=== PATIENT | female | born 1995 | race Caucasian/White ===

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

== ENCOUNTER 2017-01-13 04:04 | Emergency (ER) | payer OTHER ==
[2017-01-13 04:21] VITALS: TEMP 98.2
--- NOTE | 2017-01-13 04:39 | ED ---
General Adult HPI - General Chief complaint: Abdominal Pain Stated complaint: Abdominal Pain 14wks Preg Time Seen by Provider: 01/13/17 04:20 Source: patient, RN notes reviewed Mode of arrival: ambulatory Limitations: no limitations - History of Present Illness Initial comments: This is a 22-year-old female who presents emergency Department 14 weeks . She comes in because she's having mid abdominal pain. Patient states it started half an hour prior to arrival. Patient denies any vomiting but she states she is mildly nauseated. Patient denies any diarrhea. Patient denies any fever or chills. Patient states the pain Comes and goes in waves. Patient denies any chest pain difficulty breathing or shortness of breath. - Related Data Home Medications Medication Instructions Recorded Confirmed No Known Home Medications [No 11/21/16 01/13/17 Known Home Medications] Allergies Allergy/AdvReac Type Severity Reaction Status Date / Time nicotine [From Habitrol] Allergy Intermediate Rash/Hives Verified 01/13/17 04:20 adhesive tape Allergy Rash/Hives Verified 01/13/17 04:20 shrimp Allergy Severe Swelling Uncoded 01/13/17 04:20 plastic tape Allergy Intermediate Rash/Hives Uncoded 01/13/17 04:20 Review of Systems ROS Statement: Those systems with pertinent positive or pertinent negative responses have been documented in the HPI. ROS Other: All systems not noted in ROS Statement are negative. Past Medical History Past Medical History: No Reported History Additional Past Medical History / Comment(s): Son born 05/24/2015 Obstetric history: This is her first and she has had care with Dr. Sage since 10 weeks. A+, abs neg, Rub Imm, RPR Nr, Hep B neg, normal 1hr GTT. GBS neg. She did have some contractions at 31 weeks with +FFN so received 2 doses of celestone. History of Any Multi-Drug Resistant Organisms: None Reported Past Surgical History: Adenoidectomy, Tonsillectomy Past Anesthesia/Blood Transfusion Reactions: No Reported Reaction Past Psychological History: Anxiety, Bipolar, Depression, PTSD Smoking Status: Current every day smoker Past Alcohol Use History: None Reported Additional Past Alcohol Use History / Comment(s): Patient is a smoker one pack per day for 4 years. She states she does smoke marijuana on a regular basis. She denies any other street drug use. She denies any alcohol abuse. She is single and lives at home with her parents. She has a 5-month-old son. Past Drug Use History: None Reported - Past Family History Father Additional Family Medical History / Comment(s): Father is alive at age 40 with no major medical problems. Brother(s) Additional Family Medical History / Comment(s): Patient has 1 brother and 2 sisters with no major medical problems. Mother Family Medical History: No Reported History Additional Family Medical History / Comment(s): Mother is alive at age 40 with no major medical problems. General Exam - General Exam Comments Initial Comments: GENERAL: Patient is well-developed and well-nourished. Patient is nontoxic and well- hydrated and is in no acute distress. ENT: Neck is soft and supple. No significant lymphadenopathy is noted. Oropharynx is clear. Moist mucous membranes. Neck has full range of motion without eliciting any pain. EYES: The sclera were anicteric and conjunctiva were pink and moist. Extraocular movements were intact and pupils were equal round and reactive to light. Eyelids were unremarkable. PULMONARY: Unlabored respirations. Good breath sounds bilaterally. No audible rales rhonchi or wheezing was noted. CARDIOVASCULAR: There is a regular rate and rhythm without any murmurs gallops or rubs. ABDOMEN: Soft and nontender with normal bowel sounds. No palpable organomegaly was noted. There is no palpable pulsatile mass. SKIN: Skin is clear with no lesions or rashes and otherwise unremarkable. NEUROLOGIC: Patient is alert and oriented x3. Cranial nerves II through XII are grossly intact. Motor and sensory are also intact. Normal speech, volume and content. Symmetrical smile. MUSCULOSKELETAL: Normal extremities with adequate strength and full range of motion. No lower extremity swelling or edema. No calf tenderness. LYMPHATICS: No significant lymphadenopathy is noted PSYCHIATRIC: Normal psychiatric evaluation. Limitations: no limitations Course Vital Signs 01/13/17 04:16 Temperature 98.2 F Pulse Rate 82 Respiratory 18 Rate Blood Pressure 111/68 O2 Sat by Pulse 96 Oximetry Medical Decision Making - Medical Decision Making Patient is having no pain at this time. - Lab Data Result diagrams: 01/13/17 04:44 01/13/17 04:44 Lab Results 01/13/17 01/13/17 01/13/17 Range/Units 04:25 04:44 04:44 WBC 11.4 H (4.0-11.0) k/uL RBC 4.13 (3.80-5.40) m/uL Hgb 12.8 (11.4-16.0) gm/dL Hct 36.7 (34.0-46.0) % MCV 88.9 (80.0-100.0) fL MCH 30.9 (25.0-35.0) pg MCHC 34.8 (31.0-37.0) g/dL RDW 13.5 (11.5-15.5) % Plt Count 232 (150-450) k/uL Neutrophils % 80 % Lymphocytes % 16 % Monocytes % 3 % Eosinophils % 1 % Basophils % 0 % Neutrophils # 9.1 H (1.3-7.7) k/uL Lymphocytes # 1.8 (1.0-4.8) k/uL Monocytes # 0.3 (0-1.0) k/uL Eosinophils # 0.1 (0-0.7) k/uL Basophils # 0.0 (0-0.2) k/uL Sodium 138 (137-145) mmol/L Potassium 3.7 (3.5-5.1) mmol/L Chloride 109 H (98-107) mmol/L Carbon Dioxide 20 L (22-30) mmol/L Anion Gap 9 mmol/L BUN 5 L (7-17) mg/dL Creatinine 0.50 L (0.52-1.04) mg/dL Est GFR (MDRD) Af Amer >60 (>60 ml/min/1.73 sqM) Est GFR (MDRD) Non-Af >60 (>60 ml/min/1.73 sqM) Glucose 91 (74-99) mg/dL Calcium 9.3 (8.4-10.2) mg/dL Total Bilirubin 0.5 (0.2-1.3) mg/dL AST 15 (14-36) U/L ALT 21 (9-52) U/L Alkaline Phosphatase 54 (38-126) U/L Total Protein 6.8 (6.3-8.2) g/dL Albumin 3.9 (3.5-5.0) g/dL Urine Color Yellow Urine Appearance Clear (Clear) Urine pH 6.5 (5.0-8.0) Ur Specific [place] 1.006 (1.001-1.035) Urine Protein Trace H (Negative) Urine Glucose (UA) Negative (Negative) Urine Ketones 2+ H (Negative) Urine Blood Negative (Negative) Urine Nitrite Negative (Negative) Urine Bilirubin Negative (Negative) Urine Urobilinogen <2.0 (<2.0) mg/dL Ur Leukocyte Esterase Moderate H (Negative) Urine RBC 1 (0-5) /hpf Urine WBC 1 (0-5) /hpf Ur Squamous Epith Cells 2 (0-4) /hpf Urine Mucus Rare H (None) /hpf Disposition Clinical Impression: Abdominal pain Disposition: HOME SELF-CARE Condition: Good Instructions: Abdominal Pain (ED) Time of Disposition: 06:03
[2017-01-13 04:47] LABS: Appearance,Urine Clear (Clear); Bilirubin,Urine Negative (Negative); Glucose,Urine (UA) Negative (Negative); Ketones,Urine 2+ (Negative); Leukocyte Esterase,Urine Moderate (Negative); Mucus,Urine Rare /hpf; Nitrite,Urine Negative (Negative); PH, Urine 6.5 (5.0-8.0); Particle Count 6614; Protein,Urine Trace (Negative); RBC,Urine 1 /hpf (0-5); Specific Gravity,Urine 1.006 (1.001-1.035); Squamous Epithelial Cell,Urine 2 /hpf (0-4); UA Billing (MACRO vs. MICRO) MICRO; Urobilinogen,Urine <2.0 mg/dL (<2.0); WBC,Urine 1 /hpf (0-5)
[2017-01-13 04:49] LABS: Basophils % (A) 0 %; CH 31.7; CHCM 35.8; Eosinophils # (A) 0.1 k/uL (0-0.7); Eosinophils % (A) 1 %; HCT 36.7 % (34.0-46.0); HDW 2.55; HGB 12.8 gm/dL (11.4-16.0); Luc # (Auto) 0.12; Luc % (Auto) 1; Lymphocytes # (A) 1.8 k/uL (1.0-4.8); Lymphocytes % (A) 16 %; MCH 30.9 pg (25.0-35.0); MCHC 34.8 g/dL (31.0-37.0); MCV 88.9 fL (80.0-100.0); Mean Platelet Volume 7.2; Monocytes # (A) 0.3 k/uL (0-1.0); Monocytes % (A) 3 %; Neutrophils # (A) 9.1 k/uL (1.3-7.7); Neutrophils % (A) 80 %; RBC 4.13 m/uL (3.80-5.40); RDW 13.5 % (11.5-15.5); WBC 11.4 k/uL (4.0-11.0); WBC (Perox) 11.52
[2017-01-13 05:00] LABS: ALT 21 U/L (9-52); AST 15 U/L (14-36); Alkaline Phosphatase 54 U/L (38-126); Anion Gap 9 mmol/L; Blood Urea Nitrogen 5 mg/dL (7-17); Calcium 9.3 mg/dL (8.4-10.2); Carbon Dioxide 20 mmol/L (22-30); Chloride 109 mmol/L (98-107); Glucose 91 mg/dL (74-99); Non-African American GFR(MDRD) >60 (>60 ml/min/1.73 sqM); Potassium 3.7 mmol/L (3.5-5.1); Sodium 138 mmol/L (137-145); Total Bilirubin 0.5 mg/dL (0.2-1.3); Total Protein 6.8 g/dL (6.3-8.2)
[2017-01-13 06:15] VITALS: BP 110/57; PULSE 75; RESP 16
== END 2017-01-13 06:15 | disposition home or self-care (01) ==
LOC: EC 04:04
DX: O99.89 Other specified diseases and conditions complicating pregnancy, childbirth and the puerperium (principal); R10.9 Unspecified abdominal pain; R11.0 Nausea; O99.332 Smoking (tobacco) complicating pregnancy, second trimester; F17.200 Nicotine dependence, unspecified, uncomplicated; Z91.013 Allergy to seafood; Z91.048 Other nonmedicinal substance allergy status; Z91.09 Other allergy status, other than to drugs and biological substances; Z3A.14 14 weeks gestation of pregnancy
CPT/HCPCS: 36415; 80053; 81001; 85025; 99283

== ENCOUNTER 2017-02-11 22:32 | Emergency (ER) | payer OTHER ==
[2017-02-11 22:37] VITALS: BP 108/65; PULSE 87; RESP 18; TEMP 97
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
== END 2017-02-11 23:06 | disposition home or self-care (01) ==
LOC: EC 22:32
DX: O99.89 Other specified diseases and conditions complicating pregnancy, childbirth and the puerperium (principal); R10.9 Unspecified abdominal pain; O99.332 Smoking (tobacco) complicating pregnancy, second trimester; F17.200 Nicotine dependence, unspecified, uncomplicated; Z91.013 Allergy to seafood; Z91.09 Other allergy status, other than to drugs and biological substances; Z3A.18 18 weeks gestation of pregnancy; W50.1XXA Accidental kick by another person, initial encounter
CPT/HCPCS: 99283

== ENCOUNTER 2017-03-22 13:42 | Emergency (ER) | payer OTHER ==
[2017-03-22 13:50] VITALS: BP 116/67; PULSE 88; RESP 16; TEMP 97
--- NOTE | 2017-03-22 14:13 | ED ---
General Adult HPI - General Chief complaint: Extremity Injury, Upper Stated complaint: R arm injury Time Seen by Provider: 03/22/17 13:56 Source: patient, RN notes reviewed Mode of arrival: ambulatory Limitations: no limitations - History of Present Illness Initial comments: Patient 22-year-old female who presents emergency room today with chief complaint of injury to the right wrist that occurred proximal to half hour ago. She does admit that she accidentally closed the car door on her right wrist. Patient does admit to pain locally as worse with certain movements flexion and extension at the right wrist. He denies any other complaints or associated symptoms. Does admit that she is approximately 23 weeks . Patient denies any recent fever, chills, shortness of breath, chest pain, back pain, abdominal pain, nausea or vomiting, numbness or tingling, dysuria or hematuria, constipation or diarrhea, headaches or visual changes, or any other complaints. - Related Data Home Medications Medication Instructions Recorded Confirmed Cog-Qvge-Vnmms Acid 1 cap PO DAILY 02/11/17 02/11/17 [-U Capsule (formulary)] Allergies Allergy/AdvReac Type Severity Reaction Status Date / Time adhesive tape Allergy Rash/Hives Verified 03/22/17 13:49 shellfish derived [Shrimp] Allergy Anaphylaxis Verified 03/22/17 13:49 soap Allergy Rash/Hives Verified 03/22/17 13:49 Review of Systems ROS Statement: Those systems with pertinent positive or pertinent negative responses have been documented in the HPI. ROS Other: All systems not noted in ROS Statement are negative. Past Medical History Past Medical History: No Reported History Additional Past Medical History / Comment(s): Son born 05/24/2015 Obstetric history: This is her first and she has had care with Dr. Sage since 10 weeks. A+, abs neg, Rub Imm, RPR Nr, Hep B neg, normal 1hr GTT. GBS neg. She did have some contractions at 31 weeks with +FFN so received 2 doses of celestone. History of Any Multi-Drug Resistant Organisms: None Reported Past Surgical History: Adenoidectomy, Tonsillectomy Past Anesthesia/Blood Transfusion Reactions: No Reported Reaction Past Psychological History: Anxiety, Bipolar, Depression, PTSD Smoking Status: Current every day smoker Past Alcohol Use History: None Reported Past Drug Use History: None Reported - Past Family History Father Additional Family Medical History / Comment(s): Father is alive at age 40 with no major medical problems. Brother(s) Additional Family Medical History / Comment(s): Patient has 1 brother and 2 sisters with no major medical problems. Mother Family Medical History: No Reported History Additional Family Medical History / Comment(s): Mother is alive at age 40 with no major medical problems. General Exam - General Exam Comments Initial Comments: General: The patient is awake and alert, in no distress, and does not appear acutely ill. Neck: The neck is supple, there is no tenderness or JVD. Cardiovascular: There is a regular rate and rhythm. No murmur, rub or gallop is appreciated. Respiratory: Lungs are clear to auscultation, respirations are non-labored, breath sounds are equal. No wheezes, stridor, rales, or rhonchi. Musculoskeletal: Patient has normal appearance the right wrist no obvious deformity. No swelling or bruising. Shows good range of motion. Sensations intact Refill less than 2 seconds. Pulses equal bilaterally 2+. Mild tenderness over the distal ulna and radius. Neurological: A&O x 3. CN II-XII intact, There are no obvious motor or sensory deficits. Coordination appears grossly intact. Speech is normal. Skin: Skin is warm and dry and no rashes or lesions are noted. Psychiatric: Normal mood and affect. Limitations: no limitations Course Vital Signs 03/22/17 13:47 Temperature 97.0 F L Pulse Rate 88 Respiratory 16 Rate Blood Pressure 116/67 O2 Sat by Pulse 97 Oximetry Medical Decision Making - Medical Decision Making Patient currently 23 weeks . Options of a x-ray were discussed. This time shows good range of motion with minimal tenderness. She has declined x- ray. Patient has been splinted in a short arm thumb spica. Advised to follow- up family doctor have spoken removed in 2 days. Advised to return if any symptoms increase or worsen. Advised continued ice elevate the affected area. Disposition Clinical Impression: Wrist injury Disposition: HOME SELF-CARE Condition: Good Instructions: Wrist Injury (ED) Additional Instructions: Please continue to ice elevate the affected area at least splint on over the next 2 days. Please follow-up with family doctor in the next 2 days of symptoms have not improved. Please return to emergency room if the symptoms increase or worsen or for any other concerns. Referrals: None,Stated [Primary Care Provider] - 1-2 days Bill Matthews MD [STAFF PHYSICIAN] - 1-2 days Time of Disposition: 14:11
== END 2017-03-22 14:16 | disposition home or self-care (01) ==
LOC: EC 13:42
DX: O9A.212 Injury, poisoning and certain other consequences of external causes complicating pregnancy, second trimester (principal); S69.91XA Unspecified injury of right wrist, hand and finger(s), initial encounter; O99.332 Smoking (tobacco) complicating pregnancy, second trimester; F17.200 Nicotine dependence, unspecified, uncomplicated; Z91.048 Other nonmedicinal substance allergy status; Z91.013 Allergy to seafood; Z91.09 Other allergy status, other than to drugs and biological substances; Z79.899 Other long term (current) drug therapy; Z3A.23 23 weeks gestation of pregnancy; W22.8XXA Striking against or struck by other objects, initial encounter
CPT/HCPCS: 29125; 99283

== ENCOUNTER 2017-03-22 19:41 | Emergency (ER) | payer OTHER ==
[2017-03-22 19:57] VITALS: BP 109/61; PULSE 80; RESP 16; TEMP 97.7
--- NOTE | 2017-03-22 20:13 | ED ---
General Adult HPI - General Chief complaint: Extremity Injury, Upper Stated complaint: arm injury-return visit Time Seen by Provider: 03/22/17 20:03 Source: patient, RN notes reviewed, old records reviewed Mode of arrival: ambulatory Limitations: no limitations - History of Present Illness Initial comments: Patient 22-year-old female who presents emergency room today with chief complaint of injury to the right wrist that occurred earlier today. When she accidentally closed in a car door. Patient was seen here in the emergency room by myself earlier for the same complaint. At that time it was discussed about an x-ray. She had declined at that time due to she currently 23 weeks . This time she states that the pain has been increasing throughout the day. She states she is more concerned like to have an x-ray at this time. She does admit that she did go home to ice the area has been continue to wear the splint. Denies any new injury or trauma. Patient denies any recent fever, chills, shortness of breath, chest pain, back pain, abdominal pain, nausea or vomiting, numbness or tingling, dysuria or hematuria, constipation or diarrhea, headaches or visual changes, or any other complaints. - Related Data Home Medications Medication Instructions Recorded Confirmed Qxp-Ukts-Epmzl Acid 1 cap PO DAILY 02/11/17 02/11/17 [-U Capsule (formulary)] Allergies Allergy/AdvReac Type Severity Reaction Status Date / Time adhesive tape Allergy Rash/Hives Verified 03/22/17 19:58 shellfish derived [Shrimp] Allergy Anaphylaxis Verified 03/22/17 19:58 soap Allergy Rash/Hives Verified 03/22/17 19:58 Review of Systems ROS Statement: Those systems with pertinent positive or pertinent negative responses have been documented in the HPI. ROS Other: All systems not noted in ROS Statement are negative. Past Medical History Past Medical History: No Reported History Additional Past Medical History / Comment(s): A+, abs neg History of Any Multi-Drug Resistant Organisms: None Reported Past Surgical History: Adenoidectomy, Tonsillectomy Past Anesthesia/Blood Transfusion Reactions: No Reported Reaction Past Psychological History: Anxiety, Bipolar, Depression, PTSD Smoking Status: Current every day smoker Past Alcohol Use History: None Reported Past Drug Use History: None Reported - Past Family History Father Additional Family Medical History / Comment(s): Father is alive at age 40 with no major medical problems. Brother(s) Additional Family Medical History / Comment(s): Patient has 1 brother and 2 sisters with no major medical problems. Mother Family Medical History: No Reported History Additional Family Medical History / Comment(s): Mother is alive at age 40 with no major medical problems. General Exam - General Exam Comments Initial Comments: General: The patient is awake and alert, in no distress, and does not appear acutely ill. Neck: The neck is supple, there is no tenderness or JVD. Cardiovascular: There is a regular rate and rhythm. No murmur, rub or gallop is appreciated. Respiratory: Lungs are clear to auscultation, respirations are non-labored, breath sounds are equal. No wheezes, stridor, rales, or rhonchi. Musculoskeletal: Patient has normal appearance of her right wrist no deformity. Shows limited range of motion both flexion and extension at the right wrist due to pain. Locally tender over the distal ulna and radius. No tenderness on the digits. Cap refill less than 2 seconds. Sensations are intact with pulses equal bilaterally 2+. Strength is 5/5 down to the hand and of the right elbow. Wrist 4/5 due to pain with both flexion and extension. Neurological: A&O x 3. CN II-XII intact, There are no obvious motor or sensory deficits. Coordination appears grossly intact. Speech is normal. Skin: Skin is warm and dry and no rashes or lesions are noted. Psychiatric: Normal mood and affect. Limitations: no limitations Course Vital Signs 03/22/17 19:53 Temperature 97.7 F Pulse Rate 80 Respiratory 16 Rate Blood Pressure 109/61 O2 Sat by Pulse 97 Oximetry Medical Decision Making - Medical Decision Making X-ray reviewed and read by radiology negative for any acute fracture dislocation. Results were discussed with the patient. Patient be discharged home and advised to follow-up with orthopedics if symptoms persist. Patient has been resplinted in a thumb spica short arm splint on the right. Neurovascular rechecked and intact. Patient advised continued ice elevate and use Tylenol for pain. Disposition Clinical Impression: Wrist injury Disposition: HOME SELF-CARE Condition: Good Instructions: Wrist Injury (ED) Additional Instructions: Please continue to ice elevate the affected area at least 4 times daily. Please use Tylenol for pain. Please follow-up with orthopedics if symptoms persist over the next 7-10 days for repeat x-rays as discussed. Please return to emergency room if any symptoms worsen or for any other concerns. Referrals: None,Stated [Primary Care Provider] - 1-2 days Time of Disposition: 20:39
--- NOTE | 2017-03-22 20:27 | XR ---
EXAMINATION TYPE: XR wrist complete RT DATE OF EXAM: 03/22/2017 COMPARISON: NONE HISTORY: Pain TECHNIQUE: 4 views FINDINGS: I see no fracture nor dislocation. Joint spaces are normal. There are no pathologic calcifi cations. IMPRESSION: Normal right wrist
== END 2017-03-22 20:48 | disposition home or self-care (01) ==
LOC: EC 19:41
DX: O9A.212 Injury, poisoning and certain other consequences of external causes complicating pregnancy, second trimester (principal); S69.91XA Unspecified injury of right wrist, hand and finger(s), initial encounter; F17.200 Nicotine dependence, unspecified, uncomplicated; Z79.899 Other long term (current) drug therapy; Z91.013 Allergy to seafood; Z91.048 Other nonmedicinal substance allergy status; Z3A.23 23 weeks gestation of pregnancy; X58.XXXA Exposure to other specified factors, initial encounter; Y93.89 Activity, other specified
CPT/HCPCS: 29125; 99283

== ENCOUNTER 2017-04-19 11:55 | Outpatient (CLI) | payer OTHER ==
[2017-04-19 12:24] VITALS: BP 103/50; PULSE 64; RESP 16; TEMP 97.8
--- NOTE | 2017-04-20 07:31 | P.MSEPDOC ---
Presenting Problems - Arrival Data Date of Arrival on Unit: 04/19/17 Time of Arrival on Unit: 12:12 Mode of Transport: Ambulatory - Complaint OB-Reason for Admission/Chief Complaint: Other Comment: pt arrived c/o abd discomfort Medical History - Information : 2 Para: 1 Term: 1 : 0 Abortions: Spontaneous or Elective: 0 Number of Living Children: 1 - Gestational Age Expected Date of Delivery: 07/14/17 Gestational Age by ALEJANDRO (wks/days): 27 Weeks and 6 Days - History Complications: Smoker Review of Systems - Review of Systems Constitutional: No problems Breast: No problems ENT: No problems Cardiovascular: No problems Respiratory: No problems Gastrointestinal: No problems Genitourinary: No problems Musculoskeletal: No problems Neurological: No problems Skin: No problems Vital Signs - Temperature Temperature: 97.8 F Temperature Source: Oral - Pulse Right Brachial Pulse Rate: 64 Pulse Assessment Method: Automatic Cuff - Respirations Respiratory Rate: 16 Oxygen Delivery Method: Room Air - Blood Pressure Right Arm Blood Pressure: 103/50 Blood Pressure Mean: 67 Blood Pressure Source: Automatic Cuff Medical Screen Scoring (Post) - Cervical Exam Dilation: Exam Deferred Effacement: Exam Deferred - Uterine Contractions Frequency: N/A Duration: N/A Intensity: N/A - Maternal Vital Signs Maternal Respirations: N/A - Maternal Trauma Maternal Trauma: N/A - Assessment Heart Rate: 140 Heart Rate - NICHD Category: Category I (Normal) = 0 Position: N/A Station: N/A - Total Score Total Score (Post): 0 - Post Treatment Level of Risk Post Treatment Level of Risk: Low (0-5) Physician Notification (Post) - Physician Notified Physician Notified Date: 04/19/17 Physician Notified Time: 14:00 Physician/Practitioner Notified:: dr davila Spoke With: dr davila New Order Received: Yes - Notification Comment Comment: discharge to home Disposition - Disposition OB Disposition: Discharge to home Discharge Date: 04/19/17 Discharge Time: 14:10 I agree with the RN Medical Screening Exam: Yes Risk & Benefit of care provided described in d/c instruction: Yes Diagnosis: PELVIC AND PERINEAL PAIN
== END 2017-04-19 14:10 | disposition home or self-care (01) ==
LOC: FBPOP 11:55
PROVIDERS: ATTEND Obstetrics & Gynecology
DX: O99.89 Other specified diseases and conditions complicating pregnancy, childbirth and the puerperium (principal); R10.2 Pelvic and perineal pain; Z3A.27 27 weeks gestation of pregnancy
CPT/HCPCS: 99213

== ENCOUNTER 2017-04-27 11:39 | Outpatient (CLI) | payer OTHER ==
[2017-04-27 12:30] VITALS: BP 119/73; PULSE 74; RESP 17; TEMP 96.5
--- NOTE | 2017-04-27 23:35 | P.MSEPDOC ---
Presenting Problems - Arrival Data Date of Arrival on Unit: 04/27/17 Time of Arrival on Unit: 11:32 Mode of Transport: Wheelchair - Complaint OB-Reason for Admission/Chief Complaint: Rule Out PROM Comment: Possible rupture of membranes about 1030 this AM Medical History - Information : 2 Para: 1 Term: 1 : 0 Abortions: Spontaneous or Elective: 0 Number of Living Children: 1 - Gestational Age Expected Date of Delivery: 07/14/17 Gestational Age by ALEJANDRO (wks/days): 28 Weeks and 6 Days - History Complications: Smoker Comment: Positive FFN in first -delivered full term, however Review of Systems - Review of Systems Constitutional: No problems Breast: No problems ENT: No problems Cardiovascular: No problems Respiratory: No problems Gastrointestinal: No problems Genitourinary: No problems Musculoskeletal: No problems Neurological: No problems Skin: No problems Vital Signs - Temperature Temperature: 96.5 F Temperature Source: Temporal Artery Scan - Pulse Pulse Oximetery Pulse Rate: 74 Pulse Assessment Method: Pulse Oximetry - Respirations Respiratory Rate: 17 Oxygen Delivery Method: Room Air O2 Sat by Pulse Oximetry: 100 - Blood Pressure Right Arm Blood Pressure: 119/73 Blood Pressure Mean: 88 Blood Pressure Source: Automatic Cuff Medical Screen Scoring (Pre) - Cervical Exam Dilation: 0 cm = 0 Membranes: Intact - Uterine Contractions Frequency: N/A Duration: N/A Intensity: N/A - Maternal Vital Signs Maternal Temperature: N/A Maternal Blood Pressure: N/A Signs of Preeclampsia: N/A Maternal Respirations: N/A - Maternal Trauma Maternal Trauma: N/A - Assessment Baseline FHR: 135 Heart Rate - NICHD Category: Category I (Normal) = 0 NST: Reactive Position: N/A Station: N/A - Total Score Total Score (Pre): 0 - Level of Risk Level of Risk: Low (0-5) Physician Notification (Pre) - Physician Notified Physician Notified Date: 04/27/17 Physician Notified Time: 11:47 Physician/Practitioner Notifed:: Chu Spoke With: Chu New Order Received: Yes - Notification Comment Comment: ORder to collect FFN, and perform amni-sure. If negative amni-sure, check cervix and report back to Dr. Sage. Will send FFN if patient is dilated. If closed, do not need to send FFN and patient may be discharged home. Disposition - Disposition OB Disposition: Discharge to home Discharge Date: 04/27/17 Discharge Time: 12:20 I agree with the RN Medical Screening Exam: Yes Risk & Benefit of care provided described in d/c instruction: Yes Diagnosis: VAGINITIS, VULVITIS AND VULVOVAGINITIS IN DIS CLASSD [id number]
== END 2017-04-27 12:20 | disposition home or self-care (01) ==
LOC: FBPOP 11:39
PROVIDERS: ATTEND Obstetrics & Gynecology
DX: O23.593 Infection of other part of genital tract in pregnancy, third trimester (principal); Z3A.28 28 weeks gestation of pregnancy
CPT/HCPCS: 84112; G0463; 99213

== ENCOUNTER → 2017-05-12 | Outpatient (CLI) | payer OTHER ==
[2017-05-12 13:43] LABS: CH 31.8; CHCM 34.6; HCT 34.8 % (34.0-46.0); HDW 3.09; HGB 11.8 gm/dL (11.4-16.0); MCH 31.3 pg (25.0-35.0); MCHC 33.9 g/dL (31.0-37.0); MCV 92.4 fL (80.0-100.0); Mean Platelet Volume 7.9; RBC 3.77 m/uL (3.80-5.40); RDW 13.1 % (11.5-15.5); WBC 8.6 k/uL (4.0-11.0)
== END | disposition home or self-care (01) ==
LOC: LABWHC1 12:12
PROVIDERS: ATTEND Obstetrics & Gynecology
DX: Z34.83 Encounter for supervision of other normal pregnancy, third trimester (principal); Z3A.00 Weeks of gestation of pregnancy not specified
CPT/HCPCS: 36415; 82950; 85027

== ENCOUNTER 2017-05-23 21:39 | Observation (INO) | payer OTHER ==
[2017-05-23 22:19] LABS: Appearance,Urine Clear (Clear); Bilirubin,Urine Negative (Negative); Glucose,Urine (UA) Negative (Negative); Ketones,Urine Negative (Negative); Leukocyte Esterase,Urine Large (Negative); Mucus,Urine Rare /hpf; Nitrite,Urine Negative (Negative); Particle Count 7088; Protein,Urine Negative (Negative); RBC,Urine 1 /hpf (0-5); Specific Gravity,Urine 1.017 (1.001-1.035); Squamous Epithelial Cell,Urine 3 /hpf (0-4); UA Billing (MACRO vs. MICRO) MICRO; Urobilinogen,Urine <2.0 mg/dL (<2.0); WBC,Urine 8 /hpf (0-5)
[2017-05-23 22:45] VITALS: BP 117/66; PULSE 62; RESP 16; TEMP 97.1
[2017-05-24] MEDS: BETAMET ACET-BETAMETH SOD PHOS 6 MG/ML VIAL IM SCH ×2 (00:18→23:48)
[2017-05-24] MEDS: LACTATED RINGERS 1,000 ML IV SCH ×3 (00:38→17:02)
[2017-05-24 00:43] VITALS: BMI 22.4
[2017-05-24] MEDS: ACETAMINOPHEN TAB 325 MG TAB PO PRN ×4 (02:05→18:56)
--- NOTE | 2017-05-24 08:13 | US ---
EXAMINATION TYPE: US OB limited DATE OF EXAM: 05/24/2017 COMPARISON: US 12/17/2016 CLINICAL HISTORY: NELI. Contractions x 2 days EXAM PERFORMED: Transabdominal (TA) GESTATIONAL AGE / DATING Physician Established: (32 weeks/5 days) EDC: 07/14/2017 No growth performed on today?s study per ordering physician SURVEY PLACENTA: posterior PREVIA: no NELI: 11.1 cm Normal Ultrasound evidence of premature rupture of membranes? no CERVICAL LENGTH (transabdominal: norm > 3.0cm): 3.8 cm Ultrasound evidence of cervical incompetence? no (Tech?if abnormal transabdominally?image transvaginally to substantiate abnormality.) PRESENTATION: Vertex HEART RATE: 158 bpm RHYTHM: Normal IMPRESSION: 1. Single intrauterine gestation in the cephalic presentation. Cardiac activity measures 158 bpm. 2. NELI measures 11.08 cm.
--- NOTE | 2017-05-24 08:46 | P.HPOB ---
History of Present Illness H&P Date: 05/24/17 Chief Complaint: Intrauterine at 32 weeks: labor Patient is a 22-year-old at 32 weeks gestation. She arrived yesterday for contractions and she was javy irregularly every 3-5 minutes. They were rated at 6-7 out of 10 for pain and she described a slight increase in pressure sensation. While she was here just during observation the contractions started to dissipate on their own but a fibronectin returned positive. She was noted to be fingertip dilated. Due to the positive fibronectin we are admitting her for 24-hour observation and steroids. A urinalysis shows slight increase in white blood cells and leukocyte esterase. She will early UTI as well. We'll initiate Keflex for this. She is otherwise stable. heart tones are in the 120s and are reactive. On physical exam vital signs are stable and she is afebrile. Heart regular, lungs clear, extremities without pain. Abdomen soft and contractions are their palpate as light. An ultrasound was done this morning with an NELI of 11. We' ll continue observational care for now. Past medical history none. Past surgical history tonsils and adenoids. Family history diabetes. Social history positive for tobacco abuse proxy for serous per day. She is advised to quit smoking. ALLERGIES none. Past Medical History Past Medical History: No Reported History Additional Past Medical History / Comment(s): A+, abs neg History of Any Multi-Drug Resistant Organisms: None Reported Past Surgical History: Adenoidectomy, Tonsillectomy Past Anesthesia/Blood Transfusion Reactions: No Reported Reaction Past Psychological History: Anxiety, Bipolar, Depression, PTSD Smoking Status: Current every day smoker Past Alcohol Use History: None Reported Additional Past Alcohol Use History / Comment(s): Patient is a smoker one pack per day for 4 years. She states she does smoke marijuana on a regular basis. She denies any other street drug use. She denies any alcohol abuse. She is single and lives at home with her parents. She has a 5-month-old son. Past Drug Use History: None Reported - Past Family History Father Additional Family Medical History / Comment(s): Father is alive at age 40 with no major medical problems. Brother(s) Additional Family Medical History / Comment(s): Patient has 1 brother and 2 sisters with no major medical problems. Mother Family Medical History: No Reported History Additional Family Medical History / Comment(s): Mother is alive at age 40 with no major medical problems. Medications and Allergies Home Medications Medication Instructions Recorded Confirmed Type No Known Home Medications [No 04/18/17 05/23/17 History Known Home Medications] Allergies Allergy/AdvReac Type Severity Reaction Status Date / Time adhesive tape Allergy Rash/Hives Verified 05/23/17 21:54 shellfish derived [Shrimp] Allergy Anaphylaxis Verified 05/23/17 21:54 soap Allergy Rash/Hives Verified 05/23/17 21:54 Exam Osteopathic Statement: *. No significant issues noted on an osteopathic structural exam other than those noted in the History and Physical/Consult. - Vital Signs Vital signs: Vital Signs Temp Pulse Resp BP Pulse Ox 05/23/17 22:07 97.1 F L 62 16 117/66 97 Intake and Output 05/23/17 05/24/17 05/24/17 22:59 06:59 14:59 Other: # Voids 1 Weight 52.163 kg 52.163 kg Results Abnormal Lab Results - Last 24 Hours (Table) 05/23/17 Range/Units 22:08 Ur Leukocyte Esterase Large H (Negative) Urine WBC 8 H (0-5) /hpf Urine Mucus Rare H (None) /hpf
[2017-05-24] MEDS: CEPHALEXIN 500 MG CAP PO SCH ×4 (10:27→21:36)
[2017-05-25] MEDS: LACTATED RINGERS 1,000 ML IV SCH (00:50)
[2017-05-25] MEDS: ACETAMINOPHEN TAB 325 MG TAB PO PRN (07:34)
[2017-05-25] MEDS: CEPHALEXIN 500 MG CAP PO SCH (07:35)
--- NOTE | 2017-05-25 12:21 | P.DS ---
Providers Date of admission: 05/23/17 23:18 Expected date of discharge: 05/25/17 Attending physician: Ayan Kaur Primary care physician: Stated None - Discharge Diagnosis(es) (1) contractions positive FFN Current Visit: Yes Status: Acute Hospital Course: Pt was admitted with contractions and a +FFN. The contractions stopped without meds. She did receive 2 doses of celestone. She is doing very well now. cervix is fingertip and thick. She will be discharged home on pelvic rest to follow up with me next week. Plan - Discharge Summary New Discharge Prescriptions: No Action No Known Home Medications [No Known Home Medications] Discharge Medication List No Known Home Medications [No Known Home Medications] 04/18/17 [History] Follow up Appointment(s)/Referral(s): Elin Sage DO [Doctor of Osteopathic Medicine] - 1 Week Discharge Disposition: HOME SELF-CARE
--- NOTE | 2017-05-26 17:42 | P.MSEPDOC ---
Presenting Problems - Arrival Data Date of Arrival on Unit: 05/23/17 Time of Arrival on Unit: 21:41 Mode of Transport: Portable - Complaint OB-Reason for Admission/Chief Complaint: Possible Onset of Labor Comment: Contractions beginning about 1999 Medical History - Information : 2 Para: 1 Term: 1 : 0 Abortions: Spontaneous or Elective: 0 Number of Living Children: 1 - Gestational Age Expected Date of Delivery: 07/14/17 Gestational Age by ALEJANDRO (wks/days): 33 Weeks and 0 Days - History Complications: Smoker Review of Systems - Review of Systems Constitutional: No problems Breast: No problems ENT: No problems Cardiovascular: No problems Respiratory: No problems Gastrointestinal: No problems Genitourinary: No problems Musculoskeletal: No problems Neurological: No problems Skin: No problems Vital Signs - Temperature Temperature: 97.1 F Temperature Source: Temporal Artery Scan - Pulse Pulse Oximetery Pulse Rate: 62 Pulse Assessment Method: Pulse Oximetry - Respirations Respiratory Rate: 16 Oxygen Delivery Method: Room Air O2 Sat by Pulse Oximetry: 97 - Blood Pressure Right Arm Blood Pressure: 117/66 Blood Pressure Mean: 83 Blood Pressure Source: Automatic Cuff Medical Screen Scoring (Pre) - Cervical Exam Dilation: 0 cm = 0 Effacement: Exam Deferred Membranes: Intact - Uterine Contractions Frequency: < 36 weeks = 6 Duration: N/A Intensity: N/A - Maternal Vital Signs Maternal Temperature: N/A Maternal Blood Pressure: N/A Signs of Preeclampsia: N/A Maternal Respirations: N/A - Maternal Trauma Maternal Trauma: N/A - Assessment Baseline FHR: 135 Heart Rate - NICHD Category: Category I (Normal) = 0 NST: Reactive Position: N/A Station: N/A - Total Score Total Score (Pre): 6 - Level of Risk Level of Risk: Low (0-5) Physician Notification (Pre) - Physician Notified Physician Notified Date: 05/23/17 Physician Notified Time: 22:07 Physician/Practitioner Notifed:: Natasha Spoke With: Natasha New Order Received: Yes (see below) - Notification Comment Comment: Send FFN and U/A, call with results. Medical Screen Scoring (Post) - Cervical Exam Dilation: Exam Deferred Effacement: Exam Deferred Membranes: Intact - Uterine Contractions Frequency: < 36 weeks = 6 Duration: N/A Intensity: N/A - Maternal Vital Signs Maternal Temperature: N/A Maternal Blood Pressure: N/A Signs of Preeclampsia: N/A Maternal Respirations: N/A - Maternal Trauma Maternal Trauma: N/A - Assessment Heart Rate: 135 Heart Rate - NICHD Category: Category I (Normal) = 0 NST: Reactive Position: N/A Station: N/A - Total Score Total Score (Post): 6 - Post Treatment Level of Risk Post Treatment Level of Risk: Low (0-5) Physician Notification (Post) - Physician Notified Physician Notified Date: 05/23/17 Physician Notified Time: 23:05 Physician/Practitioner Notified:: Natasha Spoke With: Natasha New Order Received: Yes - Notification Comment Comment: Admit to L&D for OBV. Order for initial dose of celestone 12mg, and IV with LR for hydration. Regular diet. Disposition - Disposition OB Disposition: Observe Discharge Date: 05/25/17 Discharge Time: 12:29 I agree with the RN Medical Screening Exam: Yes Risk & Benefit of care provided described in d/c instruction: Yes Diagnosis: FALSE LABOR BEFORE 37 COMPLETED WEEKS OF GEST, THIRD TRI
== END 2017-05-25 12:45 | disposition home or self-care (01) ==
LOC: FBPOP 21:39 → 4FBP 23:18
PROVIDERS: ADMIT Obstetrics & Gynecology; ATTEND Obstetrics & Gynecology
DX: O60.03 Preterm labor without delivery, third trimester (principal); Z3A.32 32 weeks gestation of pregnancy; O23.43 Unspecified infection of urinary tract in pregnancy, third trimester; Z83.3 Family history of diabetes mellitus; F17.200 Nicotine dependence, unspecified, uncomplicated; O99.333 Smoking (tobacco) complicating pregnancy, third trimester; F12.90 Cannabis use, unspecified, uncomplicated; O99.323 Drug use complicating pregnancy, third trimester; Z91.013 Allergy to seafood; Z91.048 Other nonmedicinal substance allergy status
CPT/HCPCS: 59025; 96360; 96361 ×2; 96372; 82731; 81001; 76815; G0463; G0378 ×3; J0702; 99214

== ENCOUNTER 2017-05-26 12:55 | Outpatient (CLI) | payer OTHER ==
[2017-05-26 13:19] VITALS: BP 108/56; PULSE 71; RESP 18; TEMP 97.7
[2017-05-26 13:55] LABS: Amorphous Sediment,Urine Rare /hpf; Appearance,Urine Clear (Clear); Bacteria,Urine Rare /hpf; Bilirubin,Urine Negative (Negative); Glucose,Urine (UA) Negative (Negative); Ketones,Urine Negative (Negative); Leukocyte Esterase,Urine Small (Negative); Mucus,Urine Rare /hpf; Nitrite,Urine Negative (Negative); PH, Urine 7.5 (5.0-8.0); Particle Count 3436; Protein,Urine Negative (Negative); Specific Gravity,Urine 1.007 (1.001-1.035); Squamous Epithelial Cell,Urine 1 /hpf (0-4); UA Billing (MACRO vs. MICRO) MICRO; Urobilinogen,Urine <2.0 mg/dL (<2.0); WBC,Urine 1 /hpf (0-5)
--- NOTE | 2017-07-19 08:50 | P.MSEPDOC ---
Presenting Problems - Arrival Data Date of Arrival on Unit: 05/26/17 Time of Arrival on Unit: 13:00 Mode of Transport: Wheelchair - Complaint OB-Reason for Admission/Chief Complaint: Pain Comment: back pain 05/29 Medical History - Information : 2 Para: 1 Term: 1 : 0 Abortions: Spontaneous or Elective: 0 Number of Living Children: 1 - Gestational Age Gestational Age by ALEJANDRO (wks/days): 33 Weeks and 0 Days - History Complications: Smoker Review of Systems - Review of Systems Constitutional: No problems Breast: No problems ENT: No problems Cardiovascular: No problems Respiratory: No problems Gastrointestinal: No problems Genitourinary: No problems Musculoskeletal: No problems Neurological: No problems Skin: No problems Vital Signs - Temperature Temperature: 97.7 F Temperature Source: Oral - Pulse Right Sitting Brachial Pulse Rate: 71 Pulse Assessment Method: Automatic Cuff - Respirations Respiratory Rate: 18 Oxygen Delivery Method: Room Air O2 Sat by Pulse Oximetry: 98 - Blood Pressure Right Arm Sitting Blood Pressure: 108/56 Blood Pressure Mean: 73 Blood Pressure Source: Automatic Cuff Medical Screen Scoring (Pre) - Cervical Exam Dilation: Exam Deferred Effacement: Exam Deferred - Uterine Contractions Frequency: N/A - Maternal Vital Signs Maternal Temperature: N/A Maternal Blood Pressure: N/A Signs of Preeclampsia: N/A Maternal Respirations: N/A - Maternal Trauma Maternal Trauma: N/A - Assessment Baseline FHR: 135 Heart Rate - NICHD Category: Category I (Normal) = 0 Position: N/A Station: N/A - Total Score Total Score (Pre): 0 - Level of Risk Level of Risk: Low (0-5) Medical Screen Scoring (Post) - Cervical Exam Dilation: 0 cm = 0 Membranes: Intact - Uterine Contractions Frequency: N/A - Maternal Vital Signs Maternal Temperature: N/A Maternal Blood Pressure: N/A Signs of Preeclampsia: N/A Maternal Respirations: N/A - Maternal Trauma Maternal Trauma: N/A - Assessment Heart Rate: 140 Heart Rate - NICHD Category: Category I (Normal) = 0 NST: Reactive Position: N/A Station: N/A - Total Score Total Score (Post): 0 - Post Treatment Level of Risk Post Treatment Level of Risk: Low (0-5) Disposition - Disposition OB Disposition: Physician follow up in office, Discharge to home, Written follow up instructions reviewed Discharge Date: 05/26/17 Discharge Time: 14:40 I agree with the RN Medical Screening Exam: Yes Risk & Benefit of care provided described in d/c instruction: Yes Diagnosis: FALSE LABOR BEFORE 37 COMPLETED WEEKS OF GEST, THIRD TRI
== END 2017-05-26 14:45 | disposition home or self-care (01) ==
LOC: FBPOP 12:55
PROVIDERS: ATTEND Obstetrics & Gynecology
DX: O47.03 False labor before 37 completed weeks of gestation, third trimester (principal); Z3A.33 33 weeks gestation of pregnancy
CPT/HCPCS: 59025; 81001; G0463; 99213

== ENCOUNTER 2017-05-27 23:33 | Outpatient (CLI) | payer OTHER ==
[2017-05-28 00:38] VITALS: BP 123/61; PULSE 74; RESP 15; TEMP 98
--- NOTE | 2017-05-28 10:17 | P.MSEPDOC ---
Presenting Problems - Arrival Data Date of Arrival on Unit: 05/27/17 Time of Arrival on Unit: 23:33 Mode of Transport: Wheelchair - Complaint OB-Reason for Admission/Chief Complaint: Possible Onset of Labor Medical History - Information : 2 Para: 1 Term: 1 : 0 Abortions: Spontaneous or Elective: 0 Number of Living Children: 1 - Gestational Age Expected Date of Delivery: 07/14/17 Gestational Age by ALEJANDRO (wks/days): 33 Weeks and 2 Days Review of Systems - Review of Systems Constitutional: No problems Breast: No problems ENT: No problems Cardiovascular: No problems Respiratory: No problems Gastrointestinal: No problems Genitourinary: No problems Musculoskeletal: No problems Neurological: No problems Skin: No problems Vital Signs - Temperature Temperature: 98 F Temperature Source: Oral - Pulse Pulse Oximetery Pulse Rate: 74 Pulse Assessment Method: Pulse Oximetry - Respirations Respiratory Rate: 15 Oxygen Delivery Method: Room Air O2 Sat by Pulse Oximetry: 100 - Blood Pressure Right Arm Blood Pressure: 123/61 Blood Pressure Mean: 81 Blood Pressure Source: Automatic Cuff Medical Screen Scoring (Pre) - Cervical Exam Dilation: 0 cm = 0 Membranes: Intact - Uterine Contractions Frequency: > 5 minutes apart = 1 Duration: N/A Intensity: N/A - Maternal Vital Signs Maternal Temperature: N/A Maternal Blood Pressure: N/A Signs of Preeclampsia: N/A Maternal Respirations: N/A - Maternal Trauma Maternal Trauma: N/A - Assessment Baseline FHR: 140 Heart Rate - NICHD Category: Category I (Normal) = 0 NST: Reactive Position: N/A Station: N/A - Total Score Total Score (Pre): 1 - Level of Risk Level of Risk: Low (0-5) Physician Notification (Pre) - Physician Notified Physician Notified Date: 05/28/17 Physician Notified Time: 00:19 Physician/Practitioner Notifed:: Dr Pritchett New Order Received: Yes Disposition - Disposition OB Disposition: Discharge to home, Written follow up instructions reviewed Discharge Date: 05/28/17 Discharge Time: 00:30 I agree with the RN Medical Screening Exam: Yes Risk & Benefit of care provided described in d/c instruction: Yes Diagnosis: FALSE LABOR BEFORE 37 COMPLETED WEEKS OF GEST, THIRD TRI
== END 2017-05-28 00:30 | disposition home or self-care (01) ==
LOC: FBPOP 23:33
PROVIDERS: ATTEND Obstetrics & Gynecology
DX: O47.03 False labor before 37 completed weeks of gestation, third trimester (principal); Z3A.33 33 weeks gestation of pregnancy
CPT/HCPCS: 59025; G0463; 99213

== ENCOUNTER 2017-06-25 18:50 | Inpatient (IN) | payer OTHER ==
[2017-06-25] MEDS ORDERED: CITRIC ACID-SODIUM CITRATE 15 ML CUP PO ONE (20:02)
[2017-06-25] MEDS ORDERED: LACTATED RINGERS 1,000 ML IV ONE (20:02)
[2017-06-25] MEDS ORDERED: ceFAZolin 2 GM in SODIUM CHLORIDE 0.9% 100 ML IVPB ONE (20:02)
[2017-06-25] MEDS ORDERED: SUCCINYLCHOLINE CHLORIDE 100 MG/5 ML SYR IV ONE (20:16)
[2017-06-25] MEDS ORDERED: ONDANSETRON 4 MG/2 ML VIAL ONE (20:16)
[2017-06-25] MEDS ORDERED: OXYTOCIN 10 UNIT/ML 1 ML VIAL ONE (20:16)
[2017-06-25] MEDS ORDERED: KETOROLAC 30 MG/ML 1 ML VIAL ONE (20:16)
[2017-06-25] MEDS ORDERED: fentaNYL (PF) 50 MCG/ML 2 ML AMP ONE (20:16)
[2017-06-25] MEDS ORDERED: LIDOCAINE 1% INJ 10MG/ML (20 ML MDV) ONE (20:16)
[2017-06-25] MEDS ORDERED: HYDROmorphone (PF) 1 MG/ML ONE (20:16)
[2017-06-25] MEDS ORDERED: PROPOFOL 10 MG/ML 20 ML VIAL IV ONE (20:16)
[2017-06-25 20:21] LABS: Basophils % (A) 0 %; CH 29.3; CHCM 33.1; Eosinophils # (A) 0.1 k/uL (0-0.7); Eosinophils % (A) 1 %; HCT 35.3 % (34.0-46.0); HDW 2.92; HGB 11.9 gm/dL (11.4-16.0); Luc # (Auto) 0.21; Luc % (Auto) 2; Lymphocytes # (A) 2.1 k/uL (1.0-4.8); Lymphocytes % (A) 19 %; MCH 29.9 pg (25.0-35.0); MCHC 33.7 g/dL (31.0-37.0); MCV 88.8 fL (80.0-100.0); Mean Platelet Volume 9.6; Monocytes # (A) 0.5 k/uL (0-1.0); Monocytes % (A) 5 %; Neutrophils # (A) 8.1 k/uL (1.3-7.7); Neutrophils % (A) 73 %; RBC 3.98 m/uL (3.80-5.40); RDW 13.3 % (11.5-15.5); WBC 11.1 k/uL (4.0-11.0); WBC (Perox) 11.82
--- NOTE | 2017-06-25 21:04 | P.HPOB ---
History of Present Illness H&P Date: 06/25/17 Chief Complaint: Contractions, possible rupture of membranes This is a 22-year-old female 2 para 1 with an estimated date of confinement of 07/14/2017, estimated gestational age of 37 and one sevenths weeks, who presented to labor and delivery triage complaining of question with spontaneous rupture membranes with irregular contractions. care has been with Dr. Sage and has been uncomplicated per patient other than she did have a positive fibronectin and was given steroids at approximately 32 weeks. She denied feeling any regular contractions however upon arrival to triage she was noted to be javy every 1-2 minutes. Amnisure was negative. Her cervix was noted to be 1 thick and high and she was being observed for an hour to recheck her cervix. She was given oral hydration at that time. All of the sudden her heart tones dropped down into the 90s to 100s for almost 10 minutes with slow return to baseline and then dropping again. Based on these heart tones, the decision was made to proceed with emergency section. labs: Random glucose-82 Hepatitis B surface antigen-negative Hemoglobin-13.2 Syphilis antibody-negative nonreactive Rubella-low positive Blood type-A+ Antibody screen-negative Obstetrical ultrasound-normal anatomy One hour Glucola-99 Obstetrical history: . History of 1 vaginal delivery at 39 weeks with an infant weight of 5 lbs. 4 oz. Review of Systems Constitutional: Denies chills, Denies fever Eyes: denies blurred vision, denies pain Cardiovascular: Denies chest pain, Denies shortness of breath Respiratory: Denies cough Gastrointestinal: Reports abdominal pain (Irregular contractions) Genitourinary: Reports pelvic pain, Reports , Reports vaginal discharge , Denies abnormal vaginal bleeding Musculoskeletal: Reports low back pain Neurological: Denies numbness, Denies weakness Psychiatric: Reports anxiety, Reports depression, Reports difficulty concentrating Past Medical History Past Medical History: No Reported History History of Any Multi-Drug Resistant Organisms: None Reported Past Surgical History: Adenoidectomy, Tonsillectomy Past Anesthesia/Blood Transfusion Reactions: No Reported Reaction Past Psychological History: ADD/ADHD, Anxiety, Bipolar, Depression Smoking Status: Current every day smoker Past Alcohol Use History: None Reported Past Drug Use History: None Reported - Past Family History Father Additional Family Medical History / Comment(s): Father is alive at age 40 with no major medical problems. Brother(s) Additional Family Medical History / Comment(s): Patient has 1 brother and 2 sisters with no major medical problems. Mother Family Medical History: No Reported History Additional Family Medical History / Comment(s): Mother is alive at age 40 with no major medical problems. Medications and Allergies Home Medications Medication Instructions Recorded Confirmed Type No Known Home Medications [No 04/18/17 06/25/17 History Known Home Medications] Allergies Allergy/AdvReac Type Severity Reaction Status Date / Time adhesive tape Allergy Rash/Hives Verified 06/25/17 19:01 shellfish derived [Shrimp] Allergy Anaphylaxis Verified 06/25/17 19:01 soap Allergy Rash/Hives Verified 06/25/17 19:01 Exam Osteopathic Statement: *. No significant issues noted on an osteopathic structural exam other than those noted in the History and Physical/Consult. - Vital Signs Vital signs: Intake and Output 06/25/17 06/25/17 06/25/17 06:59 14:59 22:59 Other: Weight 55.338 kg Patient Weight 06/26/17 06:59 Weight 55.338 kg HEENT: Within normal limits Heart: Regular rate and rhythm Lungs: Clear to auscultation bilaterally Abdomen: , nontender heart tones: Initially were 140s with good variability and positive accelerations, then she had at least a 10 minute deceleration down to the 100s with slow return to baseline. Contractions: Every 1-2 minutes Extremities: Gait of Homans Cervix: Per nursing was 1 cm thick and high Results Result Diagrams: 06/25/17 20:12 Abnormal Lab Results - Last 24 Hours (Table) 06/25/17 Range/Units 20:12 WBC 11.1 H (4.0-11.0) k/uL Neutrophils # 8.1 H (1.3-7.7) k/uL Assessment and Plan (1) 37 weeks gestation of Status: Acute (2) Non-reassuring heart rate with late deceleration Status: Acute Plan: Plan is admission for stat section. I have discussed the risks, benefits, and alternative therapies for the above- mentioned procedure and for both sedation/anesthesia as well as necessary blood products administration, if indicated, as they pertain to this patient. The patient has indicated her understanding and acceptance of the risks and procedures discussed.
--- NOTE | 2017-06-25 21:08 | P.OP ---
Date of Procedure: 06/25/17 Preoperative Diagnosis: 1. Intrauterine at 37 and one sevenths weeks. 2. Prolonged deceleration. 3. Remote from delivery. Postoperative Diagnosis: Same Procedure(s) Performed: Stat Primary low transverse section Anesthesia: KARINA Surgeon: Eve Pritchett Urban Sociologist #1: Wen Davis Estimated Blood Loss (ml): 600 Pathology: other (Placenta) Condition: stable Disposition: floor Indications for Procedure: This is a 22-year-old female 2 para 1 at 37 and one sevenths weeks who presented to triage complaining of question most spontaneous rupture membranes. Amnisure was negative. She was found to be 1 cm thick and high. heart tones were initially reactive in the 140s. She had a prolonged deceleration down to the 90s to 100s with dips further into the 50s and 60s and slow return to 120s. She was immediately set up for an emergency section and did sign consents. I have discussed the risks, benefits, and alternative therapies for the above- mentioned procedure and for both sedation/anesthesia as well as necessary blood products administration, if indicated, as they pertain to this patient. The patient has indicated her understanding and acceptance of the risks and procedures discussed. Operative Findings: A viable female is noted in the vertex presentation with scores of 8 at 1 minute and 9 at 5 minutes and infant weight of 4 lbs. 12 oz. No nuchal cord was noted. Normal-appearing placenta was noted. Clear fluid was noted. Normal uterus tubes and ovaries are noted. Description of Procedure: The patient is taken to the operating room where she is placed in the dorsal supine position with leftward tilt. She is prepped and draped in the normal sterile fashion. Gen. anesthesia is given. A Pfannenstiel skin incision was made with a scalpel. A second knife was used to carry the incision down to the underlying layer of fascia. The fascia was nicked in the midline with a scalpel and then extended laterally bilaterally with Dominguez scissors. The anterior lip of the fascia was grasped with 2 Camila clamps and then dissected off the underlying rectus muscle in the midline with Dominguez scissors. The inferior aspect of the fascial incision was grasped with 2 Camila clamps and dissected off the underlying rectus muscle and the midline with Dominguez scissors. Next the peritoneum layer was tented up with 2 hemostats and then entered sharply with the scalpel. The incision is extended superiorly and inferiorly with Metzenbaum scissors. Next a DeLee retractor is placed. The vesicouterine peritoneum is entered sharply with Metzenbaum scissors and extended laterally bilaterally with Metzenbaum scissors and then the bladder flap is pushed inferiorly. The lower uterine segment is incised in transverse fashion with the scalpel and then bluntly entered with a hemostat. Clear fluid is noted. The incision was then extended laterally bilaterally with 2 fingers. Next the 's head is delivered through the incision. Nose and mouth are bulb suctioned. The remainder of the is easily delivered and placed on mother 's abdomen. Cord is clamped and cut. Infant is taken to warmer by nursing staff. Uterine fundus is gently massaged and placenta is delivered manually. Uterus is exteriorized and cleared of all clots and debris. Uterine incision is closed with 0 Vicryl suture in a running locked fashion. A second layer of 0 Vicryl suture is used in a running fashion for hemostasis. Several interrupted stitches are placed. Once adequate hemostasis as assured, the vesicouterine peritoneum is reapproximated with 2-0 Vicryl suture in a running fashion. Posterior cul-de-sac is suctioned of all clots and debris. Uterus is returned to the abdomen. Incision is noted to be hemostatic. Peritoneal layer is closed with 0 Vicryl suture in a running fashion. Muscle layer is reapproximated with 0 Vicryl suture in interrupted fashion. Fascia layer is then closed with 0 PDS suture with 2 sutures meeting in the midline and the knots buried in either side and in the midline. The subcutaneous tissue was then closed with 2-0 Vicryl suture. Skin layer was then closed with jaret. All sponge and needle counts are correct. The patient is taken to recovery room in stable condition.
[2017-06-25] MEDS ORDERED: ZOLPIDEM 5 MG TAB PO PRN (21:19)
[2017-06-25] MEDS ORDERED: MEASLES-MUMPS-RUBELLA VACC/PF 12,500 UNIT/0.5 ML VIAL SQ ONE (21:19)
[2017-06-25] MEDS ORDERED: LANOLIN CREAM 5 GM TUBE TOPICAL PRN (21:19)
[2017-06-25] MEDS ORDERED: METOCLOPRAMIDE 5 MG/ML 2 ML VIAL IVP PRN (21:19)
[2017-06-25] MEDS ORDERED: ONDANSETRON 4 MG/2 ML VIAL IVP PRN (21:19)
[2017-06-25] MEDS ORDERED: SIMETHICONE 80 MG CHEWABLE PO PRN (21:19)
[2017-06-25] MEDS ORDERED: Acetaminophen-Codeine 300-30mg TAB PO PRN (21:19)
[2017-06-25] MEDS ORDERED: diphenhydrAMINE 50 MG/ML 1 ML VIAL IVP PRN ×2 (21:19)
[2017-06-25] MEDS ORDERED: diphenhydrAMINE 50 MG CAP PO PRN (21:19)
[2017-06-25] MEDS ORDERED: diphenhydrAMINE 25 MG CAP PO PRN (21:19)
[2017-06-25] MEDS ORDERED: OXYTOCIN 20 UNITS/1000 ML NS 1,000 ML IV SCH (21:19)
[2017-06-25] MEDS ORDERED: NALOXONE 0.4 MG/ML 1 ML VIAL IV PRN (21:19)
[2017-06-25] MEDS ORDERED: ACETAMINOPHEN TAB 325 MG TAB PO PRN (21:19)
[2017-06-25] MEDS: HYDROmorphone PCA 5 MG/25 ML SYRINGE IV PRN (21:43)
[2017-06-25 22:01] VITALS: BMI 23.8
[2017-06-25] MEDS: LACTATED RINGERS 1,000 ML IV SCH ×2 (22:31)
[2017-06-26] MEDS: LACTATED RINGERS 1,000 ML IV SCH ×4 (00:23→21:30)
[2017-06-26] MEDS: HYDROmorphone PCA 5 MG/25 ML SYRINGE IV PRN (03:14)
[2017-06-26] MEDS: KETOROLAC 30 MG/ML 1 ML VIAL IVP PRN ×3 (03:20→15:32)
[2017-06-26 07:46] LABS: Basophils % (A) 0 %; CH 30.6; CHCM 34.2; Eosinophils # (A) 0.1 k/uL (0-0.7); Eosinophils % (A) 1 %; HCT 28.8 % (34.0-46.0); HDW 2.84; Luc # (Auto) 0.12; Luc % (Auto) 1; Lymphocytes % (A) 15 %; MCH 29.6 pg (25.0-35.0); MCV 89.7 fL (80.0-100.0); Mean Platelet Volume 10.7; Monocytes # (A) 0.5 k/uL (0-1.0); Monocytes % (A) 4 %; Neutrophils # (A) 10.6 k/uL (1.3-7.7); Neutrophils % (A) 80 %; RBC 3.21 m/uL (3.80-5.40); WBC 13.3 k/uL (4.0-11.0); WBC (Perox) 14.04
[2017-06-26 07:48] LABS: HGB 9.5 gm/dL (11.4-16.0)
[2017-06-26] MEDS: SENNOSIDES-DOCUSATE SODIUM 1 EACH TAB PO SCH ×2 (08:13→19:31)
--- NOTE | 2017-06-26 11:03 | P.PNOBGPC ---
Subjective - Subjective Principal diagnosis: Status post primary section postoperative day #1 Interval history: Patient is doing okay. She is breast-feeding. Lochia is moderate. She has ambulated 1 time. She is not passing flatus or bowel movement yet. Her pain is fairly well controlled with REFRIGERATION INSULATOR pump. Patient reports: Reports pain well controlled, Reports ambulating normally [place]: nursing well Objective - Vital Signs Latest vital signs: Vital Signs Temp Pulse Resp BP Pulse Ox 06/26/17 08:00 97.7 F 87 16 87/44 97 06/26/17 03:31 99.0 F 80 16 97/62 06/25/17 23:00 96.8 F L 98 16 131/56 06/25/17 22:30 71 16 118/79 06/25/17 22:00 69 16 118/71 06/25/17 21:45 60 16 124/79 06/25/17 21:30 76 16 117/82 06/25/17 21:15 81 16 112/76 06/25/17 21:00 96.4 F L 88 16 122/76 06/25/17 20:00 97.2 F L 83 16 129/61 Intake and Output 06/25/17 06/26/17 06/26/17 22:59 06:59 14:59 Intake Total 60 1000 Output Total 625 25 Balance -565 975 Intake: Intake, IV Titration 1000 Amount Lactated Ringers 1,000 ml 1000 @ 125 mls/hr IV .Q8H [facility] Rx#:[id number] Other 60 Output: Urine 625 25 Uretheral (Peterson) 225 Other: Weight 55.338 kg - Exam Extremities: Present: normal. Absent: tenderness, edema Abdomen: Present: normal appearance, soft (Positive bowel sounds 4). Absent: distention, tenderness Incision: Present: normal, intact, other (Dressing does show dried serosanguineous discharge covering most of the dressing. When dressing is removed, no active bleeding is noted.). Absent: erythematous Uterus: Present: normal, firm. Absent: tenderness - Labs Labs: Abnormal Lab Results - Last 24 Hours (Table) 06/25/17 06/26/17 Range/Units 20:12 07:21 WBC 11.1 H 13.3 H (4.0-11.0) k/uL RBC 3.21 L (3.80-5.40) m/uL Hgb 9.5 L D (11.4-16.0) gm/dL Hct 28.8 L (34.0-46.0) % Neutrophils # 8.1 H 10.6 H (1.3-7.7) k/uL Assessment and Plan (1) 37 weeks gestation of Current Visit: Yes Status: Acute Code(s): Z3A.37 - 37 WEEKS GESTATION OF SNOMED Code(s): 49169761 (2) Non-reassuring heart rate with late deceleration Current Visit: Yes Status: Acute Code(s): O76 - ABNLT IN HEART RATE AND RHYTHM COMP LABOR AND DELIVERY SNOMED Code(s): 948334191 (3) delivery delivered Narrative/Plan: Impression is status post primary section postoperative day #1. Plan is to continue ambulating and switch to oral pain medications today. Will advance diet as tolerated after flatus. Continued care. Current Visit: Yes Status: Acute Code(s): O82 - ENCOUNTER FOR DELIVERY WITHOUT INDICATION SNOMED Code(s): 353568454
[2017-06-26] MEDS: Acetaminophen-Codeine 300-30mg TAB PO PRN ×2 (15:33→19:31)
[2017-06-26] MEDS: IBUPROFEN 600 MG TAB PO PRN (22:32)
[2017-06-27] MEDS: Acetaminophen-Codeine 300-30mg TAB PO PRN ×3 (01:29→13:36)
[2017-06-27] MEDS: IBUPROFEN 600 MG TAB PO PRN ×2 (04:30→10:27)
[2017-06-27] MEDS: SENNOSIDES-DOCUSATE SODIUM 1 EACH TAB PO SCH (07:53)
--- NOTE | 2017-06-27 08:03 | P.PNOBGPC ---
Subjective - Subjective Principal diagnosis: S/P 1*LTCS POD #2 Interval history: Patient seen and examined. Denies nausea, vomiting, chest pain, shortness of breath or calf pain. Seen ambulating around the room. Patient reports: Reports appetite normal, Reports voiding normally, Reports pain well controlled, Reports ambulating normally [place]: doing well Objective - Vital Signs Latest vital signs: Vital Signs Temp Pulse Resp BP Pulse Ox 06/27/17 07:48 97.8 F 65 16 87/42 06/26/17 23:33 97.9 F 60 16 100/49 06/26/17 20:00 97.6 F 64 16 97/50 06/26/17 15:34 97.4 F L 63 16 92/52 98 06/26/17 12:00 97.5 F L 55 L 16 92/56 95 Intake and Output 06/26/17 06/27/17 06/27/17 22:59 06:59 14:59 Intake Total 600 Output Total 425 Balance 175 Intake: Oral 600 Output: Urine 425 Other: # Voids 1 1 1 # Bowel Movements 1 - Exam Lungs: bilateral: normal Chest: Normal S1, Normal S2 Extremities: Present: normal Abdomen: Present: normal appearance, soft. Absent: distention, tenderness Incision: Present: normal, dry, intact Uterus: Present: normal, firm Assessment and Plan (1) Status post primary low transverse section Narrative/Plan: 1. Increase ambulation 2. By mouth pain meds Current Visit: Yes Status: Acute Code(s): Z98.891 - HISTORY OF UTERINE SCAR FROM PREVIOUS SURGERY SNOMED Code(s): 707828967
[2017-06-27 20:48] VITALS: BP 110/56; PULSE 67; RESP 18; TEMP 98.7
--- NOTE | 2017-07-20 08:00 | P.DS ---
Providers Date of admission: 06/25/17 19:50 Expected date of discharge: 06/27/17 Attending physician: Eve Pritchett Primary care physician: Stated None - Discharge Diagnosis(es) (1) Status post primary low transverse section Status: Acute Hospital Course: Patient presented in active labor. She underwent a primary low transverse C- section. Please see dictated operative note for details on this. Her postoperative course was uncomplicated. She denies nausea, vomiting, chest pain , shortness of breath or calf pain. Also denies fever, chills, headache. She is ambulating and voiding without difficulty. Tolerating regular diet. She'll be discharged home day #2 in stable condition to follow-up with me in one week. Patient Condition at Discharge: Stable Plan - Discharge Summary New Discharge Prescriptions: New Acetaminophen-Codeine 300-30mg [Tylenol w/codeine #3] 2 each PO Q4HR PRN #30 tab PRN Reason: Moderate To Severe Pain Ibuprofen [Motrin] 600 mg PO Q6HR PRN #30 tab PRN Reason: Mild Pain Or Fever >= 100.5 Discharge Medication List Acetaminophen-Codeine 300-30mg [Tylenol w/codeine #3] 2 each PO Q4HR PRN #30 tab 06/27/17 [Rx] Ibuprofen [Motrin] 600 mg PO Q6HR PRN #30 tab 06/27/17 [Rx] Follow up Appointment(s)/Referral(s): Elin Sage DO [Doctor of Osteopathic Medicine] - 1 Week Discharge Disposition: HOME SELF-CARE
== END 2017-06-27 20:30 | disposition home or self-care (01) | DRG 540 ==
LOC: FBPOP 18:50 → 4FBP 19:50
PROVIDERS: ADMIT Obstetrics & Gynecology; ATTEND Obstetrics & Gynecology
PROC: 10D00Z1 Extraction of Products of Conception, Low, Open Approach (ICD-10-PCS; principal; 2017-06-25 20:15)
DX: O76 Abnormality in fetal heart rate and rhythm complicating labor and delivery (principal); F32.9 Major depressive disorder, single episode, unspecified; O99.344 Other mental disorders complicating childbirth; O99.334 Smoking (tobacco) complicating childbirth; F41.9 Anxiety disorder, unspecified; F90.9 Attention-deficit hyperactivity disorder, unspecified type; Z37.0 Single live birth; Z3A.37 37 weeks gestation of pregnancy
CPT/HCPCS: 59025; 84112; 85025; 86850; 86900; 86901; 88307; 90707; 99213

== ENCOUNTER 2017-08-13 22:44 | Emergency (ER) | payer OTHER ==
[2017-08-13 22:50] VITALS: BP 136/82; PULSE 106; RESP 18; TEMP 97
--- NOTE | 2017-08-13 23:43 | XR ---
EXAMINATION TYPE: XR elbow complete LT DATE OF EXAM: 08/13/2017 COMPARISON: 04/05/2012 HISTORY: Pain TECHNIQUE: 3 views FINDINGS: I see no fracture nor dislocation. Joint spaces are normal. There is no sign of elbow joint effusion. IMPRESSION: Negative left elbow exam.
--- NOTE | 2017-08-13 23:44 | XR ---
EXAMINATION TYPE: XR forearm LT DATE OF EXAM: 08/13/2017 COMPARISON: NONE HISTORY: Fall. Pain. TECHNIQUE: 2 views FINDINGS: Radius and ulna appear intact. I see no fracture nor dislocation. Joint spaces appear mark l. IMPRESSION: Negative left forearm exam
--- NOTE | 2017-08-13 23:48 | ED ---
Upper Extremity HPI - General Chief Complaint: Extremity Injury, Upper Stated Complaint: Fall/Arm Pain Time Seen by Provider: 08/13/17 22:59 Source: patient, family, RN notes reviewed, old records reviewed Mode of arrival: ambulatory Limitations: no limitations - History of Present Illness Initial Comments: 22-year-old female presents emergency Department chief complaint of left elbow and forearm pain after she fell off of her skateboard. She reports that her entire weight landed on her elbow. She reports that there is some swelling and pain with flexion and extension of her arm. Patient states that she is right- handed. Patient states she's has no shoulder pain, or any other injuries associated with the fall. Denies any hand or wrist pain. Patient states that she is in no previous injuries to this arm. Denies any peripheral paresthesias.Patient denies any recent fever, chills, shortness of breath, chest pain, back pain, abdominal pain, nausea vomiting, numbness or tingling, dysuria or hematuria, constipation or diarrhea, headaches or visual changes, or any other current symptoms - Related Data Home Medications Medication Instructions Recorded Confirmed Levonorgestrel-Ethin Estradiol 1 tab PO DAILY 08/11/17 08/13/17 [Lutera-28 Tablet] Previous Rx's Medication Instructions Recorded Escitalopram [Lexapro] 5 mg PO DAILY #14 tablet 08/13/17 Ibuprofen [Motrin] 600 mg PO Q6HR PRN #20 tab 08/13/17 Levonorgenstrel-Ethin Estradio 1 tab PO 1900 08/13/17 traZODone HCL [Desyrel] 50 mg PO HS #14 tab 08/13/17 Allergies Allergy/AdvReac Type Severity Reaction Status Date / Time adhesive tape Allergy Rash/Hives Verified 08/13/17 22:50 shellfish derived [Shrimp] Allergy Anaphylaxis Verified 08/13/17 22:50 soap Allergy Rash/Hives Verified 08/13/17 22:50 Review of Systems ROS Statement: Those systems with pertinent positive or pertinent negative responses have been documented in the HPI. ROS Other: All systems not noted in ROS Statement are negative. Past Medical History Past Medical History: No Reported History History of Any Multi-Drug Resistant Organisms: None Reported Past Surgical History: Adenoidectomy, Tonsillectomy Past Anesthesia/Blood Transfusion Reactions: No Reported Reaction Past Psychological History: ADD/ADHD, Anxiety, Bipolar, Depression Smoking Status: Former smoker - Past Family History Father Family Medical History: No Reported History Additional Family Medical History / Comment(s): Father is alive at age 40 with no major medical problems. Brother(s) Family Medical History: No Reported History Additional Family Medical History / Comment(s): Patient has 1 brother and 2 sisters with no major medical problems. Mother Family Medical History: No Reported History Additional Family Medical History / Comment(s): Mother is alive at age 40 with no major medical problems. General Exam - General Exam Comments Initial Comments: 22-year-old female. No acute distress. Limitations: no limitations General appearance: alert, in no apparent distress Head exam: Present: atraumatic, normocephalic, normal inspection Eye exam: Present: normal appearance, PERRL, EOMI. Absent: scleral icterus, conjunctival injection, periorbital swelling ENT exam: Present: normal exam, mucous membranes moist Neck exam: Present: normal inspection. Absent: tenderness, meningismus, lymphadenopathy Respiratory exam: Present: normal lung sounds bilaterally. Absent: respiratory distress, wheezes, rales, rhonchi, stridor Cardiovascular Exam: Present: regular rate, normal rhythm, normal heart sounds. Absent: systolic murmur, diastolic murmur, rubs, gallop, clicks GI/Abdominal exam: Present: soft, normal bowel sounds. Absent: distended, tenderness, guarding, rebound, rigid Extremities exam: Present: normal inspection, full ROM, normal capillary refill. Absent: tenderness, pedal edema, joint swelling, calf tenderness Left Shoulder Exam: Present: normal inspection, full ROM Upper Arm exam: Present: normal inspection, full ROM Elbow exam: Present: normal inspection, tenderness (Patient has some tenderness to palpation over the olecranon process.) Forearm Wrist exam: Present: normal inspection, full ROM Hand Wrist exam: Present: normal inspection, full ROM Neuro motor exam: Present: wrist extension intact, thumb opposition intact, thumb IP flexion intact, thumb adduction intact, fingers 2-5 abduction intact Vascular: Present: normal capillary refill Back exam: Present: normal inspection Neurological exam: Present: alert, oriented X3, CN II-XII intact Psychiatric exam: Present: normal affect, normal mood Skin exam: Present: warm, dry, intact, normal color. Absent: rash Course Vital Signs 08/13/17 22:47 Temperature 97 F L Pulse Rate 106 H Respiratory 18 Rate Blood Pressure 136/82 O2 Sat by Pulse 97 Oximetry Medical Decision Making - Medical Decision Making Patient is a 22-year-old feel a chief complaint of left elbow pain. She reports she fell off of her skateboard and landed on her elbow. Patient's x- rays reviewed and negative for any acute process. She is somewhat tender over the olecranon process. No fat pad sign noted on the x-ray. Patient was placed in an Shantanu wrap, given ice. Discussed anti-inflammatory medicine. Patient agrees to treatment plan will comply. Given orthopedic follow-up. Patient is history plan will comply. - Radiology Data Radiology results: report reviewed Negative left elbow exam. Negative left forearm exam as well. Disposition Clinical Impression: Left elbow contusion Disposition: HOME SELF-CARE Condition: Good Instructions: Elbow Sprain (ED) Additional Instructions: Patient advised to apply ice over the elbow, take anti-inflammatory medicine as prescribed. Wear the Shantanu wrap. Follow-up with orthopedic if symptoms continue to persist after one week. Return to the emergency department if any alarming signs or symptoms occur. Prescriptions: Ibuprofen [Motrin] 600 mg PO Q6HR PRN #20 tab PRN Reason: Pain Referrals: None,Stated [Primary Care Provider] - 1-2 days Pradip Weiss MD [STAFF PHYSICIAN] - 1-2 days Time of Disposition: 23:50
[2017-08-13] MEDS ORDERED: IBUPROFEN 600 MG STARTER PACK 4 TAB BTL PO STA (23:52)
== END 2017-08-14 00:02 | disposition home or self-care (01) ==
LOC: EC 22:44
DX: S50.02XA Contusion of left elbow, initial encounter (principal); Z87.891 Personal history of nicotine dependence; Z79.3 Long term (current) use of hormonal contraceptives; Z91.048 Other nonmedicinal substance allergy status; Z91.013 Allergy to seafood; V00.131A Fall from skateboard, initial encounter; Y93.51 Activity, roller skating (inline) and skateboarding
CPT/HCPCS: 99283

== ENCOUNTER 2017-09-30 15:09 | Emergency (ER) | payer OTHER ==
[2017-09-30 15:25] VITALS: BP 125/90; PULSE 76; RESP 18; TEMP 97.5
--- NOTE | 2017-09-30 15:26 | ED ---
URI HPI - General Chief Complaint: Upper Respiratory Infection Stated Complaint: Cough Time Seen by Provider: 09/30/17 15:13 Source: patient, RN notes reviewed, old records reviewed Mode of arrival: ambulatory Limitations: no limitations - History of Present Illness Initial Comments: this patient is a 22-year-old female presents emergency Department chief complaint of a cough and upper respiratory congestion for 2 weeks. Patient reports that she's had these symptoms more severe over the past few days. Patient states that she has a sore throat due to her coughing. She reports that a productive spot cough. She denies any nausea or vomiting. She reports that she questions if she could possibly be . Patient denies any fever or chills. Denies any abdominal pain.patient reports that she smokes approximately a half a pack to a pack a day.Patient has medical history of psychiatric illness, depression. - Related Data Home Medications Medication Instructions Recorded Confirmed Levonorgestrel-Ethin Estradiol 1 tab PO DAILY 08/11/17 09/30/17 [Lutera-28 Tablet] Previous Rx's Medication Instructions Recorded Escitalopram [Lexapro] 5 mg PO DAILY #14 tablet 08/13/17 Ibuprofen [Motrin] 600 mg PO Q6HR PRN #20 tab 08/13/17 traZODone HCL [Desyrel] 50 mg PO HS #14 tab 08/13/17 Promethazine/Dextromethorphan 5 ml PO QID #120 ml 09/30/17 [Phenergan DM Syrup] methylPREDNISolone Dose Pack 4 mg PO DIRECTED #21 package 09/30/17 [Medrol Dose Pack] Allergies Allergy/AdvReac Type Severity Reaction Status Date / Time adhesive tape Allergy Rash/Hives Verified 09/30/17 15:21 shellfish derived [Shrimp] Allergy Anaphylaxis Verified 09/30/17 15:21 soap Allergy Rash/Hives Verified 09/30/17 15:21 Review of Systems ROS Statement: Those systems with pertinent positive or pertinent negative responses have been documented in the HPI. ROS Other: All systems not noted in ROS Statement are negative. Past Medical History Past Medical History: No Reported History History of Any Multi-Drug Resistant Organisms: None Reported Past Surgical History: Adenoidectomy, Tonsillectomy Past Anesthesia/Blood Transfusion Reactions: No Reported Reaction Past Psychological History: ADD/ADHD, Anxiety, Bipolar, Depression Smoking Status: Former smoker Past Alcohol Use History: None Reported Past Drug Use History: Marijuana - Past Family History Father Family Medical History: No Reported History Additional Family Medical History / Comment(s): Father is alive at age 40 with no major medical problems. Brother(s) Family Medical History: No Reported History Additional Family Medical History / Comment(s): Patient has 1 brother and 2 sisters with no major medical problems. Mother Family Medical History: No Reported History Additional Family Medical History / Comment(s): Mother is alive at age 40 with no major medical problems. General Exam - General Exam Comments Initial Comments: 22-year-old female. No distress. Limitations: no limitations General appearance: alert, in no apparent distress Head exam: Present: atraumatic, normocephalic, normal inspection Eye exam: Present: normal appearance, PERRL, EOMI. Absent: scleral icterus, conjunctival injection, periorbital swelling ENT exam: Present: normal exam, mucous membranes moist Neck exam: Present: normal inspection. Absent: tenderness, meningismus, lymphadenopathy Respiratory exam: Present: normal lung sounds bilaterally. Absent: respiratory distress, wheezes, rales, rhonchi, stridor Cardiovascular Exam: Present: regular rate, normal rhythm, normal heart sounds. Absent: systolic murmur, diastolic murmur, rubs, gallop, clicks Extremities exam: Present: normal inspection, full ROM, normal capillary refill. Absent: tenderness, pedal edema, joint swelling, calf tenderness Back exam: Present: normal inspection Neurological exam: Present: alert, oriented X3, CN II-XII intact Psychiatric exam: Present: normal affect, normal mood Course Vital Signs 09/30/17 15:19 Temperature 97.5 F L Pulse Rate 76 Respiratory 18 Rate Blood Pressure 125/90 O2 Sat by Pulse 100 Oximetry Medical Decision Making - Medical Decision Making his is a 22-year-old female presents with 2 weeks of upper respiratory congestion and cough. Perez. No specific fevers at this time. She also questions if she is . Patient's urine hCG is negative. Lungs are clear to auscultation, no adventitious sounds. Oropharynx appears normal. The same thing patient has bronchitis. Will be treated with Medrol Dosepak, cough syrup. Discussed following up with primary care physician as well. Patient agrees to treatment plan will comply. Return parameters were discussed. Discussed reports of smoking sensation for over 5 minutes. - Lab Data Lab Results 09/30/17 Range/Units 15:15 Urine HCG, Qual Not Detected (Not Detectd) - Radiology Data Radiology results: report reviewed chest x-ray was reviewed and negative for any acute process. Disposition Clinical Impression: Bronchitis Disposition: HOME SELF-CARE Condition: Good Instructions: Upper Respiratory Infection (ED) Additional Instructions: Patient advised to follow-up with primary care physician. Use the medication as prescribed. Return to emergency department if any alarming signs or symptoms occur. Prescriptions: methylPREDNISolone Dose Pack [Medrol Dose Pack] 4 mg PO DIRECTED #21 package Promethazine/Dextromethorphan [Phenergan DM Syrup] 5 ml PO QID #120 ml Referrals: None,Stated [Primary Care Provider] - 1-2 days Danuta Ryan MD [STAFF PHYSICIAN] - 1-2 days Time of Disposition: 15:57
--- NOTE | 2017-09-30 15:45 | XR ---
EXAMINATION TYPE: XR chest 2V DATE OF EXAM: 09/30/2017 COMPARISON: 10/22/2015 HISTORY: Body aches, cough, and fever. TECHNIQUE: Frontal and lateral views of the chest are obtained. FINDINGS: There is no focal air space opacity, pleural effusion, or pneumothorax seen. The cardiac silhouette size is within normal limits. The osseous structures are intact. Bilateral metallic nipp le rings are noted. IMPRESSION: No acute cardiopulmonary process.
== END 2017-09-30 16:08 | disposition home or self-care (01) ==
LOC: EC 15:09
DX: J40 Bronchitis, not specified as acute or chronic (principal); Z87.891 Personal history of nicotine dependence; Z79.3 Long term (current) use of hormonal contraceptives; Z91.048 Other nonmedicinal substance allergy status; Z91.013 Allergy to seafood
CPT/HCPCS: 71046; 81025; 99284

== ENCOUNTER 2017-11-15 22:40 | Emergency (ER) | payer OTHER ==
[2017-11-15 23:02] VITALS: BP 107/58; PULSE 88; RESP 18; TEMP 97.8
--- NOTE | 2017-11-15 23:04 | ED ---
Skin/Abscess/FB HPI - General Chief complaint: Skin/Abscess/Foreign Body Stated complaint: Tattoo infection Time Seen by Provider: 11/15/17 22:55 Source: patient, RN notes reviewed, old records reviewed Mode of arrival: ambulatory Limitations: no limitations - History of Present Illness Initial comments: 3-year-old male presents emergency Department chief complaint of an infection around her newest tattoo on her left shoulder. Patient reports that she had tattoo approximately 2 weeks ago. She states she's been using the hand the ointment as they've discussed. Patient states that over the past few days she noticed some erythema surrounding the edges of the tattoo. She reports she has no history of MRSA. She denies any other symptoms including fever or chills. - Related Data Home Medications Medication Instructions Recorded Confirmed Bismuth Subsalicylate 262 mg PO Q6H PRN 11/15/17 11/15/17 [Pepto-Bismol] Previous Rx's Medication Instructions Recorded Cephalexin [Keflex] 500 mg PO Q8HR #21 cap 11/15/17 Mupirocin [Mupirocin 2%] 1 applic TOPICAL TID #1 tube 11/15/17 Allergies Allergy/AdvReac Type Severity Reaction Status Date / Time adhesive tape Allergy Rash/Hives Verified 11/15/17 23:06 shellfish derived [Shrimp] Allergy Anaphylaxis Verified 11/15/17 23:06 soap Allergy Rash/Hives Verified 11/15/17 23:06 Review of Systems ROS Statement: Those systems with pertinent positive or pertinent negative responses have been documented in the HPI. ROS Other: All systems not noted in ROS Statement are negative. Past Medical History Past Medical History: No Reported History History of Any Multi-Drug Resistant Organisms: None Reported Past Surgical History: Adenoidectomy, Tonsillectomy Past Anesthesia/Blood Transfusion Reactions: No Reported Reaction Past Psychological History: ADD/ADHD, Anxiety, Bipolar, Depression Smoking Status: Current every day smoker Past Alcohol Use History: Occasional Past Drug Use History: Marijuana - Past Family History Father Family Medical History: No Reported History Additional Family Medical History / Comment(s): Father is alive at age 40 with no major medical problems. Brother(s) Family Medical History: No Reported History Additional Family Medical History / Comment(s): Patient has 1 brother and 2 sisters with no major medical problems. Mother Family Medical History: No Reported History Additional Family Medical History / Comment(s): Mother is alive at age 40 with no major medical problems. General Exam Limitations: no limitations General appearance: alert, in no apparent distress Head exam: Present: atraumatic, normocephalic, normal inspection Eye exam: Present: normal appearance, PERRL, EOMI. Absent: scleral icterus, conjunctival injection, periorbital swelling ENT exam: Present: normal exam, mucous membranes moist Neck exam: Present: normal inspection. Absent: tenderness, meningismus, lymphadenopathy Respiratory exam: Present: normal lung sounds bilaterally. Absent: respiratory distress, wheezes, rales, rhonchi, stridor Cardiovascular Exam: Present: regular rate, normal rhythm, normal heart sounds. Absent: systolic murmur, diastolic murmur, rubs, gallop, clicks GI/Abdominal exam: Present: soft, normal bowel sounds. Absent: distended, tenderness, guarding, rebound, rigid Extremities exam: Present: normal inspection, full ROM, normal capillary refill. Absent: tenderness, pedal edema, joint swelling, calf tenderness Back exam: Present: normal inspection, other (butterfly tattoo over left shoulder, evidence of eryhthema surrounding tattoo. ) Neurological exam: Present: alert, oriented X3, CN II-XII intact Psychiatric exam: Present: normal affect, normal mood Skin exam: Present: warm, dry, intact, normal color. Absent: rash Course Vital Signs 11/15/17 22:58 Temperature 97.8 F Pulse Rate 88 Respiratory 18 Rate Blood Pressure 107/58 O2 Sat by Pulse 99 Oximetry Medical Decision Making - Medical Decision Making This patient is a 22-year-old female chief complaint of the tattoo infection. She had a tattoo on her left shoulder blade placed personally 2 weeks ago. Patient states over the past 2 days there is some erythema and pain associated around the tattoo. Patient denies any history of MRSA. This time she does have some surrounding cellulitis-appearing areas around the tattoo. Patient will be discharged at this time with a prescription for mupirocin and Keflex. Discussed she should follow-up with primary care provider. Discussed monitoring the area and if it worsens despite taking antibiotics for her to return. Patient understands treatment plan will comply. Return parameters were discussed. Disposition Clinical Impression: Tattoo reaction, Cellulitis Disposition: HOME SELF-CARE Condition: Good Instructions: Cellulitis (ED) Additional Instructions: and advised to take the antibiotics and use the cream as directed. Follow -up with primary care physician. Monitor the area is getting worse return. Prescriptions: Cephalexin [Keflex] 500 mg PO Q8HR #21 cap Mupirocin [Mupirocin 2%] 1 applic TOPICAL TID #1 tube Referrals: None,Stated [Primary Care Provider] - 1-2 days Danuta Ryan MD [STAFF PHYSICIAN] - 1-2 days Time of Disposition: 23:02
== END 2017-11-15 23:08 | disposition home or self-care (01) ==
LOC: EC 22:40
DX: L03.114 Cellulitis of left upper limb (principal); L81.8 Other specified disorders of pigmentation; F17.200 Nicotine dependence, unspecified, uncomplicated; Z91.048 Other nonmedicinal substance allergy status; Z91.013 Allergy to seafood
CPT/HCPCS: 99283

== ENCOUNTER 2017-12-18 15:06 | Emergency (ER) | payer OTHER ==
--- NOTE | 2017-12-18 15:23 | ED ---
Fall HPI - General Chief Complaint: Fall Stated Complaint: Head,Knee,Shoulder Injury Time Seen by Provider: 12/18/17 15:15 Source: patient, RN notes reviewed Mode of arrival: ambulatory Limitations: no limitations - History of Present Illness Initial Comments: 22 year old female presents to the emergency Department chief complaint of fall. She states she is on a long board with her dog on a leash and states that her dog one after another dog. She states she is pulled the ground. She states that she had left-sided her head. She didn't lose consciousness but she feels lightheaded and dizzy. She does complain of a headache. Patient went of left shoulder pain were dog pulled her. Patient also abrasion and right knee pain. Patient denies any neck pain, back pain. Patient states it is slightly painful to ambulate on her right knee. Patient states she is up-to-date on her tetanus. Patient's had injury to her left shoulder or right knee. Patient has discomfort with range of motion left shoulder denies any paresthesias denies chest pain, shortness breath, nausea, vomiting. - Related Data Home Medications Medication Instructions Recorded Confirmed Ibuprofen [Motrin Ib] 400 mg PO Q6H PRN 12/18/17 12/18/17 Previous Rx's Medication Instructions Recorded Ibuprofen [Motrin] 600 mg PO Q8HR PRN #30 tab 12/18/17 Allergies Allergy/AdvReac Type Severity Reaction Status Date / Time adhesive tape Allergy Rash/Hives Verified 12/18/17 15:22 shellfish derived [Shrimp] Allergy Anaphylaxis Verified 12/18/17 15:22 soap Allergy Rash/Hives Verified 12/18/17 15:22 Review of Systems ROS Statement: Those systems with pertinent positive or pertinent negative responses have been documented in the HPI. ROS Other: All systems not noted in ROS Statement are negative. Past Medical History Past Medical History: No Reported History History of Any Multi-Drug Resistant Organisms: None Reported Past Surgical History: Adenoidectomy, Tonsillectomy Past Anesthesia/Blood Transfusion Reactions: No Reported Reaction Past Psychological History: ADD/ADHD, Anxiety, Bipolar, Depression Smoking Status: Current every day smoker Past Alcohol Use History: None Reported Past Drug Use History: Marijuana - Past Family History Father Family Medical History: No Reported History Additional Family Medical History / Comment(s): Father is alive at age 40 with no major medical problems. Brother(s) Family Medical History: No Reported History Additional Family Medical History / Comment(s): Patient has 1 brother and 2 sisters with no major medical problems. Mother Family Medical History: No Reported History Additional Family Medical History / Comment(s): Mother is alive at age 40 with no major medical problems. General Exam Limitations: no limitations General appearance: alert, in no apparent distress Head exam: Present: atraumatic, normocephalic, normal inspection Eye exam: Present: normal appearance, PERRL, EOMI. Absent: scleral icterus, conjunctival injection, periorbital swelling ENT exam: Present: normal exam, mucous membranes moist Neck exam: Present: normal inspection, full ROM. Absent: tenderness, meningismus, lymphadenopathy Respiratory exam: Present: normal lung sounds bilaterally. Absent: respiratory distress, wheezes, rales, rhonchi, stridor, chest wall tenderness Cardiovascular Exam: Present: regular rate, normal rhythm, normal heart sounds. Absent: systolic murmur, diastolic murmur, rubs, gallop, clicks GI/Abdominal exam: Present: soft, normal bowel sounds. Absent: distended, tenderness, guarding, rebound, rigid Extremities exam: Present: other (Left shoulder is mild diffuse tenderness with palpation no iris deformity no abrasions no ecchymosis patient has no tenderness over the AC joint or over the clavicle. Patient reports discomfort with range of motion. Remaining upper extremity within normal limits, right knee there is mild swelling, abrasion noted patient has full range of motion no laxity joint above and below within normal limits.) Neurological exam: Present: alert, oriented X3, CN II-XII intact, reflexes normal. Absent: motor sensory deficit Skin exam: Present: warm, dry, intact, normal color. Absent: rash Course Vital Signs 12/18/17 15:11 Temperature 98.0 F Pulse Rate 81 Respiratory 18 Rate Blood Pressure 112/72 O2 Sat by Pulse 100 Oximetry Medical Decision Making - Medical Decision Making Patient presented for fall, CT and xray reviewed no fratures or intracranial bleed. Patient will be discharged with knee contusion and head injury Disposition Clinical Impression: Fall, Head injury, Left shoulder strain, Contusion of knee, right Disposition: HOME SELF-CARE Condition: Stable Instructions: Head Injury (ED) Additional Instructions: Please return to the Emergency Department if symptoms worsen or any other concerns. Prescriptions: Ibuprofen [Motrin] 600 mg PO Q8HR PRN #30 tab PRN Reason: Pain Referrals: None,Stated [Primary Care Provider] - 1-2 days Time of Disposition: 16:21
--- NOTE | 2017-12-18 15:48 | CT ---
EXAMINATION TYPE: CT brain wo con DATE OF EXAM: 12/18/2017 COMPARISON: NONE HISTORY: 22-year-old female with pain after Fall. TECHNIQUE: Examination was done in axial plane without intravenous contrast. Coronal and sagittal r econstructions performed. CT DLP: 718.4 mGycm Automated exposure control for dose reduction was used. FINDINGS: There is no evidence of acute intracranial hemorrhage, acute ischemic changes, mass, mass-effect, or extra-axial fluid collection. There is no effacement of cerebral sulci or basal subarachnoid cister ns. There is no hydrocephalus. There is no midline shift. Morin-white matter distinction is preserv ed. There is a right-sided eyebrow ring. Orbits and globes appear intact. Paranasal sinuses and mastoid a ir cells are well pneumatized. No calvarial fracture. IMPRESSION: No acute intracranial abnormality seen.
--- NOTE | 2017-12-18 16:13 | XR ---
EXAMINATION TYPE: XR shoulder 3 views LT, XR knee 3 views RT DATE OF EXAM: 12/18/2017 COMPARISON: NONE HISTORY: 22-year-old female fall from skateboard today with pain FINDINGS: Left shoulder: AC joint appears congruent and intact. Subacromial space is preserved. No acute fracture, subluxation , or dislocation seen. Mammary ornamentation. Right knee: Extensor mechanism is intact. No significant joint effusion. No acute fracture, subluxation, or dislo cation. IMPRESSION: Left shoulder and right knee without acute osseous abnormality seen.
[2017-12-18 16:27] VITALS: BP 129/78; PULSE 78; RESP 16; TEMP 98
== END 2017-12-18 16:26 | disposition home or self-care (01) ==
LOC: EC 15:06
DX: S46.912A Strain of unspecified muscle, fascia and tendon at shoulder and upper arm level, left arm, initial encounter (principal); S80.01XA Contusion of right knee, initial encounter; S09.90XA Unspecified injury of head, initial encounter; F17.200 Nicotine dependence, unspecified, uncomplicated; Z91.013 Allergy to seafood; Z91.048 Other nonmedicinal substance allergy status; W01.10XA Fall on same level from slipping, tripping and stumbling with subsequent striking against unspecified object, initial encounter; Y93.89 Activity, other specified; Y92.89 Other specified places as the place of occurrence of the external cause
CPT/HCPCS: 70450; 99284

== ENCOUNTER 2018-01-28 22:43 | Emergency (ER) | payer OTHER ==
--- NOTE | 2018-01-28 23:38 | ED ---
Female Urogenital HPI - General Chief complaint: Urogenital Stated complaint: Female Time Seen by Provider: 01/28/18 23:13 Source: patient, RN notes reviewed Mode of arrival: ambulatory Limitations: no limitations - History of Present Illness Initial comments: This is a 23-year-old female who presents to the emergency department with chief complaint of genital lumps. Patient states that she developed two painful "lumps" 4-5 days ago in her groin area. She states that she has noticed some purulent drainage from the "lump" on her right labia majora. Patient denies fevers or chills, chest pain or shortness of breath, abdominal pain, nausea or vomiting. Denies vaginal discharge or abnormal bleeding. - Related Data Home Medications Medication Instructions Recorded Confirmed Ibuprofen [Motrin Ib] 400 mg PO Q6H PRN 12/18/17 12/18/17 Previous Rx's Medication Instructions Recorded Ibuprofen [Motrin] 600 mg PO Q8HR PRN #30 tab 12/18/17 Cefixime [Suprax] 400 mg PO DAILY #7 cap 01/29/18 Clindamycin [Cleocin] 300 mg PO QID #56 cap 01/29/18 Allergies Allergy/AdvReac Type Severity Reaction Status Date / Time adhesive tape Allergy Rash/Hives Verified 01/28/18 22:46 shellfish derived [Shrimp] Allergy Anaphylaxis Verified 01/28/18 22:46 soap Allergy Rash/Hives Verified 01/28/18 22:46 Review of Systems ROS Statement: Those systems with pertinent positive or pertinent negative responses have been documented in the HPI. ROS Other: All systems not noted in ROS Statement are negative. Past Medical History Past Medical History: No Reported History History of Any Multi-Drug Resistant Organisms: None Reported Past Surgical History: Adenoidectomy, Tonsillectomy Past Anesthesia/Blood Transfusion Reactions: No Reported Reaction Past Psychological History: ADD/ADHD, Anxiety, Bipolar, Depression Smoking Status: Current every day smoker Past Alcohol Use History: None Reported Past Drug Use History: Marijuana - Past Family History Father Family Medical History: No Reported History Additional Family Medical History / Comment(s): Father is alive at age 40 with no major medical problems. Brother(s) Family Medical History: No Reported History Additional Family Medical History / Comment(s): Patient has 1 brother and 2 sisters with no major medical problems. Mother Family Medical History: No Reported History Additional Family Medical History / Comment(s): Mother is alive at age 40 with no major medical problems. General Exam - General Exam Comments Initial Comments: General: Awake and alert, well-developed; in no apparent distress. HEENT: Head atraumatic, normocephalic. Pupils are equal, round and reactive to light. Extraocular movements intact. Oropharynx moist without erythema or exudate. Neck: Supple. Normal ROM. Cardiovascular: Regular rate and rhythm. No murmurs, rubs or gallops. Chest symmetrical. Respiratory: Lungs clear to auscultation bilaterally. No wheezes, rales or rhonchi. Normal respiratory effort with no use of accessory muscles. Musculoskeletal: Normal ROM, no tenderness bilateral upper and lower extremities. Ambulating normally. Skin: [place], warm and dry. Neurological: Alert and oriented x3. CN II-XII grossly intact. Speech is fluent and answers are appropriate. No focal neuro deficits. Psychiatric: Normal mood and affect. No overt signs of depression or anxiety noted. Limitations: no limitations External exam: Present: erythema, swelling, other (bartholin abscess, actively draining. Right inguinal lymphadenopathy.) Course Vital Signs 01/28/18 22:43 Temperature 97.8 F Pulse Rate 90 Respiratory 16 Rate Blood Pressure 137/83 O2 Sat by Pulse 99 Oximetry Procedures - Incision & Drainage Consent Obtained: verbal consent Indication: bartholin abscess Site: vulva/vagina Size (cm): 3 Anesthetic Used: lidocaine 1% I&D Cleaning Method: Alcohol Wipe Scalpel Used: #11 I&D Drainage Obtained: Pus, Blood Packing: Other (word bartholin gland catheter) Culture Obtained?: No Patient Tolerated Procedure: well, no complications Medical Decision Making - Medical Decision Making This is a 23-year-old female who presents to the emergency department with chief complaint of "genital lump." On physical examination, patient has a Bartholin abscess of the right labia. I&D was performed and a Bartholin's gland catheter was inserted. Procedure went well without complication. Patient will be started on antibiotics and recommended following up with her OB/ [employer] within 1-2 days. Recommended warm compresses and sitz baths. Patient's vital signs are stable and she is in no acute distress. She will be discharged home at this time. All questions answered. Disposition Clinical Impression: Bartholin's gland abscess Disposition: HOME SELF-CARE Condition: Good Instructions: Abscess Incision and Drainage (ED), Bartholin Cyst (ED) Additional Instructions: Please follow-up with your MDM SR within 1-2 days. Please apply warm compresses and take warm sitz baths. Please take medications as prescribed. Please follow up with primary care provider within 1-2 days. Return to emergency department if symptoms should worsen or any concerns arise. Prescriptions: Cefixime [Suprax] 400 mg PO DAILY #7 cap Clindamycin [Cleocin] 300 mg PO QID #56 cap Is patient prescribed a controlled substance at d/c from ED?: No Referrals: None,Stated [Primary Care Provider] - 1-2 days Time of Disposition: 00:19
[2018-01-29] MEDS ORDERED: Acetaminophen-Codeine 300-30mg TAB PO STA (00:16)
[2018-01-29 00:27] VITALS: BP 118/71; PULSE 68; RESP 18; TEMP 98.5
== END 2018-01-29 00:34 | disposition home or self-care (01) ==
LOC: EC 22:43
DX: N75.1 Abscess of Bartholin's gland (principal); F17.200 Nicotine dependence, unspecified, uncomplicated; Z91.013 Allergy to seafood; Z91.018 Allergy to other foods; Z91.048 Other nonmedicinal substance allergy status
CPT/HCPCS: 56420; 99283

== ENCOUNTER 2018-02-16 20:09 | Emergency (ER) | payer OTHER ==
[2018-02-16 20:26] VITALS: RESP 18
--- NOTE | 2018-02-16 21:49 | ED ---
General Adult HPI - General Chief complaint: Extremity Problem,Nontraumatic Stated complaint: left leg swelling Time Seen by Provider: 02/16/18 20:27 Source: patient, RN notes reviewed Mode of arrival: wheelchair Limitations: no limitations, language barrier - History of Present Illness Initial comments: 23-year-old female presents to the emergency room for a chief complaint of left lower extremity swelling 30 minutes. Patient states that she got in her car when she noticed her left knee looked swollen. Patient states it looks better now but she still has pain in her ankle and knee. Patient denies any injuries. Patient denies any chronic medical problems. Patient states she would just like to know why her knee looked swollen. Patient has no other complaints at this time including shortness of breath, chest pain, abdominal pain, nausea or vomiting, headache, or visual changes. - Related Data Home Medications Medication Instructions Recorded Confirmed Ibuprofen [Motrin Ib] 400 mg PO Q6H PRN 12/18/17 12/18/17 Previous Rx's Medication Instructions Recorded Ibuprofen [Motrin] 600 mg PO Q8HR PRN #30 tab 12/18/17 Cefixime [Suprax] 400 mg PO DAILY #7 cap 01/29/18 Clindamycin [Cleocin] 300 mg PO QID #56 cap 01/29/18 Allergies Allergy/AdvReac Type Severity Reaction Status Date / Time adhesive tape Allergy Rash/Hives Verified 02/16/18 20:26 shellfish derived [Shrimp] Allergy Anaphylaxis Verified 02/16/18 20:26 soap Allergy Rash/Hives Verified 02/16/18 20:26 Review of Systems ROS Statement: Those systems with pertinent positive or pertinent negative responses have been documented in the HPI. ROS Other: All systems not noted in ROS Statement are negative. Past Medical History Past Medical History: No Reported History History of Any Multi-Drug Resistant Organisms: None Reported Past Surgical History: Adenoidectomy, Tonsillectomy Past Anesthesia/Blood Transfusion Reactions: No Reported Reaction Past Psychological History: ADD/ADHD, Anxiety, Bipolar, Depression Smoking Status: Current every day smoker Past Alcohol Use History: None Reported Past Drug Use History: Marijuana - Past Family History Father Family Medical History: No Reported History Additional Family Medical History / Comment(s): Father is alive at age 40 with no major medical problems. Brother(s) Family Medical History: No Reported History Additional Family Medical History / Comment(s): Patient has 1 brother and 2 sisters with no major medical problems. Mother Family Medical History: No Reported History Additional Family Medical History / Comment(s): Mother is alive at age 40 with no major medical problems. General Exam Limitations: no limitations, language barrier General appearance: alert, in no apparent distress Head exam: Present: atraumatic, normocephalic, normal inspection Eye exam: Present: normal appearance ENT exam: Present: normal exam, normal oropharynx Respiratory exam: Present: normal lung sounds bilaterally. Absent: respiratory distress, wheezes, rales, rhonchi, stridor Cardiovascular Exam: Present: regular rate, normal rhythm, normal heart sounds. Absent: systolic murmur, diastolic murmur, rubs, gallop, clicks Extremities exam: Present: full ROM (Full range of motion of the left knee and ankle.), tenderness (Tenderness to the anterior left knee and left ankle. No tenderness to the left calf or behind the left knee. No tenderness of the left foot.), normal capillary refill (Refill less than 2 seconds and pedal pulse 2+ in the left lower extremity.), other (Sensation intact in the left lower extremity.). Absent: pedal edema (No swelling in the left lower leg.), joint swelling (No swelling left lower foot ankle or leg.), calf tenderness (No tenderness in the calf. Negative Homans sign. No redness swelling or increased warmth in the left calf.) Course Vital Signs 02/16/18 20:25 Temperature 98.0 F Pulse Rate 65 Respiratory 18 Rate Blood Pressure 125/77 O2 Sat by Pulse 98 Oximetry Medical Decision Making - Medical Decision Making 23-year-old female since to the emergency department for a chief complaint of left lower extremity swelling 30 minutes which has since resolved. Patient states she was getting in her car about an hour ago noticed swelling in her left leg. Patient would like to note the swelling is from. Patient denies any injuries. Patient denies any history of blood clots. Patient states the swelling was mostly around her left knee. On exam I see no swelling in the left lower extremity. Patient admits that he does not seem swollen at this time. Patient states it is tender in the anterior knee and anterior ankle. Patient denies pain in the left calf. Negative Homans sign. No swelling redness or warmth in the left calf. Patient states she would like imaging done. X-ray shows bones and joints and soft tissues are unremarkable in the left tib-fib. Patient can take Motrin or Tylenol for pain. She is to elevate the leg to decrease the swelling if she notices any. She is to follow-up with primary care. She was given a referral for this. She is to return to the emergency Department if she has any other worsening symptoms. Disposition Clinical Impression: Leg pain, left Disposition: HOME SELF-CARE Condition: Good Instructions: Leg Pain (ED) Additional Instructions: Please take Motrin and Tylenol for pain. Please follow-up with primary care provider in one to 2 days. Keep leg elevated if you feel like it is swelling. Return to the emergency department if you have any worsening symptoms. Is patient prescribed a controlled substance at d/c from ED?: No Referrals: Gunnar George MD [STAFF PHYSICIAN] - 1-2 days Time of Disposition: 22:10
--- NOTE | 2018-02-16 22:08 | XR ---
PROCEDURE: XR tibia fibula LT , 2V DATE AND TIME: 02/16/2018 8:54 PM REFERRING PHYSICIAN: Abhi Dexter CLINICAL INDICATION: PHH, Pain without injury TECHNIQUE: Department protocol. COMPARISON: None FINDINGS: Bones and joints and soft tissues are unremarkable. IMPRESSION: Negative examination.
[2018-02-16 22:18] VITALS: BP 117/64; PULSE 99; TEMP 97.4
== END 2018-02-16 22:05 | disposition home or self-care (01) ==
LOC: EC 20:09
DX: M79.605 Pain in left leg (principal); M25.572 Pain in left ankle and joints of left foot; M25.562 Pain in left knee; F17.200 Nicotine dependence, unspecified, uncomplicated; Z91.013 Allergy to seafood; Z91.09 Other allergy status, other than to drugs and biological substances
CPT/HCPCS: 99283

== ENCOUNTER 2018-03-26 16:18 | Emergency (ER) | payer OTHER ==
[2018-03-26 16:44] VITALS: TEMP 98.3
--- NOTE | 2018-03-26 17:35 | CT ---
EXAMINATION TYPE: CT brain patienceine wo con DATE OF EXAM: 03/26/2018 COMPARISON: Brain 12/18/2017 HISTORY: 23-year-old female Fall down stairs. No LOC. Blurred vision and nausea. CT DLP: 1225.4 mGycm Automated exposure control for dose reduction was used. Technique: Examination of the head was done in axial plane without intravenous contrast. Coronal and sagittal reconstructions performed. CT of the cervical spine was obtained in axial plane without intravenous injection of contrast mater ial. Coronal and sagittal reformatted images were obtained from the axial views for evaluation of f ractures, spinal alignment and canal. FINDINGS: Head: There is no evidence of acute intracranial hemorrhage, acute ischemic changes, mass, mass-effect, or extra-axial fluid collection. There is no effacement of cerebral sulci or basal subarachnoid cister ns. There is no hydrocephalus. There is no midline shift. Morin-white matter distinction is preserv ed. Paranasal sinuses and mastoid air cells well pneumatized. Orbits and globes are intact. A piercing is present along the right lateral supraorbital region. No calvarial fracture. Cervical spine: The alignment of the cervical spine is normal on coronal and reformatted images. There is no cranial vertebral abnormality. Fracture of the cervical spine is not seen. Assessment of the spinal canal fro m C6-C7 and below is limited due to artifact from the patient's shoulders. There is no evidence of fo rhys disk herniation within the visualized levels. There is no significant neuroforaminal stenosis. Sagittal and coronal reformatted images confirm above findings. COMBINED IMPRESSION: 1. No acute intracranial abnormality seen. 2. No acute fracture or malalignment of the cervical spine.
[2018-03-26] MEDS ORDERED: ONDANSETRON 4 MG ODT STARTER PACK 2 TAB BTL PO STA (18:02)
--- NOTE | 2018-03-26 18:04 | ED ---
General Adult HPI - General Chief complaint: Fall Stated complaint: FALL - LEFT KNEE, HEAD INJURY, VISUAL DISTURBANCE Time Seen by Provider: 03/26/18 17:02 Source: patient, RN notes reviewed Mode of arrival: wheelchair Limitations: no limitations - History of Present Illness Initial comments: 23-year-old female presents to the emergency room today with a chief complaint of a fall that occurred approximately 2 hours ago. Patient states that she slipped going down some stairs. States fell down approximately 12 steps. Patient does admit she hit her head. She admits to headache. States he was no loss conscious. Admits to blurry vision. He was feeling nauseated. Admits to some knee pain and arm pain as well but states that this feeling much better she has full range of motion. She does not believe anything is broken. States her main complaint is her head. She does admit some neck pain as well. Denies any other complaints or symptoms at this time. Patient denies any recent fever, chills, shortness of breath, chest pain, back pain, abdominal pain, nausea or vomiting, numbness or tingling, visual changes, or any other complaints. - Related Data Home Medications Medication Instructions Recorded Confirmed Ibuprofen [Motrin Ib] 400 mg PO Q6H PRN 12/18/17 12/18/17 Previous Rx's Medication Instructions Recorded Ibuprofen [Motrin] 600 mg PO Q8HR PRN #30 tab 12/18/17 Cefixime [Suprax] 400 mg PO DAILY #7 cap 01/29/18 Clindamycin [Cleocin] 300 mg PO QID #56 cap 01/29/18 Ondansetron Odt [Zofran ODT] 4 mg PO Q8HR PRN #10 tab 03/26/18 Allergies Allergy/AdvReac Type Severity Reaction Status Date / Time adhesive tape Allergy Rash/Hives Verified 03/26/18 16:43 shellfish derived [Shrimp] Allergy Anaphylaxis Verified 03/26/18 16:43 soap Allergy Rash/Hives Verified 03/26/18 16:43 Review of Systems ROS Statement: Those systems with pertinent positive or pertinent negative responses have been documented in the HPI. ROS Other: All systems not noted in ROS Statement are negative. Past Medical History Past Medical History: No Reported History History of Any Multi-Drug Resistant Organisms: None Reported Past Surgical History: Adenoidectomy, Tonsillectomy Past Anesthesia/Blood Transfusion Reactions: No Reported Reaction Past Psychological History: ADD/ADHD, Anxiety, Bipolar, Depression Smoking Status: Current every day smoker Past Alcohol Use History: Occasional Past Drug Use History: Marijuana - Past Family History Father Family Medical History: No Reported History Additional Family Medical History / Comment(s): Father is alive at age 40 with no major medical problems. Brother(s) Family Medical History: No Reported History Additional Family Medical History / Comment(s): Patient has 1 brother and 2 sisters with no major medical problems. Mother Family Medical History: No Reported History Additional Family Medical History / Comment(s): Mother is alive at age 40 with no major medical problems. General Exam - General Exam Comments Initial Comments: General: The patient is awake and alert, in no distress, and does not appear acutely ill. Eye: Pupils are equal, round and reactive to light, extra-ocular movements are intact. No nystagmus. There is normal conjunctiva bilaterally. No signs of icterus. Ears, nose, mouth and throat: There are moist mucous membranes and no oral lesions. Neck: The neck is supple, there is no tenderness or JVD. Cardiovascular: There is a regular rate and rhythm. No murmur, rub or gallop is appreciated. Respiratory: Lungs are clear to auscultation, respirations are non-labored, breath sounds are equal. No wheezes, stridor, rales, or rhonchi. Musculoskeletal: Normal ROM, no tenderness. Strength 5/5. Sensation intact. Pulses equal bilaterally 2+. Neurological: A&O x 3. CN II-XII intact, There are no obvious motor or sensory deficits. Coordination appears grossly intact. Speech is normal. Skin: Skin is warm and dry and no rashes or lesions are noted. Psychiatric: Cooperative, appropriate mood & affect, normal judgment. Limitations: no limitations Course Vital Signs 03/26/18 16:40 Temperature 98.3 F Pulse Rate 80 Respiratory 18 Rate Blood Pressure 109/75 O2 Sat by Pulse 99 Oximetry Medical Decision Making - Medical Decision Making Patient states has full range motion of the extremities. She states she is not worried about any broken bones. She had no tenderness midline of the cervical spine. She admits to a headache and hitting her head with this fall. CT of the head and neck was performed showing no acute abnormality. Results were discussed with patient. She has mid to headache feeling nauseated here in emergency room. Signs and symptoms of concussion were discussed with the patient. Patient is advised to limit physical activity following up with the family doctor over the next 2 days. Will be given nausea medication to go home with. Advised to return if any symptoms increase or worsen. Disposition Clinical Impression: Concussion, Fall Disposition: HOME SELF-CARE Condition: Good Instructions: Concussion (ED) Additional Instructions: Please use medication as discussed. Please follow-up with family doctor in the next 2 days of symptoms have not improved. Please return to emergency room if the symptoms increase or worsen or for any other concerns. Prescriptions: Ondansetron Odt [Zofran ODT] 4 mg PO Q8HR PRN #10 tab PRN Reason: Nausea Is patient prescribed a controlled substance at d/c from ED?: No Referrals: None,Stated [Primary Care Provider] - 1-2 days Time of Disposition: 18:03
[2018-03-26 18:16] VITALS: BP 135/56; PULSE 78; RESP 20
== END 2018-03-26 18:10 | disposition home or self-care (01) ==
LOC: EC 16:18
DX: S06.0X0A Concussion without loss of consciousness, initial encounter (principal); F17.200 Nicotine dependence, unspecified, uncomplicated; Z91.013 Allergy to seafood; Z91.018 Allergy to other foods; Z91.048 Other nonmedicinal substance allergy status; W10.9XXA Fall (on) (from) unspecified stairs and steps, initial encounter; Y92.009 Unspecified place in unspecified non-institutional (private) residence as the place of occurrence of the external cause
CPT/HCPCS: 99283; 72125; 70450; S0119

== ENCOUNTER 2018-05-06 11:29 | Emergency (ER) | payer OTHER ==
[2018-05-06 11:37] VITALS: RESP 18
--- NOTE | 2018-05-06 12:03 | ED ---
General Adult HPI - General Chief complaint: Skin/Abscess/Foreign Body Stated complaint: Breast Pain Time Seen by Provider: 05/06/18 11:53 Source: patient Mode of arrival: ambulatory Limitations: no limitations - History of Present Illness Initial comments: 23-year-old female patient presents to the emergency department today for evaluation of multiple complaints. Patient states that she has noticed lumps in her right breast and has been having right breast pain. Patient denies any redness or swelling of the breast. Denies any nipple discharge. Patient states that the lumps are increasing in number and are becoming more painful. States she has been chilled. She is also concerned she may have an STD and would like to have testing performed. Patient states she is having some white vaginal discharge. Denies any hematuria, dysuria, urinary frequency, urinary urgency. Patient is unsure if she is . States she missed her last period. She denies any fevers. Patient denies any recent rash, shortness breath , chest pain, abdominal pain, nausea, vomiting, diarrhea, constipation, back pain, numbness, tingling, dizziness, weakness, headache, visual changes, or any other complaints. - Related Data Home Medications Medication Instructions Recorded Confirmed Ibuprofen [Motrin Ib] 400 mg PO Q6H PRN 12/18/17 12/18/17 Previous Rx's Medication Instructions Recorded Ibuprofen [Motrin] 600 mg PO Q8HR PRN #30 tab 12/18/17 Cefixime [Suprax] 400 mg PO DAILY #7 cap 01/29/18 Clindamycin [Cleocin] 300 mg PO QID #56 cap 01/29/18 Ondansetron Odt [Zofran ODT] 4 mg PO Q8HR PRN #10 tab 03/26/18 Allergies Allergy/AdvReac Type Severity Reaction Status Date / Time adhesive tape Allergy Rash/Hives Verified 05/06/18 11:34 shellfish derived [Shrimp] Allergy Anaphylaxis Verified 05/06/18 11:34 soap Allergy Rash/Hives Verified 05/06/18 11:34 Review of Systems ROS Statement: Those systems with pertinent positive or pertinent negative responses have been documented in the HPI. ROS Other: All systems not noted in ROS Statement are negative. Past Medical History Past Medical History: No Reported History History of Any Multi-Drug Resistant Organisms: None Reported Past Surgical History: Adenoidectomy, Tonsillectomy Past Anesthesia/Blood Transfusion Reactions: No Reported Reaction Past Psychological History: ADD/ADHD, Anxiety, Bipolar, Depression Smoking Status: Current every day smoker Past Alcohol Use History: Occasional Past Drug Use History: Marijuana - Past Family History Father Family Medical History: No Reported History Additional Family Medical History / Comment(s): Father is alive at age 40 with no major medical problems. Brother(s) Family Medical History: No Reported History Additional Family Medical History / Comment(s): Patient has 1 brother and 2 sisters with no major medical problems. Mother Family Medical History: No Reported History Additional Family Medical History / Comment(s): Mother is alive at age 40 with no major medical problems. General Exam Limitations: no limitations General appearance: alert, in no apparent distress, other (This is a well- developed, well-nourished adult female patient in no acute distress. Vital signs upon presentation are temperature 98.3F, pulse 108, respirations 18, blood pressure 104/67, pulse ox 97% on room air.) Eye exam: Present: normal appearance, PERRL, EOMI. Absent: scleral icterus, conjunctival injection, periorbital swelling ENT exam: Present: normal exam, normal oropharynx, mucous membranes moist Respiratory exam: Present: normal lung sounds bilaterally. Absent: respiratory distress, wheezes, rales, rhonchi, stridor Cardiovascular Exam: Present: regular rate, normal rhythm, normal heart sounds. Absent: systolic murmur, diastolic murmur, rubs, gallop, clicks GI/Abdominal exam: Present: soft, normal bowel sounds. Absent: distended, tenderness, guarding, rebound, rigid Neurological exam: Present: alert, oriented X3, CN II-XII intact Psychiatric exam: Present: normal affect, normal mood Skin exam: Present: warm, dry, intact, normal color, other (Breast exam performed. There is a small rounded mobile lump to the right breast at 11:00 and similar at 6:00. Generalized right breast tenderness. Left breast is normal.). Absent: rash Course Vital Signs 05/06/18 11:34 Temperature 98.3 F Pulse Rate 108 H Respiratory 18 Rate Blood Pressure 104/67 O2 Sat by Pulse 97 Oximetry Medical Decision Making - Medical Decision Making 23-year-old female patient presents emergency Department with complaints of right breast pain and "lumps". Patient is also having yellow vaginal discharge with a slight odor and is concerned for STDs. Physical examination did reveal breast tenderness and small mobile lumps noted around 11:00 and 6:00. Abdomen is soft and nontender. Patient is afebrile, vital signs stable. I did offer pelvic exam to the patient, she preferred self swapping for STDs. Given her symptoms she will be treated for STDs doses of antibiotics here in the emergency department. She is instructed to follow-up with her technology risk intern for recheck as soon as possible. Return parameters discussed in detail. She verbalizes understanding and agrees with this plan. - Lab Data Lab Results 05/06/18 05/06/18 Range/Units 12:07 12:07 Urine Color Yellow Urine Appearance Clear (Clear) Urine pH 8.0 (5.0-8.0) Ur Specific [place] 1.005 (1.001-1.035) Urine Protein Trace H (Negative) Urine Glucose (UA) Negative (Negative) Urine Ketones Negative (Negative) Urine Blood Negative (Negative) Urine Nitrite Negative (Negative) Urine Bilirubin Negative (Negative) Urine Urobilinogen <2.0 (<2.0) mg/dL Ur Leukocyte Esterase Negative (Negative) Urine HCG, Qual Not Detected (Not Detectd) - Radiology Data Radiology results: report reviewed Ultrasound of the right breast was obtained. There are multiple tubular structures which may represent dilated ducts or veins. No solid mass lesion is seen. Impression by Dr. Mary shows dilated ducts were superficial veins from 7:00 to 11:00, right breast. Disposition Clinical Impression: Breast pain, STI (sexually transmitted infection) Disposition: HOME SELF-CARE Condition: Good Instructions: Sexually Transmitted Diseases (ED), Safe Sex (ED) Additional Instructions: Follow-up with the gynecology for further evaluation. Take ibuprofen for pain control. Return here immediately for any new, worsening, or concerning symptoms. Is patient prescribed a controlled substance at d/c from ED?: No Referrals: None,Stated [Primary Care Provider] - 1-2 days Time of Disposition: 13:36
[2018-05-06 12:18] LABS: Appearance,Urine Clear (Clear); Bilirubin,Urine Negative (Negative); Blood,Urine Negative (Negative); Color,Urine Yellow; Glucose,Urine (UA) Negative (Negative); Ketones,Urine Negative (Negative); Leukocyte Esterase,Urine Negative (Negative); Nitrite,Urine Negative (Negative); Protein,Urine Trace (Negative); Specific Gravity,Urine 1.005 (1.001-1.035); Urobilinogen,Urine <2.0 mg/dL (<2.0)
--- NOTE | 2018-05-06 13:02 | USB ---
EXAMINATION TYPE: US breast complete RT DATE OF EXAM: 05/06/2018 COMPARISON: NONE CLINICAL HISTORY: Pain. There are multiple tubular structures which may represent dilated ducts or veins. No solid mass lesio n is seen. IMPRESSION: DILATED DUCTS VERSUS SUPERFICIAL VEINS FROM 7:00 TO 11:00, RIGHT BREAST
[2018-05-06] MEDS ORDERED: AZITHROMYCIN 500 MG TAB PO STA (13:34)
[2018-05-06] MEDS ORDERED: cefTRIAXone 250 MG VIAL IM STA (13:34)
[2018-05-06] MEDS ORDERED: metroNIDAZOLE 500 MG TAB PO STA (13:34)
[2018-05-06 14:06] VITALS: BP 150/83; PULSE 83; TEMP 97.6
[2018-05-07 16:02] LABS: N. gonorrhoeae,PCR Negative (Neg,Equiv); Neisseria Source Cervix
[2018-05-07 16:04] LABS: C. trachomatis,PCR Negative (Neg,Equiv); Chlamydia trachomatis Source Cervix
== END 2018-05-06 14:06 | disposition home or self-care (01) ==
LOC: EC 11:29
DX: A64 Unspecified sexually transmitted disease (principal); N64.4 Mastodynia; F17.200 Nicotine dependence, unspecified, uncomplicated; Z91.013 Allergy to seafood; Z91.048 Other nonmedicinal substance allergy status; Z91.09 Other allergy status, other than to drugs and biological substances
CPT/HCPCS: 81003; 81025; 87808; 87491; 87591; 76641; 99284; 96372; J0696

== ENCOUNTER 2018-05-16 16:15 | Emergency (ER) | payer OTHER ==
[2018-05-16 16:21] VITALS: TEMP 97.9
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
[2018-05-16] MEDS ORDERED: LORazepam 1 MG TAB PO STA (16:46)
[2018-05-16 17:28] VITALS: BP 109/61; PULSE 52; RESP 18
== END 2018-05-16 17:28 | disposition home or self-care (01) ==
LOC: EC 16:15
DX: F41.0 Panic disorder [episodic paroxysmal anxiety] (principal); F17.200 Nicotine dependence, unspecified, uncomplicated; Z91.013 Allergy to seafood; Z91.048 Other nonmedicinal substance allergy status
CPT/HCPCS: 81025; 99283

== ENCOUNTER 2018-06-03 06:50 | Emergency (ER) | payer OTHER ==
[2018-06-03 07:02] VITALS: RESP 18
--- NOTE | 2018-06-03 07:27 | ED ---
General Adult HPI - General Chief complaint: Recheck/Abnormal Lab/Rx Stated complaint: Preg test Time Seen by Provider: 06/03/18 07:10 Source: patient, RN notes reviewed Mode of arrival: ambulatory Limitations: no limitations - History of Present Illness Initial comments: Patient is a pleasant 23-year-old female presenting to the emergency department with concerns for possible . Patient states her last period was 2 months ago. Patient states last month showing had some mild spotting. Patient states she does have some minimal cramping. Patient states her breast also feels larger. Patient has taken 2 tests at home that have come back negative. - Related Data Home Medications Medication Instructions Recorded Confirmed Ibuprofen [Motrin Ib] 400 mg PO Q6H PRN 12/18/17 05/16/18 Albuterol Inhaler [Ventolin Hfa 1 - 2 puff INHALATION RT-Q6H PRN 05/16/18 Inhaler] Allergies Allergy/AdvReac Type Severity Reaction Status Date / Time adhesive tape Allergy Rash/Hives Verified 06/03/18 07:02 shellfish derived [Shrimp] Allergy Anaphylaxis Verified 06/03/18 07:02 soap Allergy Rash/Hives Verified 06/03/18 07:02 Review of Systems ROS Statement: Those systems with pertinent positive or pertinent negative responses have been documented in the HPI. ROS Other: All systems not noted in ROS Statement are negative. Constitutional: Denies: fever Eyes: Denies: eye pain ENT: Denies: ear pain Respiratory: Denies: cough Cardiovascular: Denies: chest pain Endocrine: Denies: fatigue Gastrointestinal: Denies: vomiting Genitourinary: Denies: dysuria Musculoskeletal: Denies: back pain Skin: Denies: lesions Past Medical History Past Medical History: No Reported History History of Any Multi-Drug Resistant Organisms: None Reported Past Surgical History: Adenoidectomy, Tonsillectomy Past Anesthesia/Blood Transfusion Reactions: No Reported Reaction Past Psychological History: ADD/ADHD, Anxiety, Bipolar, Depression Smoking Status: Current every day smoker Past Alcohol Use History: Occasional Past Drug Use History: Marijuana - Past Family History Father Family Medical History: No Reported History Additional Family Medical History / Comment(s): Father is alive at age 40 with no major medical problems. Brother(s) Family Medical History: No Reported History Additional Family Medical History / Comment(s): Patient has 1 brother and 2 sisters with no major medical problems. Mother Family Medical History: No Reported History Additional Family Medical History / Comment(s): Mother is alive at age 40 with no major medical problems. General Exam Limitations: no limitations General appearance: alert, in no apparent distress Head exam: Present: atraumatic Eye exam: Present: normal appearance ENT exam: Present: normal oropharynx Neck exam: Present: normal inspection Respiratory exam: Present: normal lung sounds bilaterally Cardiovascular Exam: Present: regular rate, normal rhythm Expanded Peripheral pulses: 2+: Posterior Tibialis (R), Posterior Tibialis (L) GI/Abdominal exam: Present: soft. Absent: tenderness, guarding Extremities exam: Present: normal inspection Back exam: Present: normal inspection Neurological exam: Present: alert Psychiatric exam: Present: normal affect, normal mood Skin exam: Present: normal color Course Vital Signs 06/03/18 06:59 Temperature 98.4 F Pulse Rate 72 Respiratory 18 Rate Blood Pressure 128/79 O2 Sat by Pulse 98 Oximetry Medical Decision Making - Medical Decision Making Patient reevaluated and resting comfortably in bed. Patient updated. - Lab Data Lab Results 06/03/18 06/03/18 Range/Units 07:23 07:23 Urine Color Light Yellow Urine Appearance Cloudy H (Clear) Urine pH 5.5 (5.0-8.0) Ur Specific [place] 1.012 (1.001-1.035) Urine Protein Negative (Negative) Urine Glucose (UA) Negative (Negative) Urine Ketones Negative (Negative) Urine Blood Negative (Negative) Urine Nitrite Negative (Negative) Urine Bilirubin Negative (Negative) Urine Urobilinogen <2.0 (<2.0) mg/dL Ur Leukocyte Esterase Trace H (Negative) Urine RBC <1 (0-5) /hpf Urine WBC 5 (0-5) /hpf Ur Squamous Epith Cells 21 H (0-4) /hpf Urine Bacteria Few H (None) /hpf Urine Mucus Rare H (None) /hpf Urine HCG, Qual Not Detected (Not Detectd) Disposition Clinical Impression: Negative test, Amenorrhea Disposition: HOME SELF-CARE Condition: Stable Additional Instructions: Please follow-up with primary care physician in the next day or 2 for recheck. Also consider follow-up with ADULT PSYCHIATRIST. Return for pelvic pain, abdominal pain, fevers, rash, worsening or changing symptoms or other concerns. Is patient prescribed a controlled substance at d/c from ED?: No Referrals: Dipti Leon MD [STAFF PHYSICIAN] - 1-2 days Wen Davis MD [STAFF PHYSICIAN] - 1-2 days Time of Disposition: 08:09
[2018-06-03 07:59] LABS: Appearance,Urine Cloudy (Clear); Bacteria,Urine Few /hpf; Bilirubin,Urine Negative (Negative); Blood,Urine Negative (Negative); Color,Urine Light Yellow; Glucose,Urine (UA) Negative (Negative); Ketones,Urine Negative (Negative); Leukocyte Esterase,Urine Trace (Negative); Mucus,Urine Rare /hpf; Nitrite,Urine Negative (Negative); PH, Urine 5.5 (5.0-8.0); Protein,Urine Negative (Negative); RBC,Urine <1 /hpf (0-5); Specific Gravity,Urine 1.012 (1.001-1.035); Squamous Epithelial Cell,Urine 21 /hpf (0-4); Urobilinogen,Urine <2.0 mg/dL (<2.0); WBC,Urine 5 /hpf (0-5)
[2018-06-03 08:21] VITALS: BP 122/69; PULSE 68; TEMP 98
== END 2018-06-03 08:15 | disposition home or self-care (01) ==
LOC: EC 06:50
DX: Z32.02 Encounter for pregnancy test, result negative (principal); N91.2 Amenorrhea, unspecified; F17.200 Nicotine dependence, unspecified, uncomplicated; Z91.048 Other nonmedicinal substance allergy status; Z91.013 Allergy to seafood
CPT/HCPCS: 81001; 81025; 99282

== ENCOUNTER → 2018-06-05 | Outpatient (CLI) | payer SELFPAY | END | disposition home or self-care (01) | LOC: LABWHC1 14:39 | PROVIDERS: ATTEND Obstetrics & Gynecology | DX: N92.6 Irregular menstruation, unspecified (principal) | CPT/HCPCS: 36415; 84702 ==

== ENCOUNTER 2018-07-04 17:33 | Inpatient (IN) | payer OTHER ==
--- NOTE | 2018-07-04 17:59 | ED ---
General Adult HPI - General Chief complaint: Psychiatric Symptoms Stated complaint: suicidal Time Seen by Provider: 07/04/18 17:44 Source: patient, RN notes reviewed Mode of arrival: ambulatory Limitations: no limitations - History of Present Illness Initial comments: Patient's a 23-year-old male presented to the emergency room today with chief complaint of suicidal ideation. 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 She states she has had thoughts of hurting herself. No thoughts of hurting others. Does admit that she's had some visual hallucinations. She describes them as shadows. Patient states that she has seen counselors in the past but is not seeing anyone currently is not on any medications. She denies any other complaints or symptoms. - Related Data Home Medications Medication Instructions Recorded Confirmed No Known Home Medications 07/04/18 07/04/18 Allergies Allergy/AdvReac Type Severity Reaction Status Date / Time adhesive tape Allergy Rash/Hives Verified 07/04/18 17:57 shellfish derived [Shrimp] Allergy Anaphylaxis Verified 07/04/18 17:57 soap Allergy Rash/Hives Verified 07/04/18 17:57 Review of Systems ROS Statement: Those systems with pertinent positive or pertinent negative responses have been documented in the HPI. ROS Other: All systems not noted in ROS Statement are negative. Past Medical History Past Medical History: No Reported History History of Any Multi-Drug Resistant Organisms: None Reported Past Surgical History: Adenoidectomy, Tonsillectomy Past Anesthesia/Blood Transfusion Reactions: No Reported Reaction Past Psychological History: ADD/ADHD, Anxiety, Bipolar, Depression Smoking Status: Current every day smoker Past Alcohol Use History: Occasional Past Drug Use History: Marijuana - Past Family History Father Family Medical History: No Reported History Additional Family Medical History / Comment(s): Father is alive at age 40 with no major medical problems. Brother(s) Family Medical History: No Reported History Additional Family Medical History / Comment(s): Patient has 1 brother and 2 sisters with no major medical problems. Mother Family Medical History: No Reported History Additional Family Medical History / Comment(s): Mother is alive at age 40 with no major medical problems. General Exam - General Exam Comments Initial Comments: General: The patient is awake and alert, in no distress, and does not appear acutely ill. Eye: Pupils are equal, round and reactive to light. Extra-ocular movements are intact. No nystagmus. There is normal conjunctiva bilaterally. No signs of icterus. Ears, nose, mouth and throat: There are moist mucous membranes and no oral lesions. Neck: The neck is supple, there is no tenderness or JVD. Cardiovascular: There is a regular rate and rhythm. No murmur, rub or gallop is appreciated. Respiratory: Lungs are clear to auscultation, respirations are non-labored, breath sounds are equal. No wheezes, stridor, rales, or rhonchi. Musculoskeletal: Normal ROM, no tenderness. Sensation intact. Neurological: A&O x 3. CN II-XII intact, There are no obvious motor or sensory deficits. Coordination appears grossly intact. Speech is normal. Skin: Skin is warm and dry and no rashes or lesions are noted. Psychiatric: Cooperative Limitations: no limitations Course Vital Signs 07/04/18 07/04/18 17:40 19:19 Temperature 98.2 F Pulse Rate 84 52 L Respiratory 18 17 Rate Blood Pressure 120/78 101/59 O2 Sat by Pulse 97 99 Oximetry Medical Decision Making - Medical Decision Making Patient seen here in the emergency room by [facility]. The recommendation at patient be admitted to the hospital. She is willing to sign herself in. Disposition Clinical Impression: Suicidal ideation Disposition: TRANSFER TO PSYCH HOSP/UNIT Condition: Stable Is patient prescribed a controlled substance at d/c from ED?: No Referrals: None,Stated [Primary Care Provider] - 1-2 days Time of Disposition: 19:49
[2018-07-04 20:15] LABS: Amphetamine Screen,Urine Not Detected (NotDetected); Barbiturate Screen,Urine Not Detected (NotDetected); Benzodiazepines Screen,Urine Not Detected (NotDetected); Cocaine Screen,Urine Not Detected (NotDetected); Methadone Screen, Urine Not Detected (NotDetected); Opiate Screen,Urine Not Detected (NotDetected); Oxycodone Screen, Urine Not Detected (NotDetected); Phencyclidine Screen,Urine Not Detected (NotDetected); Tricyclic Antidepressant,Urine Not Detected (NotDetected); Urn Cannabinoid Scrn Detected (NotDetected)
[2018-07-04] MEDS ORDERED: MAGNESIUM HYDROXIDE 2,400 MG/10 ML CUP PO PRN (20:56)
[2018-07-04] MEDS ORDERED: ACETAMINOPHEN TAB 325 MG TAB PO PRN (20:56)
[2018-07-04] MEDS ORDERED: MAG HYDROX/AL HYDROX/SIMETH 30 ML CUP PO PRN (20:56)
--- NOTE | 2018-07-04 22:26 | P.CONS ---
History of Present Illness - Reason for Consult Consult date: 07/04/18 - Chief Complaint Suicidal ideation - History of Present Illness The patient is a 23 yo F with the H of panic disorder and active tobacco use presented to the ED due to suicidal ideation. She notes that for the past few weeks, she has been having difficulty coping with the relationship with her now ex- and her new partner. 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 She otherwise denied headache, weakness, numbness, visual disturbances, nausea, vomiting, fever, chills, dysuria, recent travel, or sick contacts. She notes that she had recurrent thoughts of hurting herself due to her relationship difficulties and decided to come to the ED. She endorsed regular marijuana use but denied any other substance use. Review of Systems Pertinent positives and negatives as discussed in HPI, a complete review of systems was performed and all other systems are negative. Past Medical History Past Medical History: No Reported History History of Any Multi-Drug Resistant Organisms: None Reported Past Surgical History: Adenoidectomy, Tonsillectomy Past Anesthesia/Blood Transfusion Reactions: No Reported Reaction Past Psychological History: ADD/ADHD, Anxiety, Bipolar, Depression Smoking Status: Current every day smoker Past Alcohol Use History: Occasional Past Drug Use History: Marijuana - Past Family History Father Family Medical History: No Reported History Additional Family Medical History / Comment(s): Father is alive at age 40 with no major medical problems. Brother(s) Family Medical History: No Reported History Additional Family Medical History / Comment(s): Patient has 1 brother and 2 sisters with no major medical problems. Mother Family Medical History: No Reported History Additional Family Medical History / Comment(s): Mother is alive at age 40 with no major medical problems. Medications and Allergies Home Medications Medication Instructions Recorded Confirmed Type No Known Home Medications 07/04/18 07/04/18 History Allergies Allergy/AdvReac Type Severity Reaction Status Date / Time adhesive tape Allergy Rash/Hives Verified 07/04/18 17:57 shellfish derived [Shrimp] Allergy Anaphylaxis Verified 07/04/18 17:57 soap Allergy Rash/Hives Verified 07/04/18 17:57 Physical Exam Vitals: Vital Signs Temp Pulse Resp BP Pulse Ox 07/04/18 20:27 97.7 F 62 18 113/91 97 07/04/18 19:19 52 L 17 101/59 99 07/04/18 17:40 98.2 F 84 18 120/78 97 Intake and Output 07/04/18 07/04/18 07/04/18 06:59 14:59 22:59 Other: Weight 45.359 kg General: [non toxic], [no distress], [appears at stated age], [normal weight] Derm: [no unusual rashes/lesions] [no unusual ecchymoses], [warm], [dry] Head: [atraumatic], [normocephalic], [symmetric] Eyes: [EOMI], [no lid lag], [anicteric sclera], [pupils equal round reactive to light] ENT: [Nose and ears atraumatic], [no thrush], [no pharyngeal erythema] Neck: [No thyromegaly], [no cervical lymphadenopathy], [trachea midline], [ supple] Mouth: [no lip lesion], [mucus membranes moist], poor dentition Cardiovascular: [S1S2 reg], [no murmur], [positive posterior tibial pulse bilateral], [no edema], [capillary refill less than 2 seconds] Lungs: [CTA bilateral], [no rhonchi, no rales] , [no accessory muscle use] Abdominal: [soft], [ nontender to palpation], [no guarding], [no appreciable organomegaly], [normal bowel sounds] Ext: [no gross muscle atrophy], [muscle strength 5 out of 5 in all 4 extremities grossly], [no contractures], Neuro: [ CN II-XI grossly intact], [light touch intact all 4 extremities], [ finger to nose within normal limits], Psych: [Alert], [oriented], [appropriate affect] Results Labs: Abnormal Lab Results - Last 24 Hours (Table) 07/04/18 Range/Units 19:38 U Marijuana (THC) Screen Detected H (NotDetected) Assessment and Plan Plan: Panic disorder w/ amnesia - Patient notes she occassionaly uses an albuterol inhaler during her episodes which has helped in the past. Denied respiratory symptoms without the associated psych symptoms. - No wheezing at this time, patient may need bronchoprovocation testing in the future w/ outpt f/u for possibly asthma - As per psychiatry for panic disorder and suicidal ideation - Denying suicidal or homicidal ideation at this time Tobacco abuse - Nicotine patch DVT//GI proph - Low risk for DVT, ambulate at will Thank you for allowing us to participate in the care of this patient. We will follow peripherally. Do not hesitate to contact us with questions. Someone can be reached from the [facility] hospitalist group at all hours of the day at [phone].
[2018-07-05] MEDS ORDERED: NICOTINE 14MG/24HR PATCH TRANSDERM SCH (09:00)
--- NOTE | 2018-07-05 10:35 | P.HP ---
Psychiatric H&P - . H&P Date: 07/05/18 History & Physical: Allergies Allergy/AdvReac Type Severity Reaction Status Date / Time adhesive tape Allergy Rash/Hives Verified 07/04/18 17:57 shellfish derived [Shrimp] Allergy Anaphylaxis Verified 07/04/18 17:57 soap Allergy Rash/Hives Verified 07/04/18 17:57 Vital Signs Temp 98.0 F 07/05/18 06:39 Pulse 49 L 07/05/18 06:39 Resp 16 07/05/18 06:39 BP 102/55 07/05/18 06:39 Pulse Ox 99 07/04/18 21:15 Intake & Output 07/04/18 07/05/18 07/05/18 18:59 06:59 18:59 Weight 45.359 kg 45.955 kg Laboratory Last Values Urine HCG, Qual Not Detected (Not Detectd) 07/04/18 19:38 Urine Opiates Screen Not Detected (NotDetected) 07/04/18 19:38 Ur Oxycodone Screen Not Detected (NotDetected) 07/04/18 19:38 Urine Methadone Screen Not Detected (NotDetected) 07/04/18 19:38 Ur Propoxyphene Screen Not Detected (NotDetected) 07/04/18 19:38 Ur Barbiturates Screen Not Detected (NotDetected) 07/04/18 19:38 U Tricyclic Antidepress Not Detected (NotDetected) 07/04/18 19:38 Ur Phencyclidine Scrn Not Detected (NotDetected) 07/04/18 19:38 Ur Amphetamines Screen Not Detected (NotDetected) 07/04/18 19:38 U Methamphetamines Scrn Not Detected (NotDetected) 07/04/18 19:38 U Benzodiazepines Scrn Not Detected (NotDetected) 07/04/18 19:38 Urine Cocaine Screen Not Detected (NotDetected) 07/04/18 19:38 U Marijuana (THC) Screen Detected (NotDetected) H 07/04/18 19:38 Assessment and Plan Assessment: / Muscle Tone: [no impairment Gait: [grossly normal]General Chief complaint: Psychiatric Symptoms Stated complaint: suicidal Time Seen by Provider: Source: patient, RN notes reviewed Mode of arrival: ambulatory Limitations: no limitations - History of Present Illness Initial comments: Patient's a 23-year-old male presented to the emergency room today with chief complaint of suicidal ideation. 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 She states she has had thoughts of hurting herself. No thoughts of hurting others. Does admit that she's had some visual hallucinations. She describes them as shadows. Patient states that she has seen counselors in the past but is not seeing anyone currently is not on any medications. She denies any other complaints or symptoms Past Medical History Past Medical History: No Reported History History of Any Multi-Drug Resistant Organisms: None Reported Past Surgical History: Adenoidectomy, Tonsillectomy Past Anesthesia/Blood Transfusion Reactions: No Reported Reaction Past Psychological History: ADD/ADHD, Anxiety, Bipolar, Depression Smoking Status: Current every day smoker Past Alcohol Use History: Occasional Past Drug Use History: Marijuana - Past Family History Father Family Medical History: No Reported History Additional Family Medical History / Comment(s): Father is alive at age 40 with no major medical problems. Brother(s) Family Medical History: No Reported History Additional Family Medical History / Comment(s): Patient has 1 brother and 2 sisters with no major medical problems. Mother Family Medical History: No Reported History Additional Family Medical History / Comment(s): Mother is alive at age 40 with no major medical problems. Musculoskeletal Examination - Abnormal/Involuntary Movements: [none] Strength: [greater than antigravity (greater than Station: [grossly normal Mental Status Examination - General Appearance: [well groomed, appears younger than stated age Speech/Language: [spontaneous Attitude/Behavior: [cooperative Mood: [ depressed, anxious, irritable, angry, fearful, hopelessness Affect: [ lively, flat, incongruent, labile Orientation: [time, person, place situation] Thought Content: [wnl Risk Factors: [She has suicidal (ideations, plan), and/or Homicidal (ideations, plan) Perception: [hallucinations ( visual, tactile Thought Processes: [goal-oriented, circumstantial, tangential Concentration/Attention Span: [wnl] [Per observation and interview with the patient] Recent Memory: [wnl] [ 3 out of 3 in 3 minutes] Remote Memory: [wnl [past events, as related history] Intelligence: [below average] [based on history, based on vocabulary, syntax, grammar, and content] Judgement: [good] [per patient's behavior/history of present illness] Insight: [good] [understanding severity of illness/history of present illness] Admitting Diagnosis: [bipolar] Patient Strengths - Personal Skills: [x] Housing stability: [x] Able to vocalize needs: [x] Values and traditions: [x] Motivation, determination, readiness for change: [x] Setting and pursuing goals, hopes, dreams, aspirations: [x] Resources - social, interpersonal, monetary: [x] Patient Limitations: [medication, intellectual impairment, complicated medical illness, legal issues, lack of social supports Mom and Initial Plan of Care: [Aggie will be admitted to the hospital on the psychiatric unit and encouraged in the [facility] therapeutic environment or by she'll be evaluated by medicine psychiatry social work recreational therapy and nursing staff and a multi multiple treatment team and will be started on medication stabilizer depression. Add Invega 3 mg po qhs; chantix 0.5 mg po qhs; lamictal 25 mg po qhs] Estimated Length of Stay: [3-5 days] Initial Discharge Plan: [home, [facility], referred to therapist, Prognosis: [good] Justification for Inpatient Hospitalization - [agitation, anxiety, depression resulting in significant loss of functioning.] [Dangerous to self, others.] [Emotional or behavioral conditions and complications requiring 24 hour medical and nursing care.] [Need for special drug therapy, or other therapeutic program requiring continuous hospitalization.] [Failure of social or occupational functioning.] (1) Suicidal ideation Current Visit: Yes Status: Acute Code(s): R45.851 - SUICIDAL IDEATIONS SNOMED Code(s): 1731675 (2) Borderline personality disorder Current Visit: No Status: Acute Code(s): F60.3 - BORDERLINE PERSONALITY DISORDER SNOMED Code(s): 48502635
[2018-07-05 12:19] LABS: Basophils % (A) 1 %; Eosinophils # (A) 0.2 k/uL (0-0.7); Eosinophils % (A) 4 %; HCT 41.7 % (34.0-46.0); HGB 13.7 gm/dL (11.4-16.0); Lymphocytes # (A) 1.9 k/uL (1.0-4.8); Lymphocytes % (A) 30 %; MCH 30.2 pg (25.0-35.0); MCV 91.5 fL (80.0-100.0); Mean Platelet Volume 6.9; Monocytes # (A) 0.3 k/uL (0-1.0); Monocytes % (A) 4 %; Neutrophils # (A) 3.8 k/uL (1.3-7.7); Neutrophils % (A) 60 %; Platelet Count 231 k/uL (150-450); RBC 4.55 m/uL (3.80-5.40); RDW 14.5 % (11.5-15.5); WBC 6.4 k/uL (3.8-10.6)
[2018-07-05 12:35] LABS: ALT 25 U/L (9-52); AST 21 U/L (14-36); Albumin 4.4 g/dL (3.5-5.0); Alkaline Phosphatase 43 U/L (38-126); Anion Gap 6 mmol/L; Blood Urea Nitrogen 10 mg/dL (7-17); Carbon Dioxide 29 mmol/L (22-30); Chloride 105 mmol/L (98-107); Cholesterol 176 mg/dL (<200); Glucose 88 mg/dL (74-99); HDL Cholesterol 48 mg/dL (40-60); LDL Cholesterol,Calculated 111 mg/dL (0-99); Potassium 4.7 mmol/L (3.5-5.1); Sodium 140 mmol/L (137-145); Total Bilirubin 1.3 mg/dL (0.2-1.3); Total Protein 7.4 g/dL (6.3-8.2); Triglycerides 84 mg/dL (<150)
[2018-07-05 19:36] LABS: Hemoglobin A1C 5.1 % (4.0-6.0)
[2018-07-05] MEDS ORDERED: LORazepam 2 MG/ML INJ IM STA (19:57)
[2018-07-05] MEDS ORDERED: diphenhydrAMINE 50 MG CAP PO STA (19:58)
[2018-07-05] MEDS ORDERED: LORazepam 2 MG/ML INJ ONE (19:59)
[2018-07-05] MEDS: VARENICLINE 0.5 MG TAB PO SCH (20:47)
[2018-07-05] MEDS ORDERED: PALIPERIDONE 3 MG TAB.ER.24 PO SCH (21:00)
[2018-07-05] MEDS ORDERED: lamoTRIgine 25 MG TAB PO SCH (21:00)
[2018-07-06] MEDS: NICOTINE POLACRILEX 2 MG GUM BUCCAL PRN (09:37)
--- NOTE | 2018-07-06 09:53 | P.PN ---
Subjective Progress Note Date: 07/06/18 Principal diagnosis: biipolar affective disorder, acute psychosis Last night had an argument with spouse about he is talking to someone else. She then became more agitated and out of control. Objective - Vital Signs Vital signs: Vital Signs Temp 98.4 F 07/06/18 06:31 Pulse 54 L 07/06/18 06:31 Resp 16 07/06/18 06:31 BP 97/53 07/06/18 06:31 Pulse Ox 100 07/06/18 06:31 - Labs CBC & Chem 7: 07/05/18 11:49 07/05/18 11:49 Labs: Abnormal Lab Results - Last 24 Hours (Table) 07/05/18 Range/Units 11:49 LDL Cholesterol, Calc 111 H (0-99) mg/dL Assessment and Plan Assessment: / Mental Status Examination - General Appearance: [well groomed, appears younger than stated age Speech/Language: [spontaneous Attitude/Behavior: [cooperative Mood: [ depressed, anxious, irritable, angry, fearful, hopelessness Affect: [ lively, flat, incongruent, labile Orientation: [time, person, place situation] Thought Content: [wnl Risk Factors: [She has suicidal (ideations, plan), and/or Homicidal (ideations, plan) Perception: [hallucinations ( visual, tactile Thought Processes: [goal-oriented, circumstantial, tangential Concentration/Attention Span: [wnl] [Per observation and interview with the patient] Recent Memory: [wnl] [ 3 out of 3 in 3 minutes] Remote Memory: [wnl [past events, as related history] Intelligence: [below average] [based on history, based on vocabulary, syntax, grammar, and content] Judgement: [good] [per patient's behavior/history of present illness] Insight: [good] [understanding severity of illness/history of present illness] Admitting Diagnosis: [bipolar] Patient Strengths - Personal Skills: [x] Housing stability: [x] Able to vocalize needs: [x] Values and traditions: [x] Motivation, determination, readiness for change: [x] Setting and pursuing goals, hopes, dreams, aspirations: [x] Resources - social, interpersonal, monetary: [x] Patient Limitations: [medication, intellectual impairment, complicated medical illness, legal issues, lack of social supports Mom and Initial Plan of Care: [Aggie will be admitted to the hospital on the psychiatric unit and encouraged in the [facility] therapeutic environment or by she'll be evaluated by medicine psychiatry social work recreational therapy and nursing staff and a multi multiple treatment team and will be started on medication stabilizer depression. Add Invega 3 mg po qhs; chantix 0.5 mg po qhs; lamictal 25 mg po qhs] Estimated Length of Stay: [3 days] Initial Discharge Plan: [[place], [facility], referred to therapist, Prognosis: [good] Justification for Inpatient Hospitalization - [agitation, anxiety, depression resulting in significant loss of functioning.] [Dangerous to self, others.] [Emotional or behavioral conditions and complications requiring 24 hour medical and nursing care.] [Need for special drug therapy, or other therapeutic program requiring continuous hospitalization.] [Failure of social or occupational functioning.] (1) Suicidal ideation Current Visit: Yes Status: Acute Priority: Low Code(s): R45.851 - SUICIDAL IDEATIONS SNOMED Code(s): 1762369 (2) Borderline personality disorder Current Visit: No Status: Acute Code(s): F60.3 - BORDERLINE PERSONALITY DISORDER SNOMED Code(s): 97047303 Plan: Lamictal 25 mg to 50 mg and increase invega 6 mg po qhs
[2018-07-06] MEDS: LORazepam 1 MG TAB PO PRN (10:48)
[2018-07-06] MEDS: VARENICLINE 0.5 MG TAB PO SCH (20:14)
[2018-07-06] MEDS: IBUPROFEN 400 MG TAB PO PRN (20:28)
[2018-07-06] MEDS ORDERED: PALIPERIDONE 6 MG TAB.ER.24 PO SCH (21:00)
[2018-07-06] MEDS ORDERED: lamoTRIgine 25 MG TAB PO SCH (21:00)
[2018-07-07] MEDS: NICOTINE POLACRILEX 2 MG GUM BUCCAL PRN (10:24)
[2018-07-07] MEDS: IBUPROFEN 400 MG TAB PO PRN ×2 (10:24→20:15)
--- NOTE | 2018-07-07 10:30 | P.PN ---
Subjective Progress Note Date: 07/07/18 Principal diagnosis: biipolar affective disorder, acute psychosis Last night had an argument with spouse about he is talking to someone else. She then became more agitated and out of control. Objective - Vital Signs Vital signs: Vital Signs Temp 98.5 F 07/07/18 06:59 Pulse 46 L 07/07/18 06:59 Resp 16 07/07/18 06:59 BP 119/55 07/07/18 06:59 Pulse Ox 100 07/06/18 06:31 - Labs CBC & Chem 7: 07/05/18 11:49 07/05/18 11:49 Assessment and Plan Assessment: / Mental Status Examination - General Appearance: [well groomed, appears younger than stated age Speech/Language: [spontaneous Attitude/Behavior: [cooperative Mood: [ depressed, anxious, irritable, angry, fearful, hopelessness Affect: [ lively, flat, incongruent, labile Orientation: [time, person, place situation] Thought Content: [wnl Risk Factors: [She has suicidal (ideations, plan), and/or Homicidal (ideations, plan) Perception: [hallucinations ( visual, tactile Thought Processes: [goal-oriented, circumstantial, tangential Concentration/Attention Span: [wnl] [Per observation and interview with the patient] Recent Memory: [wnl] [ 3 out of 3 in 3 minutes] Remote Memory: [wnl [past events, as related history] Intelligence: [below average] [based on history, based on vocabulary, syntax, grammar, and content] Judgement: [good] [per patient's behavior/history of present illness] Insight: [good] [understanding severity of illness/history of present illness] Admitting Diagnosis: [bipolar] Patient Strengths - Personal Skills: [x] Housing stability: [x] Able to vocalize needs: [x] Values and traditions: [x] Motivation, determination, readiness for change: [x] Setting and pursuing goals, hopes, dreams, aspirations: [x] Resources - social, interpersonal, monetary: [x] Patient Limitations: [medication, intellectual impairment, complicated medical illness, legal issues, lack of social supports Mom and Plan of Care: [Aggie will be admitted to the hospital on the psychiatric unit and encouraged in the [facility] therapeutic environment or by she'll be evaluated by medicine psychiatry social work recreational therapy and nursing staff and a multi multiple treatment team and will be started on medication stabilizer depression. Invega 9 mg po qhs; chantix 0.5 mg po qhs; lamictal 100 mg po qhs] Estimated Length of Stay: [2 days] Initial Discharge Plan: [home, [facility], referred to therapist, Prognosis: [good] Justification for Inpatient Hospitalization - [agitation, anxiety, depression resulting in significant loss of functioning.] [Dangerous to self, others.] [Emotional or behavioral conditions and complications requiring 24 hour medical and nursing care.] [Need for special drug therapy, or other therapeutic program requiring continuous hospitalization.] [Failure of social or occupational functioning.] (1) Suicidal ideation Current Visit: Yes Status: Acute Priority: Low Code(s): R45.851 - SUICIDAL IDEATIONS SNOMED Code(s): 3861612 (2) Borderline personality disorder Current Visit: No Status: Acute Code(s): F60.3 - BORDERLINE PERSONALITY DISORDER SNOMED Code(s): 10129486 Plan: Lamictal 100 mg and increase invega 9 mg po qhs Time with Patient: Less than 30
[2018-07-07] MEDS ORDERED: chlorproMAZINE 25 MG TAB PO PRN (13:03)
[2018-07-07] MEDS ORDERED: diphenhydrAMINE 50 MG/ML 1 ML VIAL IM PRN (13:07)
[2018-07-07] MEDS ORDERED: chlorproMAZINE 25 MG/ML 2 ML AMP IM PRN (13:10)
[2018-07-07] MEDS: lamoTRIgine 100 MG TAB PO SCH (20:11)
[2018-07-07] MEDS: VARENICLINE 0.5 MG TAB PO SCH (20:11)
[2018-07-07] MEDS ORDERED: PALIPERIDONE 3 MG TAB.ER.24 PO SCH (21:00)
[2018-07-08] MEDS: NICOTINE POLACRILEX 2 MG GUM BUCCAL PRN (09:42)
[2018-07-08] MEDS: LORazepam 1 MG TAB PO PRN ×2 (09:42→21:58)
--- NOTE | 2018-07-08 09:43 | P.PN ---
Progress Note - Text Interval history: The patient is found at the desk she follows me to an interview room. She was admitted for having suicidal ideation in the context of having a bipolar disorder. She has been started on an invega which is been titrated the 9 mg at bedtime she is on Lamictal 100 mg daily. She states that her heart rate is elevated today and had been low during the course of the admission prior to this. She feels very anxious and restless. We discussed that she is undergoing medication changes and may need time to acclimate. She has been not using the Ativan frequently and is encouraged to use a dose this morning. She has been attending groups. She states that her suicidal thoughts are resolving. She is feeling more hopeful. Mental status exam: The patient is a short statured thin female appearing her stated age. She is dressed in her own clothing hygiene grooming adequate. Speech is fluent spontaneous nonpressured. She is seated in the chair she shakes her legs throughout the session. She has upright expansive affect. Not aggressively she uses profanity during the session. She demonstrates no physical aggressiveness. Insight and judgment limited. She is reporting no current acute suicidal or homicidal ideation intent or plan. She is reporting no auditory or visual hallucinations. She states that she's had shadows that she has seen in the past but they have not occurred for the past 2 days. She feels safe and endorses no paranoid persecutory toward a or other delusions. Plan: The patient will continue on her current psychotropic medication. She is encouraged to utilize a Ativan to address her anxiety. We will monitor her for safety and encourage her participation in the milieu. Vital signs reviewed. We will follow those closely.
--- NOTE | 2018-07-08 12:33 | P.PN ---
Subjective Progress Note Date: 07/08/18 Nursing reports patient complaining of palpitations and lightheadedness, reports of tachycardia and bradycardia, concerns that it might be medication induced due to InVega ... on examination patient hemodynamically stable normotensive, Objective - Vital Signs Vital signs: Vital Signs Temp 98.6 F 07/08/18 07:04 Pulse 123 H 07/08/18 09:00 Resp 16 07/08/18 09:00 BP 111/63 07/08/18 09:00 Pulse Ox 98 07/08/18 09:00 - Exam Constitutional: No acute distress, conversant, pleasant Eyes: Anicteric sclerae, moist conjunctiva, no lid-lag, PERRLA ENMT: NC/AT,Oropharynx clear, no erythema, exudates Neck:Supple, FROM, no masses, or JVD, No carotid bruits; No thyromegaly Lungs: Clear to auscultation, Clear to percussion, Normal respiratory effort, no accessory muscle use Cardiovascular: Heart regular in rate and rhythm, No murmurs, gallops, or rubs no peripheral edema Abdominal: Soft Nontender, nom distended, no guarding, no rebound or rigidity, Normoactive bowel sounds No hepatomegaly, No splenomegaly, No palpable mass No abdominal wall hernia noted Skin: Normal temperature, tone, texture, turgor, No induration No subcutaneous nodules, No rash, lesions, No ulcers Extremities:No digital cyanosis No clubbing, Pedal pulses intact and symmetrical Radial pulses intact and symmetrical Normal gait and station, No calf tenderness Psychiatric: Alert and oriented to person, place and time, Appropriate affect Intact judgement Neuro: Muscles Strength 5/5 in all 4 extremities, Sensation to light touch grossly present throughout, Cranial nerves II-XII grossly intact. No focal sensory deficits - Labs CBC & Chem 7: 07/05/18 11:49 07/05/18 11:49 Assessment and Plan (1) Palpitations Narrative/Plan: * EKG ordered, BMP and mag also checked * Benign physical exam normal heart rate regular in rhythm no murmurs or gallops Current Visit: Yes Status: Acute Code(s): R00.2 - PALPITATIONS SNOMED Code (s): 40980197
[2018-07-08 13:22] LABS: Anion Gap 7 mmol/L; Blood Urea Nitrogen 10 mg/dL (7-17); Calcium 9.5 mg/dL (8.4-10.2); Carbon Dioxide 26 mmol/L (22-30); Chloride 106 mmol/L (98-107); Glucose 96 mg/dL (74-99); Magnesium 1.7 mg/dL (1.6-2.3); Potassium 4.3 mmol/L (3.5-5.1); Sodium 139 mmol/L (137-145)
[2018-07-08] MEDS: VARENICLINE 0.5 MG TAB PO SCH (20:12)
[2018-07-08] MEDS: lamoTRIgine 100 MG TAB PO SCH (20:12)
[2018-07-08] MEDS: PALIPERIDONE 6 MG TAB.ER.24 PO SCH (20:12)
--- NOTE | 2018-07-09 11:32 | P.PN ---
Progress Note - Text interval history: The patient is found in her room she follows me to an interview room. She states that her mood is good today. She did have a visit with her and states they were able to communicate without any aggressiveness. she does not know the fate of their relationship. They both live with her mother so she does have a place to stay. She states her grandmother is caring for HER-2 children right now. The patient is hoping to be discharged tomorrow. She did experience some significant tachycardia yesterday she was seen by internal medicine. There was some concern that possibly the invega was inciting that. we reduced the Invega dose to 6 mg at bedtime. the tachycardia did not respond to a dose of Ativan yesterday per nursing. her vital signs have normalized today she has no physical complaints. Mental status exam: the patient is a thin female appearing her stated age she is dressed in her own clothing. Eye contact is appropriate speech is fluent spontaneous nonpressured. she is calm during the interaction and easily directed. She reports her mood is improving. she does have concern for her marriage still. she is reporting no acute suicidal or homicidal ideation intent or plan. she is endorsing no auditory or visual hallucinations or any specific delusions. there is no tangential thinking loose associations or flight of ideas. she demonstrates no irritability and uses no profanity during our conversation. she demonstrates no abnormal repetitive movements. Plan: the patient will continue on her current psychotropic medication we will monitor her for safety. is expected she will be discharged tomorrow. Vital signs reviewed we will continue to monitor.
[2018-07-09] MEDS: VARENICLINE 0.5 MG TAB PO SCH (20:08)
[2018-07-09] MEDS: lamoTRIgine 100 MG TAB PO SCH (20:08)
[2018-07-09] MEDS: PALIPERIDONE 6 MG TAB.ER.24 PO SCH (20:08)
[2018-07-10 00:57] VITALS: BP 100/57; PULSE 46; RESP 12; TEMP 97.5
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
== END 2018-07-10 12:51 | disposition home or self-care (01) | DRG 885 ==
LOC: EC 17:33 → 3MHU 20:40
PROVIDERS: ADMIT Psychiatry & Neurology Psychiatry; ATTEND Psychiatry & Neurology Psychiatry
DX: F31.9 Bipolar disorder, unspecified (principal); R45.851 Suicidal ideations; F23 Brief psychotic disorder; F41.0 Panic disorder [episodic paroxysmal anxiety]; F60.3 Borderline personality disorder; F90.9 Attention-deficit hyperactivity disorder, unspecified type; F17.200 Nicotine dependence, unspecified, uncomplicated; R41.3 Other amnesia; Z91.013 Allergy to seafood
CPT/HCPCS: 80048; 80053; 80061; 80306; 81025; 82075; 83036; 83735; 84443; 85025; 99285

== ENCOUNTER 2018-08-09 22:37 | Emergency (ER) | payer OTHER ==
[2018-08-09 22:47] VITALS: RESP 18
--- NOTE | 2018-08-09 23:20 | ED ---
URI HPI - General Chief Complaint: Upper Respiratory Infection Stated Complaint: chest congestion,cough Time Seen by Provider: 08/09/18 22:49 Source: patient Mode of arrival: ambulatory Limitations: no limitations - History of Present Illness Initial Comments: This patient is a 23-year-old woman who presents to be evaluated for cough and congestion as well as chest pain. The patient states she has had a couple of days of upper respiratory symptoms, including nasal drainage, cough, and some mild congestion. For the past couple of days she has noted that she has some anterior chest pain when she coughs. She states the pain is also present when she presses on her chest. She denies any injury. Patient denies fever or chills. No dyspnea. MD Complaint: cough, rhinorrhea Onset/Timin -: days(s) Severity: moderate Quality: aching Consistency: constant Improves With: nothing Worsens With: other (Palpation) Associated Symptoms: rhinorrhea Treatments Prior to Arrival: none - Related Data Home Medications Medication Instructions Recorded Confirmed lamoTRIgine [LaMICtal] 100 mg PO HS 08/09/18 08/09/18 Previous Rx's Medication Instructions Recorded Paliperidone [Invega] 6 mg PO HS 30 Days #30 tab.er.24 07/10/18 Albuterol Inhaler [Ventolin Hfa 1 - 2 puff INHALATION Q6HR PRN #1 08/10/18 Inhaler] inhaler predniSONE 20 mg PO BID #8 tab 08/10/18 Allergies Allergy/AdvReac Type Severity Reaction Status Date / Time adhesive tape Allergy Rash/Hives Verified 08/09/18 22:55 shellfish derived [Shrimp] Allergy Anaphylaxis Verified 08/09/18 22:55 soap Allergy Rash/Hives Verified 08/09/18 22:55 nicotine patch Allergy Rash/Hives Uncoded 08/09/18 22:47 Review of Systems ROS Statement: Those systems with pertinent positive or pertinent negative responses have been documented in the HPI. ROS Other: All systems not noted in ROS Statement are negative. Constitutional: Denies: fever, chills ENT: Reports: congestion Respiratory: Reports: cough, wheezes. Denies: dyspnea Cardiovascular: Reports: chest pain. Denies: palpitations, orthopnea, edema Gastrointestinal: Denies: abdominal pain, vomiting, diarrhea Neurological: Denies: headache, weakness, numbness Past Medical History Past Medical History: No Reported History History of Any Multi-Drug Resistant Organisms: None Reported Past Surgical History: Adenoidectomy, Tonsillectomy Past Anesthesia/Blood Transfusion Reactions: No Reported Reaction Past Psychological History: ADD/ADHD, Anxiety, Bipolar, Depression Smoking Status: Current every day smoker Past Alcohol Use History: Occasional Past Drug Use History: Marijuana - Past Family History Father Family Medical History: No Reported History Additional Family Medical History / Comment(s): Father is alive at age 40 with no major medical problems. Brother(s) Family Medical History: No Reported History Additional Family Medical History / Comment(s): Patient has 1 brother and 2 sisters with no major medical problems. Mother Family Medical History: No Reported History Additional Family Medical History / Comment(s): Mother is alive at age 40 with no major medical problems. General Exam Limitations: no limitations General appearance: alert, in no apparent distress Head exam: Present: atraumatic, normocephalic Eye exam: Present: normal appearance. Absent: scleral icterus, conjunctival injection ENT exam: Present: normal oropharynx Neck exam: Present: normal inspection, full ROM, lymphadenopathy. Absent: tenderness, meningismus Respiratory exam: Present: wheezes (There is a trace of an and expiratory wheeze.), chest wall tenderness, other (Occasional cough during exam). Absent: respiratory distress, rales, rhonchi, stridor, accessory muscle use, decreased breath sounds, prolonged expiratory Cardiovascular Exam: Present: regular rate, normal rhythm, normal heart sounds. Absent: systolic murmur, diastolic murmur, rubs, gallop GI/Abdominal exam: Present: soft. Absent: distended, tenderness, guarding, rebound Skin exam: Present: warm, dry, intact, normal color. Absent: rash Course Vital Signs 08/09/18 08/09/18 22:44 22:53 Temperature 98.1 F Pulse Rate 98 Respiratory 18 18 Rate Blood Pressure 122/80 O2 Sat by Pulse 98 Oximetry Disposition Clinical Impression: Bronchitis Disposition: HOME SELF-CARE Condition: Good Instructions: Acute Bronchitis (ED) Prescriptions: Albuterol Inhaler [Ventolin Hfa Inhaler] 1 - 2 puff INHALATION Q6HR PRN #1 inhaler PRN Reason: Wheezing predniSONE 20 mg PO BID #8 tab Is patient prescribed a controlled substance at d/c from ED?: No Referrals: None,Stated [Primary Care Provider] - 1-2 days
--- NOTE | 2018-08-09 23:49 | XR ---
EXAMINATION TYPE: XR chest 2V DATE OF EXAM: 08/09/2018 COMPARISON: 09/30/2017 HISTORY: Chest pain TECHNIQUE: Frontal and lateral views of the chest are obtained. FINDINGS: Heart and mediastinum are normal. Lungs are clear. Diaphragm is normal. Bony thorax appear s normal. IMPRESSION: Normal chest. No change.
[2018-08-10] MEDS ORDERED: predniSONE 20 MG TAB PO STA (00:13)
[2018-08-10 01:00] VITALS: BP 123/65; PULSE 72; TEMP 98.6
== END 2018-08-10 00:53 | disposition home or self-care (01) ==
LOC: EC 22:37
DX: J40 Bronchitis, not specified as acute or chronic (principal); R59.0 Localized enlarged lymph nodes; F31.9 Bipolar disorder, unspecified; F41.9 Anxiety disorder, unspecified; F17.200 Nicotine dependence, unspecified, uncomplicated; Z91.013 Allergy to seafood; Z91.048 Other nonmedicinal substance allergy status; Z79.899 Other long term (current) drug therapy; Z90.89 Acquired absence of other organs
CPT/HCPCS: 71046; 99283

== ENCOUNTER 2018-10-27 11:30 | Emergency (ER) | payer OTHER ==
[2018-10-27 11:53] VITALS: TEMP 98
--- NOTE | 2018-10-27 12:47 | XR ---
EXAMINATION TYPE: XR shoulder complete LT DATE OF EXAM: 10/27/2018 CLINICAL HISTORY: Left shoulder pain TECHNIQUE: Three views of the left shoulder are obtained. COMPARISON: None. FINDINGS: There is no acute fracture/dislocation evident in the left shoulder. The acromioclavicula r and glenohumeral joint spaces appear within normal limits. The visualized ribs are intact and unre markable. IMPRESSION: There is no acute fracture or dislocation in the left shoulder.
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
[2018-10-27 14:51] VITALS: BP 135/92; PULSE 60; RESP 15
== END 2018-10-27 14:49 | disposition home or self-care (01) ==
LOC: EC 11:30
DX: M25.512 Pain in left shoulder (principal); M54.2 Cervicalgia; F41.9 Anxiety disorder, unspecified; F32.9 Major depressive disorder, single episode, unspecified; F17.200 Nicotine dependence, unspecified, uncomplicated; Z79.899 Other long term (current) drug therapy; Z91.048 Other nonmedicinal substance allergy status; Z91.013 Allergy to seafood; Z91.09 Other allergy status, other than to drugs and biological substances; Y04.0XXA Assault by unarmed brawl or fight, initial encounter; Y92.009 Unspecified place in unspecified non-institutional (private) residence as the place of occurrence of the external cause
CPT/HCPCS: 99284

== ENCOUNTER 2018-11-06 13:16 | Emergency (ER) | payer OTHER ==
--- NOTE | 2018-11-06 13:31 | ED ---
Back Pain HPI - General Chief Complaint: Back Pain/Injury Stated Complaint: back pain Time Seen by Provider: 11/06/18 13:30 Source: patient, RN notes reviewed, old records reviewed Limitations: no limitations - History of Present Illness Initial Comments: This is a 23-year-old female the ER for evaluation. Patient resents today for evaluation regards to back pain. Patient is no injury or trauma. Admits to pain in her lower back. She has had similar pain before with the pain is worse this time. No began no trauma. Denies drug or alcohol abuse. No fevers. Patient denies using heroin, denies IV drugs, denies recent tattoos or injury. No loss of bowel or bladder. No modifying factors for pain. MD Complaint: back pain -: hour(s) Similar Symptoms Previously: Yes Place: home Radiation: none Severity: mild Quality: dull, aching Consistency: constant Improves With: immobilization Worsens With: movement Context: other (With) Associated Symptoms: denies other symptoms - Related Data Home Medications Medication Instructions Recorded Confirmed Escitalopram [Lexapro] 5 mg PO DAILY 10/27/18 11/06/18 traZODone HCL 50 mg PO HS PRN 10/27/18 11/06/18 Albuterol Inhaler [Ventolin Hfa 2 puff INHALATION RT-QID 11/06/18 11/06/18 Inhaler] Allergies Allergy/AdvReac Type Severity Reaction Status Date / Time adhesive tape Allergy Rash/Hives Verified 11/06/18 14:04 shellfish derived [Shrimp] Allergy Anaphylaxis Verified 11/06/18 14:04 soap Allergy Rash/Hives Verified 11/06/18 14:04 nicotine patch Allergy Rash/Hives Uncoded 11/06/18 13:20 Review of Systems ROS Statement: Those systems with pertinent positive or pertinent negative responses have been documented in the HPI. ROS Other: All systems not noted in ROS Statement are negative. Past Medical History Past Medical History: No Reported History History of Any Multi-Drug Resistant Organisms: None Reported Past Surgical History: Adenoidectomy, Tonsillectomy Past Anesthesia/Blood Transfusion Reactions: No Reported Reaction Past Psychological History: ADD/ADHD, Anxiety, Bipolar, Depression Smoking Status: Current every day smoker Past Alcohol Use History: Occasional Past Drug Use History: Marijuana - Past Family History Father Family Medical History: No Reported History Additional Family Medical History / Comment(s): Father is alive at age 40 with no major medical problems. Brother(s) Family Medical History: No Reported History Additional Family Medical History / Comment(s): Patient has 1 brother and 2 sisters with no major medical problems. Mother Family Medical History: No Reported History Additional Family Medical History / Comment(s): Mother is alive at age 40 with no major medical problems. General Exam - General Exam Comments Initial Comments: Patient does have paraspinal tenderness lumbar spine Limitations: no limitations General appearance: alert, in no apparent distress Head exam: Present: atraumatic, normocephalic, normal inspection Eye exam: Present: normal appearance, PERRL, EOMI. Absent: scleral icterus, conjunctival injection, periorbital swelling ENT exam: Present: normal exam, mucous membranes moist Neck exam: Present: normal inspection. Absent: tenderness, meningismus, lymphadenopathy Respiratory exam: Present: normal lung sounds bilaterally. Absent: respiratory distress, wheezes, rales, rhonchi, stridor Cardiovascular Exam: Present: regular rate, normal rhythm, normal heart sounds. Absent: systolic murmur, diastolic murmur, rubs, gallop, clicks GI/Abdominal exam: Present: soft, normal bowel sounds. Absent: distended, tenderness, guarding, rebound, rigid Extremities exam: Present: normal inspection, full ROM, normal capillary refill. Absent: tenderness, pedal edema, joint swelling, calf tenderness Back exam: Present: normal inspection Neurological exam: Present: alert, oriented X3, CN II-XII intact Psychiatric exam: Present: normal affect, normal mood Skin exam: Present: warm, dry, intact, normal color. Absent: rash Course Vital Signs 11/06/18 13:17 Temperature 98.1 F Pulse Rate 88 Respiratory 18 Rate Blood Pressure 131/89 O2 Sat by Pulse 99 Oximetry - Reevaluation(s) Reevaluation #1: 11/06/18 15:16 Medical record is reviewed with multiple ER visits for different sorts of pain Reevaluation #2: 11/06/18 15:16 Patient is able to able to bathroom, but is walking to bathroom without significant difficulty Medical Decision Making - Medical Decision Making 23 female the ER for evaluation of back pain. Patient has normal x-rays and can be discharged home - Lab Data Lab Results 11/06/18 11/06/18 Range/Units 13:47 13:47 Urine Color Yellow Urine Appearance Clear (Clear) Urine pH 7.0 (5.0-8.0) Ur Specific [place] 1.011 (1.001-1.035) Urine Protein Trace H (Negative) Urine Glucose (UA) Negative (Negative) Urine Ketones Negative (Negative) Urine Blood Negative (Negative) Urine Nitrite Negative (Negative) Urine Bilirubin Negative (Negative) Urine Urobilinogen <2.0 (<2.0) mg/dL Ur Leukocyte Esterase Negative (Negative) Urine HCG, Qual Not Detected (Not Detectd) Disposition Clinical Impression: Mid back pain, Mechanical back pain Disposition: HOME SELF-CARE Condition: Good Instructions (If sedation given, give patient instructions): Acute Low Back Pain (ED) Is patient prescribed a controlled substance at d/c from ED?: No Referrals: None,Stated [Primary Care Provider] - 1-2 days
[2018-11-06 14:00] LABS: Appearance,Urine Clear (Clear); Bilirubin,Urine Negative (Negative); Blood,Urine Negative (Negative); Color,Urine Yellow; Glucose,Urine (UA) Negative (Negative); Ketones,Urine Negative (Negative); Leukocyte Esterase,Urine Negative (Negative); Nitrite,Urine Negative (Negative); Protein,Urine Trace (Negative); Specific Gravity,Urine 1.011 (1.001-1.035); Urobilinogen,Urine <2.0 mg/dL (<2.0)
[2018-11-06] MEDS ORDERED: IBUPROFEN 800 MG TAB PO STA (14:36)
[2018-11-06] MEDS ORDERED: ACETAMINOPHEN TAB 500 MG TAB PO STA (14:36)
--- NOTE | 2018-11-06 15:04 | XR ---
EXAMINATION TYPE: XR lumbosacral spine min 4V DATE OF EXAM: 11/06/2018 COMPARISON: NONE HISTORY: 23-year-old female with pain TECHNIQUE: 5 views FINDINGS: Vertebral body heights are preserved and alignment is maintained. No pars interarticularis defect. 5 lumbar type vertebral bodies. IMPRESSION: No vertebral compression collapse or malalignment.
[2018-11-06 15:29] VITALS: BP 124/84; PULSE 72; RESP 16; TEMP 97.9
== END 2018-11-06 15:35 | disposition home or self-care (01) ==
LOC: EC 13:16
DX: M54.5 Low back pain (principal); F41.9 Anxiety disorder, unspecified; F32.9 Major depressive disorder, single episode, unspecified; F17.200 Nicotine dependence, unspecified, uncomplicated; Z79.899 Other long term (current) drug therapy; Z91.048 Other nonmedicinal substance allergy status; Z91.013 Allergy to seafood
CPT/HCPCS: 72110; 81003; 81025; 87077; 87086; 87186; 99284

== ENCOUNTER 2018-11-13 10:49 | Inpatient (IN) | payer MEDICAID, OTHER ==
[2018-11-13] MEDS ORDERED: SODIUM CHLORIDE 0.9% 1,000 ML IV STA (11:01)
--- NOTE | 2018-11-13 11:11 | ED ---
Overdose HPI - General Chief Complaint: Overdose Stated Complaint: Overdose Time Seen by Provider: 11/13/18 11:00 Source: patient, EMS, RN notes reviewed Mode of arrival: EMS Limitations: no limitations - History of Present Illness Initial Comments: 23-year-old female presents emergency department via EMS with police for overdose. Patient did admit that she took 10 and invenga tablets of 10 Flexeril tablets. Patient states that her intention was to harm herself. Patient states that she is very depressed and suicidal. Patient has a history of depression and bipolar disorder. Patient states that she had an argument with her significant other and also states that her grandmother is going to detention which has bothered her. Patient denies any alcohol use does admit to marijuana use no other illicit drug use. Patient states she feels tired at this time but denies any chest pain, shortness breath, palpitations, vomiting. She's had slight nausea. - Related Data Home Medications Medication Instructions Recorded Confirmed traZODone HCL 50 mg PO HS PRN 10/27/18 11/13/18 Cyclobenzaprine [Flexeril] 10 mg PO DIRECTED 11/13/18 11/13/18 Escitalopram [Lexapro] 10 mg PO DAILY 11/13/18 11/13/18 Paliperidone [Invega] 6 mg PO HS 11/13/18 11/13/18 Prazosin [Minipress] 1 mg PO HS 11/13/18 11/13/18 lamoTRIgine [LaMICtal] See Taper PO HS 11/13/18 11/13/18 Allergies Allergy/AdvReac Type Severity Reaction Status Date / Time adhesive tape Allergy Rash/Hives Verified 11/13/18 11:36 shellfish derived [Shrimp] Allergy Anaphylaxis Verified 11/13/18 11:36 soap Allergy Rash/Hives Verified 11/13/18 11:36 nicotine patch Allergy Rash/Hives Uncoded 11/06/18 13:20 Review of Systems ROS Statement: Those systems with pertinent positive or pertinent negative responses have been documented in the HPI. ROS Other: All systems not noted in ROS Statement are negative. Past Medical History Past Medical History: No Reported History History of Any Multi-Drug Resistant Organisms: None Reported Past Surgical History: Adenoidectomy, Tonsillectomy Past Anesthesia/Blood Transfusion Reactions: No Reported Reaction Past Psychological History: ADD/ADHD, Anxiety, Bipolar, Depression Smoking Status: Current every day smoker Past Alcohol Use History: Occasional Past Drug Use History: Marijuana - Past Family History Father Family Medical History: No Reported History Additional Family Medical History / Comment(s): Father is alive at age 40 with no major medical problems. Brother(s) Family Medical History: No Reported History Additional Family Medical History / Comment(s): Patient has 1 brother and 2 sisters with no major medical problems. Mother Family Medical History: No Reported History Additional Family Medical History / Comment(s): Mother is alive at age 40 with no major medical problems. General Exam Limitations: no limitations General appearance: alert, in no apparent distress Head exam: Present: atraumatic, normocephalic, normal inspection Eye exam: Present: normal appearance, PERRL, EOMI. Absent: scleral icterus, conjunctival injection, periorbital swelling ENT exam: Present: normal exam, normal oropharynx, mucous membranes moist, TM's normal bilaterally Neck exam: Present: normal inspection, full ROM. Absent: tenderness, meningismus, lymphadenopathy Respiratory exam: Present: normal lung sounds bilaterally. Absent: respiratory distress, wheezes, rales, rhonchi, stridor Cardiovascular Exam: Present: regular rate, normal rhythm, normal heart sounds. Absent: systolic murmur, diastolic murmur, rubs, gallop, clicks GI/Abdominal exam: Present: soft, normal bowel sounds. Absent: distended, tenderness, guarding, rebound, rigid Neurological exam: Present: alert, oriented X3, CN II-XII intact, reflexes normal. Absent: motor sensory deficit Psychiatric exam: Present: depressed, flat affect Skin exam: Present: warm, dry, intact, normal color. Absent: rash Course Vital Signs 11/13/18 11/13/18 11/13/18 10:51 11:00 11:15 Temperature 97.6 F Pulse Rate 71 Respiratory 18 Rate Blood Pressure 119/90 119/90 117/85 O2 Sat by Pulse 94 L 96 95 Oximetry 11/13/18 11/13/18 11/13/18 11:30 11:45 12:00 Temperature Pulse Rate 61 61 52 L Respiratory 19 18 18 Rate Blood Pressure 112/77 110/79 114/83 O2 Sat by Pulse 97 96 Oximetry 11/13/18 11/13/18 11/13/18 12:15 13:15 14:10 Temperature Pulse Rate 50 L 50 L 53 L Respiratory 18 16 20 Rate Blood Pressure 96/54 96/42 106/51 O2 Sat by Pulse 97 99 99 Oximetry - Reevaluation(s) Reevaluation #1: 11/13/18 15:04 Poison control was contacted by nurse after initial evaluation. Recommend supportive treatment Medical Decision Making - Lab Data Result diagrams: 11/13/18 11:45 11/13/18 11:45 Lab Results 11/13/18 11/13/18 11/13/18 Range/Units 11:45 11:45 14:05 WBC 7.8 (3.8-10.6) k/uL RBC 4.81 (3.80-5.40) m/uL Hgb 14.3 (11.4-16.0) gm/dL Hct 43.1 (34.0-46.0) % MCV 89.5 (80.0-100.0) fL MCH 29.6 (25.0-35.0) pg MCHC 33.1 (31.0-37.0) g/dL RDW 13.7 (11.5-15.5) % Plt Count 258 (150-450) k/uL Neutrophils % 74 % Lymphocytes % 18 % Monocytes % 3 % Eosinophils % 3 % Basophils % 0 % Neutrophils # 5.8 (1.3-7.7) k/uL Lymphocytes # 1.4 (1.0-4.8) k/uL Monocytes # 0.3 (0-1.0) k/uL Eosinophils # 0.2 (0-0.7) k/uL Basophils # 0.0 (0-0.2) k/uL Sodium 141 (137-145) mmol/L Potassium 4.0 (3.5-5.1) mmol/L Chloride 108 H (98-107) mmol/L Carbon Dioxide 27 (22-30) mmol/L Anion Gap 6 mmol/L BUN 11 (7-17) mg/dL Creatinine 0.70 (0.52-1.04) mg/dL Est GFR (CKD-EPI)AfAm >90 (>60 ml/min/1.73 sqM) Est GFR (CKD-EPI)NonAf >90 (>60 ml/min/1.73 sqM) Glucose 107 H (74-99) mg/dL Calcium 9.8 (8.4-10.2) mg/dL Total Bilirubin 0.7 (0.2-1.3) mg/dL AST 18 (14-36) U/L ALT 27 (9-52) U/L Alkaline Phosphatase 68 (38-126) U/L Total Protein 7.1 (6.3-8.2) g/dL Albumin 4.2 (3.5-5.0) g/dL Lipase 27 (23-300) U/L Urine Color Urine Appearance (Clear) Urine pH (5.0-8.0) Ur Specific [place] (1.001-1.035) Urine Protein (Negative) Urine Glucose (UA) (Negative) Urine Ketones (Negative) Urine Blood (Negative) Urine Nitrite (Negative) Urine Bilirubin (Negative) Urine Urobilinogen (<2.0) mg/dL Ur Leukocyte Esterase (Negative) Urine RBC (0-5) /hpf Urine WBC (0-5) /hpf Ur Squamous Epith Cells (0-4) /hpf Urine Bacteria (None) /hpf Urine Mucus (None) /hpf Urine HCG, Qual (Not Detectd) Salicylates <1.0 mg/dL Urine Opiates Screen Not Detected (NotDetected) Ur Oxycodone Screen Not Detected (NotDetected) Urine Methadone Screen Not Detected (NotDetected) Ur Propoxyphene Screen Not Detected (NotDetected) Acetaminophen <10.0 ug/mL Ur Barbiturates Screen Not Detected (NotDetected) U Tricyclic Antidepress Not Detected (NotDetected) Ur Phencyclidine Scrn Not Detected (NotDetected) Ur Amphetamines Screen Detected H (NotDetected) U Methamphetamines Scrn Not Detected (NotDetected) U Benzodiazepines Scrn Not Detected (NotDetected) Urine Cocaine Screen Not Detected (NotDetected) U Marijuana (THC) Screen Detected H (NotDetected) Serum Alcohol <10 mg/dL 11/13/18 11/13/18 Range/Units 14:05 14:05 WBC (3.8-10.6) k/uL RBC (3.80-5.40) m/uL Hgb (11.4-16.0) gm/dL Hct (34.0-46.0) % MCV (80.0-100.0) fL MCH (25.0-35.0) pg MCHC (31.0-37.0) g/dL RDW (11.5-15.5) % Plt Count (150-450) k/uL Neutrophils % % Lymphocytes % % Monocytes % % Eosinophils % % Basophils % % Neutrophils # (1.3-7.7) k/uL Lymphocytes # (1.0-4.8) k/uL Monocytes # (0-1.0) k/uL Eosinophils # (0-0.7) k/uL Basophils # (0-0.2) k/uL Sodium (137-145) mmol/L Potassium (3.5-5.1) mmol/L Chloride (98-107) mmol/L Carbon Dioxide (22-30) mmol/L Anion Gap mmol/L BUN (7-17) mg/dL Creatinine (0.52-1.04) mg/dL Est GFR (CKD-EPI)AfAm (>60 ml/min/1.73 sqM) Est GFR (CKD-EPI)NonAf (>60 ml/min/1.73 sqM) Glucose (74-99) mg/dL Calcium (8.4-10.2) mg/dL Total Bilirubin (0.2-1.3) mg/dL AST (14-36) U/L ALT (9-52) U/L Alkaline Phosphatase (38-126) U/L Total Protein (6.3-8.2) g/dL Albumin (3.5-5.0) g/dL Lipase (23-300) U/L Urine Color Light Yellow Urine Appearance Cloudy H (Clear) Urine pH 6.5 (5.0-8.0) Ur Specific [place] 1.005 (1.001-1.035) Urine Protein Negative (Negative) Urine Glucose (UA) Negative (Negative) Urine Ketones Negative (Negative) Urine Blood Negative (Negative) Urine Nitrite Positive H (Negative) Urine Bilirubin Negative (Negative) Urine Urobilinogen <2.0 (<2.0) mg/dL Ur Leukocyte Esterase Large H (Negative) Urine RBC 5 (0-5) /hpf Urine WBC 34 H (0-5) /hpf Ur Squamous Epith Cells 12 H (0-4) /hpf Urine Bacteria Occasional H (None) /hpf Urine Mucus Rare H (None) /hpf Urine HCG, Qual Detected (Not Detectd) Salicylates mg/dL Urine Opiates Screen (NotDetected) Ur Oxycodone Screen (NotDetected) Urine Methadone Screen (NotDetected) Ur Propoxyphene Screen (NotDetected) Acetaminophen ug/mL Ur Barbiturates Screen (NotDetected) U Tricyclic Antidepress (NotDetected) Ur Phencyclidine Scrn (NotDetected) Ur Amphetamines Screen (NotDetected) U Methamphetamines Scrn (NotDetected) U Benzodiazepines Scrn (NotDetected) Urine Cocaine Screen (NotDetected) U Marijuana (THC) Screen (NotDetected) Serum Alcohol mg/dL - EKG Data EKG Comments: EKG performed at 11:22 normal sinus rhythm with a rate of 68 NV 172 QRS 98 QT/ QTC 404/429 Disposition Clinical Impression: Suicidal ideation, Drug overdose Disposition: ADMITTED IP TO THIS [facility] Condition: Fair Referrals: None,Stated [Primary Care Provider] - 1-2 days
[2018-11-13 11:59] LABS: Basophils % (A) 0 %; Eosinophils # (A) 0.2 k/uL (0-0.7); Eosinophils % (A) 3 %; HCT 43.1 % (34.0-46.0); HGB 14.3 gm/dL (11.4-16.0); Lymphocytes # (A) 1.4 k/uL (1.0-4.8); Lymphocytes % (A) 18 %; MCH 29.6 pg (25.0-35.0); MCHC 33.1 g/dL (31.0-37.0); MCV 89.5 fL (80.0-100.0); Mean Platelet Volume 6.3; Monocytes # (A) 0.3 k/uL (0-1.0); Monocytes % (A) 3 %; Neutrophils # (A) 5.8 k/uL (1.3-7.7); Neutrophils % (A) 74 %; Platelet Count 258 k/uL (150-450); RBC 4.81 m/uL (3.80-5.40); RDW 13.7 % (11.5-15.5); WBC 7.8 k/uL (3.8-10.6)
[2018-11-13 12:09] LABS: ALT 27 U/L (9-52); AST 18 U/L (14-36); Acetaminophen <10.0 ug/mL; Albumin 4.2 g/dL (3.5-5.0); Alcohol <10 mg/dL; Alkaline Phosphatase 68 U/L (38-126); Anion Gap 6 mmol/L; Blood Urea Nitrogen 11 mg/dL (7-17); Calcium 9.8 mg/dL (8.4-10.2); Carbon Dioxide 27 mmol/L (22-30); Chloride 108 mmol/L (98-107); Glucose 107 mg/dL (74-99); Lipase 27 U/L (23-300); Salicylate <1.0 mg/dL; Sodium 141 mmol/L (137-145); Total Bilirubin 0.7 mg/dL (0.2-1.3); Total Protein 7.1 g/dL (6.3-8.2)
[2018-11-13 14:27] LABS: Appearance,Urine Cloudy (Clear); Bacteria,Urine Occasional /hpf; Bilirubin,Urine Negative (Negative); Blood,Urine Negative (Negative); Color,Urine Light Yellow; Glucose,Urine (UA) Negative (Negative); Ketones,Urine Negative (Negative); Leukocyte Esterase,Urine Large (Negative); Mucus,Urine Rare /hpf; Nitrite,Urine Positive (Negative); PH, Urine 6.5 (5.0-8.0); Protein,Urine Negative (Negative); RBC,Urine 5 /hpf (0-5); Specific Gravity,Urine 1.005 (1.001-1.035); Squamous Epithelial Cell,Urine 12 /hpf (0-4); Urobilinogen,Urine <2.0 mg/dL (<2.0); WBC,Urine 34 /hpf (0-5)
[2018-11-13 14:42] LABS: Cocaine Screen,Urine Not Detected (NotDetected); Phencyclidine Screen,Urine Not Detected (NotDetected); Urn Cannabinoid Scrn Detected (NotDetected)
[2018-11-13 14:43] LABS: Amphetamine Screen,Urine Detected (NotDetected); Barbiturate Screen,Urine Not Detected (NotDetected); Benzodiazepines Screen,Urine Not Detected (NotDetected); Methadone Screen, Urine Not Detected (NotDetected); Opiate Screen,Urine Not Detected (NotDetected); Oxycodone Screen, Urine Not Detected (NotDetected); Tricyclic Antidepressant,Urine Not Detected (NotDetected)
[2018-11-13] MEDS ORDERED: CEPHALEXIN 500 MG CAP PO STA (16:09)
--- NOTE | 2018-11-13 16:12 | ED ---
Medical Decision Making - Medical Decision Making 23-year-old female was be admitted for psychiatric issues including depression suicidal ideation drug overdose. Patient also found to be with a urinary tract infection rate patient was given Keflex. - Lab Data Result diagrams: 11/13/18 11:45 11/13/18 11:45 Lab Results 11/13/18 11/13/18 11/13/18 Range/Units 11:45 11:45 14:05 WBC 7.8 (3.8-10.6) k/uL RBC 4.81 (3.80-5.40) m/uL Hgb 14.3 (11.4-16.0) gm/dL Hct 43.1 (34.0-46.0) % MCV 89.5 (80.0-100.0) fL MCH 29.6 (25.0-35.0) pg MCHC 33.1 (31.0-37.0) g/dL RDW 13.7 (11.5-15.5) % Plt Count 258 (150-450) k/uL Neutrophils % 74 % Lymphocytes % 18 % Monocytes % 3 % Eosinophils % 3 % Basophils % 0 % Neutrophils # 5.8 (1.3-7.7) k/uL Lymphocytes # 1.4 (1.0-4.8) k/uL Monocytes # 0.3 (0-1.0) k/uL Eosinophils # 0.2 (0-0.7) k/uL Basophils # 0.0 (0-0.2) k/uL Sodium 141 (137-145) mmol/L Potassium 4.0 (3.5-5.1) mmol/L Chloride 108 H (98-107) mmol/L Carbon Dioxide 27 (22-30) mmol/L Anion Gap 6 mmol/L BUN 11 (7-17) mg/dL Creatinine 0.70 (0.52-1.04) mg/dL Est GFR (CKD-EPI)AfAm >90 (>60 ml/min/1.73 sqM) Est GFR (CKD-EPI)NonAf >90 (>60 ml/min/1.73 sqM) Glucose 107 H (74-99) mg/dL Calcium 9.8 (8.4-10.2) mg/dL Total Bilirubin 0.7 (0.2-1.3) mg/dL AST 18 (14-36) U/L ALT 27 (9-52) U/L Alkaline Phosphatase 68 (38-126) U/L Total Protein 7.1 (6.3-8.2) g/dL Albumin 4.2 (3.5-5.0) g/dL Lipase 27 (23-300) U/L Urine Color Urine Appearance (Clear) Urine pH (5.0-8.0) Ur Specific [place] (1.001-1.035) Urine Protein (Negative) Urine Glucose (UA) (Negative) Urine Ketones (Negative) Urine Blood (Negative) Urine Nitrite (Negative) Urine Bilirubin (Negative) Urine Urobilinogen (<2.0) mg/dL Ur Leukocyte Esterase (Negative) Urine RBC (0-5) /hpf Urine WBC (0-5) /hpf Ur Squamous Epith Cells (0-4) /hpf Urine Bacteria (None) /hpf Urine Mucus (None) /hpf Urine HCG, Qual (Not Detectd) Salicylates <1.0 mg/dL Urine Opiates Screen Not Detected (NotDetected) Ur Oxycodone Screen Not Detected (NotDetected) Urine Methadone Screen Not Detected (NotDetected) Ur Propoxyphene Screen Not Detected (NotDetected) Acetaminophen <10.0 ug/mL Ur Barbiturates Screen Not Detected (NotDetected) U Tricyclic Antidepress Not Detected (NotDetected) Ur Phencyclidine Scrn Not Detected (NotDetected) Ur Amphetamines Screen Detected H (NotDetected) U Methamphetamines Scrn Not Detected (NotDetected) U Benzodiazepines Scrn Not Detected (NotDetected) Urine Cocaine Screen Not Detected (NotDetected) U Marijuana (THC) Screen Detected H (NotDetected) Serum Alcohol <10 mg/dL 11/13/18 11/13/18 Range/Units 14:05 14:05 WBC (3.8-10.6) k/uL RBC (3.80-5.40) m/uL Hgb (11.4-16.0) gm/dL Hct (34.0-46.0) % MCV (80.0-100.0) fL MCH (25.0-35.0) pg MCHC (31.0-37.0) g/dL RDW (11.5-15.5) % Plt Count (150-450) k/uL Neutrophils % % Lymphocytes % % Monocytes % % Eosinophils % % Basophils % % Neutrophils # (1.3-7.7) k/uL Lymphocytes # (1.0-4.8) k/uL Monocytes # (0-1.0) k/uL Eosinophils # (0-0.7) k/uL Basophils # (0-0.2) k/uL Sodium (137-145) mmol/L Potassium (3.5-5.1) mmol/L Chloride (98-107) mmol/L Carbon Dioxide (22-30) mmol/L Anion Gap mmol/L BUN (7-17) mg/dL Creatinine (0.52-1.04) mg/dL Est GFR (CKD-EPI)AfAm (>60 ml/min/1.73 sqM) Est GFR (CKD-EPI)NonAf (>60 ml/min/1.73 sqM) Glucose (74-99) mg/dL Calcium (8.4-10.2) mg/dL Total Bilirubin (0.2-1.3) mg/dL AST (14-36) U/L ALT (9-52) U/L Alkaline Phosphatase (38-126) U/L Total Protein (6.3-8.2) g/dL Albumin (3.5-5.0) g/dL Lipase (23-300) U/L Urine Color Light Yellow Urine Appearance Cloudy H (Clear) Urine pH 6.5 (5.0-8.0) Ur Specific [place] 1.005 (1.001-1.035) Urine Protein Negative (Negative) Urine Glucose (UA) Negative (Negative) Urine Ketones Negative (Negative) Urine Blood Negative (Negative) Urine Nitrite Positive H (Negative) Urine Bilirubin Negative (Negative) Urine Urobilinogen <2.0 (<2.0) mg/dL Ur Leukocyte Esterase Large H (Negative) Urine RBC 5 (0-5) /hpf Urine WBC 34 H (0-5) /hpf Ur Squamous Epith Cells 12 H (0-4) /hpf Urine Bacteria Occasional H (None) /hpf Urine Mucus Rare H (None) /hpf Urine HCG, Qual Detected (Not Detectd) Salicylates mg/dL Urine Opiates Screen (NotDetected) Ur Oxycodone Screen (NotDetected) Urine Methadone Screen (NotDetected) Ur Propoxyphene Screen (NotDetected) Acetaminophen ug/mL Ur Barbiturates Screen (NotDetected) U Tricyclic Antidepress (NotDetected) Ur Phencyclidine Scrn (NotDetected) Ur Amphetamines Screen (NotDetected) U Methamphetamines Scrn (NotDetected) U Benzodiazepines Scrn (NotDetected) Urine Cocaine Screen (NotDetected) U Marijuana (THC) Screen (NotDetected) Serum Alcohol mg/dL Disposition Clinical Impression: Suicidal ideation, Drug overdose, , UTI (urinary tract infection) Disposition: ADMITTED IP TO THIS HOSP Condition: Fair Referrals: None,Stated [Primary Care Provider] - 1-2 days
[2018-11-13] MEDS ORDERED: CEPHALEXIN 500 MG CAP PO SCH ×2 (22:00)
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
[2018-11-14] MEDS: CEPHALEXIN 500 MG CAP PO SCH ×2 (09:03→21:26)
--- NOTE | 2018-11-14 10:12 | US ---
EXAMINATION TYPE: Transabdominal DATE OF EXAM: 11/14/2018 8:43 AM COMPARISON: NONE CLINICAL HISTORY: Positive B-hcg. Pt had positive urine test in ER, pt unsure of LMP, has n o complaints at this time, Beta not available at time of exam EXAM PERFORMED: Transabdominal (TA), pt did not want TV at this time EXAM MEASUREMENTS: GESTATIONAL AGE / DATING Physician Established: Not yet established Dates by LMP: (4 weeks/1 days) EDC: 07/23/2019 Dates by First Scan: No prior Dates by Current Scan for: No IUP seen at this time MATERNAL ANATOMY Uterus: 7.2 x 3.4 x 4.7 cm Right Ovary: 3.4 x 2.2 x 3.3 cm Left Ovary: 3.4 x 2.1 x 3.9 cm Post CDS / Adnexa: Appeared wnl Presence of free fluid: No Presence of corpus luteal cyst: No GESTATION / SURVEY IUP: No IUP seen at this time, endo thickness= 0.5 cm Date of LMP: Pt unsure, thinks around 10/16/2018 Beta HcG (if available): Not available at this time No evident adnexal mass. IMPRESSION: Patient refused endovaginal exam. No intrauterine is evident. Correlate clinically.
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
[2018-11-15] MEDS: CEPHALEXIN 500 MG CAP PO SCH ×2 (08:17→20:10)
[2018-11-15 08:29] LABS: HCT 43.2 % (34.0-46.0); HGB 14.4 gm/dL (11.4-16.0); MCH 29.8 pg (25.0-35.0); MCHC 33.2 g/dL (31.0-37.0); MCV 89.6 fL (80.0-100.0); Mean Platelet Volume 6.6; Platelet Count 234 k/uL (150-450); RBC 4.82 m/uL (3.80-5.40); RDW 13.7 % (11.5-15.5); WBC 7.6 k/uL (3.8-10.6)
[2018-11-15 08:46] LABS: Anion Gap 8 mmol/L; Blood Urea Nitrogen 16 mg/dL (7-17); Calcium 9.8 mg/dL (8.4-10.2); Carbon Dioxide 24 mmol/L (22-30); Chloride 108 mmol/L (98-107); Glucose 76 mg/dL (74-99); Potassium 4.5 mmol/L (3.5-5.1); Sodium 140 mmol/L (137-145)
[2018-11-15 09:01] LABS: HCG,Quantitative Serum 576.4 mIU/mL
--- NOTE | 2018-11-15 11:11 | P.PN ---
Progress Note - Text Interval history: The patient is found in the hallway she follows me to an interview room she indicates her mood is okay. She is nervous about how her is going to react to the news that she is . She has not decided if she is going to tell him when she is appear overweight until she gets home. We discussed the advantages and disadvantages of sharing that news with him while here. She did speak with her mother via phone the patient indicates her mother is quite disappointed she is again. She feels that her mother will continue to support her however. The patient states that she did eat lunch and dinner yesterday she typically does not eat breakfast. Staff reported she slept 7 hours last night. Mental status exam: The patient is a thin female appearing her stated age. She is dressed in her own clothing again her hair is dyed purple. Eye contact is appropriate speech is fluent spontaneous nonpressured. She is cooperative and directable throughout the session. She indicates her mood is okay still down but feels safe here. She reports no thoughts of harming others. She is reporting no auditory or visual hallucinations or any specific delusions. She does demonstrate some increased psychomotor activity while seated in the chair. Insight and judgment limited. She does still endorse some hopelessness thinking. Plan: The patient will be started on the Lexapro 10 mg daily. We will monitor her for safety she is encouraged to fully participate in the milieu. We will need to assess her support upon discharge. It's possible she may share the news of her with her this evening during visiting. Vital signs reviewed. Lab results reviewed. She requires continued hospitalization for further evaluation.
[2018-11-15] MEDS: ESCITALOPRAM 10 MG TAB PO SCH (11:25)
[2018-11-15] MEDS: PRENATAL VIT-IRON-FOLIC ACID 1 EACH CAP PO SCH (13:45)
[2018-11-16] MEDS: ESCITALOPRAM 10 MG TAB PO SCH (08:53)
[2018-11-16] MEDS: CEPHALEXIN 500 MG CAP PO SCH ×2 (08:53→21:12)
--- NOTE | 2018-11-16 10:53 | P.PN ---
Progress Note - Text Interval history: The patient is found in the hallway she follows me to an interview room. She indicates her mood is "fantastic". She states that she expects to participate in a family meeting involving her mother today. She expects her mother will be supportive. She did have a visit from her and that did not go well last evening. Apparently they argued over her current . She states that her has moved out of her mother's home. Staff report that the patient has been mildly labile at times but has been redirectable. There was no report of the patient demonstrating any aggressive behavior. Nursing staff reports the patient described having some spotting and obstetrics was called and they plan to see the patient. Mental status exam: The patient is alert she seated calmly in the chair she is pleasant and cooperative for the duration of our interaction. She states her mood is "fantastic". Affect is constricted. She reports no suicidal or homicidal ideation. She has never expressed any thoughts of harming her children. She reports no auditory or visual hallucinations or specific delusions. She chronically does struggle with some impulsivity. She did tolerate a lengthy discussion about her relationship with her mother and children. She spontaneously describes future oriented thinking. She is oriented to person place and date. She demonstrates no verbal or physical aggressiveness during our interaction. Plan: The patient will continue on the Lexapro. We will await input from obstetrics. We will await the results of the family meeting involving her mother. We will consider discharging her the next 1-2 days if she is clinically appropriate. She is encouraged to continue participating in groups. Vital signs reviewed.
[2018-11-16] MEDS: PRENATAL VIT-IRON-FOLIC ACID 1 EACH CAP PO SCH (12:25)
--- NOTE | 2018-11-16 12:27 | P.HPOB ---
History of Present Illness H&P Date: 11/16/18 Chief Complaint: Vaginal bleeding This is a 23-year-old 3 para 2002 woman who was admitted to the mental health unit for severe depression. She notes of vaginal bright red spotting starting 24-48 hours ago. Her LMP she believes was 10/20/2018 and was light. She is having some on the mild menstrual type cramping. Beta hCG on 11/15/2018 was 576. Transabdominal ultrasound dated 11/14/2018 shows no evidence of intrauterine , no adnexal abnormality is, no free fluid in the pelvis. Endometrial thickness was 0.5 cm. Obstetric history is significant for normal spontaneous vaginal delivery in 2015 an emergency primary section in 2017. She was not using any type of contraception and was not planning . She is on multiple medications for her mood issues including Lamictal, trazodone and Lexapro at home. She uses marijuana but denies any other illicit drug use. Review of Systems Constitutional: Reports chills, Reports fever Breasts: absent: nipple discharge Cardiovascular: Denies chest pain, Denies shortness of breath Respiratory: Denies cough Gastrointestinal: Reports abdominal pain (Mild cramping), Denies BRBPR, Denies nausea, Denies vomiting Genitourinary: Reports abnormal vaginal bleeding, Reports , Denies genital sores Menstruation: Reports as per HPI Integumentary: Denies rash Neurological: Denies headaches Psychiatric: Reports anxiety, Reports depression, Reports suicidal ideation Past Medical History Past Medical History: No Reported History History of Any Multi-Drug Resistant Organisms: None Reported Past Surgical History: Adenoidectomy, Section, Tonsillectomy Past Anesthesia/Blood Transfusion Reactions: No Reported Reaction Past Psychological History: ADD/ADHD, Anxiety, Bipolar, Depression Smoking Status: Current every day smoker Past Alcohol Use History: Occasional Past Drug Use History: Marijuana - Past Family History Father Family Medical History: No Reported History Additional Family Medical History / Comment(s): Father is alive at age 40 with no major medical problems. Brother(s) Family Medical History: No Reported History Additional Family Medical History / Comment(s): Patient has 1 brother and 2 sisters with no major medical problems. Mother Family Medical History: No Reported History Additional Family Medical History / Comment(s): Mother is alive at age 40 with no major medical problems. Medications and Allergies Home Medications Medication Instructions Recorded Confirmed Type traZODone HCL 50 mg PO HS PRN 10/27/18 11/13/18 History Cyclobenzaprine [Flexeril] 10 mg PO DIRECTED 11/13/18 11/13/18 History Escitalopram [Lexapro] 10 mg PO DAILY 11/13/18 11/13/18 History Paliperidone [Invega] 6 mg PO HS 11/13/18 11/13/18 History Prazosin [Minipress] 1 mg PO HS 11/13/18 11/13/18 History lamoTRIgine [LaMICtal] See Taper PO HS 11/13/18 11/13/18 History Allergies Allergy/AdvReac Type Severity Reaction Status Date / Time adhesive tape Allergy Rash/Hives Verified 11/13/18 11:36 shellfish derived [Shrimp] Allergy Anaphylaxis Verified 11/13/18 11:36 soap Allergy Rash/Hives Verified 11/13/18 11:36 nicotine patch Allergy Rash/Hives Uncoded 11/06/18 13:20 Exam This is a pleasant slim female in no obvious distress. Targeted physical exam is performed with a dimensional integration engineer. The abdomen is slim, soft, nontender with no rebound no guarding or flank pain. On pelvic examination she has normal female external genitalia without lesions or irritation. There is no active bleeding. On sterile speculum examination the cervix was visualized and there is some bright red bloody discharge noted from the cervical os. No tissue noted. On bimanual examination the uterus is small, less than 4 weeks' size, mobile and nontender. There are no adnexal abnormalities or tenderness appreciated. Patient tolerated the exam well. Results Result Diagrams: 11/15/18 07:48 11/15/18 07:48 US - abdomen: report reviewed Assessment and Plan (1) Threatened miscarriage Narrative/Plan: Exam, bleeding and history are consistent with a very early miscarriage and/or blighted ovum. Ultrasound shows no evidence of an intrauterine process or ectopic . I recommend repeat serum beta hCG tomorrow which will give us more information. I did review all of this in detail with the patient and her questions are answered. If her hCG increases I would recommend a repeat ultrasound on transvaginally in 1 week's time to assess progression of . Current Visit: Yes Status: Acute Code(s): O20.0 - THREATENED SNOMED Code(s): 54478126 (2) Suicidal ideation Current Visit: Yes Status: Acute Priority: Low Code(s): R45.851 - SUICIDAL IDEATIONS SNOMED Code(s): 7068975 Time with Patient: Greater than 30
[2018-11-16] MEDS: ACETAMINOPHEN TAB 325 MG TAB PO PRN ×2 (14:50→22:08)
[2018-11-16 17:59] VITALS: BMI 21.4
[2018-11-17 03:08] VITALS: BP 110/82; PULSE 119; RESP 18; TEMP 97.2
[2018-11-17] MEDS: ESCITALOPRAM 10 MG TAB PO SCH (07:50)
[2018-11-17] MEDS: CEPHALEXIN 500 MG CAP PO SCH (07:50)
[2018-11-17] MEDS: ACETAMINOPHEN TAB 325 MG TAB PO PRN (08:17)
--- NOTE | 2018-11-17 08:52 | P.DS ---
Providers Date of admission: 11/13/18 16:48 Expected date of discharge: 11/17/18 Attending physician: Enoc Navarrete Consults: 11/13/18 17:03 Consult Physician Routine Consulting Provider: Dorothy Rodriguez Consult Reason/Comments: H&P for mental health admission Do you want consulting provider notified?: Yes 11/16/18 09:03 Consult Physician Urgent Consulting Provider: Wen Davis Reason/Comments: possible miscarriage at approx 4 weeks of Do you want consulting provider notified?: Yes Primary care physician: Stated None - Discharge Diagnosis(es) (1) Major depressive disorder, recurrent severe without psychotic features Current Visit: Yes Status: Acute Priority: High (2) Post traumatic stress disorder Current Visit: Yes Status: Acute Priority: Medium (3) Cannabis use disorder, moderate, dependence Current Visit: Yes Status: Acute Priority: Medium Hospital Course: Brief summary of admission note: This patient is a 23-year-old female who was admitted to the mental health unit through the emergency room due to recent suicide attempt via medication overdose. The patient states that she overdosed with 10 Flexeril and 10 invega tablets prior to admission. She stated she was involved in a verbal altercation with her and felt overwhelmed. She describes struggling with depressive symptoms. She reported feeling sad and anxious having low energy decreased appetite. She was describing fluctuations in her mood as well as irritability and anger. She has a history of PTSD. Of note in the emergency room she was informed that her test was positive. Summary of hospital course: The patient was admitted to the mental health unit voluntarily. We reviewed her presenting symptoms and treatment options. Because of the we decided to try to minimize the number of psychotropic medications. She was just recently seen by Dr. Phan her outpatient psychiatrist. The patient was continued on Lexapro which is a newer medicine for her and she was going to be started on Lamictal. We continued the Lexapro. The patient attended group she demonstrated no agitated behavior. He reported a progressive improvement of symptoms while here. She did have a visit from her during the course of the stay and that did not go well. They have decided to separate and he has moved out of the patient's home. The patient participated in a support meeting involving her mother and that seemed to go well. The patient was seen by internal medicine and obstetrics while here. She began describing vaginal bleeding. Her branch controller suspects that there may be a threatened miscarriage. Lab work will be drawn today. We discussed use of substances she does not wish to participate in inpatient chemical dependency treatment. Mental status exam: The patient is an alert female appearing her stated age. She is dressed in her own clothing. Eye contact is appropriate speech is fluent spontaneous nonpressured. She describes her mood is good affect is euthymic. She demonstrates no tangential thinking loose associations or flight of ideas. She is reporting no suicidal or homicidal ideation intent or plan. She is reporting no auditory or visual hallucinations or any specific delusions. There is no observed evidence of psychosis. She demonstrates no verbal or physical aggressiveness. Insight and judgment have improved. She is oriented to person place and date. She spontaneously describes future oriented thinking. Impressions 1. Major depressive disorder recurrent severe without psychosis, history of PTSD, cannabis use disorder, rule out stimulus use disorder 2. Cluster B personality disorder traits 3. Asthma recent Plan: The patient will be discharged mental health unit today to return residing with her mother. The patient will continue on Lexapro 10 mg daily. She will have follow-up lab work drawn this morning. If she is in fact having a miscarriage and her hCG is decreasing it is suggested that she goes on the Lamictal as suggested by Dr. Phan. She was to take 25 mg daily for one week then increase to 50 mg daily. I agree that the patient would benefit from this medication as a mood stabilizer. The patient's instructed to abstain from any use of alcohol marijuana or other substances including stimulants. We discussed that these substances can provoke mood symptoms and elevate her safety risk. She does not wish to participate in inpatient chemical dependency treatment but will address this further on an outpatient basis. There is no imminent safety risk she is appropriate for transition back to outpatient care. She is instructed to return to the hospital with any acute safety concerns. Patient Condition at Discharge: Stable Plan - Discharge Summary New Discharge Prescriptions: New Cephalexin [Keflex] 500 mg PO BID #4 cap Iyb-Qumz-Itgue Acid [-U Capsule (formulary)] 1 each PO DAILY @1200 #30 cap Continue Escitalopram [Lexapro] 10 mg PO DAILY #30 tab Discontinued traZODone HCL 50 mg PO HS PRN PRN Reason: Pain lamoTRIgine [LaMICtal] See Taper PO HS Prazosin [Minipress] 1 mg PO HS Paliperidone [Invega] 6 mg PO HS Cyclobenzaprine [Flexeril] 10 mg PO DIRECTED Discharge Medication List Cephalexin [Keflex] 500 mg PO BID #4 cap 11/17/18 [Rx] Escitalopram [Lexapro] 10 mg PO DAILY #30 tab 11/17/18 [Rx] Clc-Ttpt-Wbqoq Acid [-U Capsule (formulary)] 1 each PO DAILY@ 1200 #30 cap 11/17/18 [Rx] Follow up Appointment(s)/Referral(s): [facility] [Outside] - 1 Week (11/22/18 @ 11:30am w/ KODAK Kat 11/27/18 @ 3pm w/ Hu Powell) None,Stated [Primary Care Provider] - 1-2 days
== END 2018-11-17 11:42 | disposition home or self-care (01) | DRG 885 ==
LOC: EC 10:49 → 3MHU 16:48
PROVIDERS: ADMIT Psychiatry & Neurology Psychiatry; ATTEND Psychiatry & Neurology Psychiatry
DX: F33.2 Major depressive disorder, recurrent severe without psychotic features (principal); N39.0 Urinary tract infection, site not specified; O20.0 Threatened abortion; F12.99 Cannabis use, unspecified with unspecified cannabis-induced disorder; F17.200 Nicotine dependence, unspecified, uncomplicated; F43.10 Post-traumatic stress disorder, unspecified; F90.9 Attention-deficit hyperactivity disorder, unspecified type; J45.909 Unspecified asthma, uncomplicated; Z81.8 Family history of other mental and behavioral disorders; Z91.013 Allergy to seafood; Z88.8 Allergy status to other drugs, medicaments and biological substances; Z91.048 Other nonmedicinal substance allergy status; Z91.5 Personal history of self-harm
CPT/HCPCS: 36415; 76801; 80048; 80053; 80061; 80306; 80320; 81001; 81025; 83036; 83520; 83690; 84443; 84702; 85025; 85027; 93005; 96360; 99285

== ENCOUNTER 2018-11-23 18:36 | Inpatient (IN) | payer OTHER ==
[2018-11-23] MEDS ORDERED: ACTIVATED CHARCOAL 50 GM/240 ML BOTTLE NG-TUBE STA (19:01)
--- NOTE | 2018-11-23 19:06 | ED ---
General Adult HPI - General Chief complaint: Overdose Stated complaint: OVERDOSE Time Seen by Provider: 11/23/18 18:40 Source: patient, RN notes reviewed Mode of arrival: ambulatory Limitations: no limitations - History of Present Illness Initial comments: This is a 23-year-old female presents to the emergency department after having taking a bunch of trazodone and Minipress. Patient does not know how much she took but she states there was a lot of trazodone and not too many Minipress. Patient states she did occur she wanted to feel normal. Patient denies any other drug use. Patient denies alcohol. Patient denies any chest pain difficulty breathing shortest breath. Patient denies headache patient denies numbness weakness. Patient denies abdominal pain patient was nauseated earlier and did vomit once with quite a few pills coming up in the vomitus. Patient denied suicidal. - Related Data Home Medications Medication Instructions Recorded Confirmed Paliperidone [Invega] 6 mg PO HS 11/23/18 11/23/18 Prazosin [Minipress] 1 mg PO HS 11/23/18 11/23/18 lamoTRIgine [LaMICtal] 50 mg PO HS 11/23/18 11/23/18 traZODone HCL 50 mg PO HS 11/23/18 11/23/18 Previous Rx's Medication Instructions Recorded Escitalopram [Lexapro] 10 mg PO DAILY #30 tab 11/17/18 Allergies Allergy/AdvReac Type Severity Reaction Status Date / Time adhesive tape Allergy Rash/Hives Verified 11/23/18 19:15 shellfish derived [Shrimp] Allergy Anaphylaxis Verified 11/23/18 19:15 soap Allergy Rash/Hives Verified 11/23/18 19:15 nicotine patch Allergy Rash/Hives Uncoded 11/06/18 13:20 Review of Systems ROS Statement: Those systems with pertinent positive or pertinent negative responses have been documented in the HPI. ROS Other: All systems not noted in ROS Statement are negative. Past Medical History Past Medical History: Asthma History of Any Multi-Drug Resistant Organisms: None Reported Past Surgical History: Adenoidectomy, Section, Tonsillectomy Past Anesthesia/Blood Transfusion Reactions: No Reported Reaction Past Psychological History: ADD/ADHD, Anxiety, Bipolar, Depression Smoking Status: Current every day smoker Past Alcohol Use History: Occasional Past Drug Use History: Marijuana - Past Family History Father Family Medical History: No Reported History Additional Family Medical History / Comment(s): Father is alive at age 40 with no major medical problems. Brother(s) Family Medical History: No Reported History Additional Family Medical History / Comment(s): Patient has 1 brother and 2 sisters with no major medical problems. Mother Family Medical History: No Reported History Additional Family Medical History / Comment(s): Mother is alive at age 40 with no major medical problems. General Exam - General Exam Comments Initial Comments: GENERAL: Patient is well-developed and well-nourished. Patient is nontoxic and well- hydrated and is in no acute distress. Patient is very tired but is able to answer all questions accurately ENT: Neck is soft and supple. No significant lymphadenopathy is noted. Oropharynx is clear. Moist mucous membranes. Neck has full range of motion without eliciting any pain. EYES: The sclera were anicteric and conjunctiva were pink and moist. Extraocular movements were intact and pupils were equal round and reactive to light. Eyelids were unremarkable. PULMONARY: Unlabored respirations. Good breath sounds bilaterally. No audible rales rhonchi or wheezing was noted. CARDIOVASCULAR: There is a regular rate and rhythm without any murmurs gallops or rubs. ABDOMEN: Soft and nontender with normal bowel sounds. No palpable organomegaly was noted. There is no palpable pulsatile mass. SKIN: Skin is clear with no lesions or rashes and otherwise unremarkable. NEUROLOGIC: Patient is alert and oriented x3. Cranial nerves II through XII are grossly intact. Motor and sensory are also intact. Normal speech, volume and content. Symmetrical smile. MUSCULOSKELETAL: Normal extremities with adequate strength and full range of motion. No lower extremity swelling or edema. No calf tenderness. LYMPHATICS: No significant lymphadenopathy is noted PSYCHIATRIC: Normal psychiatric evaluation. Normal interpersonal interactions appears functionally intact in deals appropriately with others. No signs of depression. No signs of anxiety. Limitations: no limitations Course Vital Signs 11/23/18 18:37 Temperature 98.2 F Pulse Rate 68 Respiratory 18 Rate Blood Pressure 107/62 O2 Sat by Pulse 97 Oximetry Medical Decision Making - Medical Decision Making EKG shows normal sinus rhythm at 81 bpm NH interval is 180 QRS is 96 QT interval 414 QTC is 480. Patient does have some prolonged QT interval. Patient also appears to have a possible U wave Patient stated she took the pills less than an hour prior to arrival so I did a gastric lavage. Quite a few pill fragments came out in the lavage as well as from her vomiting. Patient was given charcoal. Patient was sleeping comfortably but easily arousable. I spoke with some physicians agreed to admit the patient admitted the patient and wrote admitting orders. - Lab Data Result diagrams: 11/23/18 18:50 11/23/18 18:50 Lab Results 11/23/18 11/23/18 11/23/18 Range/Units 18:50 18:50 18:50 WBC 9.9 (3.8-10.6) k/uL RBC 4.38 (3.80-5.40) m/uL Hgb 13.1 (11.4-16.0) gm/dL Hct 39.6 (34.0-46.0) % MCV 90.5 (80.0-100.0) fL MCH 30.0 (25.0-35.0) pg MCHC 33.1 (31.0-37.0) g/dL RDW 14.1 (11.5-15.5) % Plt Count 251 (150-450) k/uL Neutrophils % 71 % Lymphocytes % 22 % Monocytes % 4 % Eosinophils % 2 % Basophils % 0 % Neutrophils # 7.0 (1.3-7.7) k/uL Lymphocytes # 2.1 (1.0-4.8) k/uL Monocytes # 0.4 (0-1.0) k/uL Eosinophils # 0.2 (0-0.7) k/uL Basophils # 0.0 (0-0.2) k/uL Sodium 137 (137-145) mmol/L Potassium 3.3 L (3.5-5.1) mmol/L Chloride 104 (98-107) mmol/L Carbon Dioxide 25 (22-30) mmol/L Anion Gap 8 mmol/L BUN 9 (7-17) mg/dL Creatinine 0.64 (0.52-1.04) mg/dL Est GFR (CKD-EPI)AfAm >90 (>60 ml/min/1.73 sqM) Est GFR (CKD-EPI)NonAf >90 (>60 ml/min/1.73 sqM) Glucose 152 H (74-99) mg/dL Calcium 9.4 9.4 (8.4-10.2) mg/dL Magnesium 1.8 (1.6-2.3) mg/dL Total Bilirubin 1.0 (0.2-1.3) mg/dL AST 25 (14-36) U/L ALT 23 (9-52) U/L Alkaline Phosphatase 67 (38-126) U/L Total Protein 7.0 (6.3-8.2) g/dL Albumin 4.1 (3.5-5.0) g/dL Salicylates <1.0 mg/dL Acetaminophen <10.0 ug/mL Serum Alcohol <10 mg/dL Critical Care Time Critical Care Time: Yes Total Critical Care Time: 35 Disposition Clinical Impression: Overdose Disposition: ADMITTED IP TO THIS HOSP Referrals: None,Stated [Primary Care Provider] - 1-2 days Time of Disposition: 20:49
[2018-11-23 19:24] LABS: Basophils % (A) 0 %; Eosinophils # (A) 0.2 k/uL (0-0.7); Eosinophils % (A) 2 %; HCT 39.6 % (34.0-46.0); HGB 13.1 gm/dL (11.4-16.0); Lymphocytes # (A) 2.1 k/uL (1.0-4.8); Lymphocytes % (A) 22 %; MCHC 33.1 g/dL (31.0-37.0); MCV 90.5 fL (80.0-100.0); Mean Platelet Volume 7.2; Monocytes # (A) 0.4 k/uL (0-1.0); Monocytes % (A) 4 %; Neutrophils % (A) 71 %; Platelet Count 251 k/uL (150-450); RBC 4.38 m/uL (3.80-5.40); RDW 14.1 % (11.5-15.5); WBC 9.9 k/uL (3.8-10.6)
[2018-11-23 19:31] LABS: Calcium 9.4 mg/dL (8.4-10.2); Magnesium 1.8 mg/dL (1.6-2.3)
[2018-11-23 19:32] LABS: ALT 23 U/L (9-52); AST 25 U/L (14-36); Acetaminophen <10.0 ug/mL; Albumin 4.1 g/dL (3.5-5.0); Alcohol <10 mg/dL; Alkaline Phosphatase 67 U/L (38-126); Anion Gap 8 mmol/L; Blood Urea Nitrogen 9 mg/dL (7-17); Calcium 9.4 mg/dL (8.4-10.2); Carbon Dioxide 25 mmol/L (22-30); Chloride 104 mmol/L (98-107); Glucose 152 mg/dL (74-99); Potassium 3.3 mmol/L (3.5-5.1); Salicylate <1.0 mg/dL; Sodium 137 mmol/L (137-145)
[2018-11-23] MEDS: SODIUM CHLORIDE 0.9% 1,000 ML IV ONE ×2 (19:56→21:21)
[2018-11-23 20:49] LABS: Appearance,Urine Cloudy (Clear); Bacteria,Urine Rare /hpf; Bilirubin,Urine Negative (Negative); Blood,Urine Large (Negative); Color,Urine Yellow; Glucose,Urine (UA) Negative (Negative); Ketones,Urine Negative (Negative); Leukocyte Esterase,Urine Moderate (Negative); Mucus,Urine Rare /hpf; Nitrite,Urine Positive (Negative); PH, Urine 6.5 (5.0-8.0); Protein,Urine Trace (Negative); RBC,Urine 2 /hpf (0-5); Specific Gravity,Urine 1.014 (1.001-1.035); Squamous Epithelial Cell,Urine 5 /hpf (0-4); Urobilinogen,Urine <2.0 mg/dL (<2.0); WBC,Urine 18 /hpf (0-5)
[2018-11-23] MEDS ORDERED: SODIUM CHLORIDE 0.9% 1,000 ML IV ONE (20:50)
[2018-11-23 20:57] LABS: Amphetamine Screen,Urine Not Detected (NotDetected); Barbiturate Screen,Urine Not Detected (NotDetected); Benzodiazepines Screen,Urine Not Detected (NotDetected); Cocaine Screen,Urine Not Detected (NotDetected); Methadone Screen, Urine Not Detected (NotDetected); Opiate Screen,Urine Not Detected (NotDetected); Oxycodone Screen, Urine Not Detected (NotDetected); Phencyclidine Screen,Urine Not Detected (NotDetected); Tricyclic Antidepressant,Urine Not Detected (NotDetected); Urn Cannabinoid Scrn Detected (NotDetected)
[2018-11-23 22:14] VITALS: BMI 21.1
[2018-11-23] MEDS ORDERED: POTASSIUM CHLORIDE 2 MEQ/ML 20 ML VIAL IV SCH (23:00)
[2018-11-23] MEDS ORDERED: MAGNESIUM SULFATE-D5W PMX 1 GM in DEXTROSE/WATER 1 100ML.BAG IVPB ONE (23:00)
[2018-11-23] MEDS ORDERED: POTASSIUM CHLORIDE 10 MEQ in WATER FOR INJECTION 1 100ML.BAG IVPB ONE (23:00)
--- NOTE | 2018-11-23 23:33 | P.HPIM ---
History of Present Illness H&P Date: 11/23/18 Chief Complaint: drug overdose 23-year-old female with history of bipolar, depression, anxiety Patient presented to the hospital after overdosing on trazodone she claims that she attempted to take extra medications Pike normal she takes trazodone normally to help her sleep. She was feeling anxious. Patient is avoiding eye contact and not openly discussing and answering questions in details. She denies overdosing on any other medications. She denies any suicidal or homicidal ideation. Otherwise she denies any fevers or chills denies any chest pain or trouble breathing denies any abdominal pain Patient arrived to the ED within 1 hour of ingestion she was feeling nauseous and throw up in the ED had a little rash done and activated charcoal was given poison control was notified recommended optimization of potassium, magnesium, and calcium levels. EKG showed prolongation of QTc interval Review of Systems Pertinent positives as noted in HPI. All other systems were reviewed and are negative Past Medical History Past Medical History: Asthma History of Any Multi-Drug Resistant Organisms: None Reported Past Surgical History: Adenoidectomy, Section, Tonsillectomy Past Anesthesia/Blood Transfusion Reactions: No Reported Reaction Past Psychological History: ADD/ADHD, Anxiety, Bipolar, Depression Additional Psychological History / Comment(s): Treated prior to with Medication Smoking Status: Current every day smoker Past Alcohol Use History: Occasional Additional Past Alcohol Use History / Comment(s): Patient is a smoker one pack per day for 4 years. S She denies any alcohol abuse. She is single and lives at home with her parents. She has a 5-month-old son. Patient states she did smoke Marijauna regularly prior to finding out she was , states once she found out she was she stopped smoking. Past Drug Use History: Marijuana Additional Drug Use History / Comment(s): Patient stated that she quit smoking about 10 days ago. - Past Family History Father Family Medical History: No Reported History Additional Family Medical History / Comment(s): Father is alive at age 40 with no major medical problems. Brother(s) Family Medical History: No Reported History Additional Family Medical History / Comment(s): Patient has 1 brother and 2 sisters with no major medical problems. Mother Family Medical History: No Reported History Additional Family Medical History / Comment(s): Mother is alive at age 40 with no major medical problems. Medications and Allergies Home Medications Medication Instructions Recorded Confirmed Type Escitalopram [Lexapro] 10 mg PO DAILY #30 tab 11/17/18 11/23/18 Rx Prazosin [Minipress] 1 mg PO HS 11/23/18 11/23/18 History lamoTRIgine [LaMICtal] 50 mg PO HS 11/23/18 11/23/18 History traZODone HCL 50 mg PO HS 11/23/18 11/23/18 History Allergies Allergy/AdvReac Type Severity Reaction Status Date / Time adhesive tape Allergy Rash/Hives Verified 11/23/18 19:15 shellfish derived [Shrimp] Allergy Anaphylaxis Verified 11/23/18 19:15 soap Allergy Rash/Hives Verified 11/23/18 19:15 nicotine patch Allergy Rash/Hives Uncoded 11/06/18 13:20 Physical Exam Vitals: Vital Signs Temp Pulse Pulse Resp BP BP Pulse Ox 11/23/18 21:50 17 11/23/18 21:10 98 F 78 18 97/68 96 11/23/18 21:06 97.8 F 64 18 104/59 97 11/23/18 20:00 82 18 107/63 98 11/23/18 19:10 112 H 21 116/62 98 11/23/18 18:37 98.2 F 68 18 107/62 97 Intake and Output 11/23/18 11/23/18 11/23/18 06:59 14:59 22:59 Other: Weight 49.442 kg Constitutional: No acute distress, conversant, pleasant Eyes: Anicteric sclerae, moist conjunctiva, no lid-lag Pupils equal round reactive to light ENMT: NC/AT Oropharynx clear, no erythema, exudates Neck: Supple, FROM, no masses, or JVD No carotid bruits No thyromegaly Lungs: Clear to auscultation Clear to percussion Normal respiratory effort, no accessory muscle use Cardiovascular: Heart regular in rate and rhythm, No murmurs, gallops, or rubs No peripheral edema Abdominal: Soft Nontender, no guarding, rebound or rigidity Abdomen moving with respiration Normoactive bowel sounds No hepatomegaly, No splenomegaly No palpable mass No abdominal wall hernia noted Skin: Normal temperature, tone, texture, turgor No induration No subcutaneous nodules No rash, lesions No ulcers Extremities: No digital cyanosis No clubbing Pedal pulses intact and symmetrical Radial pulses intact and symmetrical No calf tenderness Psychiatric: Alert and oriented to person, place and time Appropriate affect poor judgment Neuro Muscles Strength 5/5 in all 4 extremities Sensation to light touch grossly present throughout Cranial nerves II-XII grossly intact No focal sensory deficits Lymphatics: no palpable cervical or supraclavicular , or inguinal lymph nodes Results CBC & Chem 7: 11/23/18 18:50 11/23/18 18:50 Labs: Abnormal Lab Results - Last 24 Hours (Table) 11/23/18 11/23/18 Range/Units 18:50 20:30 Potassium 3.3 L (3.5-5.1) mmol/L Glucose 152 H (74-99) mg/dL Urine Appearance Cloudy H (Clear) Urine Protein Trace H (Negative) Urine Blood Large H (Negative) Urine Nitrite Positive H (Negative) Ur Leukocyte Esterase Moderate H (Negative) Urine WBC 18 H (0-5) /hpf Ur Squamous Epith Cells 5 H (0-4) /hpf Urine Bacteria Rare H (None) /hpf Urine Mucus Rare H (None) /hpf U Marijuana (THC) Screen Detected H (NotDetected) Thrombosis Risk Factor Assmnt - Choose All That Apply Any of the Below Risk Factors Present?: No Other Risk Factors: No Other congenital or acquired thrombophilia - If yes, enter type in comment: No Thrombosis Risk Factor Assessment Level: Very Low Risk Assessment and Plan Assessment: 23-year-old female with history of bipolar, depression, anxiety admitted as an inpatient with anticipated length of stay more than 48 hours due to trazodone overdose, she claims that she did not attempt to feel normal she denies any suicidal or homicidal ideation. She takes chest on to help her sleep. She was feeling very anxious and tired decided to overdose on the medications in order to fix her problems. She came to the hospital voluntarily as she was feeling nauseated seeking help. patient vomited in the ED< had lavage done and given charcoal, poison control contacted , recommended optimization of K, Mg, and Ca levels, slight prolongation of QTc on EKG Plan: Trazodone overdose Prolonged QTc interval hypokalemia history of depression , bipolar and anxiety patient vomited in the ED s/p lavage and activated charcoal (presented within one hour of ingestion ) poison control contacted, recommended optimization of levels of K, Mg, Ca IVF hydration patient denies suicidal or homicidal ideation psych consult [facility] psych medications for now DVT PPx heparin sc tid Surrogate decision-maker: Patient mother CODE STATUS full code Discussed with: Patient, ER, RN Anticipated discharge: 48-[address]: Pending clinical course and psych eval A total of 60 minutes was spent on the care of this complex patient more than 50% of the time was spent in counseling and care coordination.
[2018-11-23] MEDS: POTASSIUM CHLORIDE 10 MEQ in WATER FOR INJECTION 1 100ML.BAG IVPB SCH (23:35)
[2018-11-23] MEDS: HEPARIN SODIUM,PORCINE 5,000 UNIT/ML 1 ML VIAL SQ SCH (23:35)
[2018-11-24] MEDS: POTASSIUM CHLORIDE 10 MEQ in WATER FOR INJECTION 1 100ML.BAG IVPB SCH ×2 (00:38→02:06)
[2018-11-24 06:37] LABS: Basophils % (A) 1 %; Eosinophils # (A) 0.2 k/uL (0-0.7); Eosinophils % (A) 3 %; HCT 35.2 % (34.0-46.0); HGB 11.4 gm/dL (11.4-16.0); Lymphocytes # (A) 1.8 k/uL (1.0-4.8); Lymphocytes % (A) 24 %; MCH 29.6 pg (25.0-35.0); MCHC 32.3 g/dL (31.0-37.0); MCV 91.6 fL (80.0-100.0); Mean Platelet Volume 6.5; Monocytes # (A) 0.4 k/uL (0-1.0); Monocytes % (A) 5 %; Neutrophils % (A) 66 %; Platelet Count 249 k/uL (150-450); RBC 3.84 m/uL (3.80-5.40); RDW 14.3 % (11.5-15.5); WBC 7.4 k/uL (3.8-10.6)
[2018-11-24 07:01] LABS: ALT 30 U/L (9-52); AST 20 U/L (14-36); Alkaline Phosphatase 53 U/L (38-126); Anion Gap 2 mmol/L; Blood Urea Nitrogen 4 mg/dL (7-17); Calcium 8.6 mg/dL (8.4-10.2); Carbon Dioxide 26 mmol/L (22-30); Chloride 111 mmol/L (98-107); Glucose 84 mg/dL (74-99); Potassium 4.1 mmol/L (3.5-5.1); Sodium 139 mmol/L (137-145); Total Bilirubin 0.9 mg/dL (0.2-1.3); Total Protein 5.4 g/dL (6.3-8.2)
[2018-11-24] MEDS ORDERED: SODIUM CHLORIDE 0.9% 1,000 ML IV ONE (08:25)
[2018-11-24] MEDS: SODIUM CHLORIDE 0.9% 1,000 ML IV SCH ×2 (08:56→18:12)
[2018-11-24] MEDS: HEPARIN SODIUM,PORCINE 5,000 UNIT/ML 1 ML VIAL SQ SCH ×3 (08:59→23:45)
--- NOTE | 2018-11-24 11:25 | P.PN ---
Subjective Progress Note Date: 11/24/18 Patient 23-year-old here for attempted trazodone and Minipress overdose, patient denying trying to harm herself. However upon further questioning of the patient It appears that she was willing to take the chance knowing that there is a possibility that she could've not woken up or . On further review of the records it appears that the patient was recently here on 3 W. 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 Objective - Vital Signs Vital signs: Vital Signs Temp 98.0 F 11/24/18 11:14 Pulse 72 11/24/18 11:14 Resp 16 11/24/18 11:14 BP 114/80 11/24/18 11:14 Pulse Ox 95 11/24/18 11:14 Intake & Output 11/23/18 11/24/18 11/24/18 18:59 06:59 18:59 Intake Total 480 Output Total 300 Balance 480 -300 Weight 49.442 kg 49.8 kg Intake: Oral 480 Output: Urine 300 Other: # Voids 2 - Exam Constitutional: No acute distress, conversant, pleasant Eyes: Anicteric sclerae, moist conjunctiva, no lid-lag, PERRLA ENMT: NC/AT,Oropharynx clear, no erythema, exudates Neck:Supple, FROM, no masses, or JVD, No carotid bruits; No thyromegaly Lungs: Clear to auscultation, Clear to percussion, Normal respiratory effort, no accessory muscle use Cardiovascular: Heart regular in rate and rhythm, No murmurs, gallops, or rubs no peripheral edema Abdominal: Soft Nontender, nom distended, no guarding, no rebound or rigidity, Normoactive bowel sounds No hepatomegaly, No splenomegaly, No palpable mass No abdominal wall hernia noted Skin: Normal temperature, tone, texture, turgor, No induration No subcutaneous nodules, No rash, lesions, No ulcers Extremities:No digital cyanosis No clubbing, Pedal pulses intact and symmetrical Radial pulses intact and symmetrical Normal gait and station, No calf tenderness Psychiatric: Alert and oriented to person, place and time, poor insight, flat affect, denies suicidal ideation Neuro: Muscles Strength 5/5 in all 4 extremities, Sensation to light touch grossly present throughout, Cranial nerves II-XII grossly intact. No focal sensory deficits - Labs CBC & Chem 7: 11/24/18 05:57 11/24/18 05:57 Labs: Abnormal Lab Results - Last 24 Hours (Table) 11/23/18 11/23/18 11/24/18 Range/Units 18:50 20:30 05:57 Potassium 3.3 L (3.5-5.1) mmol/L Chloride 111 H (98-107) mmol/L BUN 4 L (7-17) mg/dL Glucose 152 H (74-99) mg/dL Total Protein 5.4 L (6.3-8.2) g/dL Albumin 3.0 L (3.5-5.0) g/dL Urine Appearance Cloudy H (Clear) Urine Protein Trace H (Negative) Urine Blood Large H (Negative) Urine Nitrite Positive H (Negative) Ur Leukocyte Esterase Moderate H (Negative) Urine WBC 18 H (0-5) /hpf Ur Squamous Epith Cells 5 H (0-4) /hpf Urine Bacteria Rare H (None) /hpf Urine Mucus Rare H (None) /hpf U Marijuana (THC) Screen Detected H (NotDetected) Assessment and Plan (1) Suicidal ideation Narrative/Plan: * History of major depressive disorder * Consult psychiatry for further recommendations and evaluation, believe patient would benefit from another acute psychiatric inpatient stay she was most recently discharged 11/17/18 and is now back with another repeated overdose attempt * Place on one-to-one sitter Current Visit: No Status: Acute Priority: Low Code(s): R45.851 - SUICIDAL IDEATIONS SNOMED Code(s): 7611244 (2) Prolonged QT interval Narrative/Plan: * Secondary to trazodone overdose * We'll continue fluids and repeat a EKG later today Current Visit: Yes Status: Acute Code(s): R94.31 - ABNORMAL ELECTROCARDIOGRAM [ECG] [EKG] SNOMED Code(s): 150453150 (3) Drug overdose Narrative/Plan: * The patient was given activated charcoal, place and control contacted recommends optimization of electrolytes K, Mg and Ca * Continue IV fluids * Current Visit: Yes Status: Acute Code(s): T50.901A - POISONING BY UNSP DRUG/MEDS/BIOL SUBST, ACCIDENTAL, INIT SNOMED Code(s): 12838823 (4) Hypokalemia Narrative/Plan: * Now resolved Current Visit: Yes Status: Acute Code(s): E87.6 - HYPOKALEMIA SNOMED Code(s): 25050222 Plan: Disposition * Await psychiatry recommendations, follow-up EKG * Continuous one-to-one sitter and continue suicide precautions
[2018-11-24] MEDS ORDERED: FAMOTIDINE 20 MG TAB PO STA (18:23)
[2018-11-24] MEDS ORDERED: ACETAMINOPHEN TAB 500 MG TAB PO STA (18:23)
--- NOTE | 2018-11-24 18:48 | P.PN ---
Progress Note - Text Progress Note Date: 11/24/18 Nurse called that patient is complaining of chest pain although she is texturing on a phone and laying down comfortably but reports her chest pain is 8/10 in intensity. Immediately went to the unit to see the patient and noted the same that she was laying down comfortably in her bed and texturing, no facial expressions of pain noted. Patient reported that her chest pain started about 50 minutes prior to this interview and was still going on. It is reported to be burning pressure-like over the center of the chest and upper abdomen area. It was reported to be constant, nonradiating, not associated with shortness of breath/nausea vomiting/diaphoresis/dizziness/palpitation. Patient reported that it is still 8/10 in intensity. On physical examination it was noted patient vital signs are stable, lying comfortably in bed and communicating well without any facial gestures of pain. Lung examination was clear to auscultation without wheezes or rhonchi, heart rate regular, S1-S2 positive, on palpation there is tenderness over the bilateral costochondral junction/joints over the anterior chest. Abdomen was soft also positive 4 and there is mild epigastric tenderness present without guarding, rigidity or rebound. Patient's previous EKG and blood report were reviewed and noted that prolonged QT interval noted yesterday has been resolved in today's EKG. Atypical chest pain - patient chest pain is non-cardiac and I will give a trial off Tylenol 1 g 1 and Pepcid 20 mg 1 patient will be reassessed again if her pain continues otherwise patient will be seen in the morning.
[2018-11-24] MEDS ORDERED: NICOTINE POLACRILEX 2 MG GUM BUCCAL PRN (23:00)
[2018-11-25] MEDS ORDERED: ONDANSETRON 4 MG/2 ML VIAL IVP STA (05:18)
[2018-11-25] MEDS: SODIUM CHLORIDE 0.9% 1,000 ML IV SCH ×2 (05:31→16:23)
[2018-11-25 08:14] LABS: HCT 37.5 % (34.0-46.0); HGB 12.4 gm/dL (11.4-16.0); MCH 30.2 pg (25.0-35.0); MCV 91.6 fL (80.0-100.0); Mean Platelet Volume 7.3; Platelet Count 199 k/uL (150-450); RBC 4.09 m/uL (3.80-5.40); RDW 14.3 % (11.5-15.5); WBC 6.7 k/uL (3.8-10.6)
[2018-11-25 08:31] LABS: ALT 36 U/L (9-52); AST 24 U/L (14-36); Albumin 3.2 g/dL (3.5-5.0); Alkaline Phosphatase 53 U/L (38-126); Anion Gap 2 mmol/L; Blood Urea Nitrogen 3 mg/dL (7-17); Calcium 8.8 mg/dL (8.4-10.2); Carbon Dioxide 27 mmol/L (22-30); Chloride 110 mmol/L (98-107); Glucose 90 mg/dL (74-99); Magnesium 1.6 mg/dL (1.6-2.3); Potassium 4.2 mmol/L (3.5-5.1); Sodium 139 mmol/L (137-145); Total Bilirubin 0.5 mg/dL (0.2-1.3); Total Protein 5.6 g/dL (6.3-8.2)
[2018-11-25] MEDS: HEPARIN SODIUM,PORCINE 5,000 UNIT/ML 1 ML VIAL SQ SCH ×2 (08:32→16:24)
[2018-11-25 08:42] VITALS: RESP 16
[2018-11-25 11:51] VITALS: TEMP 98.1
[2018-11-25] MEDS ORDERED: diphenhydrAMINE ELIXIR 25 MG/10 ML CUP PO PRN (12:06)
[2018-11-25] MEDS ORDERED: ACETAMINOPHEN TAB 325 MG TAB PO PRN (12:07)
--- NOTE | 2018-11-25 12:35 | P.PN ---
Subjective Progress Note Date: 11/25/18 Principal diagnosis: Abdominal pain Patient was seen and examined. No acute events overnight. Patient reports left lower quadrant abdominal pain, cramping in nature. She is currently on her menses. She denies any bowel or urinary complaints. No nausea or vomiting. No fever or chills. No chest pain, shortness of breath or palpitations. Looking for to going home. Pending evaluation by psychiatry. Objective - Vital Signs Vital signs: Vital Signs Temp 98.1 F 11/25/18 11:45 Pulse 57 L 11/25/18 11:45 Resp 16 11/25/18 11:45 BP 127/90 11/25/18 11:45 Pulse Ox 97 11/25/18 11:45 Intake & Output 11/24/18 11/25/18 11/25/18 18:59 06:59 18:59 Intake Total 1840 1900 200 Output Total 300 Balance 1540 1900 200 Weight 51 kg Intake: Intake, IV Titration 1600 1100 Amount Sodium Chloride 0.9% 1, 600 1100 000 ml @ 100 mls/hr IV . Q10H GRETCHEN Rx#:[id number] Sodium Chloride 0.9% 1, 1000 000 ml @ 999 mls/hr IV . Q1H1M ONE Rx#:[id number] Oral 240 800 200 Output: Urine 300 Other: Voiding Method Toilet Toilet # Voids 1 2 - Exam General: [non toxic], [no distress], [appears at stated age] Derm: [warm], [dry] Head: [atraumatic], [normocephalic], [symmetric] Eyes: [EOMI], [no lid lag], [anicteric sclera] Mouth: [no lip lesion], [mucus membranes moist] Cardiovascular: [S1S2 reg], [no murmur], [positive posterior tibial pulse bila teral], Lungs: [CTA bilateral], [no rhonchi, no rales] , [no accessory muscle use] Abdominal: [soft], [tenderness left lower quadrant without rebound], [no guarding], [no appreciable organomegaly] Ext: [no gross muscle atrophy], [no edema], [no contractures] Neuro: [no focal neuro deficits] Psych: [Alert], [oriented], [appropriate affect] - Labs CBC & Chem 7: 11/25/18 08:02 11/25/18 08:02 Labs: Abnormal Lab Results - Last 24 Hours (Table) 11/25/18 Range/Units 08:02 Chloride 110 H (98-107) mmol/L BUN 3 L (7-17) mg/dL Total Protein 5.6 L (6.3-8.2) g/dL Albumin 3.2 L (3.5-5.0) g/dL Assessment and Plan Assessment: Assessment and Plan 1. Trazodone overdose with possible suicidal attempt 2. Bipolar, depression and anxiety 1. Status post gastric lavage and charcoal given in the ED. Seen by EPS nurse yesterday, recommendations for psychiatric evaluation physician certification. One-to-one sitter. Suicidal precautions. Telemetry monitoring. Monitor and replace electrolytes (K, Mg and Ca). Will follow psychiatry recommendations. 2. Hold all medications pending psychiatry evaluation. Continue one-to-one sitter was suicidal precautions. Patient admitted for trazodone overdose with possible suicide attempt. Physician certification complete. We are waiting for psychiatry to evaluate the patient.
[2018-11-25 16:35] VITALS: BP 118/73; PULSE 53
--- NOTE | 2018-11-25 18:26 | P.CN ---
Psychiatric Consult - . Consult date: 11/25/18 Consult:: 11/25/18 18:16 IDENTIFYING DATA: A 23-year-old female patient HPI: Patient admitted to the medical floor and [facility] status post overdose of trazodone and per ER report some Minipress. Patient reports that she tried to overdose 2 days ago. She states that she came into the hospital 2 days ago after taking an overdose of trazodone. She says she took a bottle which was about 25 pills. Patient states she proceeded to call her sister. She says she was kind of having thoughts of suicide but trying to rid herself of the emotional pain. She does admit to being depressed lately. During the session her mother, grandmother and friend were present. The patient was preparing to leave the hospital it appeared when I arrived to do the evaluation. Per nursing staff she had signed an AMA form. EPS had done an assessment last night and I had recommended inpatient admission. Per history at this time no petition has been done. There is a progress note on the chart for November 25 that she is denying thoughts of suicide. PAST PSYCHIATRIC HISTORY: Patient states that she's had 20 inpatient psychiatric hospitalizations. She said 15 suicide attempts, overdoses and tried to hang herself. Most recently she's been on Lamictal, Lexapro, trazodone and prazosin. She currently sees a counselor Hu through [facility] and also sees someone to prescribe her medication. She gives a history of bipolar disorder, anxiety, PTSD and borderline personality disorder. PMH: Asthma ALLERGIES: And adhesive tape, shellfish, soap, nicotine patch MEDICATIONS: Tylenol when necessary, Benadryl when necessary, heparin, Nicorette gum CHEMICAL DEPENDENCY HISTORY: Marijuana, 2 joints per day FAMILY PSYCHIATRIC HISTORY: Half of her family with depression/bipolar disorder FAMILY CHEMICAL DEPENDENCY HISTORY: None known at this time. SOCIAL HISTORY: Lives with her mom. She is . She has 2 children who are 3 and 1. She is on SSI. MENTAL STATUS EXAM: She is alert and cooperative with the interview. Her speech is fluent, not rapid or pressured. Thought processes organized. She describes her mood as "pretty good." She denies any current thoughts of suicide and denies any thoughts of harm to others. There is no evidence of any active psychosis cognitively she appears to be grossly intact. IMPRESSIONS: Bipolar disorder, depressed; PTSD by history; borderline personality disorder by history; rule out cannabis use disorder PLAN: Recommend inpatient psychiatric hospitalization for monitoring regarding suicidal ideations status post overdose of trazodone 2 days ago. Patient during the assessment was refusing inpatient psychiatric hospitalization and she verbalizes wanting to follow-up with her [facility] treatment. Discussed at length regarding the reasoning for inpatient psychiatric hospitalization to monitor her status with her family present, the patient proceeded to leave the room with her family following her. Discussed with nursing staff. Patient has already signed an AMA form. We will have the police contacted regarding doing a wellness check on her. She denied any current thoughts of harm to self.
== END 2018-11-25 18:23 | disposition left against medical advice (07) | DRG 918 ==
LOC: EC 18:36 → 3SCARD 20:51
PROVIDERS: ADMIT Internal Medicine; ATTEND Internal Medicine
DX: T43.212A Poisoning by selective serotonin and norepinephrine reuptake inhibitors, intentional self-harm, initial encounter (principal); R45.851 Suicidal ideations; T44.6X2A Poisoning by alpha-adrenoreceptor antagonists, intentional self-harm, initial encounter; R11.2 Nausea with vomiting, unspecified; F31.9 Bipolar disorder, unspecified; F41.9 Anxiety disorder, unspecified; J45.909 Unspecified asthma, uncomplicated; E87.6 Hypokalemia; I45.81 Long QT syndrome; F90.9 Attention-deficit hyperactivity disorder, unspecified type; F17.210 Nicotine dependence, cigarettes, uncomplicated; Z79.899 Other long term (current) drug therapy; Z91.013 Allergy to seafood; Z91.048 Other nonmedicinal substance allergy status; Z81.8 Family history of other mental and behavioral disorders
CPT/HCPCS: 36415; 80053; 80306; 80320; 81001; 81025; 82310; 83520; 83735; 85025; 85027; 93005; 99285

== ENCOUNTER → 2018-11-29 | Outpatient (CLI) | payer OTHER | END | disposition home or self-care (01) | LOC: LABWHC1 14:15 | PROVIDERS: ATTEND Obstetrics & Gynecology | DX: O03.9 Complete or unspecified spontaneous abortion without complication (principal) | CPT/HCPCS: 36415; 84702 ==

== ENCOUNTER → 2018-11-30 | Outpatient (CLI) | payer OTHER ==
--- NOTE | 2018-11-30 13:45 | US ---
EXAMINATION TYPE: Transabdominal DATE OF EXAM: 11/30/2018 1:29 PM COMPARISON: Prior ultrasound November 14, 2018 CLINICAL HISTORY: R68.89 Abnormal rise in the beta HCG. patient has cramping and mild bleeding, patie nt thought she miscarried 2 weeks ago, EXAM PERFORMED: OBTA/OBTV EXAM MEASUREMENTS: GESTATIONAL AGE / DATING Physician Established: Not yet established Dates by LMP: (5 weeks/3 days) EDC: 07/30/2019 Dates by First Scan: No IUP seen at last scan Dates by Current Scan for: No IUP seen at this time MATERNAL ANATOMY Uterus: 7.1 x 4.2 x 3.3 Right Ovary: 3.0 x 2.6 x 2.2 Left Ovary: 2.0 x 1.3 x 1.3 Post CDS / Adnexa: wnl Presence of free fluid: mild in CDS Presence of corpus luteal cyst: not seen Presence of subchorionic bleed: no GESTATION / SURVEY No IUP seen today Endometrium = 0.4cm left adnexa lesion seen measuring 2.0cm did not peristalse and sits at level of fallopian tube, unk nown etiology Date of LMP: 10/23/2018 Beta HcG (if available): 645, patient states it was in the 400's 2 weeks ago Anteverted uterus is redemonstrated. Endometrium redemonstrates arcuate type morphology on transverse imaging. Endometrium only measures up to 4 mm in thickness on transvaginal investigation. No gestati onal sac, yolk sac, or pole is clearly identified. There is new trace free fluid in pelvic cul- de-sac. Both ovaries are redemonstrated in the adnexa with scattered peripheral follicles in the right ovary redemonstrated. On current study adjacent to left ovary there is 2.0 cm oval hypoechoic area of uncer tain etiology. No fetus is identified. IMPRESSION: As above, findings are slightly more suspicious given history of rising beta-hCG, presence of extraov barney left adnexal mass, and new tiny amount of free fluid in pelvic cul-de-sac. Ectopic ca nnot be excluded. At minimum short-term serial beta hCG and ultrasound follow-up is advised.
== END | disposition home or self-care (01) ==
LOC: RADUSWWP 12:55
PROVIDERS: ATTEND Obstetrics & Gynecology
DX: R68.89 Other general symptoms and signs (principal); Z91.040 Latex allergy status; Z91.013 Allergy to seafood
CPT/HCPCS: 76801; 76817

== ENCOUNTER → 2018-12-01 | Outpatient (CLI) | payer OTHER | END | disposition home or self-care (01) | LOC: LABWHC1 11:58 | PROVIDERS: ATTEND Obstetrics & Gynecology | DX: Z34.80 Encounter for supervision of other normal pregnancy, unspecified trimester (principal) | CPT/HCPCS: 36415; 84702 ==

== ENCOUNTER 2018-12-03 15:57 | Emergency (ER) | payer OTHER ==
[2018-12-03 16:21] VITALS: TEMP 98.1
[2018-12-03] MEDS ORDERED: SODIUM CHLORIDE 0.9% 1,000 ML IV ONE (17:29)
[2018-12-03] MEDS ORDERED: KETOROLAC 30 MG/ML 1 ML VIAL IVP STA (17:29)
--- NOTE | 2018-12-03 17:38 | ED ---
General Adult HPI - General Chief complaint: Vaginal Bleeding Stated complaint: Vaginal Bleeding Time Seen by Provider: 12/03/18 17:10 Source: patient Mode of arrival: ambulatory Limitations: no limitations - History of Present Illness Initial comments: 23-year-old female patient presents to the emergency department today for evaluation of vaginal bleeding and lower abdominal cramping. Patient states that she has been having vaginal bleeding for the last month. States when bleeding started one month ago it was her usual. Time however the bleeding persisted. States that she did see Dr. Sage had a hCG level which was elevated to 645 and then subsequently 460. She had ultrasound that did show a mass in the left adnexa however she was left untreated due to the decreasing hCG level. Patient states her bleeding did improve for a few days however worsened again today. States that she is passing small clots. She states that she is having to change her pad every 20 minutes. She denies any dizziness or weakness. Denies any radiation of the pain to her low back. Denies fever or chills with this. She is . Patient denies any recent rash, shortness breath, chest pain, nausea, vomiting, diarrhea, constipation, numbness, tingling, hematuria, dysuria, urinary urgency, urinary frequency, headache, visual changes, or any other complaints. - Related Data Home Medications Medication Instructions Recorded Confirmed Prazosin [Minipress] 1 mg PO HS 11/23/18 11/23/18 lamoTRIgine [LaMICtal] 50 mg PO HS 11/23/18 11/23/18 traZODone HCL 50 mg PO HS 11/23/18 11/23/18 Previous Rx's Medication Instructions Recorded Escitalopram [Lexapro] 10 mg PO DAILY #30 tab 11/17/18 Allergies Allergy/AdvReac Type Severity Reaction Status Date / Time adhesive tape Allergy Rash/Hives Verified 12/03/18 16:21 shellfish derived [Shrimp] Allergy Anaphylaxis Verified 12/03/18 16:21 soap Allergy Rash/Hives Verified 12/03/18 16:21 nicotine patch Allergy Rash/Hives Uncoded 12/03/18 16:21 Review of Systems ROS Statement: Those systems with pertinent positive or pertinent negative responses have been documented in the HPI. ROS Other: All systems not noted in ROS Statement are negative. Past Medical History Past Medical History: Asthma History of Any Multi-Drug Resistant Organisms: None Reported Past Surgical History: Adenoidectomy, Section, Tonsillectomy Past Anesthesia/Blood Transfusion Reactions: No Reported Reaction Past Psychological History: ADD/ADHD, Anxiety, Bipolar, Depression Smoking Status: Current every day smoker Past Alcohol Use History: Occasional Past Drug Use History: Marijuana - Past Family History Father Family Medical History: No Reported History Additional Family Medical History / Comment(s): Father is alive at age 40 with no major medical problems. Brother(s) Family Medical History: No Reported History Additional Family Medical History / Comment(s): Patient has 1 brother and 2 sisters with no major medical problems. Mother Family Medical History: No Reported History Additional Family Medical History / Comment(s): Mother is alive at age 40 with no major medical problems. General Exam Limitations: no limitations General appearance: alert, in no apparent distress, other (Physical well- developed, well-nourished adult female patient in no acute distress. Vital signs upon presentation are temperature 98.1F, pulse 75, respirations 16, blood pressure 113/71, pulse ox 98% on room air.) Eye exam: Present: normal appearance, PERRL, EOMI. Absent: scleral icterus, conjunctival injection, periorbital swelling ENT exam: Present: normal exam, normal oropharynx, mucous membranes moist Respiratory exam: Present: normal lung sounds bilaterally. Absent: respiratory distress, wheezes, rales, rhonchi, stridor Cardiovascular Exam: Present: regular rate, normal rhythm, normal heart sounds. Absent: systolic murmur, diastolic murmur, rubs, gallop, clicks GI/Abdominal exam: Present: soft, tenderness (Suprapubic tenderness), normal bowel sounds. Absent: distended, guarding, rebound, rigid External exam: Present: normal external exam Speculum exam: Present: vaginal bleeding (Mild dark red vaginal bleeding, no clots noted.), other (Cervical os is closed.) Neurological exam: Present: alert, oriented X3, CN II-XII intact Psychiatric exam: Present: normal affect, normal mood Skin exam: Present: warm, dry, intact, normal color. Absent: rash Course Vital Signs 12/03/18 12/03/18 16:19 19:23 Temperature 98.1 F Pulse Rate 75 68 Respiratory 16 18 Rate Blood Pressure 113/71 99/57 O2 Sat by Pulse 98 99 Oximetry Medical Decision Making - Medical Decision Making 23-year-old female patient presents to the emergency department today for evaluation of increased vaginal bleeding and left lower abdominal pain. Physical examination did reveal tenderness over the suprapubic region. Pelvic examination was performed and did show mild dark red vaginal bleeding at this time. There is some left adnexal tenderness. Labs reviewed and did reveal hCG level of around 200. We did repeat ultrasound and it showed increased size of mass to the left adnexa and increased fluid in the cul-de-sac. This is consistent with ectopic . I did discuss the case with on-call STAFF CONSULTANT Dr. Trinh who recommends administering methotrexate 50mg/m2. We will provide pain management. She does have an appointment with Dr. Sage tomorrow at 11:15am. She is instructed to keep this appointment. Return parameters were discussed in detail. She verbalizes understanding and agrees with this plan. - Lab Data Result diagrams: 12/03/18 17:50 12/03/18 18:57 Lab Results 12/03/18 12/03/18 12/03/18 Range/Units 17:50 17:50 17:50 WBC 9.9 (3.8-10.6) k/uL RBC 4.76 (3.80-5.40) m/uL Hgb 13.9 (11.4-16.0) gm/dL Hct 43.7 (34.0-46.0) % MCV 91.7 (80.0-100.0) fL MCH 29.1 (25.0-35.0) pg MCHC 31.7 (31.0-37.0) g/dL RDW 14.4 (11.5-15.5) % Plt Count 329 (150-450) k/uL Neutrophils % 62 % Lymphocytes % 28 % Monocytes % 4 % Eosinophils % 4 % Basophils % 1 % Neutrophils # 6.1 (1.3-7.7) k/uL Lymphocytes # 2.8 (1.0-4.8) k/uL Monocytes # 0.4 (0-1.0) k/uL Eosinophils # 0.4 (0-0.7) k/uL Basophils # 0.1 (0-0.2) k/uL PT 10.0 (9.0-12.0) sec INR 0.9 (<1.2) APTT 25.7 (22.0-30.0) sec Sodium (137-145) mmol/L Potassium (3.5-5.1) mmol/L Chloride (98-107) mmol/L Carbon Dioxide (22-30) mmol/L Anion Gap mmol/L BUN (7-17) mg/dL Creatinine (0.52-1.04) mg/dL Est GFR (CKD-EPI)AfAm (>60 ml/min/1.73 sqM) Est GFR (CKD-EPI)NonAf (>60 ml/min/1.73 sqM) Glucose (74-99) mg/dL Calcium (8.4-10.2) mg/dL Total Bilirubin (0.2-1.3) mg/dL AST (14-36) U/L ALT (9-52) U/L Alkaline Phosphatase (38-126) U/L Total Protein (6.3-8.2) g/dL Albumin (3.5-5.0) g/dL HCG, Quant 244.8 mIU/mL 12/03/18 Range/Units 18:57 WBC (3.8-10.6) k/uL RBC (3.80-5.40) m/uL Hgb (11.4-16.0) gm/dL Hct (34.0-46.0) % MCV (80.0-100.0) fL MCH (25.0-35.0) pg MCHC (31.0-37.0) g/dL RDW (11.5-15.5) % Plt Count (150-450) k/uL Neutrophils % % Lymphocytes % % Monocytes % % Eosinophils % % Basophils % % Neutrophils # (1.3-7.7) k/uL Lymphocytes # (1.0-4.8) k/uL Monocytes # (0-1.0) k/uL Eosinophils # (0-0.7) k/uL Basophils # (0-0.2) k/uL PT (9.0-12.0) sec INR (<1.2) APTT (22.0-30.0) sec Sodium 140 (137-145) mmol/L Potassium 4.2 (3.5-5.1) mmol/L Chloride 106 (98-107) mmol/L Carbon Dioxide 26 (22-30) mmol/L Anion Gap 8 mmol/L BUN 12 (7-17) mg/dL Creatinine 0.61 (0.52-1.04) mg/dL Est GFR (CKD-EPI)AfAm >90 (>60 ml/min/1.73 sqM) Est GFR (CKD-EPI)NonAf >90 (>60 ml/min/1.73 sqM) Glucose 104 H (74-99) mg/dL Calcium 10.2 (8.4-10.2) mg/dL Total Bilirubin 0.6 (0.2-1.3) mg/dL AST 24 (14-36) U/L ALT 26 (9-52) U/L Alkaline Phosphatase 62 (38-126) U/L Total Protein 7.6 (6.3-8.2) g/dL Albumin 4.4 (3.5-5.0) g/dL HCG, Quant mIU/mL - Radiology Data Radiology results: report reviewed Ultrasound of the pelvis was obtained today. Report was reviewed in its entirety. Impression by Dr. Bonilla shows empty uterus. Increase free fluid in the cul-de-sac compared with exam. His left adnexal mass which is solid an increase in size compared to recent exam. This is suggestive of an ectopic . Follow-up is recommended. Disposition Clinical Impression: Ectopic Disposition: HOME SELF-CARE Condition: Good Instructions (If sedation given, give patient instructions): Methotrexate (By injection), Ectopic (DC) Additional Instructions: Increase fluids. Take pain medication as directed. Follow-up with your STAFF CONSULTANT tomorrow as you have planned. Return to the emergency department immediately for any new, worsening, or concerning symptoms. Is patient prescribed a controlled substance at d/c from ED?: No Referrals: None,Stated [Primary Care Provider] - 1-2 days Time of Disposition: 19:38
[2018-12-03 18:07] LABS: Basophils # (A) 0.1 k/uL (0-0.2); Basophils % (A) 1 %; Eosinophils # (A) 0.4 k/uL (0-0.7); Eosinophils % (A) 4 %; HCT 43.7 % (34.0-46.0); HGB 13.9 gm/dL (11.4-16.0); Lymphocytes # (A) 2.8 k/uL (1.0-4.8); Lymphocytes % (A) 28 %; MCH 29.1 pg (25.0-35.0); MCHC 31.7 g/dL (31.0-37.0); MCV 91.7 fL (80.0-100.0); Mean Platelet Volume 6.5; Monocytes # (A) 0.4 k/uL (0-1.0); Monocytes % (A) 4 %; Neutrophils # (A) 6.1 k/uL (1.3-7.7); Neutrophils % (A) 62 %; Platelet Count 329 k/uL (150-450); RBC 4.76 m/uL (3.80-5.40); RDW 14.4 % (11.5-15.5); WBC 9.9 k/uL (3.8-10.6)
[2018-12-03 18:15] LABS: INR 0.9 (<1.2); Partial Thromboplastin Time 25.7 sec (22.0-30.0)
--- NOTE | 2018-12-03 18:35 | US ---
EXAMINATION TYPE: Transabdominal DATE OF EXAM: 12/03/2018 6:15 PM COMPARISON: NONE CLINICAL HISTORY: Pain. increased bleeding, patient has positive beta HCG with inconsistent levels th at bounce from 400's to 600's and back to 400's. EXAM PERFORMED: OBTA/OBTV EXAM MEASUREMENTS: GESTATIONAL AGE / DATING Physician Established: Not yet established Dates by LMP: (5 weeks/6 days) EDC: 07/30/2019 Dates by First Scan: No IUP seen then Dates by Current Scan for: No IUP seen at this time MATERNAL ANATOMY Uterus: 6.9 x 4.2 x 3.7cm Right Ovary: 3.3 x 2.7 x 2.1cm Left Ovary: 2.6 x 2.7 x 2.4cm Post CDS / Adnexa: left adnexal mass in area of fallopian tube has increased in size from 2.0cm to 3. 3cm in 3 days time Presence of free fluid: increasing free fluid with internal echoes seen Presence of corpus luteal cyst: no Presence of subchorionic bleed: no GESTATION / SURVEY IUP: No IUP seen at this time Endometrium = 0.4cm Date of LMP: 10/23/2018 Beta HcG (if available): today's is pending, 12/01 = 461, 11/29 = 645, patient states prior to 11/29 it was in the 400's IMPRESSION: Empty uterus. There is increased free fluid in the cul-de-sac compared to recent exam. There is left adnexal mass w hich is solid and increased in size compared to recent exam. This is suggestive of ectopic . Follow-up is recommended.
[2018-12-03 19:11] LABS: ALT 26 U/L (9-52); AST 24 U/L (14-36); Albumin 4.4 g/dL (3.5-5.0); Alkaline Phosphatase 62 U/L (38-126); Anion Gap 8 mmol/L; Blood Urea Nitrogen 12 mg/dL (7-17); Calcium 10.2 mg/dL (8.4-10.2); Carbon Dioxide 26 mmol/L (22-30); Chloride 106 mmol/L (98-107); Glucose 104 mg/dL (74-99); Potassium 4.2 mmol/L (3.5-5.1); Sodium 140 mmol/L (137-145); Total Bilirubin 0.6 mg/dL (0.2-1.3); Total Protein 7.6 g/dL (6.3-8.2)
[2018-12-03] MEDS ORDERED: HYDROmorphone 1 MG/ML 1 ML SYRINGE IVP STA (19:16)
[2018-12-03] MEDS ORDERED: ACET/COD 300 MG/30 MG STARTER PACK 6 TAB BTL PO STA (19:19)
[2018-12-03 19:24] VITALS: BP 99/57; PULSE 68; RESP 18
[2018-12-03] MEDS ORDERED: METHOTREXATE SODIUM (PF) 25 MG/ML 2 ML VIAL IM ONE (19:30)
[2018-12-03] MEDS ORDERED: ONDANSETRON 4 MG ODT STARTER PACK 2 TAB BTL PO STA (19:38)
== END 2018-12-03 20:45 | disposition home or self-care (01) ==
LOC: EC 15:57
DX: O00.90 Unspecified ectopic pregnancy without intrauterine pregnancy (principal); O99.341 Other mental disorders complicating pregnancy, first trimester; F41.9 Anxiety disorder, unspecified; F32.9 Major depressive disorder, single episode, unspecified; O99.331 Smoking (tobacco) complicating pregnancy, first trimester; F17.200 Nicotine dependence, unspecified, uncomplicated; Z79.899 Other long term (current) drug therapy; Z91.048 Other nonmedicinal substance allergy status; Z91.013 Allergy to seafood; Z3A.01 Less than 8 weeks gestation of pregnancy
CPT/HCPCS: 36415; 80053; 85025; 85610; 85730; 84702; 76801; 76817; 99284; 96374; 96375; 96361; 96372; J9260; J1885; J1170; S0119

== ENCOUNTER → 2018-12-04 | Outpatient (CLI) | payer OTHER | END | disposition home or self-care (01) | LOC: LABWHC1 10:56 | PROVIDERS: ATTEND Obstetrics & Gynecology | DX: Z34.80 Encounter for supervision of other normal pregnancy, unspecified trimester (principal) | CPT/HCPCS: 36415; 84702 ==

== ENCOUNTER → 2019-01-09 | Outpatient (CLI) | payer OTHER ==
[2019-01-09 20:25] LABS: HCG,Quantitative Serum <2.0 mIU/mL
== END | disposition home or self-care (01) ==
LOC: LABWHC1 13:13
PROVIDERS: ATTEND Physician Assistant
DX: N96 Recurrent pregnancy loss (principal); F33.3 Major depressive disorder, recurrent, severe with psychotic symptoms
CPT/HCPCS: 36415; 84439; 84443; 84702

== ENCOUNTER → 2019-02-27 | Outpatient (CLI) | payer OTHER ==
--- NOTE | 2019-02-27 15:03 | US ---
EXAMINATION TYPE: Transabdominal DATE OF EXAM: 02/27/2019 2:50 PM COMPARISON: NONE CLINICAL HISTORY: Z36 Confirm dates. EXAM PERFORMED: Transabdominal (TA) EXAM MEASUREMENTS: GESTATIONAL AGE / DATING Physician Established: Not yet established Dates by LMP: (8 weeks/2 days) EDC: 10/07/2019 Dates by First Scan: No previous this is first scan Dates by Current Scan for: (8 weeks/1 days) EDC: 10/08/2019 MATERNAL ANATOMY Uterus: 8.5 x 6.1 x 6.4 cm Right Ovary: 3.4 x 2.9 x 2.3 cm Left Ovary: 2.8 x 2.7 x 1.5 cm Post CDS / Adnexa: wnl Presence of free fluid: none Presence of corpus luteal cyst: none Presence of subchorionic bleed: none GESTATION / SURVEY CRL: 1.6 cm (8 weeks/1 days) Yolk Sac (normal less than 6mm): 0.4 cm Heart Rate: 142 bpm Rhythm: Normal IUP: Live IUP Date of LMP: 12/31/2018 Beta HcG (if available): not available Live IUP that correlates with LMP. IMPRESSION: Single live intrauterine has a sonographic age of 8 weeks and 1 day and estimated delivery of 10/08/2019, concordant with menstrual age.
[2019-02-27 16:24] LABS: HCT 37.6 % (34.0-46.0); HGB 12.7 gm/dL (11.4-16.0); MCH 29.6 pg (25.0-35.0); MCHC 33.9 g/dL (31.0-37.0); MCV 87.3 fL (80.0-100.0); Mean Platelet Volume 7.5; Platelet Count 236 k/uL (150-450); RBC 4.31 m/uL (3.80-5.40); RDW 15.5 % (11.5-15.5); WBC 10.2 k/uL (3.8-10.6)
[2019-02-27 16:36] LABS: African American GFR (CKD) >90 (>60 ml/min/1.73 sqM); Glucose 66 mg/dL (74-99)
[2019-02-28 00:50] LABS: HIV 1 AB Non-Reactive (Non-Reactive); HIV AB P24 Non-Reactive (Non-Reactive); HIV P24 AG Non-Reactive (Non-Reactive)
[2019-02-28 04:51] LABS: Toxoplasma Antibody (IgG) <3.0 IU/mL (<7.2); Toxoplasma Antibody (IgM) <3.0 AU/mL (<8.0)
== END | disposition home or self-care (01) ==
LOC: RADUSWWP 14:34
PROVIDERS: ATTEND Obstetrics & Gynecology
DX: Z36.89 Encounter for other specified antenatal screening (principal); Z34.81 Encounter for supervision of other normal pregnancy, first trimester
CPT/HCPCS: 76801; 82565; 82947; 85027; 86762; 86777; 86778; 86780; 86850; 86900; 86901; 87340; 87390

== ENCOUNTER 2019-04-13 11:32 | Emergency (ER) | payer OTHER ==
[2019-04-13 11:38] VITALS: PULSE 86; RESP 18; TEMP 98.1
[2019-04-13] MEDS ORDERED: SODIUM CHLORIDE 0.9% 1,000 ML IV STA ×2 (12:21)
[2019-04-13 12:53] LABS: ALT 12 U/L (9-52); AST 12 U/L (14-36); African American GFR (CKD) >90 (>60 ml/min/1.73 sqM); Albumin 3.7 g/dL (3.5-5.0); Alkaline Phosphatase 44 U/L (38-126); Amylase 47 U/L (30-110); Anion Gap 6 mmol/L; Blood Urea Nitrogen 5 mg/dL (7-17); Calcium 9.2 mg/dL (8.4-10.2); Carbon Dioxide 24 mmol/L (22-30); Chloride 107 mmol/L (98-107); Glucose 82 mg/dL (74-99); Non-African American GFR(CKD) >90 (>60 ml/min/1.73 sqM); Potassium 4.3 mmol/L (3.5-5.1); Sodium 137 mmol/L (137-145); Total Bilirubin 0.4 mg/dL (0.2-1.3); Total Protein 6.5 g/dL (6.3-8.2)
[2019-04-13 12:57] LABS: Basophils % (A) 0 %; Eosinophils # (A) 0.3 k/uL (0-0.7); Eosinophils % (A) 3 %; HCT 37.1 % (34.0-46.0); HGB 12.5 gm/dL (11.4-16.0); Lymphocytes % (A) 21 %; MCH 29.8 pg (25.0-35.0); MCHC 33.8 g/dL (31.0-37.0); MCV 88.4 fL (80.0-100.0); Mean Platelet Volume 6.9; Monocytes # (A) 0.3 k/uL (0-1.0); Monocytes % (A) 3 %; Neutrophils # (A) 6.8 k/uL (1.3-7.7); Neutrophils % (A) 71 %; Platelet Count 192 k/uL (150-450); RBC 4.19 m/uL (3.80-5.40); RDW 14.6 % (11.5-15.5); WBC 9.6 k/uL (3.8-10.6)
[2019-04-13 13:03] LABS: Amorphous Sediment,Urine Few /hpf; Appearance,Urine Cloudy (Clear); Bilirubin,Urine Negative (Negative); Blood,Urine Negative (Negative); Color,Urine Yellow; Glucose,Urine (UA) Negative (Negative); Ketones,Urine Negative (Negative); Leukocyte Esterase,Urine Trace (Negative); Mucus,Urine Rare /hpf; Nitrite,Urine Negative (Negative); PH, Urine 7.5 (5.0-8.0); Protein,Urine Negative (Negative); Specific Gravity,Urine 1.014 (1.001-1.035); Squamous Epithelial Cell,Urine 2 /hpf (0-4); Urobilinogen,Urine <2.0 mg/dL (<2.0)
[2019-04-13] MEDS ORDERED: METOCLOPRAMIDE 5 MG/ML 2 ML VIAL IVP STA (13:14)
--- NOTE | 2019-04-13 13:35 | ED ---
Nausea/Vomiting/Diarrhea HPI - General Chief complaint: Nausea/Vomiting/Diarrhea Stated complaint: Vomiting Time Seen by Provider: 04/13/19 12:21 Source: patient, RN notes reviewed, old records reviewed Mode of arrival: ambulatory Limitations: no limitations - History of Present Illness Initial comments: Patient is a 24-year-old female presents emergency room today with nausea and vomiting episodes throughout the duration of her . She is currently 14 weeks . Patient states that she's had no vaginal bleeding or discharge. She denies any abdominal pain. Patient states that she's had no fevers or chills. Patient reports that her REGIONAL MERCHANDISING MANAGER is Dr. Sage. She's had 2 ultrasounds to confirm intrauterine . - Related Data Home Medications Medication Instructions Recorded Confirmed Gar-Fekx-Ombdg Acid 1 cap PO DAILY 04/13/19 04/13/19 [-U Capsule (formulary)] Previous Rx's Medication Instructions Recorded Doxylamine/Pyridoxine HCl (B6) 1 each PO DAILY #20 tablet. 04/13/19 [Delaney Renteria 10-10 mg Tablet] Allergies Allergy/AdvReac Type Severity Reaction Status Date / Time adhesive tape Allergy Rash/Hives Verified 04/13/19 11:55 shellfish derived [Shrimp] Allergy Anaphylaxis Verified 04/13/19 11:55 soap Allergy Rash/Hives Verified 04/13/19 11:55 nicotine patch Allergy Rash/Hives Uncoded 04/13/19 11:55 Review of Systems ROS Statement: Those systems with pertinent positive or pertinent negative responses have been documented in the HPI. ROS Other: All systems not noted in ROS Statement are negative. Past Medical History Past Medical History: Asthma History of Any Multi-Drug Resistant Organisms: None Reported Past Surgical History: Adenoidectomy, Section, Tonsillectomy Past Anesthesia/Blood Transfusion Reactions: No Reported Reaction Past Psychological History: ADD/ADHD, Anxiety, Bipolar, Depression, PTSD Smoking Status: Current every day smoker Past Alcohol Use History: None Reported Past Drug Use History: Marijuana - Past Family History Father Family Medical History: No Reported History Additional Family Medical History / Comment(s): Father is alive at age 40 with no major medical problems. Brother(s) Family Medical History: No Reported History Additional Family Medical History / Comment(s): Patient has 1 brother and 2 sisters with no major medical problems. Mother Family Medical History: No Reported History Additional Family Medical History / Comment(s): Mother is alive at age 40 with no major medical problems. General Exam - General Exam Comments Initial Comments: Well-appearing 24-year-old female. No distress. General: Well appearing, well nourished, in no distress. Oriented x 3, normal mood and affect . Ambulating without difficulty. Skin: Good turgor, no rash, unusual bruising or prominent lesions Hair: Normal texture and distribution. HEENT: Head: Normocephalic, atraumatic, no visible or palpable masses, depressions, or scaring. Eyes: Visual acuity intact, conjunctiva clear, sclera non-icteric, EOM intact, PERRL. Ears: EACs clear, TMs translucent & cone of light visualized. hearing intact. Nose: No external lesions, mucosa non-inflamed, septum and turbinates normal Mouth: Mucous membranes moist, no mucosal lesions. Teeth/Gums: No obvious caries or periodontal disease. No gingival inflammation or significant resorption. Pharynx: Mucosa non-inflamed, no tonsillar hypertrophy or exudate Neck: Supple, without lesions, bruits, or adenopathy, thyroid non-enlarged and non-tender Heart: No cardiomegaly or thrills; regular rate and rhythm, no murmur or gallop Lungs: Clear to auscultation and percussion Abdomen: Bowel sounds normal, no tenderness, organomegaly, masses, or hernia Back: Spine normal without deformity or tenderness, no CVA tenderness Extremities: No amputations or deformities, cyanosis, edema or varicosities, peripheral pulses intact Musculoskeletal: Normal gait and station. No misalignment, asymmetry, crepitation, defects, tenderness, masses, effusions, decreased range of motion, instability, atrophy or abnormal strength or tone in the head, neck, spine, ribs, pelvis or extremities. Neurologic: CN 2-12 normal. Sensation to pain, touch, and proprioception normal. DTRs normal in upper and lower extremities. No pathologic reflexes. Psychiatric: Oriented X3, intact recent and remote memory, judgment and insight, normal mood and affect. Limitations: no limitations Course Vital Signs 04/13/19 11:35 Temperature 98.1 F Pulse Rate 86 Respiratory 18 Rate O2 Sat by Pulse 97 Oximetry Medical Decision Making - Medical Decision Making 24-year-old female 14 weeks presents with nausea and vomiting intermittently throughout the duration of this . Patient denies any vaginal bleeding or discharge. REGIONAL MERCHANDISING MANAGER is Dr. Sage. She denies any specific abdominal pain. Abdomen is soft and nontender. Patient's labwork was reviewed and unremarkable. heart tones were obtained and were between 1 50 and 155 bpm. Patient will be discharged with a short prescription for Reglan for eliane sea and advised close follow-up with her REGIONAL MERCHANDISING MANAGER. All questions are answered return parameters were discussed. - Lab Data Result diagrams: 04/13/19 12:32 04/13/19 12:32 Lab Results 04/13/19 04/13/19 04/13/19 Range/Units 12:32 12:32 12:32 WBC 9.6 (3.8-10.6) k/uL RBC 4.19 (3.80-5.40) m/uL Hgb 12.5 (11.4-16.0) gm/dL Hct 37.1 (34.0-46.0) % MCV 88.4 (80.0-100.0) fL MCH 29.8 (25.0-35.0) pg MCHC 33.8 (31.0-37.0) g/dL RDW 14.6 (11.5-15.5) % Plt Count 192 (150-450) k/uL Neutrophils % 71 % Lymphocytes % 21 % Monocytes % 3 % Eosinophils % 3 % Basophils % 0 % Neutrophils # 6.8 (1.3-7.7) k/uL Lymphocytes # 2.0 (1.0-4.8) k/uL Monocytes # 0.3 (0-1.0) k/uL Eosinophils # 0.3 (0-0.7) k/uL Basophils # 0.0 (0-0.2) k/uL Sodium 137 (137-145) mmol/L Potassium 4.3 (3.5-5.1) mmol/L Chloride 107 (98-107) mmol/L Carbon Dioxide 24 (22-30) mmol/L Anion Gap 6 mmol/L BUN 5 L (7-17) mg/dL Creatinine 0.52 (0.52-1.04) mg/dL Est GFR (CKD-EPI)AfAm >90 (>60 ml/min/1.73 sqM) Est GFR (CKD-EPI)NonAf >90 (>60 ml/min/1.73 sqM) Glucose 82 (74-99) mg/dL Calcium 9.2 (8.4-10.2) mg/dL Total Bilirubin 0.4 (0.2-1.3) mg/dL AST 12 L (14-36) U/L ALT 12 (9-52) U/L Alkaline Phosphatase 44 (38-126) U/L Total Protein 6.5 (6.3-8.2) g/dL Albumin 3.7 (3.5-5.0) g/dL Amylase 47 (30-110) U/L Lipase 33 (23-300) U/L Urine Color Yellow Urine Appearance Cloudy H (Clear) Urine pH 7.5 (5.0-8.0) Ur Specific [place] 1.014 (1.001-1.035) Urine Protein Negative (Negative) Urine Glucose (UA) Negative (Negative) Urine Ketones Negative (Negative) Urine Blood Negative (Negative) Urine Nitrite Negative (Negative) Urine Bilirubin Negative (Negative) Urine Urobilinogen <2.0 (<2.0) mg/dL Ur Leukocyte Esterase Trace H (Negative) Ur Squamous Epith Cells 2 (0-4) /hpf Amorphous Sediment Few H (None) /hpf Urine Mucus Rare H (None) /hpf Disposition Clinical Impression: Nausea & vomiting, Disposition: HOME SELF-CARE Condition: Good Instructions (If sedation given, give patient instructions): Acute Nausea and Vomiting (ED) Additional Instructions: Patient should rest, remain hydrated. Take the diclegis just as prescribed. Return to the emergency department if any alarming signs or symptoms occur. Prescriptions: Doxylamine/Pyridoxine HCl (B6) [Delaney Renteria 10-10 mg Tablet] 1 each PO DAILY #20 tablet.dr Is patient prescribed a controlled substance at d/c from ED?: No Referrals: None,Stated [Primary Care Provider] - 1-2 days Elin Sage DO [Doctor of Osteopathic Medicine] - 1-2 days Time of Disposition: 13:33
== END 2019-04-13 14:11 | disposition home or self-care (01) ==
LOC: EC 11:32
DX: O21.9 Vomiting of pregnancy, unspecified (principal); O99.332 Smoking (tobacco) complicating pregnancy, second trimester; F17.200 Nicotine dependence, unspecified, uncomplicated; Z91.013 Allergy to seafood; Z91.048 Other nonmedicinal substance allergy status; Z98.890 Other specified postprocedural states; Z3A.14 14 weeks gestation of pregnancy
CPT/HCPCS: 36415; 80053; 82150; 83690; 85025; 81001; 99284; 96374; 96361 ×2; J2765

== ENCOUNTER 2019-06-28 15:58 | Emergency (ER) | payer OTHER ==
--- NOTE | 2019-06-28 16:37 | ED ---
Back Pain HPI - General Chief Complaint: Back Pain/Injury Stated Complaint: 25wks preg, fall, back pain Time Seen by Provider: 06/28/19 16:30 Source: patient Limitations: no limitations - History of Present Illness Initial Comments: Patient is a 24-year-old female , 25 week presenting to the emergency department with a chief complaint of a fall. Patient reports she slipped on her long pants as she was walking downstairs. Patient reports she fell down on the buttocks and lower back region. Patient reports the low back pain is exacerbated with left eye irritation. Patient is concerned for the well-being of the fetus. Patient did not hit the any region of the abdomen. Patient denies any head trauma. Patient reports the movements are at baseline. Patient denies any nausea vomiting or diarrhea. Patient denies any chest pain or shortness of breath. - Related Data Home Medications Medication Instructions Recorded Confirmed Ccb-Gbda-Qzkgb Acid 1 cap PO DAILY 04/13/19 04/13/19 [-U Capsule (formulary)] Previous Rx's Medication Instructions Recorded Doxylamine/Pyridoxine HCl (B6) 1 each PO DAILY #20 tablet. 04/13/19 [Delaney Renteria 10-10 mg Tablet] Allergies Allergy/AdvReac Type Severity Reaction Status Date / Time adhesive tape Allergy Rash/Hives Verified 06/28/19 16:10 shellfish derived [Shrimp] Allergy Anaphylaxis Verified 06/28/19 16:10 soap Allergy Rash/Hives Verified 06/28/19 16:10 nicotine patch Allergy Rash/Hives Uncoded 06/28/19 16:10 Review of Systems ROS Statement: Those systems with pertinent positive or pertinent negative responses have been documented in the HPI. ROS Other: All systems not noted in ROS Statement are negative. Past Medical History Past Medical History: Asthma History of Any Multi-Drug Resistant Organisms: None Reported Past Surgical History: Adenoidectomy, Section, Tonsillectomy Past Anesthesia/Blood Transfusion Reactions: No Reported Reaction Past Psychological History: ADD/ADHD, Anxiety, Bipolar, Depression, PTSD Smoking Status: Current every day smoker Past Alcohol Use History: None Reported Past Drug Use History: Marijuana - Past Family History Father Family Medical History: No Reported History Additional Family Medical History / Comment(s): Father is alive at age 40 with no major medical problems. Brother(s) Family Medical History: No Reported History Additional Family Medical History / Comment(s): Patient has 1 brother and 2 sisters with no major medical problems. Mother Family Medical History: No Reported History Additional Family Medical History / Comment(s): Mother is alive at age 40 with no major medical problems. General Exam Limitations: no limitations General appearance: alert, in no apparent distress Head exam: Present: atraumatic, normocephalic, normal inspection Eye exam: Present: normal appearance Pupils: Present: normal accommodation ENT exam: Present: normal exam, normal oropharynx, mucous membranes moist, normal external ear exam Neck exam: Present: normal inspection Respiratory exam: Present: normal lung sounds bilaterally Cardiovascular Exam: Present: regular rate, normal rhythm, normal heart sounds GI/Abdominal exam: Present: soft, normal bowel sounds Extremities exam: Present: normal inspection, full ROM, normal capillary refill Back exam: Present: normal inspection, full ROM, tenderness, paraspinal tenderness (Right paraspinal tenderness that is exacerbated with left rotation). Absent: vertebral tenderness Neurological exam: Present: alert, oriented X3 Psychiatric exam: Present: normal affect, normal mood Skin exam: Present: warm, intact, normal color Course Vital Signs 06/28/19 06/28/19 06/28/19 16:08 16:42 17:20 Temperature 98.1 F 98.6 F Pulse Rate 73 79 Respiratory 16 18 Rate Blood Pressure 94/59 107/68 O2 Sat by Pulse 98 99 Oximetry Medical Decision Making - Medical Decision Making Patient is a 24-year-old female presenting to the emergency department with a chief complaint of fall. Patient was walking on the stairs when she slipped and fell back on her buttocks and lower back region. Patient did not have any trauma to the abdomen. Physical examination is indicative of right paraspinal tenderness in the lumbosacral region. Patient does not have any numbness or tingling. No urinary or bowel incontinence. No cauda equina. heart tones are 150. Patient states the baby is having normal movements as usual. Considering no trauma was done to the abdomen and only the back and buttocks, patient will be discharged and advised to follow-up with primary care. Strict return parameters were thoroughly discussed the patient was understanding and agreeable. Case discussed with physician. Disposition Clinical Impression: Fall (on) (from) other stairs and steps, initial encounter Disposition: HOME SELF-CARE Condition: Stable Instructions (If sedation given, give patient instructions): Acute Low Back Pain (ED) Additional Instructions: Please follow with your OB. Please return to emergency department is symptoms worsen. Apply warm compress to minimize symptoms. Is patient prescribed a controlled substance at d/c from ED?: No Referrals: None,Stated [Primary Care Provider] - 1-2 days Time of Disposition: 17:17
[2019-06-28 16:42] VITALS: BP 107/68
[2019-06-28 17:21] VITALS: PULSE 79; RESP 18; TEMP 98.6
== END 2019-06-28 17:26 | disposition home or self-care (01) ==
LOC: EC 15:58
DX: O99.89 Other specified diseases and conditions complicating pregnancy, childbirth and the puerperium (principal); M54.5 Low back pain; O99.332 Smoking (tobacco) complicating pregnancy, second trimester; F17.200 Nicotine dependence, unspecified, uncomplicated; Z3A.25 25 weeks gestation of pregnancy; Z91.048 Other nonmedicinal substance allergy status; Z91.013 Allergy to seafood; Z91.09 Other allergy status, other than to drugs and biological substances; W10.9XXA Fall (on) (from) unspecified stairs and steps, initial encounter; Y93.01 Activity, walking, marching and hiking
CPT/HCPCS: 99283

== ENCOUNTER 2019-07-20 18:10 | Outpatient (CLI) | payer OTHER ==
[2019-07-20 18:45] LABS: Appearance,Urine Clear (Clear); Bilirubin,Urine Negative (Negative); Blood,Urine Negative (Negative); Color,Urine Yellow; Glucose,Urine (UA) Negative (Negative); Ketones,Urine Negative (Negative); Leukocyte Esterase,Urine Negative (Negative); Nitrite,Urine Negative (Negative); Protein,Urine Negative (Negative); Specific Gravity,Urine 1.009 (1.001-1.035); Urobilinogen,Urine <2.0 mg/dL (<2.0)
[2019-07-20] MEDS: LACTATED RINGERS 1,000 ML IV SCH ×2 (19:08→19:50)
[2019-07-20 22:46] VITALS: BP 116/65; PULSE 70; RESP 18; TEMP 97.1
--- NOTE | 2019-07-31 03:53 | P.MSEPDOC ---
Presenting Problems - Arrival Data Date of Arrival on Unit: 07/20/19 Time of Arrival on Unit: 18:09 Mode of Transport: Wheelchair - Complaint OB-Reason for Admission/Chief Complaint: Possible Onset of Labor, Pain Medical History - Information : 4 Para: 2 Term: 2 : 0 Abortions: Spontaneous or Elective: 1 Number of Living Children: 2 - Gestational Age Gestational Age by ALEJANDRO (wks/days): 28 Weeks and 5 Days - History Complications: Smoker Comment: Patient and SO are currently both positive for Trichomonas and not taking their perscribed medication Review of Systems - Review of Systems Constitutional: No problems Breast: No problems ENT: No problems Cardiovascular: No problems Respiratory: No problems Gastrointestinal: No problems Genitourinary: No problems Musculoskeletal: No problems Neurological: No problems Skin: No problems Vital Signs - Temperature Temperature: 97.1 F Temperature Source: Temporal Artery Scan - Pulse Pulse Oximetery Pulse Rate: 70 Pulse Assessment Method: Pulse Oximetry - Respirations Respiratory Rate: 18 Oxygen Delivery Method: Room Air - Blood Pressure Sitting Blood Pressure: 116/65 Blood Pressure Mean: 82 Blood Pressure Source: Automatic Cuff Medical Screen Scoring (Pre) - Cervical Exam Dilation: 0 cm = 0 Membranes: Intact - Uterine Contractions Frequency: < 36 weeks = 6 Duration: > 40 seconds = 2 Intensity: N/A - Maternal Vital Signs Maternal Temperature: N/A Maternal Blood Pressure: N/A Signs of Preeclampsia: N/A Maternal Respirations: N/A - Maternal Trauma Maternal Trauma: N/A - Assessment - Baby A Baseline FHR: 135 Heart Rate - NICHD Category: Category I (Normal) = 0 NST: Reactive Position: N/A Station: N/A - Total Score - Baby A Total Score - Baby A: 8 - Total Score - Baby B Total Score - Baby B: 8 - Total Score - Baby C Total Score - Baby C: 8 - Level of Risk - Baby A Level of Risk - Baby A: Medium (6-9) - Level of Risk - Baby B Level of Risk - Baby B: Medium (6-9) - Level of Risk - Baby C Level of Risk - Baby C: Medium (6-9) Physician Notification (Pre) - Physician Notified Physician Notified Date: 07/20/19 Physician Notified Time: 18:53 New Order Received: Yes - Notification Comment Comment: Orders given to iv hydrate patient and then call physician with report. 1946 Hang another liter of fluid and recheck cervix at 2 hour page. 2100, okay to discharge patient home with instructions Disposition - Disposition OB Disposition: Discharge to home, Written follow up instructions reviewed Discharge Date: 07/20/19 Discharge Time: 21:06 I agree with the RN Medical Screening Exam: Yes Risk & Benefit of care provided described in d/c instruction: Yes Diagnosis: FALSE LABOR BEFORE 37 COMPLETED WEEKS OF GEST, THIRD TRI
== END 2019-07-20 21:06 | disposition home or self-care (01) ==
LOC: FBPOP 18:10
PROVIDERS: ATTEND Obstetrics & Gynecology
DX: O47.03 False labor before 37 completed weeks of gestation, third trimester (principal); O99.333 Smoking (tobacco) complicating pregnancy, third trimester; Z3A.28 28 weeks gestation of pregnancy
CPT/HCPCS: 59025; 96360; 96361; 81003; G0463; 96365; 99214

== ENCOUNTER 2019-08-02 11:50 | Emergency (ER) | payer OTHER ==
[2019-08-02 11:55] VITALS: RESP 16; TEMP 98.1
[2019-08-02] MEDS ORDERED: PRENATAL VIT-IRON-FOLIC ACID 1 EACH CAP PO STA (12:19)
--- NOTE | 2019-08-02 12:21 | ED ---
General Adult HPI - General Chief complaint: Psychiatric Symptoms Stated complaint: Suicidal Time Seen by Provider: 08/02/19 12:04 Source: patient Mode of arrival: ambulatory Limitations: no limitations - History of Present Illness Initial comments: Dictation was produced using [employer] dictation software. please excuse any grammatical, word or spelling errors. Chief Complaint: 24-year-old female presents with suicidal ideation. History of Present Illness: Patient is a 24-year-old female she presents today with suicidal ideation. Patient has attempted suicide in past. She wants to cut herself. Patient is allegedly 30 weeks . She has follow-up with community health coordinator Dr. Sage. Patient is on vitamins she reports that she is compliant however sometimes forgets to take it daily. Patient denies any homicidal ideation. The ROS documented in this emergency department record has been reviewed and con firmed by me. Those systems with pertinent positive or negative responses have been documented in the HPI. All other systems are other negative and/or noncontributory. PHYSICAL EXAM: General Impression: Alert and oriented x3, not in acute distress HEENT: Normocephalic atraumatic, extra-ocular movements intact, pupils equal and reactive to light bilaterally, mucous membranes moist. Cardiovascular: Heart regular rate and rhythm, S1&S2 audible, no murmurs, rubs or gallops Chest: Lungs clear to auscultation bilaterally, no rhonchi, no wheeze, no rales Abdomen: Bowel sounds present, abdomen soft, non-tender, non-distended, no organomegaly Musculoskeletal: Pulses present and equal in all extremities, no peripheral edema Motor: no focal deficits noted Neurological: CN II-XII grossly intact, no focal motor or sensory deficits noted Skin: Intact with no visualized rashes Psych: Normal affect and mood ED course: 24-year-old female presents with suicidal ideation. As upon arrival are within acceptable limits. Physical examination is benign. Patient has no medical complaints. Patient medically cleared for EPS evaluation. She was very by EPS. Patient clear for discharge. She does have outpatient mobile crisis planning. Patient stable at bedside. She denies suicidal ideation at this time. Plan care bedside ultrasound was performed showing heart rate of 140. Clear for discharge. - Related Data Home Medications Medication Instructions Recorded Confirmed Albuterol Inhaler [Ventolin Hfa 2 puff INHALATION RT-Q6H PRN 08/02/19 08/02/19 Inhaler] Pnv No.95/Ferrous Fum/Folic AC 1 tab PO DAILY 08/02/19 08/02/19 [ Multivitamin Tablet] Allergies Allergy/AdvReac Type Severity Reaction Status Date / Time adhesive tape Allergy Rash/Hives Verified 08/02/19 12:19 shellfish derived [Shrimp] Allergy Anaphylaxis Verified 08/02/19 12:19 soap Allergy Rash/Hives Verified 08/02/19 12:19 nicotine patch Allergy Rash/Hives Uncoded 08/02/19 11:56 Review of Systems ROS Statement: Those systems with pertinent positive or pertinent negative responses have been documented in the HPI. ROS Other: All systems not noted in ROS Statement are negative. Past Medical History Past Medical History: Asthma History of Any Multi-Drug Resistant Organisms: None Reported Past Surgical History: Adenoidectomy, Section, Tonsillectomy Past Anesthesia/Blood Transfusion Reactions: No Reported Reaction Past Psychological History: ADD/ADHD, Anxiety, Bipolar, Depression, PTSD Smoking Status: Current every day smoker Past Alcohol Use History: None Reported Past Drug Use History: Marijuana - Past Family History Father Family Medical History: No Reported History Additional Family Medical History / Comment(s): Father is alive at age 40 with no major medical problems. Brother(s) Family Medical History: No Reported History Additional Family Medical History / Comment(s): Patient has 1 brother and 2 sisters with no major medical problems. Mother Family Medical History: No Reported History Additional Family Medical History / Comment(s): Mother is alive at age 40 with no major medical problems. General Exam Limitations: no limitations Course Vital Signs 08/02/19 11:52 Temperature 98.1 F Pulse Rate 90 Respiratory 16 Rate Blood Pressure 119/61 O2 Sat by Pulse 100 Oximetry Disposition Clinical Impression: Suicidal ideation Disposition: HOME SELF-CARE Condition: Good Instructions (If sedation given, give patient instructions): Help Prevent Suicide (ED) Is patient prescribed a controlled substance at d/c from ED?: No Referrals: None,Stated [Primary Care Provider] - 1-2 days Time of Disposition: 13:40
[2019-08-02 13:54] VITALS: BP 132/76; PULSE 81
[2019-08-02 13:58] LABS: Amphetamine Screen,Urine Not Detected (NotDetected); Barbiturate Screen,Urine Not Detected (NotDetected); Benzodiazepines Screen,Urine Not Detected (NotDetected); Cocaine Screen,Urine Not Detected (NotDetected); Methadone Screen, Urine Not Detected (NotDetected); Opiate Screen,Urine Not Detected (NotDetected); Oxycodone Screen, Urine Not Detected (NotDetected); Phencyclidine Screen,Urine Not Detected (NotDetected); Tricyclic Antidepressant,Urine Not Detected (NotDetected); Urn Cannabinoid Scrn Detected (NotDetected)
== END 2019-08-02 13:49 | disposition home or self-care (01) ==
LOC: EC 11:50
DX: O99.89 Other specified diseases and conditions complicating pregnancy, childbirth and the puerperium (principal); R45.851 Suicidal ideations; O99.513 Diseases of the respiratory system complicating pregnancy, third trimester; J45.909 Unspecified asthma, uncomplicated; O99.333 Smoking (tobacco) complicating pregnancy, third trimester; F17.200 Nicotine dependence, unspecified, uncomplicated; Z91.013 Allergy to seafood; Z91.048 Other nonmedicinal substance allergy status; Z79.899 Other long term (current) drug therapy; Z86.59 Personal history of other mental and behavioral disorders; Z98.890 Other specified postprocedural states; Z3A.30 30 weeks gestation of pregnancy
CPT/HCPCS: 82075; 80306; 99285; S0197

== ENCOUNTER 2019-08-06 04:16 | Outpatient (CLI) | payer OTHER ==
[2019-08-06 05:26] VITALS: BP 119/67; PULSE 57; RESP 18; TEMP 97.4
--- NOTE | 2019-08-06 06:32 | P.MSEPDOC ---
Presenting Problems - Arrival Data Date of Arrival on Unit: 08/06/19 Time of Arrival on Unit: 04:16 Mode of Transport: Wheelchair - Complaint OB-Reason for Admission/Chief Complaint: Possible Onset of Labor Comment: presents to triage with complaints of contractions that began at 3 am today rating 5/10 but currently not feeling. Medical History - Information : 5 Para: 2 Term: 2 : 0 Abortions: Spontaneous or Elective: 2 Number of Living Children: 2 - Gestational Age Gestational Age by ALEJANDRO (wks/days): 31 Weeks and 1 Days - History Comment: trichomonis positive during this but her and S.O. completed antibiotics. Review of Systems - Review of Systems Constitutional: No problems Breast: No problems ENT: No problems Cardiovascular: No problems Respiratory: No problems Gastrointestinal: No problems Genitourinary: No problems Musculoskeletal: No problems Neurological: No problems Skin: No problems Vital Signs - Temperature Temperature: 97.4 F Temperature Source: Oral - Pulse Pulse Oximetery Pulse Rate: 57 Pulse Assessment Method: Pulse Oximetry - Respirations Respiratory Rate: 18 Oxygen Delivery Method: Room Air O2 Sat by Pulse Oximetry: 100 - Blood Pressure Right Arm Blood Pressure: 119/67 Blood Pressure Mean: 84 Blood Pressure Source: Automatic Cuff Medical Screen Scoring (Pre) - Cervical Exam Dilation: Exam Deferred Effacement: Exam Deferred Membranes: Intact - Uterine Contractions Frequency: N/A Duration: N/A Intensity: N/A - Maternal Vital Signs Maternal Temperature: N/A Maternal Blood Pressure: N/A Signs of Preeclampsia: N/A Maternal Respirations: N/A - Maternal Trauma Maternal Trauma: N/A - Assessment - Baby A Baseline FHR: 130 Heart Rate - NICHD Category: Category I (Normal) = 0 NST: Reactive Position: N/A Station: N/A - Total Score - Baby A Total Score - Baby A: 0 - Total Score - Baby B Total Score - Baby B: 0 - Total Score - Baby C Total Score - Baby C: 0 - Level of Risk - Baby A Level of Risk - Baby A: Low (0-5) - Level of Risk - Baby B Level of Risk - Baby B: Low (0-5) - Level of Risk - Baby C Level of Risk - Baby C: Low (0-5) Physician Notification (Pre) - Physician Notified Physician Notified Date: 08/06/19 Physician Notified Time: 04:55 New Order Received: Yes - Notification Comment Comment: Report given. Notified of reactive NST and no contractions noted over last 30 minutes pt has been monitored. Orders received to D/C pt home with follow up with Dr. Sage in office this week. Medical Screen Scoring (Post) - Cervical Exam Dilation: Exam Deferred Effacement: Exam Deferred Membranes: Intact - Uterine Contractions Frequency: N/A Duration: N/A Intensity: N/A - Maternal Vital Signs Maternal Temperature: N/A Maternal Blood Pressure: N/A Signs of Preeclampsia: N/A Maternal Respirations: N/A - Pain Assessment Pain Scale Used: Numeric (1 - 10) Pain Intensity: 0 Pain Management Goal: 0 - Maternal Trauma Maternal Trauma: N/A - Assessment - Baby A Heart Rate: 130 Heart Rate - NICHD Category: Category I (Normal) = 0 NST: Reactive Position: N/A Station: N/A - Total Score Total Score - Baby A: 0 Total Score - Baby B: 0 Total Score - Baby C: 0 - Post Treatment Level of Risk Post Treatment Level of Risk - Baby A: Low (0-5) Post Treatment Level of Risk - Baby B: Low (0-5) Post Treatment Level of Risk - Baby C: Low (0-5) Physician Notification (Post) - Physician Notified Physician Notified Date: 08/06/19 Physician Notified Time: 04:55 Physician/Practitioner Notified:: adriel New Order Received: Yes - Notification Comment Comment: Notified of pt complaints of contractions but none felt per pt since here or on monitor. D/C pt home at this time with follow up apt with Dr. Sage this week. Disposition - Disposition OB Disposition: Discharge to home Transferred to:: home Discharge Date: 08/06/19 Discharge Time: 05:05 I agree with the RN Medical Screening Exam: Yes Risk & Benefit of care provided described in d/c instruction: Yes Diagnosis: FALSE LABOR BEFORE 37 COMPLETED WEEKS OF GEST, THIRD TRI
== END 2019-08-06 05:05 | disposition home or self-care (01) ==
LOC: FBPOP 04:16
PROVIDERS: ATTEND Obstetrics & Gynecology
DX: O47.03 False labor before 37 completed weeks of gestation, third trimester (principal); Z3A.31 31 weeks gestation of pregnancy
CPT/HCPCS: 59025; G0463; 99213

== ENCOUNTER 2019-08-20 21:20 | Outpatient (CLI) | payer OTHER ==
[2019-08-20 22:17] VITALS: BP 130/78; PULSE 71; RESP 16; TEMP 96.7
--- NOTE | 2019-08-21 06:44 | P.MSEPDOC ---
Presenting Problems - Arrival Data Date of Arrival on Unit: 08/20/19 Time of Arrival on Unit: 21:20 Mode of Transport: Wheelchair - Complaint OB-Reason for Admission/Chief Complaint: Possible Onset of Labor Medical History - Information : 5 Para: 2 Term: 2 : 0 Abortions: Spontaneous or Elective: 2 Number of Living Children: 2 - Gestational Age Gestational Age by ALEJANDRO (wks/days): 33 Weeks and 1 Days Review of Systems - Review of Systems Constitutional: No problems Breast: No problems ENT: No problems Cardiovascular: No problems Respiratory: No problems Gastrointestinal: No problems Genitourinary: No problems Musculoskeletal: No problems Neurological: No problems Skin: No problems Vital Signs - Temperature Temperature: 96.7 F Temperature Source: Temporal Artery Scan - Pulse Pulse Oximetery Pulse Rate: 71 Pulse Assessment Method: Pulse Oximetry - Respirations Respiratory Rate: 16 Oxygen Delivery Method: Room Air O2 Sat by Pulse Oximetry: 98 - Blood Pressure Right Arm Blood Pressure: 130/78 Blood Pressure Mean: 95 Blood Pressure Source: Automatic Cuff Medical Screen Scoring (Pre) - Cervical Exam Dilation: 0 cm = 0 Effacement: Exam Deferred Membranes: Intact - Uterine Contractions Frequency: N/A Duration: N/A Intensity: N/A - Maternal Vital Signs Maternal Temperature: N/A Maternal Blood Pressure: N/A Signs of Preeclampsia: N/A Maternal Respirations: N/A - Maternal Trauma Maternal Trauma: N/A - Assessment - Baby A Baseline FHR: 130 Heart Rate - NICHD Category: Category I (Normal) = 0 NST: Reactive Position: N/A Station: N/A - Total Score - Baby A Total Score - Baby A: 0 - Total Score - Baby B Total Score - Baby B: 0 - Total Score - Baby C Total Score - Baby C: 0 - Level of Risk - Baby A Level of Risk - Baby A: Low (0-5) - Level of Risk - Baby B Level of Risk - Baby B: Low (0-5) - Level of Risk - Baby C Level of Risk - Baby C: Low (0-5) Physician Notification (Pre) - Physician Notified Physician Notified Date: 08/20/19 Physician Notified Time: 22:02 New Order Received: Yes (discharge) - Notification Comment Comment: Dr. Trinh called, report given on maternal/ status, complaints of sharp. abdominal pain since 2100. Abdomen soft, 2 irregular contractions noted, cervix closed. NST reactive. Pt did smoke marijuana today at 1600. Vitals WNL. Orders to discharge home and keep next scheduled appointment. Disposition - Disposition OB Disposition: Discharge to home Discharge Date: 08/20/19 Discharge Time: 22:05 I agree with the RN Medical Screening Exam: Yes Risk & Benefit of care provided described in d/c instruction: Yes Diagnosis: FALSE LABOR BEFORE 37 COMPLETED WEEKS OF GEST, THIRD TRI (Patient presented with complaints of pain. heart tones are reactive. Cervix is closed. Is no evidence of labor or maternal compromise. Patient admits to continued use of marijuana daily.) Additional Diagnoses: Substance abuse
== END 2019-08-20 22:05 | disposition home or self-care (01) ==
LOC: FBPOP 21:20
PROVIDERS: ATTEND Obstetrics & Gynecology
DX: O47.03 False labor before 37 completed weeks of gestation, third trimester (principal); O99.323 Drug use complicating pregnancy, third trimester; F12.10 Cannabis abuse, uncomplicated; Z3A.33 33 weeks gestation of pregnancy
CPT/HCPCS: 59025; G0463; 99213

== ENCOUNTER 2019-09-10 13:00 | Outpatient (CLI) | payer OTHER ==
[2019-09-10 14:20] VITALS: BP 108/65; PULSE 68; RESP 14; TEMP 97.2
--- NOTE | 2019-09-15 13:33 | P.MSEPDOC ---
Presenting Problems - Arrival Data Date of Arrival on Unit: 09/10/19 Time of Arrival on Unit: 13:12 Mode of Transport: Ambulatory - Complaint OB-Reason for Admission/Chief Complaint: Headache Medical History - Information : 4 Para: 2 Term: 2 : 0 Abortions: Spontaneous or Elective: 0 Number of Living Children: 2 - Gestational Age Gestational Age by ALEJANDRO (wks/days): 36 Weeks and 1 Days - History Complications: Smoker, Hx. Substance Abuse Comment: treated for trich, uses marijuana daily Review of Systems - Review of Systems Constitutional: No problems Breast: No problems ENT: No problems Cardiovascular: No problems Respiratory: No problems Gastrointestinal: No problems Genitourinary: No problems Musculoskeletal: No problems Neurological: No problems Skin: No problems Vital Signs - Temperature Temperature: 97.2 F Temperature Source: Temporal Artery Scan - Pulse Right Pulse Rate: 68 Pulse Assessment Method: Automatic Cuff - Respirations Respiratory Rate: 14 - Blood Pressure Right Arm Blood Pressure: 108/65 Blood Pressure Mean: 79 Blood Pressure Source: Automatic Cuff Medical Screen Scoring (Pre) - Cervical Exam Dilation: Exam Deferred Effacement: Exam Deferred - Uterine Contractions Frequency: N/A Duration: N/A Intensity: N/A - Maternal Vital Signs Maternal Temperature: N/A Maternal Blood Pressure: N/A Signs of Preeclampsia: Headache = 1 Maternal Respirations: N/A - Maternal Trauma Maternal Trauma: N/A - Assessment - Baby A Baseline FHR: 130 Heart Rate - NICHD Category: Category I (Normal) = 0 NST: Reactive Position: N/A Station: N/A - Total Score - Baby A Total Score - Baby A: 1 - Total Score - Baby B Total Score - Baby B: 1 - Total Score - Baby C Total Score - Baby C: 1 - Level of Risk - Baby A Level of Risk - Baby A: Low (0-5) - Level of Risk - Baby B Level of Risk - Baby B: Low (0-5) - Level of Risk - Baby C Level of Risk - Baby C: Low (0-5) Physician Notification (Pre) - Physician Notified Physician Notified Date: 09/10/19 Physician Notified Time: 13:33 New Order Received: Yes - Notification Comment Comment: orders to d/c home with instructions. continue to take tylenol. reivew PIH s/sx with pt. pt to return with new or worsening sx. keep scheduled appt in office for 09/17 Disposition - Disposition OB Disposition: Discharge to home Discharge Date: 09/10/19 Discharge Time: 13:52 I agree with the RN Medical Screening Exam: Yes Risk & Benefit of care provided described in d/c instruction: Yes Diagnosis: RELATED CONDITIONS, UNSPECIFIED, THIRD TRIMESTER
== END 2019-09-10 13:52 | disposition home or self-care (01) ==
LOC: FBPOP 13:00
PROVIDERS: ATTEND Obstetrics & Gynecology
DX: O26.93 Pregnancy related conditions, unspecified, third trimester (principal); Z3A.36 36 weeks gestation of pregnancy
CPT/HCPCS: 59025; G0463; 99213

== ENCOUNTER 2019-09-27 10:57 | Outpatient (CLI) | payer OTHER ==
[2019-09-27 13:09] VITALS: BP 127/73; PULSE 77; RESP 18; TEMP 97.2
--- NOTE | 2019-10-02 17:07 | P.MSEPDOC ---
Presenting Problems - Arrival Data Date of Arrival on Unit: 09/27/19 Time of Arrival on Unit: 10:57 Mode of Transport: Wheelchair - Complaint OB-Reason for Admission/Chief Complaint: Possible Onset of Labor Comment: pt presents to triage for contractions and loss of mucous plug Medical History - Information : 4 Para: 2 Term: 2 : 0 Abortions: Spontaneous or Elective: 1 Number of Living Children: 2 - Gestational Age Gestational Age by ALEJANDRO (wks/days): 38 Weeks and 4 Days - History Complications: Prior Review of Systems - Review of Systems Constitutional: No problems Breast: No problems ENT: No problems Cardiovascular: No problems Respiratory: No problems Gastrointestinal: No problems Genitourinary: No problems Musculoskeletal: No problems Neurological: No problems Skin: No problems Vital Signs - Temperature Temperature: 97.2 F Temperature Source: Temporal Artery Scan - Pulse Right Brachial Pulse Rate: 77 Pulse Assessment Method: Automatic Cuff - Respirations Respiratory Rate: 18 Oxygen Delivery Method: Room Air O2 Sat by Pulse Oximetry: 98 - Blood Pressure Right Arm Blood Pressure: 127/73 Blood Pressure Mean: 91 Blood Pressure Source: Automatic Cuff Medical Screen Scoring (Pre) - Cervical Exam Dilation: 1-3 cm = 1 Effacement: Exam Deferred Membranes: Intact - Uterine Contractions Frequency: > 5 minutes apart = 1 Duration: N/A Intensity: N/A - Maternal Vital Signs Maternal Temperature: N/A Maternal Blood Pressure: N/A Signs of Preeclampsia: N/A Maternal Respirations: N/A - Maternal Trauma Maternal Trauma: N/A - Assessment - Baby A Baseline FHR: 120 Heart Rate - NICHD Category: Category I (Normal) = 0 NST: Reactive Position: N/A Station: N/A - Total Score - Baby A Total Score - Baby A: 2 - Total Score - Baby B Total Score - Baby B: 2 - Total Score - Baby C Total Score - Baby C: 2 - Level of Risk - Baby A Level of Risk - Baby A: Low (0-5) - Level of Risk - Baby B Level of Risk - Baby B: Low (0-5) - Level of Risk - Baby C Level of Risk - Baby C: Low (0-5) Physician Notification (Pre) - Physician Notified Physician Notified Date: 09/27/19 Physician Notified Time: 11:29 New Order Received: Yes - Notification Comment Comment: May discharge pt home if have reactive nst, and category I strip, follow up on tuesday on FBP for induction of labor by Dr. Sage Disposition - Disposition OB Disposition: Triage, Discharge to home, Written follow up instructions reviewed Discharge Date: 09/27/19 Discharge Time: 11:50 I agree with the RN Medical Screening Exam: Yes Risk & Benefit of care provided described in d/c instruction: Yes Diagnosis: FALSE LABOR BEFORE 37 COMPLETED WEEKS OF GEST, THIRD TRI
== END 2019-09-27 11:50 | disposition home or self-care (01) ==
LOC: FBPOP 10:57
PROVIDERS: ATTEND Obstetrics & Gynecology
DX: O47.03 False labor before 37 completed weeks of gestation, third trimester (principal); Z3A.38 38 weeks gestation of pregnancy
CPT/HCPCS: 59025; G0463; 99213

== ENCOUNTER 2019-10-01 06:00 | Inpatient (IN) | payer OTHER ==
[2019-10-01] MEDS ORDERED: LIDOCAINE 0.5% (PF) 5 MG/ML (50 ML SDV) SQ PRN (06:12)
[2019-10-01] MEDS ORDERED: OXYTOCIN 10 UNIT/ML 1 ML VIAL IM PRN (06:12)
[2019-10-01] MEDS ORDERED: CARBOPROST TROMETHAMINE 250 MCG/ML 1 ML AMP IM PRN (06:12)
[2019-10-01] MEDS ORDERED: TERBUTALINE 1 MG/ML VIAL SQ PRN (06:12)
[2019-10-01] MEDS ORDERED: METHYLERGONOVINE 0.2 MG/ML 1 ML AMP IM PRN (06:12)
[2019-10-01] MEDS ORDERED: LACTATED RINGERS 1,000 ML IV SCH (06:15)
[2019-10-01] MEDS ORDERED: OXYTOCIN 30 UNITS/500 ML NS 30 UNIT in SALINE 1 500ML.BAG IV SCH (06:15)
[2019-10-01 06:28] LABS: Basophils # (A) 0.1 k/uL (0-0.2); Basophils % (A) 1 %; Eosinophils # (A) 0.4 k/uL (0-0.7); Eosinophils % (A) 3 %; HCT 33.7 % (34.0-46.0); HGB 11.2 gm/dL (11.4-16.0); Lymphocytes # (A) 3.3 k/uL (1.0-4.8); Lymphocytes % (A) 25 %; MCHC 33.1 g/dL (31.0-37.0); MCV 87.8 fL (80.0-100.0); Mean Platelet Volume 10.6; Monocytes # (A) 0.6 k/uL (0-1.0); Monocytes % (A) 5 %; Neutrophils # (A) 8.9 k/uL (1.3-7.7); Neutrophils % (A) 65 %; Platelet Count 246 k/uL (150-450); RBC 3.84 m/uL (3.80-5.40); RDW 13.2 % (11.5-15.5); WBC 13.6 k/uL (3.8-10.6)
[2019-10-01] MEDS ORDERED: SODIUM CHLORIDE 0.9% 100 ML BAG ONE (11:35)
[2019-10-01] MEDS ORDERED: fentaNYL (PF) 50 MCG/ML 5 ML AMP ONE (11:35)
[2019-10-01] MEDS ORDERED: ROPIVACAINE 5MG/ML 20ML VIAL ONE (11:35)
[2019-10-01] MEDS: LACTATED RINGERS 1,000 ML IV SCH (11:55)
[2019-10-01] MEDS ORDERED: KETOROLAC 30 MG/ML 1 ML VIAL ONE (12:12)
[2019-10-01] MEDS ORDERED: MIDAZOLAM 2 MG/2 ML VIAL ONE (12:12)
[2019-10-01] MEDS ORDERED: fentaNYL (PF) 50 MCG/ML 2 ML AMP ONE (12:12)
[2019-10-01] MEDS ORDERED: ONDANSETRON 4 MG/2 ML VIAL ONE (12:12)
[2019-10-01] MEDS ORDERED: ePHEDrine SULFATE/0.9% NACL/PF 50 MG/5 ML SYRINGE IV ONE (12:12)
[2019-10-01] MEDS ORDERED: OXYTOCIN 10 UNIT/ML 1 ML VIAL ONE (12:12)
[2019-10-01] MEDS ORDERED: MORPHINE SULFATE (PF) 0.3 MG/0.3 ML SYR ONE (12:12)
[2019-10-01] MEDS ORDERED: diphenhydrAMINE 50 MG/ML 1 ML VIAL ONE (12:12)
[2019-10-01] MEDS ORDERED: HYDROmorphone 0.5 MG/0.5 ML SYRINGE IVP PRN (12:40)
[2019-10-01] MEDS ORDERED: NALOXONE 0.4 MG/ML 1 ML VIAL IV PRN (12:40)
[2019-10-01] MEDS ORDERED: KETOROLAC 30 MG/ML 1 ML VIAL IVP PRN (12:40)
[2019-10-01] MEDS ORDERED: diphenhydrAMINE 25 MG CAP PO PRN (12:43)
[2019-10-01] MEDS ORDERED: diphenhydrAMINE 50 MG/ML 1 ML VIAL IVP PRN ×2 (12:43)
[2019-10-01] MEDS ORDERED: ZOLPIDEM 5 MG TAB PO PRN (12:43)
[2019-10-01] MEDS ORDERED: diphenhydrAMINE 50 MG CAP PO PRN (12:43)
[2019-10-01] MEDS ORDERED: ACETAMINOPHEN TAB 325 MG TAB PO PRN (12:43)
[2019-10-01] MEDS ORDERED: METOCLOPRAMIDE 5 MG/ML 2 ML VIAL IVP PRN (12:43)
[2019-10-01] MEDS ORDERED: LANOLIN CREAM 5 GM TUBE TOPICAL PRN (12:43)
[2019-10-01] MEDS ORDERED: ONDANSETRON 4 MG/2 ML VIAL IVP PRN (12:43)
[2019-10-01] MEDS ORDERED: SIMETHICONE 80 MG CHEWABLE PO PRN (12:43)
[2019-10-01] MEDS ORDERED: OXYTOCIN 20 UNITS/1000 ML NS 1,000 ML IV SCH (12:45)
--- NOTE | 2019-10-01 12:50 | P.OP ---
Date of Procedure: 10/01/19 Preoperative Diagnosis: 1. Previous 2. Active labor 3. Category 3 heart tones Postoperative Diagnosis: 1. Previous 2. Active labor 3. Category 3 heart tones Procedure(s) Performed: Repeat low transverse Anesthesia: epidural Surgeon: Elin Sage Furniture Salesperson #1: Eve Pritchett Estimated Blood Loss (ml): 400 IV fluids (ml): 500 Urine output (ml): 50 Pathology: other (Placenta) Condition: stable Disposition: floor Indications for Procedure: 24-year-old G3. 2 presented for induction of labor. Her cervix is 1 cm dilated, 70% effaced, and -2 station. She was not javy. heart tones 1:30 with moderate variability and reactive. When she was eating a good labor pattern and her cervix was 2 cm she did get an epidural. Soon after the epidural she started having decelerations in the heart rate. There was a 6 minute deceleration though maintained moderate variability did come back up to 100s with minimal variability. Informed consent was obtained and section was called as she was remote from delivery. Operative Findings: Viable female, Apgars 9, 9, weight 5 lbs. 6 oz. area normal uterus, tubes, ovaries. Description of Procedure: Patient was taken to the operating room where epidural anesthesia was found be adequate. She was prepped and draped in normal sterile fashion in dorsal supine position with a leftward tilt. Pfannenstiel skin incision was made the scalpel and carried through to the underlying layer of fascia with the scalpel. Fascia was incised in midline and carried bilaterally with the Dominguez scissors. The superior aspect of the fascial incision was grasped with [place] clamps elevated and the underlying rectus muscles dissected off with the Dominguez's. Attention was then turned to inferior aspect of same incision which in a similar fashion was grasped tented up and the underlying rectus muscles dissected off with the Dominguez's. The rectus muscles were the midline and the peritoneum was identified tented up and entered sharply with the scalpel. The incision was extended superiorly and inferiorly with good visualization of the bladder. The bladder blade was inserted and the vesicouterine peritoneum was incised the Metzenbaums then carried bilaterally and bladder flap created digitally. A low transverse incision was then made on the uterus with the scalpel. This was carried bilaterally and digital manner. 's head delivered atraumatically, nose and mouth bulb suctioned, cord clamped and cut, handed off to waiting nurses. Apgars 9,9, weight 5 lbs. 6 oz. Placenta delivered manually, intact with three-vessel cord. The uterus is exteriorized and cleared of all clots and debris. The uterine incision was closed with 0 Vicryl in a running locked fashion. Second layer of the same sutures used in imbricating fashion to obtain excellent hemostasis. Bladder flap was then reapproximated using 2-0 Vicryl in a running fashion. Both ovaries and tubes appeared normal. The uterus was placed back into the abdomen. The peritoneum was reapproximated using 2-0 Vicryl in a running fashion. The muscles were reapproximated using 2- 0 Vicryl in interrupted fashion. The fascia was reapproximated using 0 Vicryl in a running fashion. The subcutaneous tissues closed with 3-0 Vicryl running fashion. The skin was closed jaret. Patient tolerated the procedure well, sponge and instrument counts were correct times 2 and she was taken to the recovery room in stable condition.
[2019-10-01] MEDS ORDERED: CITRIC ACID-SODIUM CITRATE 15 ML CUP PO ONE (13:04)
[2019-10-01] MEDS: KETOROLAC 30 MG/ML 1 ML VIAL IVP PRN (20:31)
[2019-10-01] MEDS: SENNOSIDES-DOCUSATE SODIUM 1 EACH TAB PO SCH (21:38)
[2019-10-02] MEDS: KETOROLAC 30 MG/ML 1 ML VIAL IVP PRN ×2 (04:51→10:52)
[2019-10-02] MEDS: LACTATED RINGERS 1,000 ML IV SCH ×3 (05:23→21:38)
[2019-10-02 06:50] LABS: Basophils % (A) 0 %; Eosinophils # (A) 0.2 k/uL (0-0.7); Eosinophils % (A) 2 %; HCT 27.3 % (34.0-46.0); Hypochromasia Slight; Lymphocytes # (A) 2.6 k/uL (1.0-4.8); Lymphocytes % (A) 17 %; MCH 29.7 pg (25.0-35.0); MCHC 33.3 g/dL (31.0-37.0); MCV 89.2 fL (80.0-100.0); Mean Platelet Volume 10.6; Monocytes # (A) 0.9 k/uL (0-1.0); Monocytes % (A) 6 %; Neutrophils # (A) 11.7 k/uL (1.3-7.7); Neutrophils % (A) 75 %; Platelet Count 237 k/uL (150-450); RBC 3.06 m/uL (3.80-5.40); RDW 12.9 % (11.5-15.5); WBC 15.7 k/uL (3.8-10.6)
[2019-10-02 06:59] LABS: HGB 9.1 gm/dL (11.4-16.0)
[2019-10-02] MEDS: SENNOSIDES-DOCUSATE SODIUM 1 EACH TAB PO SCH ×2 (11:35→19:35)
[2019-10-02] MEDS: IBUPROFEN 600 MG TAB PO PRN ×2 (16:40→23:12)
--- NOTE | 2019-10-02 17:01 | P.HPOB ---
History of Present Illness H&P Date: 10/01/19 Chief Complaint: Induction of labor 24 year old G presents at 39 weeks for induction of labor. Her cervix is 1/70/-2 and she is javy irregularly. HEart tones 130 with moderate variability and reactive. Review of Systems All systems: negative Constitutional: Denies chills, Denies fever Eyes: denies blurred vision, denies pain Ears, nose, mouth and throat: Denies headache, Denies sore throat Cardiovascular: Denies chest pain, Denies shortness of breath Respiratory: Denies cough Gastrointestinal: Denies abdominal pain, Denies diarrhea, Denies nausea, Denies vomiting Genitourinary: Denies dysuria, Denies hematuria Musculoskeletal: Denies myalgias Integumentary: Denies pruritus, Denies rash Neurological: Denies numbness, Denies weakness Psychiatric: Denies anxiety, Denies depression Endocrine: Denies fatigue, Denies weight change Past Medical History Past Medical History: Asthma Additional Past Medical History / Comment(s): Obstetric history: ONe vaginal delivery, One and one ectopic. History of Any Multi-Drug Resistant Organisms: None Reported Past Surgical History: Adenoidectomy, Section, Tonsillectomy Past Anesthesia/Blood Transfusion Reactions: No Reported Reaction Past Psychological History: ADD/ADHD, Anxiety, Bipolar, Depression, PTSD Additional Psychological History / Comment(s): Treated prior to with Medication Smoking Status: Current every day smoker Past Alcohol Use History: None Reported Additional Past Alcohol Use History / Comment(s): Patient is a smoker one pack per day for 4 years. S She denies any alcohol abuse. She is single and lives at home with her parents. She has a 5-month-old son. Patient states she did smoke Marijauna regularly prior to finding out she was , states once she found out she was she stopped smoking. Past Drug Use History: Marijuana Additional Drug Use History / Comment(s): patient states she last used marijuana 2 days ago - Past Family History Father Family Medical History: No Reported History Additional Family Medical History / Comment(s): Father is alive at age 40 with no major medical problems. Brother(s) Family Medical History: No Reported History Additional Family Medical History / Comment(s): Patient has 1 brother and 2 sisters with no major medical problems. Mother Family Medical History: No Reported History Additional Family Medical History / Comment(s): Mother is alive at age 40 with no major medical problems. Medications and Allergies Home Medications Medication Instructions Recorded Confirmed Type Albuterol Inhaler [Ventolin Hfa 2 puff INHALATION RT-Q6H PRN 08/02/19 10/01/19 History Inhaler] Escitalopram [Lexapro] 10 mg PO DAILY 08/06/19 10/01/19 History Acetaminophen [Tylenol Extra 500 mg PO DIRECTED 09/10/19 10/01/19 History Strength] Allergies Allergy/AdvReac Type Severity Reaction Status Date / Time adhesive tape Allergy Rash/Hives Verified 09/27/19 11:04 shellfish derived [Shrimp] Allergy Anaphylaxis Verified 09/27/19 11:04 soap Allergy Rash/Hives Verified 09/27/19 11:04 nicotine patch Allergy Rash/Hives Uncoded 09/27/19 11:04 Exam Osteopathic Statement: *. No significant issues noted on an osteopathic structural exam other than those noted in the History and Physical/Consult. Vital Signs Temp Pulse Resp BP Pulse Ox 10/02/19 16:00 97.7 F 53 L 16 89/42 98 10/02/19 15:00 16 10/02/19 13:00 16 10/02/19 12:00 98.3 F 72 16 102/52 10/02/19 11:00 16 10/02/19 09:00 18 10/02/19 08:00 97.8 F 76 16 97/56 10/02/19 07:00 20 10/02/19 05:00 20 10/02/19 04:00 98.2 F 65 18 102/55 98 10/02/19 03:00 19 10/02/19 01:00 20 10/02/19 00:00 98 F 71 18 120/74 97 10/01/19 21:41 18 10/01/19 21:00 18 10/01/19 20:00 97.9 F 66 18 120/70 98 10/01/19 19:00 16 98 10/01/19 17:23 100 10/01/19 17:00 16 100 Intake and Output 10/02/19 10/02/19 10/02/19 06:59 14:59 22:59 Output Total 1150 Balance -1150 Output: Urine 1150 Other: # Voids 1 1 1 Heart: Regular rate and rhythm Lungs: Clear to auscultation bilaterally Abdomen: Soft, nontender Extremities: Negative Homans sign Results Result Diagrams: 10/02/19 06:24 Abnormal Lab Results - Last 24 Hours (Table) 10/02/19 Range/Units 06:24 WBC 15.7 H (3.8-10.6) k/uL RBC 3.06 L (3.80-5.40) m/uL Hgb 9.1 L D (11.4-16.0) gm/dL Hct 27.3 L (34.0-46.0) % Neutrophils # 11.7 H (1.3-7.7) k/uL Assessment and Plan (1) Normal labor Current Visit: Yes Status: Acute Code(s): O80 - ENCOUNTER FOR FULL-TERM UNCOMPLICATED DELIVERY; Z37.9 - OUTCOME OF DELIVERY, UNSPECIFIED SNOMED Code(s): 72165632 Plan: 1. Amniotomy Pitocin to induce labor 2. Monitor closely 3. Anticipate normal vaginal delivery
--- NOTE | 2019-10-02 17:02 | P.PNOBGPC ---
Subjective - Subjective Principal diagnosis: Status post repeat low transverse postop day #1 Interval history: Patient seen and examined. Denies nausea, vomiting, chest pain, shortness of breath or calf pain. Patient reports: Reports appetite normal, Reports voiding normally, Reports pain well controlled, Reports ambulating normally [place]: doing well Objective - Vital Signs Latest vital signs: Vital Signs Temp Pulse Resp BP Pulse Ox 10/02/19 16:00 97.7 F 53 L 16 89/42 98 10/02/19 15:00 16 10/02/19 13:00 16 10/02/19 12:00 98.3 F 72 16 102/52 10/02/19 11:00 16 10/02/19 09:00 18 10/02/19 08:00 97.8 F 76 16 97/56 10/02/19 07:00 20 10/02/19 05:00 20 10/02/19 04:00 98.2 F 65 18 102/55 98 10/02/19 03:00 19 10/02/19 01:00 20 10/02/19 00:00 98 F 71 18 120/74 97 10/01/19 21:41 18 10/01/19 21:00 18 10/01/19 20:00 97.9 F 66 18 120/70 98 10/01/19 19:00 16 98 10/01/19 17:23 100 Intake and Output 10/02/19 10/02/19 10/02/19 06:59 14:59 22:59 Output Total 1150 Balance -1150 Output: Urine 1150 Other: # Voids 1 1 1 - Exam Lungs: bilateral: normal Chest: Normal S1, Normal S2 Extremities: Present: normal Abdomen: Present: normal appearance, soft. Absent: distention, tenderness Incision: Present: normal, dry, intact Uterus: Present: normal, firm - Labs Labs: Abnormal Lab Results - Last 24 Hours (Table) 10/02/19 Range/Units 06:24 WBC 15.7 H (3.8-10.6) k/uL RBC 3.06 L (3.80-5.40) m/uL Hgb 9.1 L D (11.4-16.0) gm/dL Hct 27.3 L (34.0-46.0) % Neutrophils # 11.7 H (1.3-7.7) k/uL Assessment and Plan (1) Normal labor Current Visit: Yes Status: Resolved Code(s): O80 - ENCOUNTER FOR FULL-TERM UNCOMPLICATED DELIVERY; Z37.9 - OUTCOME OF DELIVERY, UNSPECIFIED SNOMED Code(s): 61757784 (2) Status post repeat low transverse section Current Visit: Yes Status: Acute Code(s): Z98.891 - HISTORY OF UTERINE SCAR FROM PREVIOUS SURGERY SNOMED Code(s): 769851051 Plan: 1. Continue postoperative care 2. Increase ambulation 3. Pain control
[2019-10-02] MEDS: HYDROcodone/APAP 7.5-325MG 1 EACH TAB PO PRN (19:36)
[2019-10-03] MEDS: HYDROcodone/APAP 7.5-325MG 1 EACH TAB PO PRN ×2 (03:59→09:55)
[2019-10-03] MEDS: IBUPROFEN 600 MG TAB PO PRN (07:45)
[2019-10-03] MEDS: SENNOSIDES-DOCUSATE SODIUM 1 EACH TAB PO SCH (07:45)
[2019-10-03 08:00] VITALS: BP 109/74; PULSE 73; RESP 16; TEMP 97.3
--- NOTE | 2019-10-03 08:28 | P.DS ---
Providers Date of admission: 10/01/19 06:05 Expected date of discharge: 10/03/19 Attending physician: Elin Sage Primary care physician: Stated None - Discharge Diagnosis(es) (1) Normal labor Current Visit: Yes Status: Resolved (2) Status post repeat low transverse section Current Visit: Yes Status: Acute Hospital Course: Pt presented for induction of labor. she underwent a repeat low transverse c- section. Her pp course was uncomplicated. She is ambulating and voiding without difficulty. She is tolerating a regular diet, passing flatus, denies N/V, F/C, CP, SOB, calf pain. We discussed her depression that is stable for the moment. She is on lexapro and will continue this. She has an appt Oct 26 to evaluate how the lexapro is working. She has a good support system at home and will call if she feels hopeless. She will be discharged home PPD #2 in stable condition to follow up with me in 1 week. Plan - Discharge Summary New Discharge Prescriptions: New Ibuprofen [Motrin] 600 mg PO Q6HR PRN #30 tab PRN Reason: Mild Pain Or Fever >= 100.5 HYDROcodone/APAP 7.5-325MG [[place] 7.5-325] 1 each PO Q6H PRN #12 tab PRN Reason: Severe Pain No Action Albuterol Inhaler [Ventolin Hfa Inhaler] 2 puff INHALATION RT-Q6H PRN PRN Reason: Shortness Of Breath Escitalopram [Lexapro] 10 mg PO DAILY Acetaminophen [Tylenol Extra Strength] 500 mg PO DIRECTED Discharge Medication List Albuterol Inhaler [Ventolin Hfa Inhaler] 2 puff INHALATION RT-Q6H PRN 08/02/19 [History] Escitalopram [Lexapro] 10 mg PO DAILY 08/06/19 [History] Acetaminophen [Tylenol Extra Strength] 500 mg PO DIRECTED 09/10/19 [History] HYDROcodone/APAP 7.5-325MG [[place] 7.5-325] 1 each PO Q6H PRN #12 tab 10/03/19 [Rx] Ibuprofen [Motrin] 600 mg PO Q6HR PRN #30 tab 10/03/19 [Rx] Follow up Appointment(s)/Referral(s): Chu,Elin, DO [Doctor of Osteopathic Medicine] - 1 Week Discharge Disposition: HOME SELF-CARE
== END 2019-10-03 10:50 | disposition home or self-care (01) | DRG 788 ==
LOC: 4FBP 06:05
PROVIDERS: ADMIT Obstetrics & Gynecology; ATTEND Obstetrics & Gynecology
PROC: 10907ZC Drainage of Amniotic Fluid, Therapeutic from Products of Conception, Via Natural or Artificial Opening (ICD-10-PCS; principal; 2019-10-01 13:01)
PROC: 3E033VJ Introduction of Other Hormone into Peripheral Vein, Percutaneous Approach (ICD-10-PCS; principal; 2019-10-01 13:01)
PROC: 00HU33Z Insertion of Infusion Device into Spinal Canal, Percutaneous Approach (ICD-10-PCS; principal; 2019-10-01 13:01)
PROC: 3E0R3NZ Introduction of Analgesics, Hypnotics, Sedatives into Spinal Canal, Percutaneous Approach (ICD-10-PCS; principal; 2019-10-01 13:01)
PROC: 10D00Z1 Extraction of Products of Conception, Low, Open Approach (ICD-10-PCS; principal; 2019-10-01 13:01)
DX: O76 Abnormality in fetal heart rate and rhythm complicating labor and delivery (principal); O34.211 Maternal care for low transverse scar from previous cesarean delivery; F17.200 Nicotine dependence, unspecified, uncomplicated; O99.334 Smoking (tobacco) complicating childbirth; Z37.0 Single live birth; Z3A.39 39 weeks gestation of pregnancy; O99.52 Diseases of the respiratory system complicating childbirth; J45.909 Unspecified asthma, uncomplicated; F31.9 Bipolar disorder, unspecified; F43.10 Post-traumatic stress disorder, unspecified; F90.9 Attention-deficit hyperactivity disorder, unspecified type; O99.344 Other mental disorders complicating childbirth; Z79.899 Other long term (current) drug therapy; Z91.013 Allergy to seafood; Z88.8 Allergy status to other drugs, medicaments and biological substances; Z91.048 Other nonmedicinal substance allergy status
CPT/HCPCS: 85025; 86850; 86900; 86901; 88307

== ENCOUNTER 2019-11-29 01:33 | Inpatient (IN) | payer MEDICAID, OTHER ==
--- NOTE | 2019-11-29 01:49 | ED ---
General Adult HPI <Jd Hernandez - Last Filed: 11/29/19 05:18> - General Source: patient, police, RN notes reviewed Mode of arrival: ambulatory <Abhi Dexter - Last Filed: 11/30/19 20:01> - General Chief complaint: Psychiatric Symptoms Stated complaint: Mental health Time Seen by Provider: 11/29/19 01:43 - History of Present Illness Initial comments: 24-year-old female with a past medical history of bipolar disorder, depression, ADD, anxiety presents to the emergency department for suicidal thoughts. Patient states her mother called the police on her because she was suicidal. Patient states that she always has a suicidal thoughts. States she does not have a plan to act on them. Patient does have several superficial lacerations noted to the left forearm. Patient states she is up-to-date on tetanus within the past 5 years. States that she is supposed to be taking Lexapro but does not take it" because it makes me feel weird."Patient has no other complaints at this time including shortness of breath, chest pain, abdominal pain, nausea or vomiting, headache, or visual changes. (Abhi Dexter) - Related Data Home Medications Medication Instructions Recorded Confirmed Albuterol Inhaler [Ventolin Hfa 2 puff INHALATION RT-Q6H PRN 08/02/19 10/01/19 Inhaler] Escitalopram [Lexapro] 10 mg PO DAILY 08/06/19 10/01/19 Acetaminophen [Tylenol Extra 500 mg PO DIRECTED 09/10/19 10/01/19 Strength] Previous Rx's Medication Instructions Recorded HYDROcodone/APAP 7.5-325MG [[place] 1 each PO Q6H PRN #12 tab 10/03/19 7.5-325] Ibuprofen [Motrin] 600 mg PO Q6HR PRN #30 tab 10/03/19 Allergies Allergy/AdvReac Type Severity Reaction Status Date / Time adhesive tape Allergy Rash/Hives Verified 11/29/19 01:42 shellfish derived [Shrimp] Allergy Anaphylaxis Verified 11/29/19 01:42 soap Allergy Rash/Hives Verified 11/29/19 01:42 nicotine patch Allergy Rash/Hives Uncoded 09/27/19 11:04 Review of Systems ROS Other: All systems not noted in ROS Statement are negative. <Jd Hernandez - Last Filed: 11/29/19 05:18> ROS Other: All systems not noted in ROS Statement are negative. <GueritaAbhi alegria Devang - Last Filed: 11/30/19 20:01> ROS Statement: Those systems with pertinent positive or pertinent negative responses have been documented in the HPI. Past Medical History Past Medical History: Asthma Additional Past Medical History / Comment(s): Obstetric history: ONe vaginal [place], One and one ectopic. History of Any Multi-Drug Resistant Organisms: None Reported Past Surgical History: Adenoidectomy, Section, Tonsillectomy Past Anesthesia/Blood Transfusion Reactions: No Reported Reaction Past Psychological History: ADD/ADHD, Anxiety, Bipolar, Depression, PTSD Smoking Status: Current every day smoker Past Alcohol Use History: None Reported Past Drug Use History: Marijuana - Past Family History Father Family Medical History: No Reported History Additional Family Medical History / Comment(s): Father is alive at age 40 with no major medical problems. Brother(s) Family Medical History: No Reported History Additional Family Medical History / Comment(s): Patient has 1 brother and 2 sisters with no major medical problems. Mother Family Medical History: No Reported History Additional Family Medical History / Comment(s): Mother is alive at age 40 with no major medical problems. <GueritaAbhi hendrickson Devang - Last Filed: 11/30/19 20:01> General Exam General appearance: alert, in no apparent distress Head exam: Present: atraumatic, normocephalic, normal inspection Eye exam: Present: normal appearance, PERRL, EOMI. Absent: scleral icterus, conjunctival injection, periorbital swelling ENT exam: Present: normal exam, mucous membranes moist Neck exam: Present: normal inspection, full ROM. Absent: tenderness, meningismus, lymphadenopathy Respiratory exam: Present: normal lung sounds bilaterally. Absent: respiratory distress, wheezes, rales, rhonchi, stridor Cardiovascular Exam: Present: regular rate, normal rhythm, normal heart sounds. Absent: systolic murmur, diastolic murmur, rubs, gallop, clicks Extremities exam: Present: normal capillary refill (Capillary refill less than 2 seconds, radial pulse 2+ in the left upper extremity.), other (Left forearm has several superficial lacerations. None of which require suturing.) <Abhi Dexter - Last Filed: 11/30/19 20:01> Course Vital Signs 11/29/19 01:39 Temperature 98.3 F Pulse Rate 103 H Respiratory 18 Rate Blood Pressure 111/73 O2 Sat by Pulse 96 Oximetry Medical Decision Making <Jd Hernandez - Last Filed: 11/29/19 05:18> - Lab Data Result diagrams: 11/29/19 10:48 11/29/19 10:48 <Abhi Dexter - Last Filed: 11/30/19 20:01> - Medical Decision Making I saw this patient completed the clinical certificate. (Jd Hernandez) Care signed out to Dr Hernandez (Abhi Dexter) - Lab Data Lab Results 11/29/19 Range/Units 01:57 Urine Opiates Screen Not Detected (NotDetected) Ur Oxycodone Screen Not Detected (NotDetected) Urine Methadone Screen Not Detected (NotDetected) Ur Propoxyphene Screen Not Detected (NotDetected) Ur Barbiturates Screen Not Detected (NotDetected) U Tricyclic Antidepress Not Detected (NotDetected) Ur Phencyclidine Scrn Not Detected (NotDetected) Ur Amphetamines Screen Detected H (NotDetected) U Methamphetamines Scrn Detected H (NotDetected) U Benzodiazepines Scrn Not Detected (NotDetected) Urine Cocaine Screen Detected H (NotDetected) U Marijuana (THC) Screen Detected H (NotDetected) Disposition <Jd Hernandez - Last Filed: 11/29/19 05:18> Time of Disposition: 20:01 <Abhi Dexter - Last Filed: 11/30/19 20:01> Clinical Impression: Suicidal thoughts Disposition: TRANSFER TO PSYCH HOSP/UNIT
[2019-11-29 02:19] LABS: Amphetamine Screen,Urine Detected (NotDetected); Barbiturate Screen,Urine Not Detected (NotDetected); Benzodiazepines Screen,Urine Not Detected (NotDetected); Cocaine Screen,Urine Detected (NotDetected); Methadone Screen, Urine Not Detected (NotDetected); Opiate Screen,Urine Not Detected (NotDetected); Oxycodone Screen, Urine Not Detected (NotDetected); Phencyclidine Screen,Urine Not Detected (NotDetected); Tricyclic Antidepressant,Urine Not Detected (NotDetected); Urn Cannabinoid Scrn Detected (NotDetected)
[2019-11-29] MEDS ORDERED: LORazepam 1 MG TAB PO STA (05:15)
[2019-11-29] MEDS ORDERED: ZIPRASIDONE 20 MG VIAL IM PRN (06:00)
[2019-11-29] MEDS ORDERED: MAGNESIUM HYDROXIDE 2,400 MG/10 ML CUP PO PRN (06:00)
[2019-11-29] MEDS ORDERED: MAG HYDROX/AL HYDROX/SIMETH 30 ML CUP PO PRN (06:00)
--- NOTE | 2019-11-29 10:25 | P.HP ---
Psychiatric H&P - . H&P Date: 11/29/19 History & Physical: Allergies Allergy/AdvReac Type Severity Reaction Status Date / Time adhesive tape Allergy Rash/Hives Verified 11/29/19 01:42 shellfish derived Shrimp Allergy Anaphylaxis Verified 11/29/19 01:42 soap Allergy Rash/Hives Verified 11/29/19 01:42 nicotine patch Allergy Rash/Hives Uncoded 09/27/19 11:04 Vital Signs Temp 97.8 F 11/29/19 07:27 Pulse 96 11/29/19 07:27 Resp 18 11/29/19 07:27 BP 130/75 11/29/19 07:27 Pulse Ox 100 11/29/19 07:27 Intake & Output 11/28/19 11/29/19 11/29/19 18:59 06:59 18:59 Weight 47.174 kg 48.563 kg Laboratory Last Values Urine Opiates Screen Not Detected (NotDetected) 11/29/19 01:57 Ur Oxycodone Screen Not Detected (NotDetected) 11/29/19 01:57 Urine Methadone Screen Not Detected (NotDetected) 11/29/19 01:57 Ur Propoxyphene Screen Not Detected (NotDetected) 11/29/19 01:57 Ur Barbiturates Screen Not Detected (NotDetected) 11/29/19 01:57 U Tricyclic Antidepress Not Detected (NotDetected) 11/29/19 01:57 Ur Phencyclidine Scrn Not Detected (NotDetected) 11/29/19 01:57 Ur Amphetamines Screen Detected (NotDetected) H 11/29/19 01:57 U Methamphetamines Scrn Detected (NotDetected) H 11/29/19 01:57 U Benzodiazepines Scrn Not Detected (NotDetected) 11/29/19 01:57 Urine Cocaine Screen Detected (NotDetected) H 11/29/19 01:57 U Marijuana (THC) Screen Detected (NotDetected) H 11/29/19 01:57 11/29/19 10:15 IDENTIFYING DATA: Patient is a 24-year-old female who is currently lives with her and 3 kids and collects SSI. HPI: Patient presented to the hospital yesterday after mother called the tray line worker because she noticed patient with cuts on her arm. As per petition written by amphibious operations officer states that patient had cuts on her arm and has not been taking her medications and had thoughts of killing herself. The petition also stated that patient had reference to her mother about jumping into the river. Patient had a positive urine drug screen for methamphetamine, cocaine and marijuana on admission. Patient was noted to be disheveled and having multiple cuts on her left forearm superficially. Patient appears to be anxious and fidgeting during the interview and states that she has been having multiple stressors at home. She spoke about recently having her baby 2 months ago and having multiple fights with her . She states that her was previously on the unit and recently got released. She also states that she's been feeling depressed and irritable for the past several weeks. Patient claims that she stopped taking her medications several days ago as she was on Lexapro. She states that she has been having chronic suicidal thoughts and claims that she was having an increase in these thoughts recently. She endorses poor coping skills and minimizing her symptoms. She endorses poor sleep at night. Patient denies any suicidal or ho micidal ideations intent or plan. At this time patient denies any auditory or visual hallucinations. Patient denies any flight of ideas racing thoughts and increased in goal directed behavior. Patient is intrusive, irritable and argumentative with rewriter. Patient admits to using cigarettes along with marijuana 2 g per day, and states that she "tried" methamphetamines and cocaine recently. PAST PSYCHIATRIC HISTORY: Patient states that she has a history of depression and anxiety and as per EMR patient has a history of PTSD and cluster B personality traits. Patient claims that she follows up with [facility] and has a counselor there. She endorsed having multiple suicide attempts in the past. She was previously on Lexapro for depression. Her last mental health admission was in November 2018. PMH: Asthma and a previous ectopic . ALLERGIES: as per EMR CHEMICAL DEPENDENCY HISTORY: as per HPI FAMILY PSYCHIATRIC/SUBSTANCE USE HISTORY: States that "half my family has mental health problems". She also claims that her aunt committed suicide. SOCIAL HISTORY: Patient was born and raised in [place] and states that she completed up to the ninth grade in school. She currently has 3 kids is and lives with her mother and . She claims that she is unemployed and currently collects Social Security.. MENTAL STATUS EXAM: General Appearance: Patient appears to be older than stated age is alert, irritable, guarded and hostile. Patient appears to have poor hygiene and grooming. Behavior: Patient is seated and is irritable and hostile. Speech: Patient's speech is fluent and nonpressured. Loud at times with threatening tone. Mood/Affect: Patient reports their mood is depressed, affect is congruent and labile Suicidality/Homicidality: Patient denies having any homicidal ideation intent or plan. Denies any suicidal ideations intent or plan Perceptions: Patient denies any visual hallucinations and denies any auditory hallucinations Though content/process: There is no evidence of any delusional thought content and thought process is linear and goal-directed. Minimizes her symptoms and is guarded/evasive. Memory and concentration: AOX3, grossly intact for the purposes of this session. Can spell "WORLD" backwards Judgment and insight: poor/impulsive. STRENGTHS/WEAKNESSES: strength is that patient is resilient. Weakness is that patient has poor judgment and is impulsive INTELLECT: Below average IMPRESSIONS: Mood disorder unspecified, rule out bipolar disorder Anxiety disorder unspecified Cluster B personality traits, likely borderline personality disorder. History of PTSD Cannabis use disorder Methamphetamine/stimulant use disorder Cocaine use disorder Nicotine dependence PLAN: -Patient is admitted under involuntary status to [facility] for stabilization of psychiatric symptoms and safety. A second certification was completed and along with petition will be filed for court. -Medications : Will start patient on Abilify 2.5 mg daily for mood stabilization. Melatonin 3 mg daily at bedtime for sleep. -Ativan and Geodon PRN for agitation/aggression -Counseled patient on the effects of recreational drugs on her physical and mental health. -Patient was informed of the risks, benefits and side effects of the medication and patient declined to sign medication consent form. -Internal Medicine consult to perform medical evaluation and physical. -NRT -Nicorette gum. -SW on board for discharge planning. Encourage patient to participate in groups to work on coping skills. We'll speak with social worker aide and team about patient's children at home and ensure that children are being taken care of.
[2019-11-29] MEDS: LORazepam 1 MG TAB PO PRN (10:35)
[2019-11-29] MEDS: ARIPiprazole 5 MG TAB PO SCH (11:33)
[2019-11-29 11:42] LABS: Basophils # (A) 0.1 k/uL (0-0.2); Basophils % (A) 1 %; Eosinophils # (A) 0.1 k/uL (0-0.7); Eosinophils % (A) 1 %; HCT 42.3 % (34.0-46.0); Lymphocytes # (A) 3.8 k/uL (1.0-4.8); Lymphocytes % (A) 27 %; MCH 27.7 pg (25.0-35.0); MCHC 32.9 g/dL (31.0-37.0); Mean Platelet Volume 7.6; Monocytes # (A) 0.8 k/uL (0-1.0); Monocytes % (A) 5 %; Neutrophils # (A) 8.9 k/uL (1.3-7.7); Neutrophils % (A) 64 %; Platelet Count 438 k/uL (150-450); RBC 5.03 m/uL (3.80-5.40); WBC 13.9 k/uL (3.8-10.6)
[2019-11-29] MEDS ORDERED: NICOTINE POLACRILEX 2 MG GUM BUCCAL PRN (11:42)
[2019-11-29 11:44] LABS: Albumin 5.3 g/dL (3.5-5.0); Bilirubin,Unconjugated 1.2 mg/dL (0.0-1.1); Calcium 10.5 mg/dL (8.4-10.2); Potassium 3.8 mmol/L (3.5-5.1); Total Bilirubin 1.2 mg/dL (0.2-1.3); Total Protein 8.6 g/dL (6.3-8.2)
[2019-11-29 11:45] LABS: HGB 13.9 gm/dL (11.4-16.0)
[2019-11-29] MEDS: MELATONIN 3 MG TABLET PO SCH (22:34)
[2019-11-30] MEDS: ARIPiprazole 5 MG TAB PO SCH (09:01)
[2019-11-30] MEDS: LORazepam 1 MG TAB PO PRN ×2 (09:02→20:23)
[2019-11-30] MEDS: OXcarbazepine 300 MG TAB PO SCH ×2 (11:42→20:22)
--- NOTE | 2019-11-30 11:52 | P.PN ---
Progress Note - Text Progress Note Date: 11/30/19 Interval History: Patient was seen wandering the hallways and was directable and agreeable to sp eak with press writer in the office. Patient today appears to be mildly calmer however continues to have poor insight and judgment and is intrusive. Patient continues to demonstrate emotional lability and had a loud tone of voice and was argumentative towards press writer. She states that she does not want to take Abilify at this time as she states that she does not need to be in the hospital. Patient claims that Abilify makes her "angry" and declines taking other medications. [employer] Fill spoke with patient about lithium versus Trileptal and patient was more agreeable to take Trileptal at this time. Patient states that she has been going to groups however was guarded/superficial level groups. She states that she did not sleep well last night and has a poor appetite in the morning however was able to eat her other meals. Patient continues to demand discharge at this time and states that she wants to take care of her children. At this time patient denies any suicidal or homical ideations, intent or plan. Patient denies any auditory, visual hallucinations and denies any paranoia or delusions. Mental Status Exam: Mood disorder unspecified, rule out bipolar disorder Anxiety disorder unspecified Cluster B personality traits, likely borderline personality disorder. History of PTSD Cannabis use disorder Methamphetamine/stimulant use disorder Cocaine use disorder Nicotine dependence Assessment Mood disorder unspecified, rule out bipolar disorder Anxiety disorder unspecified Cluster B personality traits, likely borderline personality disorder. History of PTSD Cannabis use disorder Methamphetamine/stimulant use disorder Cocaine use disorder Nicotine dependence Plan: -Patient is admitted under involuntary status to [facility] for stabilization of psychiatric symptoms and safety. Certifications and petition were sent to court, patient has deferral date set for today. Patient refused to sign medication consent and was placed in patient's chart. -Medications: We'll discontinue Abilify at this time and start patient on Trileptal 300 mg twice a day for mood stabilization. Continue with melatonin 3 mg daily at bedtime for sleep. We'll consider trazodone if patient continues to have difficulties with sleep. -When necessary Ativan and Geodon for agitation/aggression. -NRT -Nicorette gum -SW on board for discharge planning. Encouraged the patient to participate in milieu. As per addiction social worker, states that patient's children are being cared for by her family members and her safe at this time.
[2019-11-30] MEDS: MELATONIN 3 MG TABLET PO SCH (20:22)
[2019-11-30] MEDS: ACETAMINOPHEN TAB 325 MG TAB PO PRN (20:23)
[2019-12-01] MEDS: OXcarbazepine 300 MG TAB PO SCH (08:20)
--- NOTE | 2019-12-01 11:53 | P.PN ---
Progress Note - Text Progress Note Date: 12/01/19 Interval History: Patient was seen participating in group and agreeable to speak with principal technical writer in the office. Patient today appears to be mildly calmer and appears to be more cooperative with principal technical writer. Patient apologized for her behavior before and states that she was "withdrawing" and states that she learned her lesson. Patient continues to speak about her children and wanting to be discharged from the hospital. Patient claims that she has been taking her medications thus far and feels that it is helping her. She also has been going to groups and states she's been working on her coping skills. Patient is superficially cooperative. She states that her mood has been gradually improving. She states that she slept better last night with the melatonin. At this time patient denies any suicidal or homical ideations, intent or plan. Patient denies any auditory, visual hallucinations and denies any paranoia or delusions. Mental Status Exam: General Appearance: Patient appears to be older than stated age is alert, less irritable today and more superficially cooperative. Patient appears to have improving hygiene and grooming. Behavior: Patient is seated and is less irritable towards principal technical writer. Speech: Patient's speech is fluent and nonpressured. Calm her voice. Mood/Affect: Patient reports their mood is depressed, mildly improving, affect is congruent Suicidality/Homicidality: Patient denies having any homicidal ideation intent or plan. Denies any suicidal ideations intent or plan Perceptions: Patient denies any visual hallucinations and denies any auditory hallucinations Though content/process: There is no evidence of any delusional thought content and thought process is linear and goal-directed. Minimizes her symptoms Memory and concentration: AOX3, grossly intact for the purposes of this session. Can spell "WORLD" backwards Judgment and insight: poor/impulsive, mildly improving. Assessment Mood disorder unspecified, rule out bipolar disorder Anxiety disorder unspecified Cluster B personality traits, likely borderline personality disorder. History of PTSD Cannabis use disorder Methamphetamine/stimulant use disorder Cocaine use disorder Nicotine dependence Plan: -Patient was initially admitted under involuntary status to [facility] for stabilization of psychiatric symptoms and safety. Certifications and petition were sent to court, and patient signed deferral for treatment. Patient refused to sign medication consent and was placed in patient's chart. -Medications: We'll switch Trileptal for Lamictal at this time as Trileptal may be interacting with patients control. Lamictal will be started at 25 mg twice a day for mood stabilization/depression. Patient was warned to monitor her skin for rash and to notify for medical attention, patient verbally understood and agreed. Continue with melatonin 3 mg daily at bedtime for sleep. -When necessary Ativan and Geodon for agitation/aggression. -NRT -Nicorette gum -SW on board for discharge planning. Encouraged the patient to participate in milieu. As per social service liaison, states that patient's children are being cared for by her family members and her safe at this time. Likely discharge early next week.
[2019-12-01] MEDS: lamoTRIgine 25 MG TAB PO SCH ×2 (11:59→20:50)
[2019-12-01] MEDS: LORazepam 1 MG TAB PO PRN (17:38)
[2019-12-01] MEDS: MELATONIN 3 MG TABLET PO SCH (20:50)
[2019-12-02] MEDS: lamoTRIgine 25 MG TAB PO SCH ×2 (07:56→20:43)
--- NOTE | 2019-12-02 11:10 | P.PN ---
Progress Note - Text Progress Note Date: 12/02/19 Interval History: Patient was seen standing near the nurse's desk and agreeable to speak with wr iter in the office. Patient today was initially cooperative and calm however as the conversation progressed patient began more focused on discharge and states that she wants the see her kids. Patient was tearful and demanding discharge and was uncooperative and argumentative with typewriter aligner. She was superficial about her mood and denied any overnight events. Patient claims that she has been taking her medications thus far and feels that it is helping her however patient continues to be labile with her emotions. She also has been going to groups and states she's been working on her coping skills however could not elaborate on what she has learned. She claims that she slept throughout night with the melatonin. At this time patient denies any suicidal or homical ideations, intent or plan. Patient denies any auditory, visual hallucinations and denies any paranoia or delusions. Mental Status Exam: General Appearance: Patient appears to be older than stated age is alert, irritable and labile today and more superficially cooperative. Patient appears to have improving hygiene and grooming. Behavior: Patient is seated and is irritable/emotional towards typewriter aligner. Tearful at times. Speech: Patient's speech is fluent and nonpressured. Loud and upset. Mood/Affect: Patient reports their mood is fine mildly improving, affect is incongruent and labile. Suicidality/Homicidality: Patient denies having any homicidal ideation intent or plan. Denies any suicidal ideations intent or plan Perceptions: Patient denies any visual hallucinations and denies any auditory hallucinations Though content/process: There is no evidence of any delusional thought content and thought process is linear and goal-directed. Minimizes her symptoms and focused on discharge. Memory and concentration: AOX3, grossly intact for the purposes of this session. Can spell "WORLD" backwards Judgment and insight: poor/impulsive. Assessment: Mood disorder unspecified, rule out bipolar disorder Anxiety disorder unspecified Cluster B personality traits, likely borderline personality disorder. History of PTSD Cannabis use disorder Methamphetamine/stimulant use disorder Cocaine use disorder Nicotine dependence Plan: -Patient was initially admitted under involuntary status to [facility] for stabilization of psychiatric symptoms and safety. Certifications and petition were sent to court, and patient signed deferral for treatment. Patient refused to sign medication consent and was placed in patient's chart. -Medications: Lamictal will be increased 50 mg twice a day for mood stabilization/depression. Patient was warned to monitor her skin for rash and to notify for medical attention, patient verbally understood and agreed in at this time patient denies seeing any rashes. Continue with melatonin 3 mg daily at bedtime for sleep. -When necessary Ativan and Geodon for agitation/aggression. -NRT -Nicorette gum -SW on board for discharge planning. Encouraged the patient to participate in milieu. As per elementary school social worker, states that patient's children are being cared for by her family members and her safe at this time. Likely discharge either tuesday-tuesday.
[2019-12-02] MEDS: LORazepam 1 MG TAB PO PRN (15:09)
[2019-12-02] MEDS: MELATONIN 3 MG TABLET PO SCH (20:43)
[2019-12-03] MEDS: ACETAMINOPHEN TAB 325 MG TAB PO PRN (07:58)
[2019-12-03] MEDS: lamoTRIgine 25 MG TAB PO SCH (07:58)
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
[2019-12-03] MEDS ORDERED: lamoTRIgine 25 MG TAB PO ONE (21:00)
[2019-12-03] MEDS: MELATONIN 3 MG TABLET PO SCH (21:27)
[2019-12-03] MEDS: LORazepam 1 MG TAB PO PRN (21:27)
[2019-12-04 04:38] VITALS: BP 115/59; PULSE 94; TEMP 97.9
[2019-12-04 06:26] VITALS: RESP 15
[2019-12-04] MEDS ORDERED: lamoTRIgine 100 MG TAB PO SCH (09:00)
--- NOTE | 2019-12-04 10:12 | P.DS ---
Providers Date of admission: 11/29/19 05:54 Expected date of discharge: 12/04/19 Attending physician: Jesús Laura MD Consults: 11/29/19 06:00 Consult Physician Routine Consulting Provider: Dorothy Rodriguez Consult Reason/Comments: New admission, H&P Do you want consulting provider notified?: Yes, Notify in am Primary care physician: Stated None - Discharge Diagnosis(es) (1) Bipolar disorder Current Visit: Yes Status: Acute Priority: High (2) Anxiety disorder, unspecified Current Visit: Yes Status: Acute Priority: Medium (3) Personality disorder Current Visit: Yes Status: Acute Priority: Medium (4) History of posttraumatic stress disorder (PTSD) Current Visit: Yes Status: Acute Priority: Low (5) Cannabis abuse Current Visit: Yes Status: Acute Priority: Low (6) Methamphetamine abuse Current Visit: Yes Status: Acute Priority: Medium (7) Cocaine use disorder Current Visit: Yes Status: Acute Priority: Medium (8) Nicotine dependence Current Visit: Yes Status: Acute Priority: Low Hospital Course: Admission HPI: Patient is a 24-year-old female who is currently lives with her and 3 kids and collects SSI. Patient presented to the hospital yesterday after mother called the audience development manager because she noticed patient with cuts on her arm. As per petition written by workplace rehabilitation officer states that patient had cuts on her arm and has not been taking her medications and had thoughts of killing herself. The petition also stated that patient had reference to her mother about jumping into the river. Patient had a positive urine drug screen for methamphetamine, cocaine and marijuana on admission. Patient was noted to be disheveled and having multiple cuts on her left forearm superficially. Patient appears to be anxious and fidgeting during the interview and states that she has been having multiple stressors at home. She spoke about recently having her baby 2 months ago and having multiple fights with her . She states that her was previously on the unit and recently got released. She also states that she's been feeling depressed and irritable for the past several weeks. Patient claims that she stopped taking her medications several days ago as she was on Lexapro. She states that she has been having chronic suicidal thoughts and claims that she was having an increase in these thoughts recently. She endorses poor coping skills and minimizing her symptoms. She endorses poor sleep at night. Patient denies any suicidal or homicidal ideations intent or plan. At this time patient denies any auditory or visual hallucinations. Patient denies any flight of ideas racing thoughts and increased in goal directed behavior. Patient is intrusive, irritable and argumentative with chief writer. Patient admits to using cigarettes along with marijuana 2 g per day, and states that she "tried" methamphetamines and cocaine recently. Hospital course: Upon admission to the unit patient was initially hostile and uncooperative/argumentative, labile. Patient did sign voluntary form however refused to take medications initially. Patient required when necessary's early on in the hospitalization for agitation and aggression. Patient gradually im proved and got along well with other patients on the unit and followed unit protocol. Patient was compliant with the medications and denied any side effects throughout hospital course. Patient was started on Lamictal and titrated up to a dose of 100 mg daily for mood stabilization/depression. Patient was warned about the side effects of a possible rash which requires urgent medical attention and patient monitored her skin and denied any rashes throughout the hospitalization. Patient was also started on melatonin 3 mg daily at bedtime for sleep. Patient spoke of her stressors and engaged in therapy both group and individual. Patient was also seen by medical team for history and physical exam. Throughout the course of the hospitalization patient gradually improved with regards to mood, emotional lability, agitation, anxiety, sleep and became future oriented with improved insight and judgment. On the day of discharge patient denied any suicidal or homicidal ideations intent or plan denied any auditory or visual hallucinations. Patient endorsed wanting to live for her health and her kids. The patient denied any access to guns or weapons. Patient denied any paranoia and did not endorse any delusions. Patient does have a significant history of substance abuse and was counseled on abstaining from all substances including alcohol and marijuana. Patient was offered substance abuse rehab however declined at this time and wanted to do outpatient treatment. Patient was also counseled on the medications and need for regular compliance and was encouraged to follow-up with their outpatient appointment for mental health and also for primary care. Prior to discharge a family meeting will be arranged by social insurance administrator to answer any questions and ensure safety upon discharge. Mental status exam: General Appearance: Patient appears to be stated age is thin, alert, pleasant, and cooperative. Patient is in no acute distress and has improved hygiene and grooming Behavior: Patient is calmly seated without any agitated behavior. More cooperative today. Speech: Patient's speech is fluent and nonpressured. Mood/Affect: Patient reports their mood is "better", affect is congruent and euthymic. Suicidality/Homicidality: Patient denies having any suicidal or homicidal ideation intent or plan. Perceptions: Patient denies any auditory or visual hallucinations. Though content/process: There is no evidence of any delusional thought content and thought process is linear and goal-directed. Memory and concentration: AOX3, grossly intact for the purposes of this session. Can spell "WORLD" backwards correctly. Judgment and insight: improved with guarded prognosis Impression: Bipolar disorder unspecified Anxiety disorder and specified Personality disorder NOS, cluster B personality traits History of PTSD Cannabis use disorder Methamphetamine/stimulant use disorder Cocaine use disorder Nicotine dependence Plan: -Continue with discharge today as patient has improved and stabilized psychiatrically and is not currently an imminent threat to herself and/or others. Due to patient's impulsivity and polysubstance abuse, patient will remain a chronic elevated risk of self-harm/harm to others. -Continue medications: Lamictal 100 mg daily for mood stabilization/depression. Patient was warned about the side effects of a possible rash which requires urgent medical attention and patient monitored her skin and denied any rashes throughout the hospitalization. Continue with melatonin 3 mg daily at bedtime for sleep. -Patient was counseled on the need for medication compliance and appropriate follow-up at mental health and also primary care for medical issues. Patient verbalized understanding and agreed. -Social work to arrange for and conduct family meeting to ensure safety upon discharge and answer any questions/concerns. Social work also to arrange for patients follow up appointments with [facility] for psychiatric care along with follow up with primary care provider. -Patient counseled on abstaining from recreational drugs and marijuana and alcohol. Was informed/educated on the adverse effects on their physical and mental health. Patient verbally agreed and understood. Patient was offered substance abuse treatment however declined at this time. -Patient was instructed to return to the hospital or seek immediate medical care if their psychiatric or medical symptoms do worsen or reoccur. Allergies Allergy/AdvReac Type Severity Reaction Status Date / Time adhesive tape Allergy Rash/Hives Verified 11/29/19 01:42 shellfish derived [Shrimp] Allergy Anaphylaxis Verified 11/29/19 01:42 soap Allergy Rash/Hives Verified 11/29/19 01:42 nicotine patch Allergy Rash/Hives Uncoded 09/27/19 11:04 Laboratory Results WBC 13.9 k/uL (3.8-10.6) H 11/29/19 10:48 RBC 5.03 m/uL (3.80-5.40) 11/29/19 10:48 Hgb 13.9 gm/dL (11.4-16.0) D 11/29/19 10:48 Hct 42.3 % (34.0-46.0) 11/29/19 10:48 MCV 84.0 fL (80.0-100.0) D 11/29/19 10:48 MCH 27.7 pg (25.0-35.0) 11/29/19 10:48 MCHC 32.9 g/dL (31.0-37.0) 11/29/19 10:48 RDW 15.0 % (11.5-15.5) 11/29/19 10:48 Plt Count 438 k/uL (150-450) 11/29/19 10:48 Neutrophils % 64 % 11/29/19 10:48 Lymphocytes % 27 % 11/29/19 10:48 Monocytes % 5 % 11/29/19 10:48 Eosinophils % 1 % 11/29/19 10:48 Basophils % 1 % 11/29/19 10:48 Neutrophils # 8.9 k/uL (1.3-7.7) H 11/29/19 10:48 Lymphocytes # 3.8 k/uL (1.0-4.8) 11/29/19 10:48 Monocytes # 0.8 k/uL (0-1.0) 11/29/19 10:48 Eosinophils # 0.1 k/uL (0-0.7) 11/29/19 10:48 Basophils # 0.1 k/uL (0-0.2) 11/29/19 10:48 Sodium 139 mmol/L (137-145) 11/29/19 10:48 Potassium 3.8 mmol/L (3.5-5.1) 11/29/19 10:48 Chloride 104 mmol/L (98-107) 11/29/19 10:48 Carbon Dioxide 21 mmol/L (22-30) L 11/29/19 10:48 Anion Gap 14 mmol/L 11/29/19 10:48 BUN 18 mg/dL (7-17) H 11/29/19 10:48 Creatinine 1.19 mg/dL (0.52-1.04) H 11/29/19 10:48 Est GFR (CKD-EPI)AfAm 75 (>60 ml/min/1.73 sqM) 11/29/19 10:48 Est GFR (CKD-EPI)NonAf 65 (>60 ml/min/1.73 sqM) 11/29/19 10:48 Glucose 105 mg/dL (74-99) H 11/29/19 10:[address] Glu mg/dL 97 11/29/19 10:48 Hemoglobin A1c 5.0 % (4.0-6.0) 11/29/19 10:48 Calcium 10.5 mg/dL (8.4-10.2) H 11/29/19 10:48 Total Bilirubin 1.2 mg/dL (0.2-1.3) 11/29/19 10:48 Conjugated Bilirubin 0.0 mg/dL (0.0-0.3) 11/29/19 10:48 Unconjugated Bilirubin 1.2 mg/dL (0.0-1.1) H 11/29/19 10:48 Delta Bilirubin 0.0 mg/dL (0.0-0.2) 11/29/19 10:48 AST 51 U/L (14-36) H 11/29/19 10:48 ALT 41 U/L (4-34) H 11/29/19 10:48 Alkaline Phosphatase 92 U/L (38-126) 11/29/19 10:48 Total Protein 8.6 g/dL (6.3-8.2) H 11/29/19 10:48 Albumin 5.3 g/dL (3.5-5.0) H 11/29/19 10:48 Triglycerides 136 mg/dL (<150) 11/29/19 10:48 Cholesterol 161 mg/dL (<200) 11/29/19 10:48 LDL Cholesterol, Calc 78 mg/dL (0-99) 11/29/19 10:48 HDL Cholesterol 56 mg/dL (40-60) 11/29/19 10:48 TSH 0.931 mIU/L (0.465-4.680) 11/29/19 10:48 Urine Opiates Screen Not Detected (NotDetected) 11/29/19 01:57 Ur Oxycodone Screen Not Detected (NotDetected) 11/29/19 01:57 Urine Methadone Screen Not Detected (NotDetected) 11/29/19 01:57 Ur Propoxyphene Screen Not Detected (NotDetected) 11/29/19 01:57 Ur Barbiturates Screen Not Detected (NotDetected) 11/29/19 01:57 U Tricyclic Antidepress Not Detected (NotDetected) 11/29/19 01:57 Ur Phencyclidine Scrn Not Detected (NotDetected) 11/29/19 01:57 Ur Amphetamines Screen Detected (NotDetected) H 11/29/19 01:57 U Methamphetamines Scrn Detected (NotDetected) H 11/29/19 01:57 U Benzodiazepines Scrn Not Detected (NotDetected) 11/29/19 01:57 Urine Cocaine Screen Detected (NotDetected) H 11/29/19 01:57 U Marijuana (THC) Screen Detected (NotDetected) H 11/29/19 01:57 Vital Signs Temp 97.9 F 12/04/19 06:24 Pulse 94 12/04/19 06:24 Resp 15 12/04/19 06:24 BP 115/59 12/04/19 06:24 Pulse Ox 98 12/04/19 06:24 Patient Condition at Discharge: Stable Plan - Discharge Summary New Discharge Prescriptions: New lamoTRIgine [LaMICtal] 100 mg PO DAILY 30 Days tab Melatonin 3 mg PO HS 30 Days tablet Nicotine Polacrilex [Nicorette] 2 mg BUCCAL Q4HR PRN 14 Days gum PRN Reason: Nicotine Cravings Continue Albuterol Inhaler [Ventolin Hfa Inhaler] 2 puff INHALATION RT-Q6H PRN PRN Reason: Shortness Of Breath Acetaminophen [Tylenol Extra Strength] 500 mg PO DIRECTED Discontinued Escitalopram [Lexapro] 10 mg PO DAILY Ibuprofen [Motrin] 600 mg PO Q6HR PRN #30 tab PRN Reason: Mild Pain Or Fever >= 100.5 HYDROcodone/APAP 7.5-325MG [[place] 7.5-325] 1 each PO Q6H PRN #12 tab PRN Reason: Severe Pain Discharge Medication List Albuterol Inhaler [Ventolin Hfa Inhaler] 2 puff INHALATION RT-Q6H PRN 08/02/19 [History] Acetaminophen [Tylenol Extra Strength] 500 mg PO DIRECTED 09/10/19 [History] Melatonin 3 mg PO HS 30 Days tablet 12/04/19 [Rx] Nicotine Polacrilex [Nicorette] 2 mg BUCCAL Q4HR PRN 14 Days gum 12/04/19 [Rx] lamoTRIgine [LaMICtal] 100 mg PO DAILY 30 Days tab 12/04/19 [Rx] Follow up Appointment(s)/Referral(s): [facility] [Outside] - 12/07/19 2:00 pm (12-07-19 @ 2:00 with Hu Powell 12-14-19 @ 12:00 with AIMEE Weir) None,Stated [Primary Care Provider] - 1-2 days Activity/Diet/Wound Care/Special Instructions: Activity and diet as tolerated. Avoid the use of street drugs and alcohol. Take all medications as prescribed. When you are in need of refills on your medications please contact your medical provider and/or outpatient psychiatrist to have this done. Please go to scheduled outpatient appointment for aftercare treatment. If symptoms return or become worse, call the crisis line at and/or go to the nearest emergency room for evaluation. Discharge Disposition: HOME SELF-CARE
== END 2019-12-04 11:59 | disposition home or self-care (01) | DRG 885 ==
LOC: EC 01:33 → 3MHU 05:54
PROVIDERS: ADMIT Psychiatry & Neurology Psychiatry; ATTEND Psychiatry & Neurology Psychiatry
DX: F31.9 Bipolar disorder, unspecified (principal); F43.10 Post-traumatic stress disorder, unspecified; F60.9 Personality disorder, unspecified; J45.909 Unspecified asthma, uncomplicated; F12.10 Cannabis abuse, uncomplicated; F14.10 Cocaine abuse, uncomplicated; F15.10 Other stimulant abuse, uncomplicated; Z72.0 Tobacco use; S51.812A Laceration without foreign body of left forearm, initial encounter; X78.9XXA Intentional self-harm by unspecified sharp object, initial encounter; Z53.20 Procedure and treatment not carried out because of patient's decision for unspecified reasons; Z79.899 Other long term (current) drug therapy; Z87.59 Personal history of other complications of pregnancy, childbirth and the puerperium; Z91.14 Patient's other noncompliance with medication regimen; Z91.5 Personal history of self-harm; Z71.51 Drug abuse counseling and surveillance of drug abuser; F98.8 Other specified behavioral and emotional disorders with onset usually occurring in childhood and adolescence; Z91.013 Allergy to seafood
CPT/HCPCS: 80053; 80061; 80306; 82075; 82248; 83036; 84443; 85025; 99285

== ENCOUNTER 2020-01-01 15:15 | Inpatient (IN) | payer OTHER ==
[2020-01-01] MEDS ORDERED: SODIUM CHLORIDE 0.9% 1,000 ML IV STA (15:34)
--- NOTE | 2020-01-01 15:42 | ED ---
General Adult HPI - General Chief complaint: Overdose Stated complaint: Mental Health Time Seen by Provider: 01/01/20 15:22 Source: patient, police, EMS, RN notes reviewed, old records reviewed Limitations: no limitations - History of Present Illness Initial comments: 24-year-old female presenting with overdose. Patient admits to taking approximately 10-20 mg Lexapro 30 minutes prior to arrival. She states she did this to get attention. She states she wasn't trying to kill her self. She denies any other ingestion. She states she feels a little shaky but other than that has no complaints. No vomiting. Patient also admits to hitting herself in the right side of her face several days ago. - Related Data Home Medications Medication Instructions Recorded Confirmed Albuterol Inhaler (Bulk) [Ventolin 2 puff INHALATION RT-Q6H PRN 08/02/19 01/01/20 Hfa Inhaler (Bulk)] Escitalopram [Lexapro] 10 mg PO DAILY PRN 01/01/20 01/01/20 Escitalopram [Lexapro] 20 mg PO DIRECTED 01/01/20 01/01/20 Melatonin 3 mg PO HS PRN 01/01/20 01/01/20 medroxyPROGESTERone [Depo-Provera] 150 mg IM Q90D 01/01/20 01/01/20 Previous Rx's Medication Instructions Recorded lamoTRIgine [LaMICtal] 100 mg PO DAILY 30 Days tab 12/04/19 Allergies Allergy/AdvReac Type Severity Reaction Status Date / Time adhesive tape Allergy Rash/Hives Verified 01/01/20 17:11 shellfish derived [Shrimp] Allergy Anaphylaxis Verified 01/01/20 17:11 soap Allergy Rash/Hives Verified 01/01/20 17:11 nicotine patch Allergy Rash/Hives Uncoded 01/01/20 17:11 Review of Systems ROS Statement: Those systems with pertinent positive or pertinent negative responses have been documented in the HPI. ROS Other: All systems not noted in ROS Statement are negative. Past Medical History Past Medical History: Asthma Additional Past Medical History / Comment(s): Obstetric history: ONe vaginal delivery, One and one ectopic. History of Any Multi-Drug Resistant Organisms: None Reported Past Surgical History: Adenoidectomy, Section, Tonsillectomy Past Anesthesia/Blood Transfusion Reactions: No Reported Reaction Past Psychological History: ADD/ADHD, Anxiety, Bipolar, Depression, PTSD Smoking Status: Current every day smoker Past Alcohol Use History: None Reported Past Drug Use History: Marijuana - Past Family History Father Family Medical History: No Reported History Additional Family Medical History / Comment(s): Father is alive at age 40 with no major medical problems. Brother(s) Family Medical History: No Reported History Additional Family Medical History / Comment(s): Patient has 1 brother and 2 sisters with no major medical problems. Mother Family Medical History: No Reported History Additional Family Medical History / Comment(s): Mother is alive at age 40 with no major medical problems. General Exam Limitations: no limitations General appearance: alert, in no apparent distress Head exam: Present: atraumatic, normocephalic Eye exam: Present: normal appearance, PERRL, EOMI ENT exam: Present: normal exam, mucous membranes moist Neck exam: Present: normal inspection. Absent: tenderness, meningismus Respiratory exam: Present: normal lung sounds bilaterally. Absent: respiratory distress, wheezes Cardiovascular Exam: Present: regular rate, normal rhythm GI/Abdominal exam: Present: soft. Absent: distended, tenderness, guarding, rebound Extremities exam: Present: normal inspection, normal capillary refill Neurological exam: Present: alert, oriented X3, CN II-XII intact. Absent: motor sensory deficit Psychiatric exam: Present: depressed, flat affect, suicidal ideation Skin exam: Present: warm, dry, intact. Absent: cyanosis, diaphoretic Course Vital Signs 01/01/20 01/01/20 01/01/20 15:27 16:34 17:30 Temperature 98.3 F Pulse Rate 100 76 56 L Respiratory 18 18 18 Rate Blood Pressure 122/95 122/95 121/80 O2 Sat by Pulse 97 97 97 Oximetry 01/01/20 18:43 Temperature Pulse Rate 59 L Respiratory 18 Rate Blood Pressure 131/83 O2 Sat by Pulse 97 Oximetry - Reevaluation(s) Reevaluation #1: 01/01/20 0807 Case discussed with poison control, recommend usual workup, no additional treatment beyond IV fluids at this time. Monitor QT intervals. Reevaluation #2: 01/01/20 19:15 Patient control recommend 2 g of magnesium and repeat EKG. Patient will be admitted to psychiatric service after she is cleared medically. I did complete a clinical certification for this patient. EKG Findings - EKG Comments: EKG Findings:: EKG: Sinus bradycardia with incomplete right bundle, rate of 54 CT interval 144, QRS duration 106, QTC 434, no ST segment changes. Repeat EKG at 1728, normal sinus rhythm, incomplete right bundle, prolonged QT at 472, QTC 505, rate of 69, CT interval 164, QRS duration 110. Repeat EKG sinus bradycardia incomplete right bundle, biphasic T waves in V3, prolonged QT 526, QTC 498, QRS duration 106, CT interval 160, rate of 54. Medical Decision Making - Medical Decision Making 24-year-old presenting for suicide attempt overdose on Lexapro. Patient is observed in the emergency department for approximately 5 hours, serial EKGs are obtained at the recommendation of poison control. She continues to have a prolonged QT. She'll be given 2 g of magnesium and potassium replacement. She will be monitored on telemetry awaiting normalization of EKG. She is kept on suicide precautions. Psychiatry is placed on consult. Case is discussed with Dr. Aguirre who will admit. - Lab Data Result diagrams: 01/01/20 16:02 01/01/20 16:02 Lab Results 01/01/20 01/01/20 01/01/20 Range/Units 15:27 16:02 16:02 WBC 7.7 (3.8-10.6) k/uL RBC 5.09 (3.80-5.40) m/uL Hgb 14.4 (11.4-16.0) gm/dL Hct 42.7 (34.0-46.0) % MCV 83.9 (80.0-100.0) fL MCH 28.2 (25.0-35.0) pg MCHC 33.6 (31.0-37.0) g/dL RDW 15.7 H (11.5-15.5) % Plt Count 313 (150-450) k/uL Neutrophils % 68 % Lymphocytes % 22 % Monocytes % 4 % Eosinophils % 3 % Basophils % 0 % Neutrophils # 5.3 (1.3-7.7) k/uL Lymphocytes # 1.7 (1.0-4.8) k/uL Monocytes # 0.3 (0-1.0) k/uL Eosinophils # 0.3 (0-0.7) k/uL Basophils # 0.0 (0-0.2) k/uL PT 10.7 (9.0-12.0) sec INR 1.0 (<1.2) Sodium (137-145) mmol/L Potassium (3.5-5.1) mmol/L Chloride (98-107) mmol/L Carbon Dioxide (22-30) mmol/L Anion Gap mmol/L BUN (7-17) mg/dL Creatinine (0.52-1.04) mg/dL Est GFR (CKD-EPI)AfAm (>60 ml/min/1.73 sqM) Est GFR (CKD-EPI)NonAf (>60 ml/min/1.73 sqM) Glucose (74-99) mg/dL Plasma Lactic Acid Jarrett (0.7-2.0) mmol/L Calcium (8.4-10.2) mg/dL Phosphorus (2.5-4.5) mg/dL Magnesium (1.6-2.3) mg/dL Total Bilirubin (0.2-1.3) mg/dL AST (14-36) U/L ALT (4-34) U/L Alkaline Phosphatase (38-126) U/L Creatine Kinase (30-135) U/L Total Protein (6.3-8.2) g/dL Albumin (3.5-5.0) g/dL Urine Color Yellow Urine Appearance Clear (Clear) Urine pH 6.0 (5.0-8.0) Ur Specific [place] 1.027 (1.001-1.035) Urine Protein 2+ H (Negative) Urine Glucose (UA) Negative (Negative) Urine Ketones Trace H (Negative) Urine Blood Negative (Negative) Urine Nitrite Negative (Negative) Urine Bilirubin Negative (Negative) Urine Urobilinogen <2.0 (<2.0) mg/dL Ur Leukocyte Esterase Trace H (Negative) Urine RBC 1 (0-5) /hpf Urine WBC 6 H (0-5) /hpf Ur Squamous Epith Cells 2 (0-4) /hpf Hyaline Casts 9 H (0-2) /lpf Urine Mucus Many H (None) /hpf Urine HCG, Qual (Not Detectd) Salicylates mg/dL Urine Opiates Screen (NotDetected) Ur Oxycodone Screen (NotDetected) Urine Methadone Screen (NotDetected) Ur Propoxyphene Screen (NotDetected) Acetaminophen ug/mL Ur Barbiturates Screen (NotDetected) U Tricyclic Antidepress (NotDetected) Ur Phencyclidine Scrn (NotDetected) Ur Amphetamines Screen (NotDetected) U Methamphetamines Scrn (NotDetected) U Benzodiazepines Scrn (NotDetected) Urine Cocaine Screen (NotDetected) U Marijuana (THC) Screen (NotDetected) Serum Alcohol mg/dL 01/01/20 01/01/20 01/01/20 Range/Units 16:02 16:02 16:10 WBC (3.8-10.6) k/uL RBC (3.80-5.40) m/uL Hgb (11.4-16.0) gm/dL Hct (34.0-46.0) % MCV (80.0-100.0) fL MCH (25.0-35.0) pg MCHC (31.0-37.0) g/dL RDW (11.5-15.5) % Plt Count (150-450) k/uL Neutrophils % % Lymphocytes % % Monocytes % % Eosinophils % % Basophils % % Neutrophils # (1.3-7.7) k/uL Lymphocytes # (1.0-4.8) k/uL Monocytes # (0-1.0) k/uL Eosinophils # (0-0.7) k/uL Basophils # (0-0.2) k/uL PT (9.0-12.0) sec INR (<1.2) Sodium 136 L (137-145) mmol/L Potassium 3.4 L (3.5-5.1) mmol/L Chloride 107 (98-107) mmol/L Carbon Dioxide 23 (22-30) mmol/L Anion Gap 6 mmol/L BUN 18 H (7-17) mg/dL Creatinine 1.01 (0.52-1.04) mg/dL Est GFR (CKD-EPI)AfAm >90 (>60 ml/min/1.73 sqM) Est GFR (CKD-EPI)NonAf 79 (>60 ml/min/1.73 sqM) Glucose 93 (74-99) mg/dL Plasma Lactic Acid [place]rett 1.8 (0.7-2.0) mmol/L Calcium 10.2 (8.4-10.2) mg/dL Phosphorus 4.3 (2.5-4.5) mg/dL Magnesium 2.1 (1.6-2.3) mg/dL Total Bilirubin 1.4 H (0.2-1.3) mg/dL AST 30 (14-36) U/L ALT 22 (4-34) U/L Alkaline Phosphatase 66 (38-126) U/L Creatine Kinase 102 (30-135) U/L Total Protein 7.9 (6.3-8.2) g/dL Albumin 4.8 (3.5-5.0) g/dL Urine Color Urine Appearance (Clear) Urine pH (5.0-8.0) Ur Specific [place] (1.001-1.035) Urine Protein (Negative) Urine Glucose (UA) (Negative) Urine Ketones (Negative) Urine Blood (Negative) Urine Nitrite (Negative) Urine Bilirubin (Negative) Urine Urobilinogen (<2.0) mg/dL Ur Leukocyte Esterase (Negative) Urine RBC (0-5) /hpf Urine WBC (0-5) /hpf Ur Squamous Epith Cells (0-4) /hpf Hyaline Casts (0-2) /lpf Urine Mucus (None) /hpf Urine HCG, Qual Not Detected (Not Detectd) Salicylates <1.0 mg/dL Urine Opiates Screen (NotDetected) Ur Oxycodone Screen (NotDetected) Urine Methadone Screen (NotDetected) Ur Propoxyphene Screen (NotDetected) Acetaminophen <10.0 ug/mL Ur Barbiturates Screen (NotDetected) U Tricyclic Antidepress (NotDetected) Ur Phencyclidine Scrn (NotDetected) Ur Amphetamines Screen (NotDetected) U Methamphetamines Scrn (NotDetected) U Benzodiazepines Scrn (NotDetected) Urine Cocaine Screen (NotDetected) U Marijuana (THC) Screen (NotDetected) Serum Alcohol <10 mg/dL 01/01/20 Range/Units 16:10 WBC (3.8-10.6) k/uL RBC (3.80-5.40) m/uL Hgb (11.4-16.0) gm/dL Hct (34.0-46.0) % MCV (80.0-100.0) fL MCH (25.0-35.0) pg MCHC (31.0-37.0) g/dL RDW (11.5-15.5) % Plt Count (150-450) k/uL Neutrophils % % Lymphocytes % % Monocytes % % Eosinophils % % Basophils % % Neutrophils # (1.3-7.7) k/uL Lymphocytes # (1.0-4.8) k/uL Monocytes # (0-1.0) k/uL Eosinophils # (0-0.7) k/uL Basophils # (0-0.2) k/uL PT (9.0-12.0) sec INR (<1.2) Sodium (137-145) mmol/L Potassium (3.5-5.1) mmol/L Chloride (98-107) mmol/L Carbon Dioxide (22-30) mmol/L Anion Gap mmol/L BUN (7-17) mg/dL Creatinine (0.52-1.04) mg/dL Est GFR (CKD-EPI)AfAm (>60 ml/min/1.73 sqM) Est GFR (CKD-EPI)NonAf (>60 ml/min/1.73 sqM) Glucose (74-99) mg/dL Plasma Lactic Acid [place]rett (0.7-2.0) mmol/L Calcium (8.4-10.2) mg/dL Phosphorus (2.5-4.5) mg/dL Magnesium (1.6-2.3) mg/dL Total Bilirubin (0.2-1.3) mg/dL AST (14-36) U/L ALT (4-34) U/L Alkaline Phosphatase (38-126) U/L Creatine Kinase (30-135) U/L Total Protein (6.3-8.2) g/dL Albumin (3.5-5.0) g/dL Urine Color Urine Appearance (Clear) Urine pH (5.0-8.0) Ur Specific [place] (1.001-1.035) Urine Protein (Negative) Urine Glucose (UA) (Negative) Urine Ketones (Negative) Urine Blood (Negative) Urine Nitrite (Negative) Urine Bilirubin (Negative) Urine Urobilinogen (<2.0) mg/dL Ur Leukocyte Esterase (Negative) Urine RBC (0-5) /hpf Urine WBC (0-5) /hpf Ur Squamous Epith Cells (0-4) /hpf Hyaline Casts (0-2) /lpf Urine Mucus (None) /hpf Urine HCG, Qual (Not Detectd) Salicylates mg/dL Urine Opiates Screen Not Detected (NotDetected) Ur Oxycodone Screen Not Detected (NotDetected) Urine Methadone Screen Not Detected (NotDetected) Ur Propoxyphene Screen Not Detected (NotDetected) Acetaminophen ug/mL Ur Barbiturates Screen Not Detected (NotDetected) U Tricyclic Antidepress Not Detected (NotDetected) Ur Phencyclidine Scrn Not Detected (NotDetected) Ur Amphetamines Screen Not Detected (NotDetected) U Methamphetamines Scrn Not Detected (NotDetected) U Benzodiazepines Scrn Not Detected (NotDetected) Urine Cocaine Screen Not Detected (NotDetected) U Marijuana (THC) Screen Detected H (NotDetected) Serum Alcohol mg/dL Critical Care Time Critical Care Time: Yes Total Critical Care Time: 35 Disposition Clinical Impression: Drug overdose, Prolonged QT interval Disposition: ADMITTED IP TO THIS [facility] Condition: Stable Is patient prescribed a controlled substance at d/c from ED?: No Referrals: None,Stated [Primary Care Provider] - 1-2 days Decision to Admit Reason: Admit from EC Decision Date: 01/01/20 Decision Time: 20:17
[2020-01-01 16:03] LABS: Appearance,Urine Clear (Clear); Bilirubin,Urine Negative (Negative); Blood,Urine Negative (Negative); Color,Urine Yellow; Glucose,Urine (UA) Negative (Negative); Hyaline Casts,Urine 9 /lpf (0-2); Ketones,Urine Trace (Negative); Leukocyte Esterase,Urine Trace (Negative); Mucus,Urine Many /hpf; Nitrite,Urine Negative (Negative); Protein,Urine 2+ (Negative); RBC,Urine 1 /hpf (0-5); Specific Gravity,Urine 1.027 (1.001-1.035); Squamous Epithelial Cell,Urine 2 /hpf (0-4); Urobilinogen,Urine <2.0 mg/dL (<2.0); WBC,Urine 6 /hpf (0-5)
[2020-01-01 16:21] LABS: Basophils % (A) 0 %; Eosinophils # (A) 0.3 k/uL (0-0.7); Eosinophils % (A) 3 %; HCT 42.7 % (34.0-46.0); HGB 14.4 gm/dL (11.4-16.0); Lymphocytes # (A) 1.7 k/uL (1.0-4.8); Lymphocytes % (A) 22 %; MCH 28.2 pg (25.0-35.0); MCHC 33.6 g/dL (31.0-37.0); MCV 83.9 fL (80.0-100.0); Mean Platelet Volume 7.4; Monocytes # (A) 0.3 k/uL (0-1.0); Monocytes % (A) 4 %; Neutrophils # (A) 5.3 k/uL (1.3-7.7); Neutrophils % (A) 68 %; Platelet Count 313 k/uL (150-450); RBC 5.09 m/uL (3.80-5.40); RDW 15.7 % (11.5-15.5); WBC 7.7 k/uL (3.8-10.6)
[2020-01-01 16:24] LABS: ALT 22 U/L (4-34); AST 30 U/L (14-36); Acetaminophen <10.0 ug/mL; African American GFR (CKD) >90 (>60 ml/min/1.73 sqM); Albumin 4.8 g/dL (3.5-5.0); Alcohol <10 mg/dL; Alkaline Phosphatase 66 U/L (38-126); Anion Gap 6 mmol/L; Blood Urea Nitrogen 18 mg/dL (7-17); Calcium 10.2 mg/dL (8.4-10.2); Carbon Dioxide 23 mmol/L (22-30); Chloride 107 mmol/L (98-107); Creatine Kinase 102 U/L (30-135); Glucose 93 mg/dL (74-99); Magnesium 2.1 mg/dL (1.6-2.3); Non-African American GFR(CKD) 79 (>60 ml/min/1.73 sqM); Phosphorus 4.3 mg/dL (2.5-4.5); Potassium 3.4 mmol/L (3.5-5.1); Salicylate <1.0 mg/dL; Sodium 136 mmol/L (137-145); Total Bilirubin 1.4 mg/dL (0.2-1.3); Total Protein 7.9 g/dL (6.3-8.2)
[2020-01-01 16:25] LABS: Prothrombin Time 10.7 sec (9.0-12.0)
[2020-01-01 16:38] LABS: Amphetamine Screen,Urine Not Detected (NotDetected); Barbiturate Screen,Urine Not Detected (NotDetected); Benzodiazepines Screen,Urine Not Detected (NotDetected); Cocaine Screen,Urine Not Detected (NotDetected); Methadone Screen, Urine Not Detected (NotDetected); Opiate Screen,Urine Not Detected (NotDetected); Oxycodone Screen, Urine Not Detected (NotDetected); Phencyclidine Screen,Urine Not Detected (NotDetected); Tricyclic Antidepressant,Urine Not Detected (NotDetected); Urn Cannabinoid Scrn Detected (NotDetected)
[2020-01-01] MEDS ORDERED: POTASSIUM CHLORIDE ER 20 MEQ TAB.ER PO STA (16:40)
[2020-01-01] MEDS ORDERED: SODIUM CHLORIDE 0.9% 500 ML 500 ML IV ONE (17:38)
[2020-01-01] MEDS: MAGNESIUM SULFATE-D5W PMX 1 GM in DEXTROSE/WATER 1 100ML.BAG IVPB SCH ×2 (17:51→18:43)
[2020-01-01] MEDS ORDERED: NALOXONE 0.4 MG/ML 1 ML VIAL IV PRN (20:12)
[2020-01-01] MEDS ORDERED: ACETAMINOPHEN TAB 325 MG TAB PO PRN (20:12)
[2020-01-01] MEDS: 0.9% NACL WITH KCL 20 MEQ/L 1,000 ML IV SCH (23:05)
[2020-01-02 07:26] LABS: African American GFR (CKD) >90 (>60 ml/min/1.73 sqM); Anion Gap 7 mmol/L; Blood Urea Nitrogen 9 mg/dL (7-17); Calcium 8.6 mg/dL (8.4-10.2); Carbon Dioxide 20 mmol/L (22-30); Chloride 112 mmol/L (98-107); Glucose 83 mg/dL (74-99); Non-African American GFR(CKD) >90 (>60 ml/min/1.73 sqM); Sodium 139 mmol/L (137-145)
[2020-01-02 07:51] LABS: Basophils % (A) 1 %; Eosinophils # (A) 0.2 k/uL (0-0.7); Eosinophils % (A) 2 %; HCT 38.4 % (34.0-46.0); HGB 12.6 gm/dL (11.4-16.0); Lymphocytes # (A) 2.1 k/uL (1.0-4.8); Lymphocytes % (A) 26 %; MCH 27.8 pg (25.0-35.0); MCHC 32.9 g/dL (31.0-37.0); MCV 84.7 fL (80.0-100.0); Mean Platelet Volume 7.8; Monocytes # (A) 0.3 k/uL (0-1.0); Monocytes % (A) 4 %; Neutrophils # (A) 5.5 k/uL (1.3-7.7); Neutrophils % (A) 67 %; Platelet Count 265 k/uL (150-450); RBC 4.54 m/uL (3.80-5.40); RDW 15.5 % (11.5-15.5); WBC 8.3 k/uL (3.8-10.6)
[2020-01-02] MEDS ORDERED: LORazepam 2 MG/ML INJ IV PRN (08:03)
--- NOTE | 2020-01-02 13:54 | P.CN ---
Psychiatric Consult - . Consult date: 01/02/20 Consult:: 01/02/20 11:27 IDENTIFYING DATA: Patient is a 24-year-old female who is currently lives with her and 3 kids and collects SSI. HPI: Patient presented to the hospital yesterday and as per ER report claimed that patient talks 10 tablets of her 20 mg dose of Lexapro 30 minutes prior to arrival in an overdose attempt. ER report states the patient was "trying to get attention" and was shaking. Patient was recently discharged from the mental health unit on 11/2019. Patient was found to have prolonged QT interval on EKG and UDS is positive for marijuana. Psychiatry is consulted for Lexapro overdose. Patient was seen at the bedside and appeared to have poor hygiene and grooming. She states that she has been feeling depressed and since being discharged from the hospital she claims that she started using meth again 2 days afterwards and claims that she was withdrawing from it at home and was getting irritable and was in an argument with her mother. She states that she is feeling overwhelmed and that "no one was listening to me". She claims that she didn't overdose yesterday. She denied as a suicide attempt however claims that "I wish people would listen to me". She claims that she had stopped taking her psychiatric meds several weeks ago and claims that she has recently been sleeping "a lot". She claims that her mood is "up and down". Patient denies any suicidal or homicidal ideations intent or plan. At this time patient denies any auditory or visual hallucinations. Patient denies any flight of ideas racing thoughts and increased in goal directed behavior. Patient admits to using cigarettes along with marijuana 2 g per day, and states that she relapsed on methamphetamine several weeks ago. PAST PSYCHIATRIC HISTORY: Patient states that she has a history of depression and anxiety and as per EMR patient has a history of PTSD and cluster B personality traits. Patient claims that she follows up with [facility] and has a counselor there. She endorsed having multiple suicide attempts in the past. She was previously on Lexapro and Lamictal for depression. Her last mental health admission was in November 2019. PMH: Asthma and a previous ectopic . ALLERGIES: as per EMR CHEMICAL DEPENDENCY HISTORY: as per HPI FAMILY PSYCHIATRIC/SUBSTANCE USE HISTORY: States that "half my family has mental health problems". She also claims that her aunt committed suicide. SOCIAL HISTORY: Patient was born and raised in [facility] and states that she completed up to the ninth grade in school. She currently has 3 kids is and lives with her mother and . She claims that she is unemployed and currently collects Social Security.. MENTAL STATUS EXAM: General Appearance: Patient appears to be older than stated age is alert, guarded. Patient appears to have poor hygiene and grooming. Behavior: Patient is laying in bed and is irritable at times. Speech: Patient's speech is fluent and nonpressured. Soft tone. Mood/Affect: Patient reports their mood is "up and down, affect is congruent Suicidality/Homicidality: Patient denies having any homicidal ideation intent or plan. Denies any suicidal ideations intent or plan Perceptions: Patient denies any visual hallucinations and denies any auditory hallucinations Though content/process: There is no evidence of any delusional thought content and thought process is linear and goal-directed. Minimizes her symptoms and is guarded/evasive. Memory and concentration: AOX3, grossly intact for the purposes of this session. Can spell "WORLD" backwards Judgment and insight: poor/impulsive. IMPRESSIONS: Mood disorder unspecified, rule out bipolar disorder Anxiety disorder unspecified Borderline personality disorder. History of PTSD Cannabis use disorder Methamphetamine/stimulant use disorder Nicotine dependence PLAN: -At this time patient DOES meet criteria for inpatient psychiatric admission. -Would recommend the following medication changes/additions: We'll hold off on psychiatric medications until patient is admitted to the mental health unit. -Continue 1:1 sitter for safety -Cannot leave AMA at this time. Patient is currently on deferral for inpatient psychiatric treatment and will need to do a demand for hearing -When medically stable and patient has a repeat ECG which shows improvement in QT prolongation and stable vital signs, patient is eligible for transfer to a psych bed when available. -Psychiatry will sign off at this point, please contact with any questions. 01/02/20 13:47
--- NOTE | 2020-01-02 14:18 | P.CRDCN ---
History of Present Illness Consult date: 01/02/20 Reason for Consult (text): QT prolongation Chief complaint: Overdose History of present illness: This is a pleasant 24-year-old female with history of bipolar disorder, prior suicide attempts, nicotine dependence, no EtOH use, history of methamphetamine use in the past, states that recently she has also used. She was in an argument with her mother, and apparently took several Lexapro tablets, at least 10 of them, she states that she did this to get attention and to be heard. Her intention was not to commit suicide. Her EKG showed a prolonged QT interval this reason a cardiology consultation was requested. Blood pressure 135/80 with a heart rate in the high 40s to low 50s. EKG shows a sinus justa cardia with a QTC of 499. White blood cell count 8.3, hemoglobin 12.6, platelet count 265. Sodium 1:30, potassium 4.0, BUN 9, creatinine 0.6. Drug screen was positive for marijuana. At the time of my examination this morning, the patient was quite sleepy, very fidgety and rolling around in bed. She denied any chest discomfort, no dizziness or lightheadedness, no palpitations. Past Medical History Past Medical History: Asthma Additional Past Medical History / Comment(s): Obstetric history: ONe vaginal delivery, two and one ectopic. History of Any Multi-Drug Resistant Organisms: None Reported Past Surgical History: Adenoidectomy, Section, Tonsillectomy Past Anesthesia/Blood Transfusion Reactions: No Reported Reaction Past Psychological History: ADD/ADHD, Anxiety, Bipolar, Depression, PTSD Additional Psychological History / Comment(s): Treated prior to with Medication Smoking Status: Current every day smoker Past Alcohol Use History: None Reported Additional Past Alcohol Use History / Comment(s): Patient is a smoker one pack per day for 4 years. S She denies any alcohol abuse. She is single and lives at home with her parents. She has a 5-month-old son. Patient states she did smoke Marijauna regularly prior to finding out she was , states once she found out she was she stopped smoking. Past Drug Use History: Marijuana Additional Drug Use History / Comment(s): patient states she last used marijuana yesterday ,and is coming off of meth which she last used today - Past Family History Father Family Medical History: No Reported History Additional Family Medical History / Comment(s): Father is alive at age 40 with no major medical problems. Brother(s) Family Medical History: No Reported History Additional Family Medical History / Comment(s): Patient has 1 brother and 2 s isters with no major medical problems. Mother Family Medical History: No Reported History Additional Family Medical History / Comment(s): Mother is alive at age 40 with no major medical problems. Medications and Allergies Home Medications Medication Instructions Recorded Confirmed Type Albuterol Inhaler (Bulk) [Ventolin 2 puff INHALATION RT-Q6H PRN 08/02/19 01/01/20 History Hfa Inhaler (Bulk)] lamoTRIgine [LaMICtal] 100 mg PO DAILY 30 Days tab 12/04/19 01/01/20 Rx Escitalopram [Lexapro] 10 mg PO DAILY PRN 01/01/20 01/01/20 History Escitalopram [Lexapro] 20 mg PO DIRECTED 01/01/20 01/01/20 History Melatonin 3 mg PO HS PRN 01/01/20 01/01/20 History medroxyPROGESTERone [Depo-Provera] 150 mg IM Q90D 01/01/20 01/01/20 History Allergies Allergy/AdvReac Type Severity Reaction Status Date / Time adhesive tape Allergy Rash/Hives Verified 01/01/20 17:11 shellfish derived [Shrimp] Allergy Anaphylaxis Verified 01/01/20 17:11 soap Allergy Rash/Hives Verified 01/01/20 17:11 nicotine patch Allergy Rash/Hives Uncoded 01/01/20 17:11 Physical Exam Vitals: Vital Signs Temp Pulse Pulse Resp BP BP Pulse Ox 01/02/20 11:50 98.2 F 49 L 18 135/84 96 01/02/20 09:20 98.1 F 70 16 146/88 96 01/02/20 04:00 98.1 F 56 L 12 134/60 97 01/01/20 23:52 97.4 F L 61 12 143/83 100 01/01/20 21:25 97.6 F 66 12 121/75 97 01/01/20 21:03 61 18 132/74 98 01/01/20 18:43 59 L 18 131/83 97 01/01/20 17:30 56 L 18 121/80 97 01/01/20 16:34 98.3 F 76 18 122/95 97 01/01/20 15:27 100 18 122/95 97 Intake and Output 01/01/20 01/02/20 01/02/20 22:59 06:59 14:59 Intake Total 180 Balance 180 Intake: Oral 180 Other: # Voids 1 2 Weight 49.895 kg PHYSICAL EXAMINATION: GENERAL: 24-year-old female in no acute distress at the time of my examination HEENT: Head is atraumatic, normocephalic. Pupils equal, round. Sclera anicteric. Conjunctiva are clear. Mucous membranes of the mouth are moist. Patient does have bruising noted on the jaw, on the right side of the face. Neck is supple. There is no elevated jugular venous pressure.No carotid bruit is heard. HEART EXAMINATION: Heart S1, S2 normal. No murmur or gallop heard. CHEST EXAMINATION: Lungs are clear to auscultation and precussion. No chest wall tenderness is noted on palpation or with deep breathing. ABDOMEN: Soft, nontender. Bowel sounds are heard. No organomegaly noted. EXTREMITIES: 2+ peripheral pulses with no evidence of peripheral edema and no calf tenderness noted. NEUROLOGIC [patient is awake, alert and oriented 3 . Results 01/02/20 06:38 01/02/20 06:38 Cardiac Enzymes 01/01/20 Range/Units 16:02 AST 30 (14-36) U/L Coagulation 01/01/20 Range/Units 16:02 PT 10.7 (9.0-12.0) sec CBC 01/01/20 01/02/20 Range/Units 16:02 06:38 WBC 7.7 8.3 (3.8-10.6) k/uL RBC 5.09 4.54 (3.80-5.40) m/uL Hgb 14.4 12.6 (11.4-16.0) gm/dL Hct 42.7 38.4 (34.0-46.0) % Plt Count 313 265 (150-450) k/uL Comprehensive Metabolic Panel 01/01/20 01/02/20 Range/Units 16:02 06:38 Sodium 136 L 139 (137-145) mmol/L Potassium 3.4 L 4.0 (3.5-5.1) mmol/L Chloride 107 112 H (98-107) mmol/L Carbon Dioxide 23 20 L (22-30) mmol/L BUN 18 H 9 (7-17) mg/dL Creatinine 1.01 0.66 (0.52-1.04) mg/dL Glucose 93 83 (74-99) mg/dL Calcium 10.2 8.6 (8.4-10.2) mg/dL AST 30 (14-36) U/L ALT 22 (4-34) U/L Alkaline Phosphatase 66 (38-126) U/L Total Protein 7.9 (6.3-8.2) g/dL Albumin 4.8 (3.5-5.0) g/dL Current Medications Generic Name Dose Route Start Last Admin Trade Name Freq PRN Reason Stop Dose Admin Acetaminophen 650 mg 01/01/20 20:12 Tylenol Tab PO Q6HR PRN Mild Pain or Fever > 100.5 Potassium Chloride/Sodium Chloride 1,000 mls @ 50 mls/hr 01/01/20 20:15 01/01/20 23:05 Ns-Kcl 20 Meq/L Iv Solution IV 50 mls/hr .Q20H GRETCHEN Administration Lorazepam 1 mg 01/02/20 08:03 Ativan IV Q4HR PRN Anxiety Naloxone HCl 0.2 mg 01/01/20 20:12 Narcan IV Q2M PRN Opioid Reversal Intake and Output 01/01/20 01/02/20 01/02/20 22:59 06:59 14:59 Intake Total 180 Balance 180 Intake: Oral 180 Other: # Voids 1 2 Weight 49.895 kg 01/02/20 06:38 01/02/20 06:38 EKG Interpretations (text) EKG shows a sinus bradycardia with a QTc measurement of 499 Assessment and Plan Plan: Assessment and plan #1 drug overdose with Lexapro #2 nicotine dependence #3 QT prolongation, likely secondary to Lexapro overdose #4 recent Meth use #5 history of bipolar #6 history of prior suicide attempt Plan We will continue to monitor the patient's QT. Obtain an echocardiogram with Doppler study as well as a TSH level. DNP note has been reviewed, I agree with a documented findings and plan of care. Patient was seen and examined.
--- NOTE | 2020-01-02 16:05 | ECHOF ---
Referral Reason:qt prolongation MEASUREMENTS -------- HEIGHT: 152.4 cm WEIGHT: 49.9 kg BP: 134/60 RVIDd: 2.6 cm (< 3.3) IVSd: 0.8 cm (0.6 - 1.1) LVIDd: 4.1 cm (3.9 - 5.3) LVPWd: 1.0 cm (0.6 - 1.1) IVSs: 1.2 cm LVIDs: 2.5 cm LVPWs: 1.4 cm LAESV Index (A-L): 17.76 ml/m Ao Diam: 3.5 cm (2.0 - 3.7) AV Cusp: 2.6 cm (1.5 - 2.6) MV EXCURSION: 22.668 mm (> 18.000) MV EF SLOPE: 97 mm/s (70 - 150) EPSS: 0.2 cm MV E Sukhdeep: 0.86 m/s MV DecT: 205 ms MV A Sukhdeep: 0.33 m/s MV E/A Ratio: 2.62 RAP: 5.00 mmHg RVSP: 21.70 mmHg FINDINGS -------- Sinus rhythm. This was a technically adequate study. LV size, wall thickness and systolic function are normal, with an EF greater than 55%. The left judy tricular size is normal. The diastolic filling pattern is normal for the age of the patient 7.42. The right ventricle is normal in size. Normal LA size by volume 22+/-6 ml/m2. The right atrial size is normal. Interatrial and interventricular septum intact. The aortic valve is trileaflet, and appears structurally normal. No aortic stenosis or regurgitation. The mitral valve is normal. There is trace mitral regurgitation. Mild tricuspid regurgitation present. There is no evidence of pulmonary hypertension. The right v entricular systolic pressure, as measured by Doppler, is 21.70mmHg. There is no pulmonic regurgitation present. The aortic root size is normal. Normal inferior vena cava with normal inspiratory collapse consistent with estimated right atrial pre ssure of 5 mmHg. There is no pericardial effusion. CONCLUSIONS -------- 1. LV size, wall thickness and systolic function are normal, with an EF greater than 55%. 2. The diastolic filling pattern is normal for the age of the patient 7.42 3. Normal LA size by volume 22+/-6 ml/m2. 4. The aortic valve is trileaflet, and appears structurally normal. No aortic stenosis or regurgitati on. 5. There is trace mitral regurgitation. 6. Mild tricuspid regurgitation present. APPLICATIONS SUPPORT ENGINEER: Chey Meza RDCS
--- NOTE | 2020-01-02 16:11 | HP ---
HISTORY AND PHYSICAL This patient is a 24-year-old white female. She apparently is with 3 kidneys, collects SSI. Kids are 4, 2 and a 4-month-old. Apparently she says nobody will listen to her for her depression, so she took Lexapro 20 mg. She took about 10 of them in an overdose attempt trying to get attention. She says she was doing methamphetamine as of 3 days ago. She apparently got out of the mental health unit in November of 2019, found to have a prolonged QT on an EKG, positive for marijuana. She was watched on the monitor overnight. We are waiting for Psych and Cardiology to clear her to go to the psych unit. PAST PSYCH HISTORY: History of depression, anxiety, polysubstance abuse, PTSD, cluster B personality traits, [facility] counselors, multiple suicide attempts in the past. Previously on Lexapro and Lamictal for depression. ALLERGIES: NEGATIVE. PAST MEDICAL HISTORY: Asthma, possible ectopic . PHYSICAL EXAMINATION: She is thin. She has some bruising on the right side of her face. She has a ninth- grade education, 3 kids. Lives with her mom and her . Unemployed. Collects social security. She is thin, cachectic. She is very irritable, moving around in the bed, very anxious, unable to sit still. PSYCH: She denies any visual or auditory hallucinations. She does give appropriate answers, but she is guarded. CARDIOVASCULAR: S1, S2. LUNGS: Clear. GI: Soft. ASSESSMENT: Mood disorder. I am sure she has probably got bipolar disorder with severe anxiety, possibly some PTSD. She has never been really treated for her bipolar disorder. I discussed with her getting off methamphetamine, stimulant use disorder, and she will have to get off that methamphetamine, take care of her kids and protect her kidneys. She has a history of nicotine dependence, also, and marijuana use. She needs psychiatric counseling and possibly inpatient psych admission after being cleared by Cardiology for QRS interval abnormality from the Lexapro overdose. MMODL / IJN: [id number] /
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
[2020-01-02] MEDS: 0.9% NACL WITH KCL 20 MEQ/L 1,000 ML IV SCH (16:23)
[2020-01-02 16:43] LABS: T4, Free (Free Thyroxine) 1.29 ng/dL (0.78-2.19)
[2020-01-03 06:40] LABS: ALT 20 U/L (4-34); AST 20 U/L (14-36); African American GFR (CKD) >90 (>60 ml/min/1.73 sqM); Albumin 3.8 g/dL (3.5-5.0); Alkaline Phosphatase 48 U/L (38-126); Anion Gap 7 mmol/L; Blood Urea Nitrogen 7 mg/dL (7-17); Calcium 9.2 mg/dL (8.4-10.2); Carbon Dioxide 23 mmol/L (22-30); Chloride 108 mmol/L (98-107); Glucose 94 mg/dL (74-99); Magnesium 1.7 mg/dL (1.6-2.3); Non-African American GFR(CKD) >90 (>60 ml/min/1.73 sqM); Phosphorus 3.6 mg/dL (2.5-4.5); Sodium 138 mmol/L (137-145); Total Bilirubin 0.6 mg/dL (0.2-1.3); Total Protein 6.6 g/dL (6.3-8.2)
--- NOTE | 2020-01-03 10:46 | P.PN ---
Subjective This is a pleasant 24-year-old female with history of bipolar disorder, prior suicide attempts, nicotine dependence, no EtOH use, history of methamphetamine use in the past, states that recently she has also used. She was in an argument with her mother, and apparently took several Lexapro tablets, at least 10 of them, she states that she did this to get attention and to be heard. Her intention was not to commit suicide. Her EKG showed a prolonged QT interval this reason a cardiology consultation was requested. Blood pressure 135/80 with a heart rate in the high 40s to low 50s. EKG shows a sinus bradycardia with a QTC of 499. White blood cell count 8.3, hemoglobin 12.6, platelet count 265. Sodium 1:30, potassium 4.0, BUN 9, creatinine 0.6. Drug screen was positive for marijuana. At the time of my examination this morning, the patient was quite sleepy, very fidgety and rolling around in bed. She denied any chest discomfort, no dizziness or lightheadedness, no palpitations. 01/03/2020 Patient seen and examined this morning, appears to be somewhat more awake today. We performed an EKG this morning which showed a sinus bradycardia, QTc less than 450. Echocardiogram with Doppler study was performed which revealed a normal left ventricular systolic function. Objective - Vital Signs Vital signs: Vital Signs Temp 98.4 F 01/03/20 08:15 Pulse 53 L 01/03/20 08:15 Resp 16 01/03/20 08:15 BP 125/85 01/03/20 08:15 Pulse Ox 96 01/03/20 08:17 Intake & Output 01/02/20 01/03/20 01/03/20 18:59 06:59 18:59 Intake Total 780 236 Balance 780 236 Weight 45.3 kg Intake: Oral 780 236 Other: # Voids 2 1 - Exam PHYSICAL EXAMINATION: GENERAL: 24-year-old female in no acute distress at the time of my examination HEENT: Head is atraumatic, normocephalic. Pupils equal, round. Sclera anicteric. Conjunctiva are clear. Mucous membranes of the mouth are moist. Neck is supple. There is no elevated jugular venous pressure. No carotid bruit is heard. HEART EXAMINATION: Heart S1, S2 normal. No murmur or gallop heard. CHEST EXAMINATION: Lungs are clear to auscultation and precussion. No chest wall tenderness is noted on palpation or with deep breathing. ABDOMEN: Soft, nontender. Bowel sounds are heard. No organomegaly noted. EXTREMITIES: 2+ peripheral pulses with no evidence of peripheral edema and no calf tenderness noted. NEUROLOGIC patient is awake, alert and oriented 3 . - Labs CBC & Chem 7: 01/02/20 06:38 01/03/20 05:36 Labs: Abnormal Lab Results - Last 24 Hours (Table) 01/02/20 01/03/20 Range/Units 06:38 05:36 Chloride 108 H (98-107) mmol/L TSH 0.198 L (0.465-4.680) mIU/L Assessment and Plan Plan: Assessment and plan #1 drug overdose with Lexapro #2 nicotine dependence #3 QT prolongation, likely secondary to Lexapro overdose #4 recent Meth use #5 history of bipolar #6 history of prior suicide attempt Plan From cardiology's perspective, we will follow this patient along with you now on an as-needed basis only, please don't hesitate to call us with any questions. She may be transferred to the psych unit from our standpoint. DNP note has been reviewed, I agree with a documented findings and plan of care. Patient was seen and examined.
[2020-01-03 11:58] VITALS: RESP 18
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
[2020-01-03 17:55] VITALS: BP 114/65; PULSE 57; TEMP 98.5
== END 2020-01-03 19:32 | disposition home or self-care (01) | DRG 918 ==
LOC: EC 15:15 → 3SCARD 20:14 → OBSVTOIN 01-03 09:19
PROVIDERS: ADMIT Family Medicine; ATTEND Family Medicine
DX: T43.222A Poisoning by selective serotonin reuptake inhibitors, intentional self-harm, initial encounter (principal); E44.0 Moderate protein-calorie malnutrition; Z68.1 Body mass index [BMI] 19.9 or less, adult; F15.93 Other stimulant use, unspecified with withdrawal; F17.200 Nicotine dependence, unspecified, uncomplicated; F31.9 Bipolar disorder, unspecified; F43.10 Post-traumatic stress disorder, unspecified; F90.9 Attention-deficit hyperactivity disorder, unspecified type; R94.31 Abnormal electrocardiogram [ECG] [EKG]; R00.1 Bradycardia, unspecified; J45.909 Unspecified asthma, uncomplicated; Z79.899 Other long term (current) drug therapy; Z91.5 Personal history of self-harm; Z88.5 Allergy status to narcotic agent; Z91.013 Allergy to seafood; Z91.09 Other allergy status, other than to drugs and biological substances; Z98.891 History of uterine scar from previous surgery; Z90.89 Acquired absence of other organs
CPT/HCPCS: 36415; 80048; 80053; 80306; 80320; 80329; 81001; 81025; 82075; 82550; 83520; 83605; 83735; 84100; 84439; 84443; 85025; 85610; 93005; 93306; 94760; 96361; 96365; 96366; 99291

== ENCOUNTER 2020-01-03 19:21 | Inpatient (IN) | payer MEDICAID ==
[2020-01-03] MEDS ORDERED: LORazepam 1 MG TAB PO PRN (19:51)
[2020-01-03] MEDS ORDERED: ACETAMINOPHEN TAB 325 MG TAB PO PRN (19:51)
[2020-01-03] MEDS ORDERED: MAGNESIUM HYDROXIDE 2,400 MG/10 ML CUP PO PRN (19:51)
[2020-01-03] MEDS ORDERED: ZIPRASIDONE 20 MG VIAL IM PRN (19:51)
[2020-01-03] MEDS ORDERED: MAG HYDROX/AL HYDROX/SIMETH 30 ML CUP PO PRN (19:51)
[2020-01-03] MEDS ORDERED: NICOTINE POLACRILEX 2 MG GUM BUCCAL PRN (19:56)
--- NOTE | 2020-01-04 11:40 | P.HP ---
Psychiatric H&P - . H&P Date: 01/04/20 History & Physical: DATE OF SERVICE: 01/04/2020 IDENTIFYING DATA: Patient is a 24-year-old female who is currently lives with her and 3 kids and collects SSI. HPI: Patient presented to the hospital 2 days ago and as per ER report claimed that patient took 10 tablets of her 20 mg dose of Lexapro 30 minutes prior to arrival in an overdose attempt. ER report states the patient was "trying to get attention" and was shaking. Patient was recently discharged from the mental health unit on 11/2019. Patient was found to have prolonged QT interval on EKG and UDS is positive for marijuana. Psychiatry is consulted for Lexapro overdose. She states that she has been feeling depressed and since being discharged from the hospital she claims that she started using meth again 2 days afterwards and claims that she was withdrawing from it at home and was getting irritable and was in an argument with her mother. She states that she is feeling overwhelmed and that "no one was listening to me". She claims that she didn't overdose yesterday. She denied as a suicide attempt however claims that "I wish people would listen to me". She claims that she had stopped taking her psychiatric meds several weeks ago and claims that she has recently been sleeping "a lot". She claims that her mood is "up and down". Patient denies any suicidal or homicidal ideations intent or plan. Patient denies any flight of ideas racing thoughts and increased in goal directed behavior. Patient admits to using cigarettes along with marijuana 2 g per day, and states that she relapsed on methamphetamine several weeks ago. The patient complained of poor sleep at night. She also reports fluctuating appetite and reported weight loss of about 10 pounds or more in past one month. The patient has history of poor compliance with the medications and reported that she stopped taking her Lamictal that she was discharged on the last admission. The patient reports feeling tired and complained of wanting to sleep all the time. She reports lack of motivation and energy. The patient reports vague auditory hallucinations and reports that she has been hearing her own thoughts in her head. She denies any visual hallucinations at this time. She denies any paranoia's or suicidal or homicidal ideations at this time. PAST PSYCHIATRIC HISTORY: Patient states that she has a history of depression and anxiety and as per EMR patient has a history of PTSD and cluster B personality traits. Patient claims that she follows up with [facility] and has a counselor there. She endorsed having multiple suicide attempts in the past. She was previously on Lexapro and Lamictal for depression. Her last mental health admission was in November 2019. PMH: Asthma and a previous ectopic . ALLERGIES: as per EMR CHEMICAL DEPENDENCY HISTORY: as per HPI FAMILY PSYCHIATRIC/SUBSTANCE USE HISTORY: States that "half my family has mental health problems". She also claims that her aunt committed suicide. SOCIAL HISTORY: Patient was born and raised in [facility] and states that she completed up to the ninth grade in school. She currently has 3 kids is and lives with her mother and . She claims that she is unemployed and currently collects Social Security.. MENTAL STATUS EXAM: General Appearance: Patient appears to be older than stated age is alert, guarded. Patient appears to have poor hygiene and grooming. Behavior: Patient is sitting comfortably in the chair and shows no agitation at this time. Speech: Patient's speech is slow but fluent and nonpressured. Soft tone. Mood/Affect: Patient reports her mood is "up and down, affect is congruent Suicidality/Homicidality: Patient denies having any homicidal ideation intent or plan. Denies any suicidal ideations intent or plan Perceptions: Patient denies any visual hallucinations and reports vague auditory hallucinations. Though content/process: There is no evidence of any delusional thought content and thought process is linear and goal-directed. Minimizes her symptoms and is guarded/evasive. Memory and concentration: AOX3, grossly intact for the purposes of this session. Can spell "WORLD" backwards Judgment and insight: poor/impulsive. Allergies Allergy/AdvReac Type Severity Reaction Status Date / Time adhesive tape Allergy Rash/Hives Verified 01/03/20 19:57 shellfish derived [Shrimp] Allergy Anaphylaxis Verified 01/03/20 19:57 soap Allergy Rash/Hives Verified 01/03/20 19:57 nicotine patch Allergy Rash/Hives Uncoded 01/01/20 17:11 Vital Signs Temp 98.8 F 01/04/20 04:39 Pulse 72 01/04/20 04:39 Resp 14 01/04/20 04:39 BP 131/90 01/04/20 04:39 Pulse Ox 97 01/03/20 19:53 Intake & Output 01/03/20 01/04/20 01/04/20 18:59 06:59 18:59 Weight 44.543 kg 01/04/20 11:25 01/04/20 11:37 01/04/20 11:39 Assessment and Plan Assessment: IMPRESSIONS: Mood disorder unspecified, rule out bipolar disorder Anxiety disorder unspecified Borderline personality disorder. History of PTSD Cannabis use disorder Methamphetamine/stimulant use disorder Nicotine dependence Plan: PLAN: -At this time patient DOES meet criteria for inpatient psychiatric admission. -Would recommend the following medication changes/additions: Patient is admitted under involuntary status to [facility] for stabilization of psychiatric symptoms and safety. -Medications : Start Abilify 2 mg PO bid. Discussed Lamictal, pt is refusing. -Ativan and Geodon PRN for agitation/aggression -Counseled patient on the effects of recreational drugs on her physical and mental health. -Patient was informed of the risks, benefits and side effects of the medication and patient declined to sign medication consent form. -Internal Medicine consult to perform medical evaluation and physical. -NRT -Nicorette gum. -SW on board for discharge planning. Encourage patient to participate in groups to work on coping skills. We'll speak with social insurance adviser and team about patient's children at home and ensure that children are being taken care of.
[2020-01-04 16:22] LABS: Glucose,Whole Blood 71 mg/dL (75-99)
[2020-01-04] MEDS: ARIPiprazole 2 MG TAB PO SCH (21:09)
[2020-01-04] MEDS: MELATONIN 3 MG TABLET PO PRN (21:10)
[2020-01-05] MEDS: ARIPiprazole 2 MG TAB PO SCH (08:25)
[2020-01-05] MEDS: ARIPiprazole 5 MG TAB PO SCH ×2 (15:08→20:52)
--- NOTE | 2020-01-05 20:05 | PN ---
PROGRESS NOTE DATE OF SERVICE: 01/05/2020. CHIEF COMPLAINT: The patient had an admission to this facility in November. She said since then she has continued to feel depressed and overwhelmed. She relapsed to substance use. INTERVAL HISTORY: The patient has been doing fair. She had a quiet evening last night. She attended some groups but not others. In the 1530 group the following was documented, "the patient C/O weakness, soreness in chest and feeling shaky, "I have done nothing but sleep since I got here. The doctor said I was medically clear, but I do not feel any better." The patient comes out in the day area. She has been cooperative with care. She slept fairly well last night. Today she has been up. She continues to attend at least some of the groups. She acknowledges that substance use issues may be significant problems for her. She was able to discuss using marijuana and also relapsing over the past several weeks with methamphetamines. She reports that her mood has been down. She says she does feel motivated to get away from abusive substances and continue to work on mood issues. She has been followed up with Radhika at [facility]. She tolerates the start of Abilify. MENTAL STATUS: Patient gave fair eye contact. Psychomotor activity was a little restless. She answered questions appropriately. Her thoughts were clear and coherent. She did not say a lot. She was not too spontaneous or interactive. Her affect was a little constricted. Her mood was reserved, though not significantly down or depressed. She did not appear to be significantly distressed. There was no indication of thought disorder. Cognition was clear. ASSESSMENT: I will continue the current diagnosis and treatment plan. We will continue to engage the patient in individual and group therapeutic activities. I discussed substance use issues and withdrawal problems relating to her current drug use. I will increase Abilify to 5 mg twice a day. The aim of Abilify is to help reduce physiologic stress response relating to early acute withdrawal from marijuana and methamphetamines. I discussed time course of withdrawal. I discussed the indication for Abilify as well as potential side effects including metabolic concerns. We will focus on stabilization and discharge planning. MMKACYL / IJN: [id number] /
[2020-01-05] MEDS: MELATONIN 3 MG TABLET PO PRN (20:51)
--- NOTE | 2020-01-06 00:26 | CONS ---
CONSULTATION This is a 24-year-old white female, continue with current medical management. Having no chest pain or shortness of breath. No lightheadedness, syncope. MEDICATIONS: Geodon 20 IM b.i.d., Desyrel 50 mg q.h.s., Nicorette gum p.r.n., melatonin 3 mg q.h.s., Maalox, Abilify 5 mg b.i.d., Ativan 1 mg t.i.d. Condition stable. REVIEW OF SYSTEMS: Fourteen-point review of systems negative except for mentioned in HPI. PHYSICAL EXAMINATION: Vital signs stable. Afebrile. Cardiovascular S1, S2. LUNGS: Clear. GI soft. Hematology negative Homans. PSYCH fair mood and affect. PLAN: Continue current medical treatment. Follow up in the next 24-48 hours. Medications reviewed. Discharge home in the next 24-48 hours. MMODL / IJN: [id number] /
[2020-01-06] MEDS: ARIPiprazole 5 MG TAB PO SCH ×2 (09:44→20:49)
--- NOTE | 2020-01-06 16:24 | PN ---
PROGRESS NOTE DATE OF SERVICE: 01/06/2020. CHIEF COMPLAINT: The patient had an admission to this facility in November. She said since then she has continued to feel depressed and overwhelmed. She relapsed to substance abuse. INTERVAL HISTORY: Patient has been doing fair. She had a quiet evening last night. She comes out in the day area. She does not interact too much with others. She has attended some of the groups though not others. She has a few complaints today. She says that she feels she is making a little progress and understands that some of her issues relating to substance abuse are important for her to address especially when she is discharged. She reports no problems with her psychotropic medications. MENTAL STATUS: Patient gave fairly good eye contact. She was a little restless. She answered questions with brief responses. She did not say a lot. Her affect was somewhat blunted. Her mood was quiet though not clearly down or depressed. She showed some appropriate emotional response in a positive way. There was no indication of thought disorder. She voiced no thoughts of harm to self or others. Cognition was clear. ASSESSMENT: I will continue the current diagnosis and treatment plan. I will continue psychotropic medications the same. Patient appears to be making some progress. We will focus on stabilization and discharge planning. MMODL / IJN: [id number] /
[2020-01-06] MEDS: MELATONIN 3 MG TABLET PO PRN (20:49)
[2020-01-07] MEDS: traZODone HCL 50 MG TAB PO PRN ×2 (03:54→20:41)
[2020-01-07] MEDS: ARIPiprazole 5 MG TAB PO SCH ×2 (10:19→20:41)
--- NOTE | 2020-01-07 15:19 | P.PN ---
Subjective Progress Note Date: 01/07/20 Principal diagnosis: Methamphetamine use disorder severe, methamphetamine use mood disorder, cocaine use disorder moderate, marijuana use disorder moderate, borderline personality disorder, rule out bipolar disorder, tobacco use I reviewed the medical record, interviewed the patient and discuss her treatment and treatment plan during team meeting. She is a 24-year-old female admitted to the psychiatric unit with complaints of depression and suicidal ideation. This is her seventh admission to this unit. She was last discharged on 12/04/2019 with the diagnoses of bipolar disorder, personality disorder, cannabis abuse, methamphetamine abuse, cocaine use disorder and nicotine dependence. The patient alleged that she relapsed on methamphetamine after discharge from the unit. She became depressed, irritable and suicidal when she stopped using methamphetamine. She alleged that she experiences depression and suicidal ideation every time she "detoxes" off of methamphetamine. Since admission to the unit she reported an improvement in her mood. She denied that she is currently experiencing suicidal ideation or having wishes. She talked about her difficulties with methamphetamine and plans to avoid friends who are using methamphetamine. She declined a referral for substance abuse treatment. Objective - Vital Signs Vital signs: Vital Signs Temp 97.9 F 01/07/20 12:00 Pulse 75 01/07/20 06:09 Resp 18 01/07/20 06:09 BP 110/75 01/07/20 06:09 Pulse Ox 99 01/07/20 06:09 Intake & Output 01/06/20 01/07/20 01/07/20 18:59 06:59 18:59 Weight 46.4 kg - Exam She presented as a thin young female who was wrapped in a blanket. She made eye contact and appeared to attend to the interview. She had some orofacial dyskinetic movements but no prominent physical abnormalities. She had a blunted facial expression. She showed psychomotor retardation. Her speech was spontaneous with normal rate and rhythm. Her affect was blunted but stable and appropriate. She denied suicidal ideation, wishes or homicidal ideation. She denied experiencing hopelessness, helplessness or worthlessness. She did not express ideas reference, paranoid ideation or delusions. Her thinking was concrete but her associations were coherent and logical. She denied hallucinations and did not appear to be responding to internal stimuli. Assessment and Plan Assessment: She has a history of substance use disorder primarily methamphetamine and cocaine. She presented with depression and suicidal ideation in the context of methamphetamine and cocaine withdrawal. She is currently denying suicidal ideation. She is not interested currently in entering a substance abuse treatment program. Plan: Continue inpatient hospitalization. Continue safety precautions. Continue Abilify 5 mg twice a day, melatonin 3 mg at bedtime when necessary for sleep, trazodone 50 mg at bedtime for sleep and Ativan and/or Geodon for agitation or aggression. Continue discussions about substance abuse treatment programs. Encourage continued participation in therapeutic groups and activities. Evaluate clinical status response to treatment daily basis.
[2020-01-08] MEDS: ARIPiprazole 5 MG TAB PO SCH ×2 (09:04→21:00)
--- NOTE | 2020-01-08 13:34 | P.PN ---
Subjective Progress Note Date: 01/08/20 Principal diagnosis: Methamphetamine use disorder severe, methamphetamine use mood disorder, cocaine use disorder moderate, marijuana use disorder moderate, borderline personality disorder, rule out bipolar disorder, tobacco use I reviewed the medical record, interviewed the patient and discussed her treatment and treatment plan during team meeting. She perseverated about discharge and her upcoming probate hearing. She was admitted under a demand for hearing because she did not follow through with treatment. She is also distressed that she must speak with her CPS invasive cardiologist by Tuesday because she has an open case, relapse to methamphetamine and did not follow through with her mental health treatment. She is concerned that unless she speaks with the invasive cardiologist she may lose custody of her children. However, she denied feeling depressed or having thoughts of or suicide. She described her mood as "good" and she is hopeful that she would keep custody of her children. She again assured me that she will not relapse to methamphetamine and plans to follow-up with mental health treatment. We discussed her treatment and the option long-acting Abilify. She opted to begin Abilify Maintena prior to discharge. Objective - Vital Signs Vital signs: Vital Signs Temp 98.7 F 01/08/20 07:07 Pulse 62 01/08/20 07:07 Resp 14 01/08/20 07:07 BP 116/55 01/08/20 07:07 Pulse Ox 99 01/08/20 07:07 - Exam She presented as a thin young female who was casually dressed and neatly groomed. She made eye contact and appeared to attend to the interview. She did not show involuntary movements. She had a blunted but bright facial expression. She showed no abnormality of psychomotor activity. Her speech was spontaneous with normal rate and rhythm. Her affect was blunted but stable and appropriate. She denied suicidal ideation, wishes or homicidal ideation. She denied experiencing hopelessness, helplessness or worthlessness. She did not express ideas reference, paranoid ideation or delusions. Her thinking was concrete but her associations were coherent and logical. She denied hallucinations and did not appear to be responding to internal stimuli. Assessment and Plan Assessment: She has a prominent history of methamphetamine use as well as the use of other drugs of abuse. The record also indicates possibility of a bipolar illness and she reports stable mood with the current dose of Abilify. Plan: Continue inpatient hospitalization pending the probate hearing. Continue safety precautions. Begin Abilify Maintena 400 mg IM. Continue oral Abilify for 14 days. Plan for discharge after her probate hearing tomorrow. Encouraged continued participation in therapeutic groups and activities. Evaluate clinical status response to treatment daily basis.
[2020-01-08] MEDS ORDERED: ARIPiprazole IM SYRINGE 400 MG (NO CHARGE) IM ONE (14:00)
[2020-01-08] MEDS: MELATONIN 3 MG TABLET PO PRN (21:00)
[2020-01-09 07:00] VITALS: BP 109/57; PULSE 69; RESP 16; TEMP 98.5
[2020-01-09] MEDS: ARIPiprazole 5 MG TAB PO SCH (08:28)
--- NOTE | 2020-01-09 11:42 | P.DS ---
Providers Date of admission: 01/03/20 19:42 Attending physician: Saul Bower MD Consults: 01/03/20 19:51 Consult Physician Routine Consulting Provider: Saul Aguirre Consult Reason/Comments: H & P and medical care Do you want consulting provider notified?: Yes Primary care physician: Stated None - Discharge Diagnosis(es) (1) Suicide gesture Current Visit: Yes Status: Acute Priority: Low (2) Methamphetamine-induced depressive disorder Current Visit: Yes Status: Resolved Priority: High (3) Methamphetamine use disorder, severe, dependence Current Visit: Yes Status: Chronic Priority: High (4) Borderline personality disorder Current Visit: No Status: Chronic Priority: High (5) Cannabis use disorder, moderate, dependence Current Visit: No Status: Chronic Priority: Low (6) Cocaine use disorder Current Visit: No Status: Chronic Priority: Medium Hospital Course: She is a 24-year-old female who was admitted voluntarily to the psychiatric unit with a suicide gesture by overdose of 10 tablets of Lexapro 20 mg. She has had multiple admissions to the psychiatric unit and was just discharged on 12/04/2019 with the diagnoses of bipolar disorder. She has multiple psychiatric diagnosis including methamphetamine use disorder, cocaine use disorder, cannabis use disorder, borderline personality disorder, posttraumatic stress disorder, attention deficit disorder and bipolar disorder. She stated that she relapsed to cocaine 2 days after her last discharge. She attempted to withdraw from the chronic use of methamphetamine at home but found herself getting increasingly irritable and having more arguments with her family. She told the admitting physician that she felt overwhelmed that no one her family was "listening to me." She denied that she took the 10 tablets of Lexapro in a suicide attempt; rather, she wanted her family's attention. She complained of mood lability but denied suicidal or homicidal and ideation or plan. She denied flight of ideas, racing thoughts and increasing goal directed behavior. She described a fluctuating appetite and a reported weight loss of 10 pounds over the last month prior to admission. She has history of poor compliance with medications and reported that she stopped her discharge medications after she left the hospital. She reported vague auditory hallucinations and reports that she was hearing all thoughts in her head. This is her seventh admission to the unit. In addition, she has had multiple presentation to the emergency room for mental health complaints. We admitted her to the psychiatric unit initially under care of Dr. Crump. We submitted a demand for hearing because she deferred her involuntary hearing during the November 2019 hospitalization. We provided a comprehensive bile psychosocial assessment. The data processing systems consultant wage analyst completed a physical exam and history and did not diagnose a chronic mental health condition. We treated her mood lability and her depressive complaints with Abilify titrating dose of 10 mg per day. We also prescribed melatonin 3 mg at bedtime and trazodone 50 mg at bedtime when necessary for sleep. Her mood improved dramatically during this brief hospitalization. She denied adverse effects to Abilify. She participated in therapeutic groups and activities and had no episodes of behavioral dyscontrol. She consented to transition to a long-acting injectable Abilify and receiving 400 mg IM on 01/08/2020. She stipulated to the involuntary treatment order on 01/09/2020. He talks several times about her chronic methamphetamine and cocaine use. She attributed the use to associating with friends who are drug users. She is concerned because she has an open case with CPS due to her recurrent methamphetamine and cocaine use as well as frequent psychiatric hospitalizations. She repeatedly stated that she is not going to use methamphetamine because she does not want to lose her children. At time of discharge she presented as a short thin casually groomed woman who was pleasant on approach. She made eye contact and attended to interview. She had no distinction features or prominent physical abnormalities. She had a bright facial expression. She was alert and oriented to person, place and time. She showed a bili of psychomotor activity. Her speech was spontaneous with normal rate, rhythm and volume. She denied suicidal ideation and wishes. She denied homicidal ideation. She denied such depressive cognitions as hopelessness, helplessness and worthlessness. She express ideas reference, paranoid ideation, magical ideation or wishes. Her thinking was abstract and associations were coherent, logical and goal directed. She denied hallucinations did not appear to be responding to internal stimuli. Patient Condition at Discharge: Stable Plan - Discharge Summary Discharge Rx Participant: No New Discharge Prescriptions: New ARIPiprazole [Abilify] 10 mg PO HS #13 tab traZODone HCL [Desyrel] 50 mg PO HS PRN #14 tab PRN Reason: Insomnia Melatonin 3 mg PO HS PRN #30 tablet PRN Reason: Insomnia ARIPiprazole IM [Abilify Maintena] 400 mg IM QMONTH #1 each Continue Albuterol Inhaler (Bulk) [Ventolin Hfa Inhaler (Bulk)] 2 puff INHALATION RT- Q6H PRN PRN Reason: Shortness Of Breath Acetaminophen Tab [Tylenol] 650 mg PO Q6HR PRN tab PRN Reason: Mild Pain Or Fever > 100.5 Discharge Medication List Albuterol Inhaler (Bulk) [Ventolin Hfa Inhaler (Bulk)] 2 puff INHALATION RT-Q6H PRN 08/02/19 [History] Acetaminophen Tab [Tylenol] 650 mg PO Q6HR PRN tab 01/03/20 [Rx] ARIPiprazole IM [Abilify Maintena] 400 mg IM QMONTH #1 each 01/09/20 [Rx] ARIPiprazole [Abilify] 10 mg PO HS #13 tab 01/09/20 [Rx] Melatonin 3 mg PO HS PRN #30 tablet 01/09/20 [Rx] traZODone HCL [Desyrel] 50 mg PO HS PRN #14 tab 01/09/20 [Rx] Follow up Appointment(s)/Referral(s): [facility] [Outside] - 01/11/20 1:00 pm (01-11-20 @ 1:00 with Hu Lazcano by phone 01-15-20 @ 11:[address] Ibanez at [facility] office using [email or web address] phone. ) [facility] - 1 Week Patient Instructions/Handouts: How to Stop Smoking (DC), Mood Disorders (DC) Activity/Diet/Wound Care/Special Instructions: Activity and diet as tolerated. Avoid the use of street drugs and alcohol. Take all medications as prescribed. When you are in need of refills on your medications please contact your medical provider and/or outpatient psychiatrist to have this done. Please go to scheduled outpatient appointment for aftercare treatment. If symptoms return or become worse, call the crisis line at [phone] and/or go to the nearest emergency room for evaluation. Discharge Disposition: HOME SELF-CARE
[2020-01-09] MEDS ORDERED: ARIPiprazole 10 MG TAB PO SCH (21:00)
== END 2020-01-09 11:18 | disposition home or self-care (01) | DRG 897 ==
LOC: 3MHU 19:42
PROVIDERS: ADMIT Psychiatry & Neurology Psychiatry; ATTEND Psychiatry & Neurology Psychiatry
DX: F15.24 Other stimulant dependence with stimulant-induced mood disorder (principal); R45.851 Suicidal ideations; F14.90 Cocaine use, unspecified, uncomplicated; F15.23 Other stimulant dependence with withdrawal; F12.23 Cannabis dependence with withdrawal; F17.210 Nicotine dependence, cigarettes, uncomplicated; F43.10 Post-traumatic stress disorder, unspecified; F60.3 Borderline personality disorder; F41.9 Anxiety disorder, unspecified; R63.4 Abnormal weight loss; Z91.5 Personal history of self-harm; T50.916A Underdosing of multiple unspecified drugs, medicaments and biological substances, initial encounter; Z91.128 Patient's intentional underdosing of medication regimen for other reason; Z87.59 Personal history of other complications of pregnancy, childbirth and the puerperium; Z91.013 Allergy to seafood; Z88.8 Allergy status to other drugs, medicaments and biological substances; Z91.048 Other nonmedicinal substance allergy status

== ENCOUNTER 2020-02-17 09:26 | Emergency (ER) | payer OTHER ==
[2020-02-17 09:31] VITALS: BP 113/78; TEMP 97.8
[2020-02-17] MEDS ORDERED: HYDROcodone/APAP 5-325MG 1 EACH TAB PO STA (09:51)
--- NOTE | 2020-02-17 10:27 | XR ---
EXAMINATION TYPE: XR elbow complete RT DATE OF EXAM: 02/17/2020 CLINICAL HISTORY: Right elbow pain TECHNIQUE: Frontal, lateral and oblique images of the right elbow are obtained. COMPARISON: 07/25/2017 FINDINGS: There is no acute fracture/dislocation evident in the right elbow. No abnormal fat pad si gns are seen. The overlying soft tissue appears unremarkable. IMPRESSION: There is no acute fracture or dislocation in the right elbow.
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
[2020-02-17 11:26] VITALS: PULSE 80; RESP 16
== END 2020-02-17 11:23 | disposition home or self-care (01) ==
LOC: EC 09:26
DX: M79.631 Pain in right forearm (principal); M25.521 Pain in right elbow; M25.531 Pain in right wrist; J45.909 Unspecified asthma, uncomplicated; F17.200 Nicotine dependence, unspecified, uncomplicated; Z91.048 Other nonmedicinal substance allergy status; Z91.013 Allergy to seafood; Z88.8 Allergy status to other drugs, medicaments and biological substances; Z91.09 Other allergy status, other than to drugs and biological substances; Y04.2XXA Assault by strike against or bumped into by another person, initial encounter
CPT/HCPCS: 70360; 99284

== ENCOUNTER 2020-10-19 01:22 | Inpatient (IN) | payer MEDICAID, OTHER ==
--- NOTE | 2020-10-19 01:48 | ED ---
Psych HPI - General Chief Complaint: Psychiatric Symptoms Stated Complaint: Petition Time Seen by Provider: 10/19/20 01:35 Source: patient, police, RN notes reviewed, old records reviewed Mode of arrival: ambulatory - History of Present Illness Initial Comments: This is a 25-year-old female presenting under petition for psychiatric evaluation and treatment patient refuses to participate in history taking. Patient's very argumentative, anxious and aggressive. Patient does have history of psychiatric illness and drug abuse MD Complaint: suicidal ideation, feels depressed -: hour(s) Associated Psychiatric Symptoms: depression, suicidal ideation History of same: Yes Quality: constant Improves With: none Worsens With: none Context: recent alcohol abuse, recent drug abuse Treatments Prior to Arrival: placed on mental health hold If Self Harm: admits thoughts of self harm - Related Data Home Medications Medication Instructions Recorded Confirmed Albuterol Inhaler (Mhu) [Ventolin 2 puff INHALATION RT-Q6H PRN 08/02/19 01/03/20 Hfa Inhaler (Mhu)] Previous Rx's Medication Instructions Recorded Acetaminophen Tab [Tylenol] 650 mg PO Q6HR PRN tab 01/03/20 ARIPiprazole IM patients own 400 mg IM QMONTH #1 each 01/09/20 [Abilify Maintena] ARIPiprazole [Abilify] 10 mg PO HS #13 tab 01/09/20 Melatonin 3 mg PO HS PRN #30 tablet 01/09/20 traZODone HCL [Desyrel] 50 mg PO HS PRN #14 tab 01/09/20 Allergies Allergy/AdvReac Type Severity Reaction Status Date / Time adhesive tape Allergy Rash/Hives Verified 10/19/20 01:35 shellfish derived [Shrimp] Allergy Anaphylaxis Verified 10/19/20 01:35 soap Allergy Rash/Hives Verified 10/19/20 01:35 nicotine patch Allergy Rash/Hives Uncoded 10/19/20 01:35 Review of Systems ROS Statement: Those systems with pertinent positive or pertinent negative responses have been documented in the HPI. ROS Other: All systems not noted in ROS Statement are negative. Past Medical History Past Medical History: Asthma Additional Past Medical History / Comment(s): ectopic. History of Any Multi-Drug Resistant Organisms: None Reported Past Surgical History: Adenoidectomy, Section, Tonsillectomy Past Anesthesia/Blood Transfusion Reactions: No Reported Reaction Past Psychological History: ADD/ADHD, Anxiety, Bipolar, Depression, PTSD Smoking Status: Current every day smoker Past Alcohol Use History: None Reported Past Drug Use History: Marijuana, Methamphetamine - Past Family History Father Family Medical History: No Reported History Additional Family Medical History / Comment(s): Father is alive at age 40 with no major medical problems. Brother(s) Family Medical History: No Reported History Additional Family Medical History / Comment(s): Patient has 1 brother and 2 sisters with no major medical problems. Mother Family Medical History: No Reported History Additional Family Medical History / Comment(s): Mother is alive at age 40 with no major medical problems. General Exam Limitations: no limitations General appearance: alert, in no apparent distress Head exam: Present: atraumatic, normocephalic, normal inspection Eye exam: Present: normal appearance, PERRL, EOMI. Absent: scleral icterus, conjunctival injection, periorbital swelling ENT exam: Present: normal exam, mucous membranes moist Neck exam: Present: normal inspection. Absent: tenderness, meningismus, lymphadenopathy Respiratory exam: Present: normal lung sounds bilaterally. Absent: respiratory distress, wheezes, rales, rhonchi, stridor Cardiovascular Exam: Present: regular rate, normal rhythm, normal heart sounds. Absent: systolic murmur, diastolic murmur, rubs, gallop, clicks GI/Abdominal exam: Present: soft, normal bowel sounds. Absent: distended, tenderness, guarding, rebound, rigid Extremities exam: Present: normal inspection, full ROM, normal capillary refill. Absent: tenderness, pedal edema, joint swelling, calf tenderness Back exam: Present: normal inspection Neurological exam: Present: alert, oriented X3, CN II-XII intact Psychiatric exam: Present: normal affect, normal mood Skin exam: Present: warm, dry, intact, normal color. Absent: rash Course Vital Signs 10/19/20 10/19/20 01:29 04:00 Temperature 98.2 F Pulse Rate 112 H 100 Respiratory 24 18 Rate Blood Pressure 121/84 126/79 O2 Sat by Pulse 96 99 Oximetry - Reevaluation(s) Reevaluation #1: 10/19/20 04:44 Medical record is reviewed Patient medically clear for psychiatric evaluation and treatment Procedures - Restraint - Face to Face Restraint Occurrence 1 Patient's Immediate Situation: Endangers self safety, Endangers others' safety, Endangers staff safety, Violent behavior Patient's Reaction to the Intervention: Uncooperative, Angry Patient's Medical & Behavioral Condition: Awake, Anxious, Agitated, Paranoid Need to Continue or Terminate Restraint or Seclusion: Continue Face to Face Eval of Restraint Date: 10/19/20 Face to Face Eval of Restraint Time: 05:25 Medical Decision Making - Medical Decision Making 25 female seen and evaluated in the ER by psychiatry, patient is to be admitted for psychiatric evaluation and treatment - Lab Data Lab Results 10/19/20 10/19/20 Range/Units 04:26 04:26 Urine Color Yellow Urine Appearance Cloudy H (Clear) Urine pH 6.0 (5.0-8.0) Ur Specific [place] 1.027 (1.001-1.035) Urine Protein 2+ H (Negative) Urine Glucose (UA) Negative (Negative) Urine Ketones Negative (Negative) Urine Blood Negative (Negative) Urine Nitrite Negative (Negative) Urine Bilirubin Negative (Negative) Urine Urobilinogen 3.0 (<2.0) mg/dL Ur Leukocyte Esterase Trace H (Negative) Urine RBC 1 (0-5) /hpf Urine WBC 2 (0-5) /hpf Ur Squamous Epith Cells 13 H (0-4) /hpf Hyaline Casts 14 H (0-2) /lpf Urine Mucus Few H (None) /hpf Urine Opiates Screen Not Detected (NotDetected) Ur Oxycodone Screen Not Detected (NotDetected) Urine Methadone Screen Not Detected (NotDetected) Ur Propoxyphene Screen Not Detected (NotDetected) Ur Barbiturates Screen Not Detected (NotDetected) U Tricyclic Antidepress Not Detected (NotDetected) Ur Phencyclidine Scrn Not Detected (NotDetected) Ur Amphetamines Screen Detected H (NotDetected) U Methamphetamines Scrn Detected H (NotDetected) U Benzodiazepines Scrn Not Detected (NotDetected) Urine Cocaine Screen Not Detected (NotDetected) U Marijuana (THC) Screen Detected H (NotDetected) Coronavirus (PCR) Not Detected (Not Detectd) Disposition Clinical Impression: Depression, Mood disorder, Suicidal ideation Disposition: TRANSFER TO PSYCH HOSP/UNIT Condition: Fair Referrals: None,Stated [Primary Care Provider] - 1-2 days
[2020-10-19 04:42] LABS: Appearance,Urine Cloudy (Clear); Bilirubin,Urine Negative (Negative); Blood,Urine Negative (Negative); Color,Urine Yellow; Glucose,Urine (UA) Negative (Negative); Hyaline Casts,Urine 14 /lpf (0-2); Ketones,Urine Negative (Negative); Leukocyte Esterase,Urine Trace (Negative); Mucus,Urine Few /hpf; Nitrite,Urine Negative (Negative); Protein,Urine 2+ (Negative); RBC,Urine 1 /hpf (0-5); Specific Gravity,Urine 1.027 (1.001-1.035); Squamous Epithelial Cell,Urine 13 /hpf (0-4); WBC,Urine 2 /hpf (0-5)
[2020-10-19 04:49] LABS: Amphetamine Screen,Urine Detected (NotDetected); Barbiturate Screen,Urine Not Detected (NotDetected); Benzodiazepines Screen,Urine Not Detected (NotDetected); Cocaine Screen,Urine Not Detected (NotDetected); Methadone Screen, Urine Not Detected (NotDetected); Opiate Screen,Urine Not Detected (NotDetected); Oxycodone Screen, Urine Not Detected (NotDetected); Phencyclidine Screen,Urine Not Detected (NotDetected); Tricyclic Antidepressant,Urine Not Detected (NotDetected); Urn Cannabinoid Scrn Detected (NotDetected)
[2020-10-19] MEDS ORDERED: LORazepam 2 MG/ML INJ IM STA (05:15)
[2020-10-19 08:38] VITALS: RESP 14
[2020-10-19] MEDS ORDERED: MAGNESIUM HYDROXIDE 2,400 MG/10 ML CUP PO PRN (08:51)
[2020-10-19] MEDS ORDERED: MAG HYDROX/AL HYDROX/SIMETH 30 ML CUP PO PRN (08:51)
[2020-10-19] MEDS ORDERED: LORazepam 2 MG/ML INJ IM PRN (08:53)
[2020-10-19] MEDS ORDERED: HALOPERIDOL LACTATE 5 MG/ML 1 ML VIAL IM PRN (08:53)
[2020-10-19] MEDS: NICOTINE 14MG/24HR PATCH TRANSDERM SCH (13:44)
--- NOTE | 2020-10-19 14:39 | P.HP ---
Psychiatric H&P - . H&P Date: 10/19/20 History & Physical: IDENTIFYING Data: Aggie Piña is a 25-year-old female who has psychiatric history of bipolar disorder, PTSD, personality disorder, and substance use disorder, no history of medical problems. The patient was admitted from [facility] ED after she was brought in by police with a petition paper because of "hysterical behavior and suicidal ideation". The patient has been admitted on involuntary basis to our service. HISTORY OF PRESENT ILLNESS: The patient refused to engage in psychiatric evaluation even she was approaching her multiple times by myself and other unit staff. Last time I try to talk to the patient, she put the bed cover over her face and she didn't respond. The patient was petitioned by police because she acted "hysterical" and had suicidal thoughts. Reportedly, she asked him to police officers to shoot her, and patient was driving recklessly to kill herself as per her mother. Patient with history of mental illness with previous psychiatric diagnosis as mentioned above based on her previous discharge from this unit as she was admitted twice last year during November and December 2019. As per first discharge in November, she was prescribed Lamictal for mood stabilization, and as her discharge in December of last year she was prescribed Abilify and trazodone including Abilify longer acting injectable. Urine drug screen this time was positive for methamphetamine, and marijuana. The patient completely refused to perseverate and history taking either in ED or when she came to the unit. Reportedly, the patient became very agitated in the ED and she was restrained and medicated before transferred to the unit. PAST PSYCHIATRIC HISTORY: As per previous records, the patient has history of depression, anxiety, PTSD, cluster B personality traits, but polar disorder. She supposedly to follow up with [facility] for outpatient psychiatric treatment. Reportedly, she had multiple suicide attempts in the past. Reported previous psychiatric medications including Lexapro, Lamictal, Abilify, and trazodone. Patient had multiple previous psychiatric hospitalization including this unit in 2018 and 2019. SUBSTANCE ABUSE HISTORY: Patient refuses to give history today, but as per previous diagnosis she has h istory of substance use. Her drug screen this time positive for methamphetamine, marijuana and cocaine. Social History: As per previous records "Patient was born and raised in [facility] and states that she completed up to the ninth grade in school. She currently has 3 kids is and lives with her mother and . She claims that she is unemployed and currently collects Social Security." FAMILY HISTORY: As per previous records "States that "half my family has mental health problems". She also claims that her aunt committed suicide". MENTAL STATUS EVALUATION: Appearance: Appears stated age, disheveled, partially groomed, average body built, and no specific features. Gait/ posture: Patient was lying in bed, no abnormal movements. Attitude and Behavior: Refused evaluation, not cooperative, normal eye contact Motor Activity: Decreased psychomotor activity. Speech: Patient refused evaluation and didnt answer any questions. Mood: Patient refused evaluation but apparently was irritable Affect: Restricted Thought process: Unable to evaluate. Thought content: Patient refused evaluation, but as per report she had suicidal ideation. Perception: No reports of hallucinations Alertness: Patient was alert but refused evaluation Orientation: She refused to answer any questions Insight regarding psychiatric condition: Impaired Strengths: Family support. Stable general medical condition Challenges: Poor insight about mental illness. Chronic substance use Review of Lab results: Reviewed Assessment: Bipolar disorder. Personality disorder unspecified. Chronic PTSD. Cannabis use disorder. Methamphetamine use disorder. TREATMENT PLAN/RECOMMENDATIONS: Medical Decision making: The patient presented with suicidal ideation . The patient at high risk to hurt herself if and she is not in the inpatient setting. The patient's psychiatric symptoms are not stable and she needs further management of psychiatric medications and further planning for discharge. Therefore, inpatient level of care is needed. Continue the patient inpatient for safety. Continue the patient under 15 minutes safe check for safety. The patient will also be provided with individual therapy, group therapy, substance abuse counseling, gain insight, and coping skills. Consider medical consultation if any acute medical issue arise. Medications: Patient refused evaluation or discussing any treatment including medications. The patient will be assessed on daily basis, and will be discharged back to his outpatient mental health provider upon stabilization. EXPECTED LENGTH OF STAY: 7-10 days. Allergies Allergy/AdvReac Type Severity Reaction Status Date / Time adhesive tape Allergy Rash/Hives Verified 10/19/20 08:16 shellfish derived [Shrimp] Allergy Anaphylaxis Verified 10/19/20 08:16 soap Allergy Rash/Hives Verified 10/19/20 08:16 nicotine patch Allergy Rash/Hives Uncoded 10/19/20 01:35 Vital Signs Temp 98.2 F 10/19/20 01:29 Pulse 79 10/19/20 08:36 Resp 14 10/19/20 08:36 BP 92/55 10/19/20 08:36 Pulse Ox 99 10/19/20 04:00 Intake & Output 10/18/20 10/19/20 10/19/20 18:59 06:59 18:59 Weight 44.407 kg Laboratory Last Values Urine Color Yellow 10/19/20 04:26 Urine Appearance Cloudy (Clear) H 10/19/20 04:26 Urine pH 6.0 (5.0-8.0) 10/19/20 04:26 Ur Specific [place] 1.027 (1.001-1.035) 10/19/20 04:26 Urine Protein 2+ (Negative) H 10/19/20 04:26 Urine Glucose (UA) Negative (Negative) 10/19/20 04:26 Urine Ketones Negative (Negative) 10/19/20 04:26 Urine Blood Negative (Negative) 10/19/20 04:26 Urine Nitrite Negative (Negative) 10/19/20 04:26 Urine Bilirubin Negative (Negative) 10/19/20 04:26 Urine Urobilinogen 3.0 mg/dL (<2.0) 10/19/20 04:26 Ur Leukocyte Esterase Trace (Negative) H 10/19/20 04:26 Urine RBC 1 /hpf (0-5) 10/19/20 04:26 Urine WBC 2 /hpf (0-5) 10/19/20 04:26 Ur Squamous Epith Cells 13 /hpf (0-4) H 10/19/20 04:26 Hyaline Casts 14 /lpf (0-2) H 10/19/20 04:26 Urine Mucus Few /hpf (None) H 10/19/20 04:26 Urine HCG, Qual Not Detected (Not Detectd) 10/19/20 04:26 Urine Opiates Screen Not Detected (NotDetected) 10/19/20 04:26 Ur Oxycodone Screen Not Detected (NotDetected) 10/19/20 04:26 Urine Methadone Screen Not Detected (NotDetected) 10/19/20 04:26 Ur Propoxyphene Screen Not Detected (NotDetected) 10/19/20 04:26 Ur Barbiturates Screen Not Detected (NotDetected) 10/19/20 04:26 U Tricyclic Antidepress Not Detected (NotDetected) 10/19/20 04:26 Ur Phencyclidine Scrn Not Detected (NotDetected) 10/19/20 04:26 Ur Amphetamines Screen Detected (NotDetected) H 10/19/20 04:26 U Methamphetamines Scrn Detected (NotDetected) H 10/19/20 04:26 U Benzodiazepines Scrn Not Detected (NotDetected) 10/19/20 04:26 Urine Cocaine Screen Not Detected (NotDetected) 10/19/20 04:26 U Marijuana (THC) Screen Detected (NotDetected) H 10/19/20 04:26 Coronavirus (PCR) Not Detected (Not Detectd) 10/19/20 04:26 10/19/20 14:19
[2020-10-19] MEDS: ACETAMINOPHEN TAB 325 MG TAB PO PRN (17:32)
[2020-10-19] MEDS: LORazepam 1 MG TAB PO PRN (17:43)
--- NOTE | 2020-10-19 22:56 | P.CONS ---
History of Present Illness - Reason for Consult Consult date: 10/19/20 - History of Present Illness The patient was seen with the [facility] RN. I was never alone with the patient. The patient is a 25-year-old female with a PMH of polysubstance abuse who was brought into the emergency room after her family petitioned her due to drug abuse and depression. The patient was admitted to the mental health unit where she was seen and evaluated. The patient reported some pain of the left hand after she hit the fridge in her house during an argument. She reports using methamphetamine the day prior to presentation. She inhales all of her illicit substances and denied using IV drugs. denied additional complaints. She denied chest pain, shortness of breath, fever, chills, nausea, vomiting, abdominal pain, diarrhea. Review of Systems Pertinent positives and negatives as discussed in HPI, a complete review of systems was performed and all other systems are negative. Past Medical History Past Medical History: Asthma Additional Past Medical History / Comment(s): ectopic. History of Any Multi-Drug Resistant Organisms: None Reported Past Surgical History: Adenoidectomy, Section, Tonsillectomy Past Anesthesia/Blood Transfusion Reactions: No Reported Reaction Past Psychological History: ADD/ADHD, Anxiety, Bipolar, Depression, PTSD Smoking Status: Current every day smoker Past Alcohol Use History: None Reported Past Drug Use History: Marijuana, Methamphetamine - Past Family History Father Family Medical History: No Reported History Additional Family Medical History / Comment(s): Father is alive at age 40 with no major medical problems. Brother(s) Family Medical History: No Reported History Additional Family Medical History / Comment(s): Patient has 1 brother and 2 sisters with no major medical problems. Mother Family Medical History: No Reported History Additional Family Medical History / Comment(s): Mother is alive at age 40 with no major medical problems. Medications and Allergies Home Medications Medication Instructions Recorded Confirmed Type ARIPiprazole [Abilify] 30 mg PO DAILY 10/19/20 10/19/20 History Albuterol Sulfate [Proair Hfa] 2 puff INHALATION RT-QID PRN 10/19/20 10/19/20 History Atomoxetine HCl [Strattera] 80 mg PO QAM 10/19/20 10/19/20 History Mirtazapine [Remeron] 15 mg PO HS 10/19/20 10/19/20 History busPIRone HCL 10 mg PO DAILY 10/19/20 10/19/20 History Allergies Allergy/AdvReac Type Severity Reaction Status Date / Time adhesive tape Allergy Rash/Hives Verified 10/19/20 08:16 shellfish derived [Shrimp] Allergy Anaphylaxis Verified 10/19/20 08:16 soap Allergy Rash/Hives Verified 10/19/20 08:16 nicotine patch Allergy Rash/Hives Uncoded 10/19/20 01:35 Physical Exam Vitals: Vital Signs Temp Pulse Pulse Resp BP BP Pulse Ox 10/19/20 17:41 96.9 F L 10/19/20 08:36 79 14 92/55 10/19/20 04:00 100 18 126/79 99 10/19/20 01:29 98.2 F 112 H 24 121/84 96 Intake and Output 10/19/20 10/19/20 10/19/20 06:59 14:59 22:59 Other: Weight 44.407 kg General: non toxic, no distress, appears older than stated age, underweight Derm: no unusual rashes/lesions no unusual ecchymoses, warm, dry Head: atraumatic, normocephalic, symmetric Eyes: EOMI, no lid lag, anicteric sclera, pupils equal round reactive to light ENT: Nose and ears atraumatic, no thrush, no pharyngeal erythema Neck: No thyromegaly, no cervical lymphadenopathy, trachea midline, supple Mouth: no lip lesion, mucus membranes moist Cardiovascular: S1S2 reg, no murmur, positive posterior tibial pulse bilateral, no edema, capillary refill less than 2 seconds Lungs: CTA bilateral, no rhonchi, no rales , no accessory muscle use Abdominal: soft, nontender to palpation, no guarding, no appreciable organomegaly, normal bowel sounds Ext: Left hand mild swelling on the extensor surfaces of the first and second digits, no gross muscle atrophy, muscle strength 5 out of 5 in all 4 extremities grossly, no contractures, Neuro: CN II-XI grossly intact, light touch intact all 4 extremities, finger to nose within normal limits, Psych: Alert, oriented, appropriate affect Results Labs: Abnormal Lab Results - Last 24 Hours (Table) 10/19/20 Range/Units 04:26 Urine Appearance Cloudy H (Clear) Urine Protein 2+ H (Negative) Ur Leukocyte Esterase Trace H (Negative) Ur Squamous Epith Cells 13 H (0-4) /hpf Hyaline Casts 14 H (0-2) /lpf Urine Mucus Few H (None) /hpf Ur Amphetamines Screen Detected H (NotDetected) U Methamphetamines Scrn Detected H (NotDetected) U Marijuana (THC) Screen Detected H (NotDetected) Assessment and Plan Plan: Left hand mild swelling -Likely due to trauma after striking the fridge -No break in skin or infection noted -Monitor for now Polysubstance abuse -Strongly advised on the importance of cessation Depression and aggressive behavior -As per psychiatry Thank you for allowing us to participate in the care of this patient. We will follow peripherally. Do not hesitate to contact us with questions. Someone can be reached from the [facility] hospitalist group at all hours of the day at [phone].
[2020-10-20 06:45] LABS: Basophils # (A) 0.1 k/uL (0-0.2); Basophils % (A) 1 %; Eosinophils # (A) 0.2 k/uL (0-0.7); Eosinophils % (A) 2 %; HCT 44.5 % (34.0-46.0); HGB 15.4 gm/dL (11.4-16.0); Lymphocytes # (A) 2.2 k/uL (1.0-4.8); Lymphocytes % (A) 21 %; MCH 30.4 pg (25.0-35.0); MCHC 34.5 g/dL (31.0-37.0); Monocytes # (A) 0.4 k/uL (0-1.0); Monocytes % (A) 4 %; Neutrophils # (A) 7.3 k/uL (1.3-7.7); Neutrophils % (A) 70 %; Platelet Count 277 k/uL (150-450); RBC 5.06 m/uL (3.80-5.40); RDW 13.4 % (11.5-15.5); WBC 10.3 k/uL (3.8-10.6)
[2020-10-20 06:54] LABS: ALT 24 U/L (4-34); AST 33 U/L (14-36); African American GFR (CKD) >90 (>60 ml/min/1.73 sqM); Albumin 4.2 g/dL (3.5-5.0); Alkaline Phosphatase 62 U/L (38-126); Anion Gap 11 mmol/L; Blood Urea Nitrogen 23 mg/dL (7-17); Calcium 9.8 mg/dL (8.4-10.2); Carbon Dioxide 25 mmol/L (22-30); Chloride 102 mmol/L (98-107); Cholesterol 146 mg/dL (<200); Glucose 87 mg/dL (74-99); HDL Cholesterol 62 mg/dL (40-60); LDL Cholesterol,Calculated 71 mg/dL (0-99); Non-African American GFR(CKD) 80 (>60 ml/min/1.73 sqM); Potassium 3.9 mmol/L (3.5-5.1); Sodium 138 mmol/L (137-145); Total Protein 7.2 g/dL (6.3-8.2); Triglycerides 66 mg/dL (<150)
[2020-10-20] MEDS: NICOTINE 14MG/24HR PATCH TRANSDERM SCH (08:51)
--- NOTE | 2020-10-20 12:36 | P.PN ---
Progress Note - Text Progress Note Date: 10/20/20 Clinical Problems: Methamphetamine-induced depressive disorder, methamphetamine use disorder severe, cannabis use disorder, borderline personality disorder Interim history: She is a 25-year-old woman known to the psychiatric unit from prior admissions. 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 The police brought her to the emergency room and completed the petition describing bizarre behavior and suicidal ideation. She would not cooperate with the initial psychiatric assessment. This morning she was yelling and screaming on the telephone for an extended period of time. During our interview she alleged that this admission was result of a misunderstanding. She alleged that the police officers "lied" on the petition. She also alleged that she came to the hospital on her own volition because she wants to obtain substance abuse treatment. She relapsed to methamphetamine 3 weeks ago. Her history was difficult to follow and I believed that she was not fully forthcoming. She appeared to complain that her relapse was related to her ex- or an ex-boyfriend. She agreed to referral for residential substance abuse treatment. Mental status exam: She presented as a small and thin disheveled appearing occasion female who was minimally cooperative. She made eye contact and appeared to attend to interview. She had a labile facial expression. She was alert and oriented to person, place and time. She was restless but showed no abnormal involuntary movements. Her speech was spontaneous with slight increase in rate and volume. Her affect was labile and at times intense. She denied suicidal ideation, wishes or homicidal ideation. She ruminated about the circumstances that led to this hospitalizations. She did not express ideas reference, paranoid ideation or delusions. Her thinking was concrete but her associations were not fully organized goal directed. She denied hallucinations did not appear to be responding to internal stimuli. Assessment: This admission is involuntarily result of relapse to use of methamphetamine. She would benefit from substance abuse treatment as agreed to referral for residential treatment. Plan: Continue inpatient treatment. Probate hearing pending. Continue Haldol and/or Ativan for agitation or aggression. Habitrol for smoking cessation. Social work to coordinate discharge and aftercare including referral for substance abuse treatment services. Encourage participation in therapeutic groups and activities. Evaluate clinical status response to treatment daily basis.
[2020-10-20] MEDS: ACETAMINOPHEN TAB 325 MG TAB PO PRN (14:39)
[2020-10-20] MEDS: LORazepam 1 MG TAB PO PRN ×2 (14:41→23:59)
[2020-10-20 16:09] LABS: Hemoglobin A1C 5.1 % (4.0-6.0)
[2020-10-21 07:00] VITALS: BP 100/64; PULSE 43
[2020-10-21] MEDS: NICOTINE 14MG/24HR PATCH TRANSDERM SCH (08:46)
--- NOTE | 2020-10-21 11:32 | P.PN ---
Progress Note - Text Progress Note Date: 10/21/20 Clinical Problems: Methamphetamine-induced depressive disorder, methamphetamine use disorder severe, cannabis use disorder, borderline personality disorder Interim history: I reviewed the medical record, interviewed the patient and discussed her treatment and treatment plan during team meeting. She was minimally cooperative and would not get out of bed. She complained of feeling fatigued and "tired". She alleged that she is "still withdrawing." She followed through with our recommendation for residential substance abuse treatment and completed the Access interview. Her deferral hearing is scheduled for 12/06/2020. Mental status exam: She presented as a small and thin disheveled appearing occasion female who was minimally cooperative. She made eye contact and appeared to attend to interview. She had a flat facial expression. She was alert and oriented to person, place and time. She had marked psychomotor retardation. Her speech was not spontaneous with a decreased rate and volume. Her affect was blunted. She denied suicidal ideation, wishes or homicidal ideation. She ruminated about fatigue and amphetamine withdrawal symptoms. She did not express ideas reference, paranoid ideation or delusions. Her thinking was concrete but her associations were not fully organized goal directed. She denied hallucinations did not appear to be responding to internal stimuli. Assessment: She shown signs and symptoms of methamphetamine withdrawal including fatigue and decreased appetite. She is in early stages of recovery where she is recognizing she has a problem and is taking steps to address her dependence. Plan: Continue inpatient treatment. Probate hearing pending. Continue Haldol and/or Ativan for agitation or aggression. Habitrol for smoking cessation. Consider trial of an antidepressant. Encourage participation in therapeutic groups and activities. Evaluate clinical status response to treatment daily basis.
[2020-10-21 13:40] VITALS: TEMP 98.4
[2020-10-22] MEDS: ACETAMINOPHEN TAB 325 MG TAB PO PRN (07:59)
--- NOTE | 2020-10-22 13:59 | P.DS ---
Providers Date of admission: 10/19/20 07:56 Attending physician: Saul Bower MD Consults: 10/19/20 08:51 Consult Physician Routine Consulting Provider: Dorothy Physician Consult Reason/Comments: Admission H & P Do you want consulting provider notified?: Yes Primary care physician: Stated None - Discharge Diagnosis(es) (1) Methamphetamine-induced depressive disorder Current Visit: No Status: Acute Priority: High (2) Withdrawal from methamphetamine Current Visit: Yes Status: Acute Priority: Medium (3) Methamphetamine use disorder, severe, dependence Current Visit: No Status: Chronic Priority: High (4) Borderline personality disorder Current Visit: No Status: Chronic Priority: High (5) Cannabis use disorder, moderate, dependence Current Visit: No Status: Chronic Priority: Low Hospital Course: HISTORY: She is a 25-year-old woman known to the psychiatric unit from prior admissions. 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 The police brought her to the emergency room and completed the petition describing bizarre behavior and suicidal ideation. She would not cooperate with the initial psychiatric assessment. On the morning after admission she was yelling and screaming at her mother on the telephone for an extended period of time. During our interview she alleged that this admission was result of a misunderstanding. She alleged that the police officers "lied" on the petition. She also alleged that she came to the hospital on her own volition because she wants to obtain substance abuse treatment. She relapsed to methamphetamine 3 weeks ago. Her history was difficult to follow and I believed that she was not fully forthcoming. She appeared to complain that her relapse was related to her ex- or an ex-boyfriend. HOSPITAL COURSE: We admitted to the psychiatric unit under care of this commercial insurance underwriter. We provided a comprehensive biopsychosocial assessment. We proceeded with in voluntary hospitalization and she deferred the probate hearing on 10/22/2020. The [employer] consultant testing shaking shipping completed initial physical exam and medical history and diagnosed mild left hand swelling without a skin break or and signs of infection. She spent much of the hospitalization in bed complaining of fatigue, insomnia and impending withdrawal. winery worker met with her to discuss her chronic substance use problems in residential substance abuse treatment. She initially agreed to residential substance abuse treatment and completed the Access interview. However, on the day of admission she recanted arguing that she has adequate supports in the community and will resume her participation in Narcotics Anonymous. She alleged that she relapsed because she was distressed over her grandmother's prolonged hospitalization. The group social worker spoke with her mother who is in full support of her decision not to go into residential substance abuse treatment. MENTAL STATUS ON DISCHARGE: At the time of discharge she presented as a thin casually groomed young female who was pleasant on approach. She made eye contact and attended to interview. She had piercing of her. She had no prominent physical abnormalities. She had a blunted facial expression. She was alert and oriented to person, place and time. She has slight psychomotor retardation but no abnormal involuntary movements. Her speech was spontaneous with normal rate, rhythm and volume. Her affect was blunted but stable and appropriate. She denied suicidal ideation and wishes. She denied homicidal ideation. She did not express ideas reference, paranoid ideation or delusions. Her thinking was concrete but her associations were coherent, logical and goal directed. DISPOSITION: She will return to live with her mother. She has a follow-up appointment at [facility] 10/24/2020. We recommended continue outpatient dose of Abilify 30 mg daily. Patient Condition at Discharge: Stable Plan - Discharge Summary New Discharge Prescriptions: Continue ARIPiprazole [Abilify] 30 mg PO DAILY Albuterol Sulfate [Proair Hfa] 2 puff INHALATION RT-QID PRN PRN Reason: Shortness Of Breath Discontinued busPIRone HCL 10 mg PO DAILY Mirtazapine [Remeron] 15 mg PO HS Atomoxetine HCl [Strattera] 80 mg PO QAM Discharge Medication List ARIPiprazole [Abilify] 30 mg PO DAILY 10/19/20 [History] Albuterol Sulfate [Proair Hfa] 2 puff INHALATION RT-QID PRN 10/19/20 [History] Follow up Appointment(s)/Referral(s): [facility] [Outside] - 10/24/20 1:00 pm (10/24/20 at 1 pm with Hu Alonso by phone 10/28/[address] at [address] Ibanez at [facility] office) [facility] Kiki levin [NON-STAFF] - 1 Week Patient Instructions/Handouts: How to Stop Smoking (DC), Depression (DC) Activity/Diet/Wound Care/Special Instructions: Activity and diet as tolerated. Avoid the use of street drugs and alcohol. Take all medications as prescribed. When you are in need of refills on your medications please contact your medical provider and/or outpatient psychiatrist to have this done. Please go to scheduled outpatient appointment for aftercare treatment. If symptoms return or become worse, call the crisis line at and/or go to the nearest emergency room for evaluation. Discharge Disposition: HOME SELF-CARE
== END 2020-10-22 13:58 | disposition home or self-care (01) | DRG 897 ==
LOC: EC 01:22 → 3MHU 07:56
PROVIDERS: ADMIT Psychiatry & Neurology Psychiatry; ATTEND Psychiatry & Neurology Psychiatry
DX: F15.24 Other stimulant dependence with stimulant-induced mood disorder (principal); R45.851 Suicidal ideations; F15.23 Other stimulant dependence with withdrawal; F12.20 Cannabis dependence, uncomplicated; F17.200 Nicotine dependence, unspecified, uncomplicated; F31.9 Bipolar disorder, unspecified; F43.12 Post-traumatic stress disorder, chronic; F60.3 Borderline personality disorder; Z20.822 Contact with and (suspected) exposure to COVID-19; G47.00 Insomnia, unspecified; J45.909 Unspecified asthma, uncomplicated; Z79.899 Other long term (current) drug therapy; Z91.5 Personal history of self-harm; Z91.013 Allergy to seafood; Z91.09 Other allergy status, other than to drugs and biological substances; Z90.89 Acquired absence of other organs; Z98.891 History of uterine scar from previous surgery
CPT/HCPCS: 80053; 80061; 80306; 81001; 81025; 82075; 83036; 84436; 84443; 85025; 87635; 96372; 99285

== ENCOUNTER 2020-10-23 20:09 | Emergency (ER) | payer OTHER ==
[2020-10-23 20:13] VITALS: BP 108/53; PULSE 64; RESP 18; TEMP 97.7
--- NOTE | 2020-10-23 20:25 | ED ---
Skin/Abscess/FB HPI - General Chief complaint: Skin/Abscess/Foreign Body Stated complaint: Blister on finger Time Seen by Provider: 10/23/20 20:13 Source: patient Mode of arrival: ambulatory Limitations: no limitations - History of Present Illness Initial comments: 25-year-old female presents to emergency Department with chief complaint ofa blister in the finger. Patient reports this occurred for the past several days and now it is painful. She states it is tender to touch with small surrounding erythema. Denies any nnight sweats fevers or chills .she has full range of motion of finger. tetanus up-to-date. No history of MRSA. - Related Data Home Medications Medication Instructions Recorded Confirmed ARIPiprazole [Abilify] 30 mg PO DAILY 10/19/20 10/19/20 Albuterol Sulfate [Proair Hfa] 2 puff INHALATION RT-QID PRN 10/19/20 10/19/20 Allergies Allergy/AdvReac Type Severity Reaction Status Date / Time adhesive tape Allergy Rash/Hives Verified 10/23/20 20:13 shellfish derived [Shrimp] Allergy Anaphylaxis Verified 10/23/20 20:13 soap Allergy Rash/Hives Verified 10/23/20 20:13 nicotine patch Allergy Rash/Hives Uncoded 10/23/20 20:13 Review of Systems ROS Statement: Those systems with pertinent positive or pertinent negative responses have been documented in the HPI. ROS Other: All systems not noted in ROS Statement are negative. Past Medical History Past Medical History: Asthma Additional Past Medical History / Comment(s): ectopic. History of Any Multi-Drug Resistant Organisms: None Reported Past Surgical History: Adenoidectomy, Section, Tonsillectomy Past Anesthesia/Blood Transfusion Reactions: No Reported Reaction Past Psychological History: ADD/ADHD, Anxiety, Bipolar, Depression, PTSD Smoking Status: Current every day smoker Past Alcohol Use History: None Reported Past Drug Use History: Marijuana, Methamphetamine - Past Family History Father Family Medical History: No Reported History Additional Family Medical History / Comment(s): Father is alive at age 40 with no major medical problems. Brother(s) Family Medical History: No Reported History Additional Family Medical History / Comment(s): Patient has 1 brother and 2 sisters with no major medical problems. Mother Family Medical History: No Reported History Additional Family Medical History / Comment(s): Mother is alive at age 40 with no major medical problems. General Exam Limitations: no limitations General appearance: alert, in no apparent distress Head exam: Present: atraumatic, normocephalic, normal inspection Eye exam: Present: normal appearance, PERRL, EOMI Pupils: Present: normal accommodation ENT exam: Present: normal exam, normal oropharynx, mucous membranes moist Neck exam: Present: normal inspection, full ROM Respiratory exam: Present: normal lung sounds bilaterally. Absent: respiratory distress Cardiovascular Exam: Present: regular rate, normal rhythm, normal heart sounds Extremities exam: Present: normal inspection (blister on the dorsal aspect of the left second digit), full ROM, tenderness (tenderness at the blister), normal capillary refill. Absent: pedal edema, joint swelling, calf tenderness Back exam: Present: normal inspection, full ROM Neurological exam: Present: alert, oriented X3 Psychiatric exam: Present: normal affect, normal mood Skin exam: Present: warm, dry, intact, normal color Course Vital Signs 10/23/20 20:10 Temperature 97.7 F Pulse Rate 64 Respiratory 18 Rate Blood Pressure 108/53 O2 Sat by Pulse 98 Oximetry Procedures - Incision & Drainage Consent Obtained: verbal consent Indication: blister Site: hand (finger) Size (cm): 1 I&D Cleaning Method: Alcohol Wipe Sterile Field Used?: No Needle Aspiration Performed?: Yes Irrigation Performed?: No I&D Drainage Obtained: Pus, Serous Culture Obtained?: No Patient Tolerated Procedure: well, no complications Medical Decision Making - Medical Decision Making 25-year-old female presents emergency Department with chief complaint of a blister. Physical examination, she has a blister measuring approximately 21 cm on the dorsal aspect of the left second digit. A clean site thoroughly with alcohol and inserted a 20-gauge needle. I was able to remove a mix of yellow/clear discharge. Patient reported immediate relief in pain. Advised the patient to apply warm compresses when she gets home. Return parameters discussed the patient is a 19 agreeable. Case discussed with Dr. Gardiner. Disposition Clinical Impression: Blister of finger Disposition: HOME SELF-CARE Condition: Stable Instructions (If sedation given, give patient instructions): Blister (ED) Additional Instructions: Apply warm or multiple times per day. Return to emergency department if symptoms worsen. Is patient prescribed a controlled substance at d/c from ED?: No Referrals: None,Stated [Primary Care Provider] - 1-2 days Time of Disposition: 20:25
== END 2020-10-23 20:43 | disposition home or self-care (01) ==
LOC: EC 20:09
DX: S60.421A Blister (nonthermal) of left index finger, initial encounter (principal); J45.909 Unspecified asthma, uncomplicated; F32.9 Major depressive disorder, single episode, unspecified; F43.10 Post-traumatic stress disorder, unspecified; F17.200 Nicotine dependence, unspecified, uncomplicated; Z79.899 Other long term (current) drug therapy; Z91.048 Other nonmedicinal substance allergy status; Z91.013 Allergy to seafood; Z91.09 Other allergy status, other than to drugs and biological substances; X58.XXXA Exposure to other specified factors, initial encounter
CPT/HCPCS: 10140; 99283

== ENCOUNTER 2021-03-06 19:47 | Emergency (ER) | payer OTHER ==
[2021-03-06 19:51] VITALS: TEMP 98
--- NOTE | 2021-03-06 20:00 | ED ---
Abdominal Pain HPI - General Chief Complaint: Abdominal Pain Stated Complaint: Left abd pain Time Seen by Provider: 03/06/21 19:52 Source: patient Mode of arrival: ambulatory Limitations: no limitations - History of Present Illness Initial Comments: 26 year-old female patient presents to the emergency department for evaluation of left upper quadrant abdominal pain. States the pain is sharp and intermittent. Denies radiation to the back. States she is having burning with urination and vaginal discharge. Denies any vaginal bleeding. States there is a possibility of . Denies fever or chills. Denies constipation or diarrhea. Denies history of abdominal surgery. Denies concern for STDs. Patient denies any recent rash, cough, shortness of breath, chest pain, diarrhea, constipation, back pain, numbness, tingling, dizziness, weakness, headache, visual changes, or any other complaints. - Related Data Home Medications Medication Instructions Recorded Confirmed ARIPiprazole [Abilify] 30 mg PO DAILY 10/19/20 10/19/20 Albuterol Sulfate [Proair Hfa] 2 puff INHALATION RT-QID PRN 10/19/20 10/19/20 Previous Rx's Medication Instructions Recorded Cephalexin [Keflex] 500 mg PO Q6H #40 cap 03/06/21 Fluconazole [Diflucan] 150 mg PO ONCE #2 tab 03/06/21 Allergies Allergy/AdvReac Type Severity Reaction Status Date / Time adhesive tape Allergy Rash/Hives Verified 03/06/21 19:51 shellfish derived [Shrimp] Allergy Anaphylaxis Verified 03/06/21 19:51 soap Allergy Rash/Hives Verified 03/06/21 19:51 nicotine patch Allergy Rash/Hives Uncoded 03/06/21 19:51 Review of Systems ROS Statement: Those systems with pertinent positive or pertinent negative responses have been documented in the HPI. ROS Other: All systems not noted in ROS Statement are negative. Past Medical History Past Medical History: Asthma Additional Past Medical History / Comment(s): ectopic. History of Any Multi-Drug Resistant Organisms: None Reported Past Surgical History: Adenoidectomy, Section, Tonsillectomy Past Anesthesia/Blood Transfusion Reactions: No Reported Reaction Past Psychological History: ADD/ADHD, Anxiety, Bipolar, Depression, PTSD Smoking Status: Current every day smoker Past Alcohol Use History: None Reported Past Drug Use History: Marijuana, Methamphetamine - Past Family History Father Family Medical History: No Reported History Additional Family Medical History / Comment(s): Father is alive at age 40 with no major medical problems. Brother(s) Family Medical History: No Reported History Additional Family Medical History / Comment(s): Patient has 1 brother and 2 sisters with no major medical problems. Mother Family Medical History: No Reported History Additional Family Medical History / Comment(s): Mother is alive at age 40 with no major medical problems. General Exam Limitations: no limitations General appearance: alert, in no apparent distress, other (This is a well- developed, well-nourished adult female patient in no acute distress. Vital signs upon presentation temperature 98.0F, pulse 120, respirations 20, blood pressure 112/73, pulse ox 99% on room air.) Eye exam: Present: normal appearance, PERRL, EOMI. Absent: scleral icterus, conjunctival injection, periorbital swelling ENT exam: Present: normal exam, normal oropharynx, mucous membranes moist Respiratory exam: Present: normal lung sounds bilaterally. Absent: respiratory distress, wheezes, rales, rhonchi, stridor Cardiovascular Exam: Present: regular rate, normal rhythm, normal heart sounds. Absent: systolic murmur, diastolic murmur, rubs, gallop, clicks GI/Abdominal exam: Present: soft, tenderness (left upper quadrant), normal bowel sounds. Absent: distended, guarding, rebound, rigid Back exam: Present: normal inspection, CVA tenderness (L). Absent: CVA tenderness (R) Neurological exam: Present: alert, oriented X3, CN II-XII intact Psychiatric exam: Present: normal affect, normal mood Skin exam: Present: warm, dry, intact, normal color. Absent: rash Course Vital Signs 03/06/21 19:49 Temperature 98.0 F Pulse Rate 120 H Respiratory 20 Rate Blood Pressure 112/73 O2 Sat by Pulse 99 Oximetry Medical Decision Making - Medical Decision Making 26-year-old female patient presents for evaluation of left upper quadrant abdominal discomfort. Reports it is intermittent. Denies radiation through to the back. She is afebrile, initially tachycardic though that has resolved heart rate is now in the 80s to 90s. No vomiting. HCG was negative. Urinalysis showed a cloudy appearance with 1+ protein, trace amount of blood, large leukocyte esterase, 34 liquid cells, greater than 182 white blood cells, occasional white blood cell clumps, 11 squamous epithelial cells, and rare mucous. This is consistent with urinary tract infection. We'll treat with Keflex for 10 days. She is also given Diflucan doesn't case. She'll be discharged follow up with the primary care physician for recheck in 1-2 days. Return parameters were discussed in detail. She verbalizes understanding and agrees with this plan. My attending is Dr. Wagner. - Lab Data Lab Results 03/06/21 03/06/21 Range/Units 20:05 20:05 Urine Color Yellow Urine Appearance Cloudy H (Clear) Urine pH 6.0 (5.0-8.0) Ur Specific [place] 1.024 (1.001-1.035) Urine Protein 1+ H (Negative) Urine Glucose (UA) Negative (Negative) Urine Ketones Negative (Negative) Urine Blood Trace H (Negative) Urine Nitrite Negative (Negative) Urine Bilirubin Negative (Negative) Urine Urobilinogen <2.0 (<2.0) mg/dL Ur Leukocyte Esterase Large H (Negative) Urine RBC 34 H (0-5) /hpf Urine WBC >182 H (0-5) /hpf Urine WBC Clumps Occasional H (None) /hpf Ur Squamous Epith Cells 11 H (0-4) /hpf Urine Mucus Rare H (None) /hpf Urine HCG, Qual Not Detected (Not Detectd) Disposition Clinical Impression: Urinary tract infection Disposition: HOME SELF-CARE Condition: Good Instructions (If sedation given, give patient instructions): Kidney Infection (ED) Additional Instructions: Complete antibiotic prescription in full. Follow-up with your primary care physician for recheck in 1-2 days. Return to the emergency department he develop fever or vomiting. Return for any new, worsening, or concerning symptoms. Prescriptions: Fluconazole [Diflucan] 150 mg PO ONCE #2 tab Cephalexin [Keflex] 500 mg PO Q6H #40 cap Is patient prescribed a controlled substance at d/c from ED?: No Referrals: None,Stated [Primary Care Provider] - 1-2 days Time of Disposition: 21:05
[2021-03-06 20:17] LABS: Appearance,Urine Cloudy (Clear); Bilirubin,Urine Negative (Negative); Blood,Urine Trace (Negative); Color,Urine Yellow; Glucose,Urine (UA) Negative (Negative); Ketones,Urine Negative (Negative); Leukocyte Esterase,Urine Large (Negative); Mucus,Urine Rare /hpf; Nitrite,Urine Negative (Negative); Protein,Urine 1+ (Negative); RBC,Urine 34 /hpf (0-5); Specific Gravity,Urine 1.024 (1.001-1.035); Squamous Epithelial Cell,Urine 11 /hpf (0-4); Urobilinogen,Urine <2.0 mg/dL (<2.0); WBC,Urine >182 /hpf (0-5)
[2021-03-06] MEDS ORDERED: CEPHALEXIN 500MG STARTER PACK 4 CAP BTL PO STA (21:04)
[2021-03-06] MEDS ORDERED: KETOROLAC 15 MG/ML 1 ML VIAL IM STA (21:09)
[2021-03-06 21:49] VITALS: BP 100/74; PULSE 82; RESP 17
== END 2021-03-06 21:32 | disposition home or self-care (01) ==
LOC: EC 19:47
DX: N39.0 Urinary tract infection, site not specified (principal); N89.8 Other specified noninflammatory disorders of vagina; J45.909 Unspecified asthma, uncomplicated; F31.9 Bipolar disorder, unspecified; F41.9 Anxiety disorder, unspecified; F90.9 Attention-deficit hyperactivity disorder, unspecified type; F17.200 Nicotine dependence, unspecified, uncomplicated; F12.90 Cannabis use, unspecified, uncomplicated; F15.90 Other stimulant use, unspecified, uncomplicated; B96.89 Other specified bacterial agents as the cause of diseases classified elsewhere
CPT/HCPCS: 81001; 81025; 87086; 99284; 96372; J1885; 87077; 87186

== ENCOUNTER 2021-03-08 19:42 | Emergency (ER) | payer OTHER ==
[2021-03-08 19:55] VITALS: BP 114/73; PULSE 81; RESP 18; TEMP 98.8
[2021-03-08] MEDS ORDERED: IBUPROFEN 600 MG TAB PO STA (20:02)
[2021-03-08] MEDS ORDERED: BACITRACIN OINT 1 EACH PACKET TOPICAL ONE (20:02)
[2021-03-08] MEDS ORDERED: DIPH,PERTUS(ACELL)TETVAC-LF 0.5 ML VIAL IM ONE (20:02)
[2021-03-08] MEDS ORDERED: LIDOCAINE 1% INJ 10MG/ML (20 ML MDV) SQ ONE (20:02)
--- NOTE | 2021-03-08 20:05 | ED ---
Psych HPI - General Chief Complaint: Psychiatric Symptoms Stated Complaint: Mental Health Time Seen by Provider: 03/08/21 19:44 Source: patient, EMS Mode of arrival: EMS - History of Present Illness Initial Comments: 26 year-old female patient is brought into the emergency department for psychiatric evaluation after she cut her left arm. Patient states her and her were having an argument and she cut her arm to "make him care". She states they were fighting because he hung out with his ex-girlfriend. Patient states she did relapse on crystal meth yesterday. States she does not want to but she wants help quitting drugs. She denies any current suicidal or homicidal ideation, states her intent was never to kill herself she just wanted to get her 's attention. She denies any other injuries or concerns. She is unsure when her last tetanus vaccine was given. Patient denies any headache, neck pain, back pain, chest pain, shortness of breath, dizziness, weakness, abdominal pain, nausea, vomiting, or difficulties with bowel movements or urination. - Related Data Home Medications Medication Instructions Recorded Confirmed ARIPiprazole [Abilify] 30 mg PO DAILY 10/19/20 03/08/21 Albuterol Sulfate [Proair Hfa] 2 puff INHALATION RT-QID PRN 10/19/20 03/08/21 Atomoxetine HCl [Strattera] 80 mg PO DAILY 03/08/21 03/08/21 Mirtazapine [Remeron] 30 mg PO HS 03/08/21 03/08/21 busPIRone HCL 15 mg PO BID 03/08/21 03/08/21 Previous Rx's Medication Instructions Recorded Cephalexin [Keflex] 500 mg PO Q6H #40 cap 03/06/21 Fluconazole [Diflucan] 150 mg PO ONCE #2 tab 03/06/21 Allergies Allergy/AdvReac Type Severity Reaction Status Date / Time adhesive tape Allergy Rash/Hives Verified 03/08/21 20:26 shellfish derived [Shrimp] Allergy Anaphylaxis Verified 03/08/21 20:26 soap Allergy Rash/Hives Verified 03/08/21 20:26 nicotine patch Allergy Rash/Hives Uncoded 03/08/21 19:56 Review of Systems ROS Statement: Those systems with pertinent positive or pertinent negative responses have been documented in the HPI. ROS Other: All systems not noted in ROS Statement are negative. Past Medical History Past Medical History: Asthma Additional Past Medical History / Comment(s): ectopic. History of Any Multi-Drug Resistant Organisms: None Reported Past Surgical History: Adenoidectomy, Section, Tonsillectomy Past Anesthesia/Blood Transfusion Reactions: No Reported Reaction Past Psychological History: ADD/ADHD, Anxiety, Bipolar, Depression, PTSD Smoking Status: Current every day smoker Past Alcohol Use History: None Reported Past Drug Use History: Marijuana, Methamphetamine - Past Family History Father Family Medical History: No Reported History Additional Family Medical History / Comment(s): Father is alive at age 40 with no major medical problems. Brother(s) Family Medical History: No Reported History Additional Family Medical History / Comment(s): Patient has 1 brother and 2 sisters with no major medical problems. Mother Family Medical History: No Reported History Additional Family Medical History / Comment(s): Mother is alive at age 40 with no major medical problems. General Exam Limitations: no limitations General appearance: alert, in no apparent distress, other (Physical well- developed, well-nourished adult female patient in no acute distress. Vital signs upon presentation are temperature 98.8F, pulse 81, respirations 18, blood pressure 114/73, pulse ox 98% on room air.) Respiratory exam: Present: normal lung sounds bilaterally. Absent: respiratory distress, wheezes, rales, rhonchi, stridor Cardiovascular Exam: Present: regular rate, normal rhythm, normal heart sounds. Absent: systolic murmur, diastolic murmur, rubs, gallop, clicks Extremities exam: Present: full ROM, normal capillary refill, other (There is 6 cm superficial laceration noted to the left volar forearm. No active bleeding noted. Skin is otherwise pink, warm, dry. Cap refill less than 3 seconds. Radial pulses 2+.). Absent: normal inspection, tenderness, pedal edema, joint swelling, calf tenderness Neurological exam: Present: alert, oriented X3, CN II-XII intact Psychiatric exam: Present: normal affect, normal mood Skin exam: Present: warm, dry, intact, normal color. Absent: rash Course Vital Signs 03/08/21 19:46 Temperature 98.8 F Pulse Rate 81 Respiratory 18 Rate Blood Pressure 114/73 O2 Sat by Pulse 98 Oximetry Procedures - Laceration Laceration #1 Consent Obtained: verbal consent Indication: laceration Site: upper extremity (left forearm) Size (cm): 6 Description: linear Depth: simple, single layer Sedation/Analgesia: fentanyl Anesthetic Used: lidocaine 1% Anesthesia Technique: local infiltration Amount (mls): 7 Pre-repair: irrigated extensively Type of Sutures: nylon Size of Sutures: 5-0 Number of Sutures: 6 Technique: simple, interrupted Patient Tolerated Procedure: well, no complications Medical Decision Making - Medical Decision Making 26-year-old female patient presented for evaluation after being petitioned by the Datastage Developer for cutting her left arm. Patient states she is not suicidal she wanted to get her 's attention. States she is sad because she relapsed on methamphetamines yesterday. States she did call to try to get in to [facility]. She was cleared medically. Laceration was repaired as documented. She was seen and evaluated by emergency psychiatric services. It is felt that she is safe to be discharged home. She developed a safety plan. She'll be hearing from cigarette her tomorrow. Return parameters were discussed in detail. Patient and verbalize understanding and agree with this plan. My attending is Dr. Hernandez. Disposition Clinical Impression: Laceration of left forearm, Substance abuse, Depression Disposition: HOME SELF-CARE Condition: Good Instructions (If sedation given, give patient instructions): Care For Your Stitches (ED), Laceration (ED), Depression (ED), Methamphetamine Abuse (ED) Additional Instructions: Follow-up with [facility] as you have planned. Keep wound clean and dry. Return in 7 days to have the stitches removed. Monitor for signs or symptoms of infection including but not limited to redness, swelling, drainage of pus, fever, or chills. Return for any other new, worsening, or concerning symptoms. Is patient prescribed a controlled substance at d/c from ED?: No Referrals: None,Stated [Primary Care Provider] - 1-2 days Time of Disposition: 21:42
== END 2021-03-08 21:50 | disposition home or self-care (01) ==
LOC: EC 19:42
DX: S51.812A Laceration without foreign body of left forearm, initial encounter (principal); F19.10 Other psychoactive substance abuse, uncomplicated; F32.9 Major depressive disorder, single episode, unspecified; J45.909 Unspecified asthma, uncomplicated; F90.9 Attention-deficit hyperactivity disorder, unspecified type; F41.9 Anxiety disorder, unspecified; F17.200 Nicotine dependence, unspecified, uncomplicated; F12.90 Cannabis use, unspecified, uncomplicated; Z23 Encounter for immunization; Z79.51 Long term (current) use of inhaled steroids; Z79.899 Other long term (current) drug therapy; W26.9XXA Contact with unspecified sharp object(s), initial encounter
CPT/HCPCS: 90471 ×2; 12002 ×2; 99283 ×2; 82075; 90715; J2001

== ENCOUNTER 2021-11-04 20:54 | Emergency (ER) | payer OTHER ==
[2021-11-04 20:58] VITALS: BP 136/90; PULSE 93; RESP 20; TEMP 98
--- NOTE | 2021-11-04 21:50 | ED ---
Psych HPI - General Chief Complaint: Psychiatric Symptoms Stated Complaint: mental health Time Seen by Provider: 11/04/21 21:14 Source: patient Mode of arrival: ambulatory - History of Present Illness MD Complaint: suicidal ideation, feels depressed Onset/Timin -: days(s) Associated Psychiatric Symptoms: depression, suicidal ideation History of same: Yes Quality: constant Improves With: none Worsens With: drug use Context: recent drug abuse Associated Symptoms: denies other symptoms - Related Data Home Medications Medication Instructions Recorded Confirmed ARIPiprazole [Abilify] 30 mg PO DAILY 10/19/20 11/04/21 Atomoxetine HCl [Strattera] 80 mg PO DAILY 03/08/21 11/04/21 Sertraline [Zoloft] 50 mg PO HS 11/04/21 11/04/21 traZODone HCL 100 mg PO HS 11/04/21 11/04/21 Allergies Allergy/AdvReac Type Severity Reaction Status Date / Time adhesive tape Allergy Rash/Hives Verified 11/04/21 20:55 shellfish derived [Shrimp] Allergy Anaphylaxis Verified 11/04/21 20:55 soap Allergy Rash/Hives Verified 11/04/21 20:55 nicotine patch Allergy Rash/Hives Uncoded 11/04/21 20:55 Review of Systems ROS Statement: Those systems with pertinent positive or pertinent negative responses have been documented in the HPI. ROS Other: All systems not noted in ROS Statement are negative. Constitutional: Denies: fever Respiratory: Denies: cough, dyspnea Cardiovascular: Denies: chest pain, palpitations Gastrointestinal: Denies: abdominal pain, vomiting, diarrhea Genitourinary: Denies: dysuria, hematuria Musculoskeletal: Denies: back pain Skin: Denies: rash Neurological: Denies: headache, weakness, confusion Psychiatric: Reports: depression, suicidal thoughts Past Medical History Past Medical History: Asthma Additional Past Medical History / Comment(s): ectopic. History of Any Multi-Drug Resistant Organisms: None Reported Past Surgical History: Adenoidectomy, Section, Tonsillectomy Past Anesthesia/Blood Transfusion Reactions: No Reported Reaction Past Psychological History: ADD/ADHD, Anxiety, Bipolar, Depression, PTSD Smoking Status: Current every day smoker Past Alcohol Use History: None Reported Past Drug Use History: Heroin, Marijuana, Methamphetamine - Past Family History Father Family Medical History: No Reported History Additional Family Medical History / Comment(s): Father is alive at age 40 with no major medical problems. Brother(s) Family Medical History: No Reported History Additional Family Medical History / Comment(s): Patient has 1 brother and 2 sisters with no major medical problems. Mother Family Medical History: No Reported History Additional Family Medical History / Comment(s): Mother is alive at age 40 with no major medical problems. General Exam Limitations: no limitations General appearance: alert, in no apparent distress Head exam: Present: atraumatic, normocephalic Eye exam: Present: normal appearance. Absent: scleral icterus, conjunctival injection ENT exam: Present: normal oropharynx Neck exam: Present: normal inspection Respiratory exam: Present: normal lung sounds bilaterally. Absent: respiratory distress, wheezes, rales, rhonchi, stridor Cardiovascular Exam: Present: regular rate, normal rhythm, normal heart sounds. Absent: systolic murmur, diastolic murmur, rubs, gallop GI/Abdominal exam: Present: soft. Absent: distended, tenderness, guarding, rebound, rigid, mass Extremities exam: Present: normal inspection, normal capillary refill Neurological exam: Present: alert Psychiatric exam: Present: depressed, suicidal ideation. Absent: agitated, flat affect, manic, homicidal ideation Skin exam: Present: warm, dry, intact, normal color. Absent: rash Course Vital Signs 11/04/21 20:56 Temperature 98.0 F Pulse Rate 93 Respiratory 20 Rate Blood Pressure 136/90 O2 Sat by Pulse 98 Oximetry Medical Decision Making - Lab Data Lab Results 11/04/21 Range/Units 23:29 Urine Opiates Screen Not Detected (NotDetected) Ur Oxycodone Screen Not Detected (NotDetected) Urine Methadone Screen Not Detected (NotDetected) Ur Propoxyphene Screen Not Detected (NotDetected) Ur Barbiturates Screen Not Detected (NotDetected) U Tricyclic Antidepress Not Detected (NotDetected) Ur Phencyclidine Scrn Not Detected (NotDetected) Ur Amphetamines Screen Detected H (NotDetected) U Methamphetamines Scrn Detected H (NotDetected) U Benzodiazepines Scrn Not Detected (NotDetected) Urine Cocaine Screen Not Detected (NotDetected) U Marijuana (THC) Screen Not Detected (NotDetected) Disposition Clinical Impression: Mood disorder Disposition: HOME SELF-CARE Condition: Good Is patient prescribed a controlled substance at d/c from ED?: No Referrals: Mikey Tapia MD [Primary Care Provider] - 1-2 days
[2021-11-05 00:57] LABS: Amphetamine Screen,Urine Detected (NotDetected); Barbiturate Screen,Urine Not Detected (NotDetected); Benzodiazepines Screen,Urine Not Detected (NotDetected); Cocaine Screen,Urine Not Detected (NotDetected); Methadone Screen, Urine Not Detected (NotDetected); Opiate Screen,Urine Not Detected (NotDetected); Oxycodone Screen, Urine Not Detected (NotDetected); Phencyclidine Screen,Urine Not Detected (NotDetected); Tricyclic Antidepressant,Urine Not Detected (NotDetected); Urn Cannabinoid Scrn Not Detected (NotDetected)
== END 2021-11-05 01:45 | disposition home or self-care (01) ==
LOC: EC 20:54
DX: F32.A Depression, unspecified (principal); R45.851 Suicidal ideations; F17.200 Nicotine dependence, unspecified, uncomplicated; J45.909 Unspecified asthma, uncomplicated; Z91.09 Other allergy status, other than to drugs and biological substances; Z91.013 Allergy to seafood; Z91.048 Other nonmedicinal substance allergy status; Z88.8 Allergy status to other drugs, medicaments and biological substances
CPT/HCPCS: 80306; 82075; 99284

== ENCOUNTER 2022-05-03 15:50 | Emergency (ER) | payer OTHER ==
[2022-05-03 15:56] VITALS: TEMP 98
[2022-05-03 17:46] LABS: Appearance,Urine Turbid (Clear); Bilirubin,Urine 1+ (Negative); Blood,Urine Large (Negative); Color,Urine Yellow; Glucose,Urine (UA) Negative (Negative); Hyaline Casts,Urine 7 /lpf (0-2); Ketones,Urine Trace (Negative); Leukocyte Esterase,Urine Large (Negative); Mucus,Urine Moderate /hpf; Nitrite,Urine Negative (Negative); PH, Urine 5.5 (5.0-8.0); Protein,Urine 2+ (Negative); RBC,Urine 18 /hpf (0-5); Specific Gravity,Urine 1.028 (1.001-1.035); Squamous Epithelial Cell,Urine 101 /hpf (0-4); WBC,Urine 28 /hpf (0-5)
[2022-05-03 17:49] LABS: Amphetamine Screen,Urine Detected (NotDetected); Barbiturate Screen,Urine Not Detected (NotDetected); Benzodiazepines Screen,Urine Not Detected (NotDetected); Cocaine Screen,Urine Not Detected (NotDetected); Methadone Screen, Urine Not Detected (NotDetected); Opiate Screen,Urine Not Detected (NotDetected); Oxycodone Screen, Urine Not Detected (NotDetected); Phencyclidine Screen,Urine Not Detected (NotDetected); Tricyclic Antidepressant,Urine Not Detected (NotDetected); Urn Cannabinoid Scrn Detected (NotDetected)
[2022-05-03 18:39] VITALS: BP 102/57; PULSE 55; RESP 15
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
[2022-05-03] MEDS ORDERED: cefTRIAXone 250 MG VIAL IM STA (21:16)
[2022-05-04 14:11] LABS: C. trachomatis,PCR Negative (Neg,Equiv); Chlamydia trachomatis Source Urine; N. gonorrhoeae,PCR Negative (Neg,Equiv); Neisseria Source Urine
== END 2022-05-03 22:27 | disposition home or self-care (01) ==
LOC: EC 15:50
DX: S40.021A Contusion of right upper arm, initial encounter (principal); S40.022A Contusion of left upper arm, initial encounter; S80.12XA Contusion of left lower leg, initial encounter; S80.11XA Contusion of right lower leg, initial encounter; F12.10 Cannabis abuse, uncomplicated; F15.10 Other stimulant abuse, uncomplicated; J45.909 Unspecified asthma, uncomplicated; F17.200 Nicotine dependence, unspecified, uncomplicated; Z53.20 Procedure and treatment not carried out because of patient's decision for unspecified reasons; Z91.048 Other nonmedicinal substance allergy status; Z91.013 Allergy to seafood; X58.XXXA Exposure to other specified factors, initial encounter
CPT/HCPCS: 81001; 81025; 87491; 87591; 80306; 87086; 99284; 96372; J0696

== ENCOUNTER 2022-05-13 08:07 | Inpatient (IN) | payer MEDICAID, OTHER ==
[2022-05-13] MEDS ORDERED: SULFAMETHOX-TMP 800-160MG 1 EACH TAB PO STA (09:00)
[2022-05-13] MEDS ORDERED: CEPHALEXIN 500 MG CAP PO STA (09:00)
[2022-05-13] MEDS ORDERED: LORazepam 2 MG/ML INJ IM STA (09:19)
--- NOTE | 2022-05-13 09:20 | ED ---
General Adult HPI - General Chief complaint: Psychiatric Symptoms Stated complaint: mental health Time Seen by Provider: 05/13/22 08:10 Source: patient, RN notes reviewed, old records reviewed Mode of arrival: ambulatory Limitations: no limitations - History of Present Illness Initial comments: This is a 27-year-old female who presents emergency department stating that she just did methamphetamine prior to arrival. Patient states she is suicidal. Patient states she wants to kill herself by overdosing on methamphetamine. Patient denies any homicidal ideations. Patient denies having taken anything but multivitamin today. Patient denies any drinking. Patient denies any physical complaints. Patient denies fever chills or cough per patient does have a blister and erythematous third middle finger which she did not mention of a benign noticed it when I asked her about that she states it's been that way for a couple days after she was out sleeping and she had. - Related Data Home Medications Medication Instructions Recorded Confirmed Sertraline [Zoloft] 50 mg PO HS 11/04/21 05/13/22 Allergies Allergy/AdvReac Type Severity Reaction Status Date / Time adhesive tape Allergy Rash/Hives Verified 05/13/22 09:06 shellfish derived [Shrimp] Allergy Anaphylaxis Verified 05/13/22 09:06 soap Allergy Rash/Hives Verified 05/13/22 09:06 nicotine patch Allergy Rash/Hives Uncoded 05/13/22 08:13 Review of Systems ROS Statement: Those systems with pertinent positive or pertinent negative responses have been documented in the HPI. ROS Other: All systems not noted in ROS Statement are negative. Past Medical History Past Medical History: Asthma Additional Past Medical History / Comment(s): ectopic. History of Any Multi-Drug Resistant Organisms: None Reported Past Surgical History: Adenoidectomy, Section, Tonsillectomy Past Anesthesia/Blood Transfusion Reactions: No Reported Reaction Past Psychological History: ADD/ADHD, Anxiety, Bipolar, Depression, PTSD Smoking Status: Current every day smoker Past Alcohol Use History: None Reported Past Drug Use History: Heroin, Marijuana, Methamphetamine - Past Family History Father Family Medical History: No Reported History Additional Family Medical History / Comment(s): Father is alive at age 40 with no major medical problems. Brother(s) Family Medical History: No Reported History Additional Family Medical History / Comment(s): Patient has 1 brother and 2 sist ers with no major medical problems. Mother Family Medical History: No Reported History Additional Family Medical History / Comment(s): Mother is alive at age 40 with no major medical problems. General Exam - General Exam Comments Initial Comments: GENERAL: Patient is well-developed and well-nourished. Patient extremely agitated and loud and uncooperative ENT: Neck is soft and supple. No significant lymphadenopathy is noted. Oropharynx is clear. Moist mucous membranes. Neck has full range of motion without eliciting any pain. EYES: The sclera were anicteric and conjunctiva were pink and moist. Extraocular movements were intact and pupils were equal round and reactive to light. Eyelids were unremarkable. PULMONARY: Unlabored respirations. Good breath sounds bilaterally. No audible rales rhonchi or wheezing was noted. CARDIOVASCULAR: There is a regular rate and rhythm without any murmurs gallops or rubs. ABDOMEN: Soft and nontender with normal bowel sounds. SKIN: Skin is clear with no lesions or rashes and otherwise unremarkable. NEUROLOGIC: Patient is alert and oriented x3. Cranial nerves II through XII are grossly intact. Motor and sensory are also intact. Normal speech, volume and content. Symmetrical smile. MUSCULOSKELETAL: Patient's distal palmar surface of the third left finger is erythematous and there is a very large postural on the palmar surface. LYMPHATICS: No significant lymphadenopathy is noted PSYCHIATRIC: Patient is extremely agitated and hyperactive and states she is suicidal Limitations: no limitations Course Vital Signs 05/13/22 08:08 Temperature 98.0 F Pulse Rate 101 H Respiratory 20 Rate Blood Pressure 135/67 O2 Sat by Pulse 98 Oximetry Procedures - Incision & Drainage Consent Obtained: verbal consent Site: hand Needle Aspiration Performed?: Yes I&D Drainage Obtained: Pus, Blood Culture Obtained?: Yes Medical Decision Making - Medical Decision Making I filled out a clinical certification for admission for this patient because of suicidal ideations. Disposition Clinical Impression: Suicidal ideations, Methamphetamine abuse, Finger infection Disposition: ADMITTED IP TO THIS HOSP Referrals: None,Stated [Primary Care Provider] - 1-2 days Time of Disposition: 12:29
[2022-05-13] MEDS ORDERED: CEPHALEXIN 500 MG CAP PO SCH (13:00)
[2022-05-13] MEDS: CEPHALEXIN 500 MG CAP PO SCH ×2 (17:01→21:08)
[2022-05-13] MEDS ORDERED: LORazepam 1 MG TAB PO STA (17:34)
[2022-05-13] MEDS ORDERED: NICOTINE GUM (POLACRILEX) 2 MG GUM BUCCAL PRN (18:04)
[2022-05-13] MEDS ORDERED: LORazepam 2 MG/ML INJ IM PRN (18:04)
[2022-05-13] MEDS ORDERED: chlorproMAZINE 25 MG/ML 2 ML AMP IM PRN (18:04)
[2022-05-13] MEDS ORDERED: MAGNESIUM HYDROXIDE 2,400 MG/10 ML CUP PO PRN (18:04)
[2022-05-13] MEDS ORDERED: ACETAMINOPHEN TAB 325 MG TAB PO PRN (18:04)
[2022-05-13] MEDS ORDERED: MAG HYDROX/AL HYDROX/SIMETH 30 ML CUP PO PRN (18:04)
[2022-05-13 18:27] LABS: Amphetamine Screen,Urine Detected (NotDetected); Barbiturate Screen,Urine Not Detected (NotDetected); Benzodiazepines Screen,Urine Detected (NotDetected); Cocaine Screen,Urine Not Detected (NotDetected); Methadone Screen, Urine Not Detected (NotDetected); Opiate Screen,Urine Not Detected (NotDetected); Oxycodone Screen, Urine Not Detected (NotDetected); Phencyclidine Screen,Urine Not Detected (NotDetected); Tricyclic Antidepressant,Urine Not Detected (NotDetected); Urn Cannabinoid Scrn Detected (NotDetected)
[2022-05-13] MEDS: chlorproMAZINE 25 MG TAB PO PRN (19:14)
[2022-05-13] MEDS: SULFAMETHOX-TMP 800-160MG 1 EACH TAB PO SCH (21:08)
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
[2022-05-14] MEDS: CEPHALEXIN 500 MG CAP PO SCH ×4 (10:58→20:38)
[2022-05-14] MEDS: SULFAMETHOX-TMP 800-160MG 1 EACH TAB PO SCH ×2 (10:58→20:38)
[2022-05-14] MEDS ORDERED: traZODone HCL 100 MG TAB PO PRN (14:07)
[2022-05-14] MEDS: chlorproMAZINE 25 MG TAB PO PRN (14:12)
[2022-05-14] MEDS: risperiDONE 2 MG TAB PO SCH (20:38)
[2022-05-15] MEDS: SULFAMETHOX-TMP 800-160MG 1 EACH TAB PO SCH ×2 (10:13→20:32)
[2022-05-15] MEDS: CEPHALEXIN 500 MG CAP PO SCH ×4 (10:13→20:32)
[2022-05-15] MEDS: risperiDONE 2 MG TAB PO SCH ×2 (10:14→20:32)
--- NOTE | 2022-05-15 11:45 | P.PN ---
Progress Note - Text Progress Note Date: 05/15/22 Clinical Problems: Substance induced mood disorder, methamphetamine use disorder severe, cannabis use disorder moderate, benzodiazepine use disorder moderate, borderline personality disorder, history of posttraumatic stress disorder Interim history: I reviewed the medical record and interviewed the patient. She was irritable and minimally cooperative. She stated that the history she initially presented were she asked her boyfriend to buy heroin for her to overdose was not true. They "contrive" the story in order for her to be admitted. She complained that she presented to the hospital "a couple weeks ago" but was referred for outpatient care. She wishes to "detox" and be referred for residential substance abuse treatment. She relapse to methamphetamine "a couple weeks"and has been using methamphetamine intravenously. When I asked her about the consequences of use she angry replied "everything." Among the complaints was that trazodone was ineffective and she requested to resume Seroquel. Nursing complains that she is irritable and demanding. She does not attend therapeutic groups and activities. According to the activities of daily living log she slept 11 hours last night. Mental status exam: She presented as a thin, disheveled and unkempt 27-year-old female who looked older than her stated age. She had very poor dentition and her hair was in disarray. She yawned frequently during the interview. She wrapped herself in a blanket. She had a irritable facial expression. She was minimally cooperative. She has psychomotor retardation but no abnormal involuntary movements. She spoke minimally and answered questions and angry manner. She volunteered little information. Her affect for his irritable. She denied suicidal ideation or wishes. He denied homicidal ideation. She ruminates to her substance use and need for residential substance abuse treatment. She did not express ideas of reference, paranoid ideation or delusions. Her thinking was concrete but her associations were goal-directed. She denied hallucinations did not appear to be responding to internal stimuli. Assessment: She is having signs and symptoms of amphetamine withdrawal including increasing fatigue, irritability and problems with concentration and attention. She continues daily inpatient treatment. Plan: Continue inpatient treatment. Safety precautions. Discontinue trazodone. Begin Seroquel 50 mg per day. Continue Risperdal 2 mg twice a day. Thorazine 50 mg by mouth or IM when necessary for agitation acute psychosis. Ativan 2 mg IM 4 times a day when necessary for anxiety or agitation. bible worker to coordinate this admission for residential substance abuse treatment. Encourage participation past tolerated to therapeutic groups and activities. Evaluate clinical status response to treatment daily basis.
[2022-05-15 12:46] LABS: Basophils % (A) 0 %; Eosinophils # (A) 0.1 k/uL (0-0.7); Eosinophils % (A) 1 %; HCT 42.8 % (34.0-46.0); HGB 13.3 gm/dL (11.4-16.0); Lymphocytes # (A) 1.4 k/uL (1.0-4.8); Lymphocytes % (A) 24 %; MCH 27.6 pg (25.0-35.0); MCHC 31.1 g/dL (31.0-37.0); MCV 88.5 fL (80.0-100.0); Mean Platelet Volume 7.5; Monocytes # (A) 0.2 k/uL (0-1.0); Monocytes % (A) 3 %; Neutrophils # (A) 4.1 k/uL (1.3-7.7); Neutrophils % (A) 70 %; Platelet Count 253 k/uL (150-450); RBC 4.84 m/uL (3.80-5.40); RDW 15.3 % (11.5-15.5); WBC 5.9 k/uL (3.8-10.6)
[2022-05-15 13:32] LABS: ALT 40 U/L (4-34); AST 32 U/L (14-36); African American GFR (CKD) 84 (>60 ml/min/1.73 sqM); Albumin 4.1 g/dL (3.5-5.0); Alkaline Phosphatase 62 U/L (38-126); Anion Gap 10 mmol/L; Bilirubin, Delta 0.1 mg/dL (0.0-0.2); Bilirubin,Unconjugated 0.2 mg/dL (0.0-1.1); Blood Urea Nitrogen 12 mg/dL (7-17); Calcium 9.5 mg/dL (8.4-10.2); Carbon Dioxide 27 mmol/L (22-30); Chloride 100 mmol/L (98-107); Glucose 89 mg/dL (74-99); Non-African American GFR(CKD) 73 (>60 ml/min/1.73 sqM); Potassium 4.1 mmol/L (3.5-5.1); Sodium 137 mmol/L (137-145); Total Bilirubin 0.3 mg/dL (0.2-1.3); Total Protein 6.8 g/dL (6.3-8.2)
--- NOTE | 2022-05-15 15:13 | P.HPIM ---
History of Present Illness H&P Date: 05/15/22 Patient is a 27-year-old male with PMH of asthma, methamphetamine abuse that presents to the ED for suicidal ideation. He has been admitted to mental health unit for further management of his symptoms. [facility] physicians has been consulted for medical management of this patient. Patient reports a blister on her middle finger. Patient has no complaints. He denies any headache, lower extremity edema, nausea or vomiting, fever or chills, cough, chest pain, shortness of breath, palpitations, changes in urination or bowel habits. No changes in appetite or weight. He denies any dizziness, numbness/weakness/tingling of extremities. His vital signs are currently within normal limits. He was initially tachycardic when he came to the ED. General: [non toxic], [no distress], [appears at stated age] Derm: [warm], [dry] Head: [atraumatic], [normocephalic], [symmetric] Eyes: [EOMI], [no lid lag], [anicteric sclera] Mouth: [no lip lesion], [mucus membranes moist] Cardiovascular: [S1S2 reg], [no murmur], [positive posterior tibial pulse bilateral], Lungs: [CTA bilateral], [no rhonchi, no rales] , [no accessory muscle use] Abdominal: [soft], [ nontender to palpation], [no guarding], [no appreciable organomegaly] Ext: [no gross muscle atrophy], [pustule over the ventral surface of the 3rd digit with purulent discharge], [no contractures] Neuro: [ CN II-XI grossly intact], [no focal neuro deficits] Psych: [Alert], [oriented], [appropriate affect] #Finger pustule #Elevated creatinine #Low TSH #Marijuana and methamphetamine use #Smoker Chronic conditions: Asthma Patient has been encouraged to wash his hands regularly with soap. She has been started on Keflex for finger pustule. Patient encouraged hydration by mouth. Avoid nephrotoxins. Patient has low TSH of 0.412. Free T3 and T4 has been ordered. Patient advised to quit illicit substances. Nicotine patch has been offered. Past Medical History Past Medical History: Asthma Additional Past Medical History / Comment(s): ectopic. History of Any Multi-Drug Resistant Organisms: None Reported Past Surgical History: Adenoidectomy, Section, Tonsillectomy Past Anesthesia/Blood Transfusion Reactions: No Reported Reaction Past Psychological History: ADD/ADHD, Anxiety, Bipolar, Depression, PTSD Smoking Status: Current every day smoker Past Alcohol Use History: None Reported Past Drug Use History: Heroin, Marijuana, Methamphetamine - Past Family History Father Family Medical History: No Reported History Additional Family Medical History / Comment(s): Father is alive at age 40 with no major medical problems. Brother(s) Family Medical History: No Reported History Additional Family Medical History / Comment(s): Patient has 1 brother and 2 sisters with no major medical problems. Mother Family Medical History: No Reported History Additional Family Medical History / Comment(s): Mother is alive at age 40 with no major medical problems. Medications and Allergies Home Medications Medication Instructions Recorded Confirmed Type Sertraline [Zoloft] 50 mg PO HS 11/04/21 05/13/22 History Allergies Allergy/AdvReac Type Severity Reaction Status Date / Time adhesive tape Allergy Rash/Hives Verified 05/13/22 09:06 shellfish derived [Shrimp] Allergy Anaphylaxis Verified 05/13/22 09:06 soap Allergy Rash/Hives Verified 05/13/22 09:06 nicotine patch Allergy Rash/Hives Uncoded 05/13/22 08:13 Physical Exam Vitals: Vital Signs Temp Pulse Resp BP 05/15/22 06:56 97.8 F 97 16 114/65 Results CBC & Chem 7: 05/15/22 11:33 05/15/22 11:33 Labs: Abnormal Lab Results - Last 24 Hours (Table) 05/15/22 Range/Units 11:33 Creatinine 1.07 H (0.52-1.04) mg/dL ALT 40 H (4-34) U/L TSH 0.412 L (0.465-4.680) mIU/L Microbiology - Last 24 Hours (Table) 05/13/22 11:19 Gram Stain - Final Finger - Right Third Wound Culture - Final Staphylococcus aureus
[2022-05-15 17:04] LABS: Appearance,Urine Cloudy (Clear); Bacteria,Urine Rare /hpf; Bilirubin,Urine Negative (Negative); Blood,Urine Negative (Negative); Budding Yeast,Urine Occasional /hpf; Color,Urine Light Yellow; Glucose,Urine (UA) Negative (Negative); Ketones,Urine Negative (Negative); Leukocyte Esterase,Urine Trace (Negative); Mucus,Urine Rare /hpf; Nitrite,Urine Negative (Negative); Protein,Urine Negative (Negative); RBC,Urine 1 /hpf (0-5); Specific Gravity,Urine 1.008 (1.001-1.035); Squamous Epithelial Cell,Urine 6 /hpf (0-4); Urobilinogen,Urine <2.0 mg/dL (<2.0); WBC,Urine 2 /hpf (0-5)
[2022-05-15] MEDS: QUEtiapine 50 MG TAB PO SCH (20:32)
[2022-05-16 06:16] LABS: T4, Free (Free Thyroxine) 1.13 ng/dL (0.78-2.19)
[2022-05-16] MEDS: SULFAMETHOX-TMP 800-160MG 1 EACH TAB PO SCH ×2 (09:49→21:22)
[2022-05-16] MEDS: CEPHALEXIN 500 MG CAP PO SCH ×3 (09:50→21:21)
[2022-05-16] MEDS: risperiDONE 2 MG TAB PO SCH ×2 (09:50→21:21)
--- NOTE | 2022-05-16 10:40 | P.PN ---
Progress Note - Text Progress Note Date: 05/16/22 Clinical Problems: Amphetamine withdrawal, substance induced mood disorder, methamphetamine use disorder severe, cannabis use disorder moderate, benzodiazepine use disorder moderate, borderline personality disorder, history of posttraumatic stress disorder Interim history: I reviewed the medical record and interviewed the patient. She denied complaints or concerns. She denied side effects to her current medications. She received Thorazine 50 mg by mouth yesterday afternoon for agitation following a telephone call. She attended to therapeutic groups and activities yesterday. According to the activities of daily living log she slept 7 hours last night. Mental status exam: She presented as a thin, disheveled and unkempt 27-year-old female who looked older than her stated age. She had very poor dentition and her hair was in disarray. She had a flat facial expression. She was minimally cooperative. She has psychomotor retardation but no abnormal involuntary movements. She spoke minimally and answered questions and angry manner. She volunteered little information. Her affect for his irritable. She denied suicidal ideation or wishes. He denied homicidal ideation. She ruminates to her substance use and need for residential substance abuse treatment. She did not express ideas of reference, paranoid ideation or delusions. Her thinking was concrete but her associations were goal-directed. She denied hallucinations did not appear to be responding to internal stimuli. Assessment: She is having signs and symptoms of amphetamine withdrawal including increasing fatigue, irritability and problems with concentration and attention. She continues daily inpatient treatment. Plan: Continue inpatient treatment. Safety precautions. Begin Seroquel 50 mg per hs prn. Continue Risperdal 2 mg twice a day. Thorazine 50 mg by mouth or IM when necessary for agitation acute psychosis. Ativan 2 mg IM 4 times a day when necessary for anxiety or agitation. 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 Encourage participation past tolerated to therapeutic groups and activities. Evaluate clinical status response to treatment daily basis.
[2022-05-16 16:23] LABS: Chol/HDL Ratio 3.23 Ratio; LDL Cholesterol,Calculated 78.8 mg/dL (0.0-131.0)
[2022-05-16] MEDS: QUEtiapine 50 MG TAB PO SCH (21:21)
[2022-05-17] MEDS: SULFAMETHOX-TMP 800-160MG 1 EACH TAB PO SCH ×2 (09:01→20:15)
[2022-05-17] MEDS: risperiDONE 2 MG TAB PO SCH ×2 (09:02→20:15)
[2022-05-17] MEDS: CEPHALEXIN 500 MG CAP PO SCH ×3 (09:02→20:16)
--- NOTE | 2022-05-17 11:01 | P.PN ---
Progress Note - Text Progress Note Date: 05/17/22 Interval History: Patient was seen resting in bed and was directable and agreeable to speak with comic writer in her room. Currently, the patient is not reporting any suicidal or homicidal ideation, intention, and/or plan. She is not reporting any auditory or visual hallucinations. She is denying any paranoia or other delusions. The patient reports that she has been adherent with medications and is not reporting any significant side effects at this time. The patient states that she is sleeping and eating better. She does express a strong desire to quit drugs and go to rehab. She does report that she has a significant history of heavy drug use with her drugs of choice being methamphetamines and other stimulants. We are awaiting to hear back from [facility] regards to her acceptance for inpatient substance abuse rehabilitation. Mental Status Exam: General Appearance: Patient appears to be stated age is alert, directable, and cooperative. She appears slightly older than stated age and has poor dentition. Behavior: Patient is calmly seated without any agitated behavior. Speech: Patient's speech is fluent and nonpressured. Mood/Affect: Mood is improving mildly, affect is congruent and constricted. Suicidality/Homicidality: Patient denies having any suicidal or homicidal ideation intent or plan. Perceptions: Patient denies any visual hallucinations and denies any auditory hallucinations Though content/process: There is no evidence of any delusional thought content and thought process is linear and goal-directed. Memory and concentration: AOX3, grossly intact for the purposes of this session Judgment and insight: Improving mildly Vital Signs Temp 97.5 F L 05/17/22 06:59 Pulse 88 05/17/22 09:02 Resp 18 05/17/22 06:59 BP 102/55 05/17/22 06:59 Pulse Ox 95 05/13/22 18:50 FiO2 Laboratory Results - Last 24 Hours 05/15/22 11:33 Triglycerides 124.00 Cholesterol 150.00 LDL Cholesterol, Calc 78.8 VLDL Cholesterol, Calc 24.80 HDL Cholesterol 46.40 Cholesterol/HDL Ratio 3.23 Assessment Bipolar 2 disorder Borderline personality disorder PTSD Cannabis use disorder Methamphetamine use disorder Nicotine Dependence Plan: -Patient continues to meet criteria for inpatient psychiatric admission for symptom stabilization and safety. Patient has signed adult voluntary form and medication consent and was placed in patient's chart. -Medications: Continue Risperdal 2 mg by mouth twice a day for mood stabilization/psychosis Continue Seroquel 50 mg by mouth at bedtime when necessary for insomnia -When necessary Ativan and Thorazine for agitation/aggression. -NRT - nicotine patch -SW on board for discharge planning. Encouraged the patient to participate in milieu.
[2022-05-17] MEDS: QUEtiapine 50 MG TAB PO SCH (20:15)
[2022-05-18] MEDS: CEPHALEXIN 500 MG CAP PO SCH (09:05)
[2022-05-18] MEDS: SULFAMETHOX-TMP 800-160MG 1 EACH TAB PO SCH (09:05)
[2022-05-18] MEDS: risperiDONE 2 MG TAB PO SCH (09:06)
--- NOTE | 2022-05-18 13:46 | P.DS ---
Providers Date of admission: 05/13/22 18:01 Expected date of discharge: 05/18/22 Attending physician: Chaparro Garcia MD Consults: 05/13/22 18:04 Consult Physician Routine Consulting Provider: Dorothy Rodriguez Consult Reason/Comments: Medical H&P Do you want consulting provider notified?: Yes Primary care physician: Stated None - Discharge Diagnosis(es) (1) Bipolar 2 disorder Status: Acute Priority: High (2) Methamphetamine use disorder, severe, dependence Status: Chronic Priority: Medium (3) Cannabis abuse Status: Chronic Priority: Medium (4) PTSD (post-traumatic stress disorder) Status: Chronic Priority: Medium (5) Borderline personality disorder Status: Chronic Priority: Medium (6) Tobacco use disorder Status: Chronic Priority: Medium Hospital Course: Admission HPI: Patient is a legally , unemployed, 27-year-old female with significant history of polysubstance abuse who presents to the emergency department for suicidal ideation. Patient presented to the hospital on 05/13/2022, brought into the emergency department by police for suicidal ideation. History was obtained by the patient's boyfriend. Reportedly, the patient had been endorsing suicidal ideation for the past few days and has been engaging in heavy drug use. He reported that the patient symptom messages about buying heroin to overdose with. She reportedly called him to pick her up and bring her heroin to kill herself. Her boyfriend was attempting to bring her to [facility], and upon finding out, the patient grabbed a box spring maker and attempts to cut her arm. The patient was petitioned and certified and subsequent amnesia to the psychiatric unit. The patient is noted to be very somnolent today. She is unable to fully engage the psychiatric interview however does admit to heavy drug use, in particular methamphetamine use. She does admit to suicidal ideation however is unable to verbalize any intention or plan at this time. She denies any homicidal ideation. He does report some auditory hallucinations however remains vague and superficial. Further psychiatric history could not be elicited due to the patient's somnolence. Patient has previous diagnoses of borderline personality disorder, polysubstance abuse including methamphetamine abuse. The patient was last discharged on a regimen of Strattera, Zoloft, trazodone during her last inpatient psychiatric admission in November 2021. Currently only Zoloft is listed as a home medication for her. Patient has had multiple inpatient psychiatric admissions. Patient follows with [facility] in outpatient setting. The patient has had multiple attempts at suicide. Hospital course: Upon admission to the unit patient was initially irritable, easily agitated, and primarily isolative to herself in her room. Patient was however directable and agreeable to commence treatment. She was also initially very somnolent. She was started on a regimen of Risperdal for management of acute psychosis secondary to her substance abuse. Furthermore, the patient signed herself voluntarily to the psychiatric unit. Over the course the hospitalization, the patient displayed significant improvement regards to her target symptoms of acute psychosis and became much more calm and cooperative with staff and peers. She became more spontaneous and began to attend individual and milieu therapies. She was adherent with her Risperdal and tolerated the medication well. Initially, the patient wanted to go to rehab however later changed her mind and decided to return home. On the day of discharge, the patient is not reporting any suicidal or homicidal ideation, intention, and/or plan. She is not reporting any auditory or visual hallucinations. She is denying any paranoia or other delusions. She does report that she prefers that her antipsychotic be scheduled only at bedtime as she felt overly sedated on the medication. She was counseled at length and he points medication adherence and appropriate outpatient follow-up. The patient does endorse a significant history of substance abuse including methamphetamines, heroin, marijuana, and benzodiaze pines. The patient was counseled at length on the importance of abstaining from these substances and was initially going to go to inpatient substance abuse rehabilitation however she decided not to in the end. As the patient no longer met criteria for continued inpatient psychiatric admission, she was subsequently discharged. Mental status exam: General Appearance: Patient appears to be stated age is alert, pleasant, and cooperative. Patient is in no acute distress and has fair hygiene and grooming. Poor dentition Behavior: Patient is calmly seated without any agitated behavior. Speech: Patient's speech is fluent and nonpressured. Mood/Affect: Patient reports their mood is "much better", affect is congruent and euthymic and bright. Suicidality/Homicidality: Patient denies having any suicidal or homicidal ideation intent or plan. Perceptions: Patient denies any auditory or visual hallucinations. Though content/process: There is no evidence of any delusional thought content and thought process is linear and goal-directed.. Patient is future oriented. Memory and concentration: AOX3, grossly intact for the purposes of this session. Can spell "WORLD" backwards correctly. Judgment and insight: Improved with guarded prognosis Impression: Bipolar 2 disorder Borderline personality disorder PTSD Cannabis use disorder Methamphetamine use disorder Tobacco use disorder Plan: -Continue with discharge today as patient has improved and stabilized psychiatrically and is not currently an imminent threat to herself and/or others. Patient will remain at chronically elevated risk for harm to self and/or others due to his impulsivity and polysubstance abuse. -Continue medications: Risperdal 3 mg by mouth daily at bedtime for psychosis Patient will be sent home with antibiotics for her skin lesions -Patient was counseled on the need for medication compliance and appropriate follow-up at mental health and also primary care for medical issues. Patient verbalized understanding and agreed. -Social work to arrange for and conduct family meeting to ensure safety upon discharge and answer any questions/concerns. Social work also to arrange for patients follow up appointments with [facility] for psychiatric care along with follow up with primary care provider. -Patient counseled on abstaining from recreational drugs and marijuana and alcohol. Was informed/educated on the adverse effects on their physical and mental health. Patient verbally agreed and understood. Patient was offered substance abuse treatment however declined at this time -Patient was instructed to return to the hospital or seek immediate medical care if their psychiatric or medical symptoms do worsen or reoccur. -Psychoeducation and supportive therapy provided to patient. Risks and benefits of pharmacological treatment versus the risks and benefits of nontreatment weight and discussed. Informed consent discussion held. Common side effects of psychotropics discussed such as, but not limited to headache, GI disturbance, sexual dysfunction, movement disorders, sedation, and orthostatic hypotension. Life threatening and blackbox warnings of prescribed medications also discussed. Potential risks of operating a vehicle or heavy machinery discussed with patient at length. Advised on importance of compliance and a reliable and responsible manner. Patient advised to review FDA consumer labeling of all medications prior to taking. Patient verbalized understanding of potential risks, and agrees with current treatment plan. Patient advised to medically contact physician/emergency personnel if any acute changes in condition occur. Vital Signs Temp 97.5 F L 05/17/22 06:59 Pulse 88 05/17/22 09:02 Resp 18 05/17/22 06:59 BP 102/55 05/17/22 06:59 Pulse Ox 95 05/13/22 18:50 FiO2 Laboratory Results WBC 5.9 k/uL (3.8-10.6) 05/15/22 11:33 RBC 4.84 m/uL (3.80-5.40) 05/15/22 11:33 Hgb 13.3 gm/dL (11.4-16.0) 05/15/22 11:33 Hct 42.8 % (34.0-46.0) 05/15/22 11:33 MCV 88.5 fL (80.0-100.0) 05/15/22 11:33 MCH 27.6 pg (25.0-35.0) 05/15/22 11:33 MCHC 31.1 g/dL (31.0-37.0) 05/15/22 11:33 RDW 15.3 % (11.5-15.5) 05/15/22 11:33 Plt Count 253 k/uL (150-450) 05/15/22 11:33 MPV 7.5 05/15/22 11:33 Neutrophils % 70 % 05/15/22 11:33 Lymphocytes % 24 % 05/15/22 11:33 Monocytes % 3 % 05/15/22 11:33 Eosinophils % 1 % 05/15/22 11:33 Basophils % 0 % 05/15/22 11:33 Neutrophils # 4.1 k/uL (1.3-7.7) 05/15/22 11:33 Lymphocytes # 1.4 k/uL (1.0-4.8) 05/15/22 11:33 Monocytes # 0.2 k/uL (0-1.0) 05/15/22 11:33 Eosinophils # 0.1 k/uL (0-0.7) 05/15/22 11:33 Basophils # 0.0 k/uL (0-0.2) 05/15/22 11:33 Sodium 137 mmol/L (137-145) 05/15/22 11:33 Potassium 4.1 mmol/L (3.5-5.1) 05/15/22 11:33 Chloride 100 mmol/L (98-107) 05/15/22 11:33 Carbon Dioxide 27 mmol/L (22-30) 05/15/22 11:33 Anion Gap 10 mmol/L 05/15/22 11:33 BUN 12 mg/dL (7-17) 05/15/22 11:33 Creatinine 1.07 mg/dL (0.52-1.04) H 05/15/22 11:33 Est GFR (CKD-EPI)AfAm 84 (>60 ml/min/1.73 sqM) 05/15/22 11:33 Est GFR (CKD-EPI)NonAf 73 (>60 ml/min/1.73 sqM) 05/15/22 11:33 Glucose 89 mg/dL (74-99) 05/15/22 11:[address] Glu mg/dL 110 05/15/22 11:33 Hemoglobin A1c 5.5 % (0.0-6.0) 05/15/22 11:33 Calcium 9.5 mg/dL (8.4-10.2) 05/15/22 11:33 Total Bilirubin 0.3 mg/dL (0.2-1.3) 05/15/22 11:33 Conjugated Bilirubin 0.0 mg/dL (0.0-0.3) 05/15/22 11:33 Unconjugated Bilirubin 0.2 mg/dL (0.0-1.1) 05/15/22 11:33 Delta Bilirubin 0.1 mg/dL (0.0-0.2) 05/15/22 11:33 AST 32 U/L (14-36) 05/15/22 11:33 ALT 40 U/L (4-34) H 05/15/22 11:33 Alkaline Phosphatase 62 U/L (38-126) 05/15/22 11:33 Total Protein 6.8 g/dL (6.3-8.2) 05/15/22 11:33 Albumin 4.1 g/dL (3.5-5.0) 05/15/22 11:33 Triglycerides 124.00 mg/dL (0.00-149.00) 05/15/22 11:33 Cholesterol 150.00 mg/dL (0.00-200.00) 05/15/22 11:33 LDL Cholesterol, Calc 78.8 mg/dL (0.0-131.0) 05/15/22 11:33 VLDL Cholesterol, Calc 24.80 mg/dL (5.00-40.00) 05/15/22 11:33 HDL Cholesterol 46.40 mg/dL (40.00-60.00) 05/15/22 11:33 Cholesterol/HDL Ratio 3.23 Ratio 05/15/22 11:33 TSH 0.412 mIU/L (0.465-4.680) L 05/15/22 11:33 Free T4 1.13 ng/dL (0.78-2.19) 05/15/22 11:33 Free T3 pg/mL 2.8 pg/ml (2.8-5.3) 05/15/22 11:33 Urine Color Light Yellow 05/15/22 16:45 Urine Appearance Cloudy (Clear) H 05/15/22 16:45 Urine pH 7.0 (5.0-8.0) 05/15/22 16:45 Ur Specific [place] 1.008 (1.001-1.035) 05/15/22 16:45 Urine Protein Negative (Negative) 05/15/22 16:45 Urine Glucose (UA) Negative (Negative) 05/15/22 16:45 Urine Ketones Negative (Negative) 05/15/22 16:45 Urine Blood Negative (Negative) 05/15/22 16:45 Urine Nitrite Negative (Negative) 05/15/22 16:45 Urine Bilirubin Negative (Negative) 05/15/22 16:45 Urine Urobilinogen <2.0 mg/dL (<2.0) 05/15/22 16:45 Ur Leukocyte Esterase Trace (Negative) H 05/15/22 16:45 Urine RBC 1 /hpf (0-5) 05/15/22 16:45 Urine WBC 2 /hpf (0-5) 05/15/22 16:45 Ur Squamous Epith Cells 6 /hpf (0-4) H 05/15/22 16:45 Urine Bacteria Rare /hpf (None) H 05/15/22 16:45 Urine Mucus Rare /hpf (None) H 05/15/22 16:45 Urine Yeast (Budding) Occasional /hpf (None) H 05/15/22 16:45 Urine HCG, Qual Not Detected (Not Detectd) 05/15/22 16:45 Urine Opiates Screen Not Detected (NotDetected) 05/13/22 18:07 Ur Oxycodone Screen Not Detected (NotDetected) 05/13/22 18:07 Urine Methadone Screen Not Detected (NotDetected) 05/13/22 18:07 Ur Propoxyphene Screen Not Detected (NotDetected) 05/13/22 18:07 Ur Barbiturates Screen Not Detected (NotDetected) 05/13/22 18:07 U Tricyclic Antidepress Not Detected (NotDetected) 05/13/22 18:07 Ur Phencyclidine Scrn Not Detected (NotDetected) 05/13/22 18:07 Ur Amphetamines Screen Detected (NotDetected) H 05/13/22 18:07 U Methamphetamines Scrn Detected (NotDetected) H 05/13/22 18:07 U Benzodiazepines Scrn Detected (NotDetected) H 05/13/22 18:07 Urine Cocaine Screen Not Detected (NotDetected) 05/13/22 18:07 U Marijuana (THC) Screen Detected (NotDetected) H 05/13/22 18:07 Coronavirus (PCR) Not Detected (Not Detectd) 05/13/22 14:04 Allergies Allergy/AdvReac Type Severity Reaction Status Date / Time adhesive tape Allergy Rash/Hives Verified 05/13/22 09:06 shellfish derived [Shrimp] Allergy Anaphylaxis Verified 05/13/22 09:06 soap Allergy Rash/Hives Verified 05/13/22 09:06 nicotine patch Allergy Rash/Hives Uncoded 05/13/22 08:13 Patient Condition at Discharge: Stable Plan - Discharge Summary Discharge Rx Participant: No New Discharge Prescriptions: New Sulfamethox-Tmp 800-160Mg [Bactrim DS 800-160 mg] 1 each PO BID 3 Days tab Cephalexin [Keflex] 500 mg PO TID 3 Days cap risperiDONE [RisperDAL] 3 mg PO HS 30 Days tab Discontinued Sertraline [Zoloft] 50 mg PO HS Discharge Medication List Cephalexin [Keflex] 500 mg PO TID 3 Days cap 05/18/22 [Rx] Sulfamethox-Tmp 800-160Mg [Bactrim DS 800-160 mg] 1 each PO BID 3 Days tab 05/18/22 [Rx] risperiDONE [RisperDAL] 3 mg PO HS 30 Days tab 05/18/22 [Rx] Follow up Appointment(s)/Referral(s): [facility] [Outside] - 05/21/22 1:00 pm (05/21 @ 13:00-14:00 Call Judith 05/26 @ 10:00-11:00 Randi Ibanez ) [facility] [NON-STAFF] - 1 Week Patient Instructions/Handouts: How to Stop Smoking (DC), Depression (DC), Methamphetamine Abuse (DC) Activity/Diet/Wound Care/Special Instructions: Avoid the use of street drugs and alcohol. Take all prescriptions as prescribed. When you are in need of refills on your medications, please contact your medical provider and/or outpatient psychiatrist to have this done. Please go to scheduled outpatient appointment for aftercare treatment. If symptoms return or become worse, call the crisis line at and/or go to the nearest emergency room for evaluation. Discharge Disposition: HOME SELF-CARE
[2022-05-18 14:58] VITALS: BP 117/55; PULSE 92; RESP 16; TEMP 97.8
== END 2022-05-18 12:30 | disposition home or self-care (01) | DRG 885 ==
LOC: EC 08:07 → 3MHU 18:01
PROVIDERS: ADMIT Psychiatry & Neurology Psychiatry; ATTEND Psychiatry & Neurology Psychiatry
DX: F31.81 Bipolar II disorder (principal); R45.851 Suicidal ideations; F15.23 Other stimulant dependence with withdrawal; F43.10 Post-traumatic stress disorder, unspecified; F60.3 Borderline personality disorder; F90.9 Attention-deficit hyperactivity disorder, unspecified type; F13.10 Sedative, hypnotic or anxiolytic abuse, uncomplicated; F41.9 Anxiety disorder, unspecified; J45.909 Unspecified asthma, uncomplicated; F12.10 Cannabis abuse, uncomplicated; L08.9 Local infection of the skin and subcutaneous tissue, unspecified; F17.210 Nicotine dependence, cigarettes, uncomplicated; Z28.310 Unvaccinated for COVID-19; Z20.822 Contact with and (suspected) exposure to COVID-19; Z56.0 Unemployment, unspecified; K08.9 Disorder of teeth and supporting structures, unspecified; Z71.51 Drug abuse counseling and surveillance of drug abuser; Z71.89 Other specified counseling; F19.94 Other psychoactive substance use, unspecified with psychoactive substance-induced mood disorder; Z63.5 Disruption of family by separation and divorce; Z79.899 Other long term (current) drug therapy
CPT/HCPCS: 80053; 80061; 80306; 81001; 81025; 82075; 82248; 83036; 84439; 84443; 84481; 85025; 87070; 87077; 87186; 87205; 87635; 99284

== ENCOUNTER 2022-08-18 14:32 | Emergency (ER) | payer OTHER ==
[2022-08-18] MEDS ORDERED: SODIUM CHLORIDE 0.9% 500 ML 500 ML IV STA ×2 (14:57→15:13)
[2022-08-18] MEDS ORDERED: ONDANSETRON 4 MG/2 ML VIAL IVP STA (15:13)
--- NOTE | 2022-08-18 15:16 | ED ---
Overdose HPI - General Chief Complaint: Overdose Stated Complaint: overdose Time Seen by Provider: 08/18/22 15:03 Source: patient Mode of arrival: ambulatory Limitations: no limitations - History of Present Illness Initial Comments: This patient is a 27-year-old woman who presents to have evaluation after she took approximately 10 tablets of naproxen 500 mg. The patient is not willing to further discuss why she did this. She did start to develop some vomiting and hour ago. She denies other symptoms. She denies dyspnea, palpitations, chest pain, hematemesis, abdominal pain or other symptoms. Patient denies coingestants. MD Complaint: intentional overdose -: hour(s) Intent: unwilling to say - Related Data Home Medications Medication Instructions Recorded Confirmed ARIPiprazole [Abilify] 15 mg PO DAILY 08/18/22 08/18/22 Benztropine Mesylate [Cogentin] 1 mg PO DAILY 08/18/22 08/18/22 Allergies Allergy/AdvReac Type Severity Reaction Status Date / Time adhesive tape Allergy Rash/Hives Verified 08/18/22 16:19 shellfish derived [Shrimp] Allergy Anaphylaxis Verified 08/18/22 16:19 soap Allergy Rash/Hives Verified 08/18/22 16:19 nicotine patch Allergy Rash/Hives Uncoded 08/18/22 16:19 Review of Systems ROS Statement: Those systems with pertinent positive or pertinent negative responses have been documented in the HPI. ROS Other: All systems not noted in ROS Statement are negative. Constitutional: Denies: fever, chills Respiratory: Denies: cough, dyspnea Cardiovascular: Denies: chest pain, palpitations, edema Gastrointestinal: Reports: nausea, vomiting. Denies: abdominal pain, diarrhea, hematemesis, melena, hematochezia Genitourinary: Denies: dysuria, hematuria Musculoskeletal: Denies: back pain Skin: Denies: rash Neurological: Denies: headache, weakness, numbness Past Medical History Past Medical History: Asthma Additional Past Medical History / Comment(s): ectopic. History of Any Multi-Drug Resistant Organisms: None Reported Past Surgical History: Adenoidectomy, Section, Tonsillectomy Past Anesthesia/Blood Transfusion Reactions: No Reported Reaction Past Psychological History: ADD/ADHD, Anxiety, Bipolar, Depression, PTSD Smoking Status: Current every day smoker Past Alcohol Use History: None Reported Past Drug Use History: Marijuana - Past Family History Father Family Medical History: No Reported History Additional Family Medical History / Comment(s): Father is alive at age 40 with no major medical problems. Brother(s) Family Medical History: No Reported History Additional Family Medical History / Comment(s): Patient has 1 brother and 2 sisters with no major medical problems. Mother Family Medical History: No Reported History Additional Family Medical History / Comment(s): Mother is alive at age 40 with no major medical problems. General Exam Limitations: no limitations General appearance: alert, in no apparent distress Head exam: Present: atraumatic, normocephalic Eye exam: Present: normal appearance. Absent: scleral icterus, conjunctival injection Neck exam: Present: normal inspection Respiratory exam: Present: normal lung sounds bilaterally. Absent: respiratory distress, wheezes, rales, rhonchi, stridor Cardiovascular Exam: Present: regular rate, normal rhythm, normal heart sounds. Absent: systolic murmur, diastolic murmur, rubs, gallop GI/Abdominal exam: Present: soft. Absent: distended, tenderness, guarding, rebound, rigid, mass Extremities exam: Present: normal inspection, normal capillary refill. Absent: pedal edema, calf tenderness Back exam: Present: normal inspection. Absent: CVA tenderness (R), CVA tenderness (L) Neurological exam: Present: alert Skin exam: Present: warm, dry, intact, normal color. Absent: rash Course Vital Signs 08/18/22 14:38 Temperature 97.7 F Pulse Rate 125 H Respiratory 20 Rate Blood Pressure 135/89 O2 Sat by Pulse 96 Oximetry Medical Decision Making - Medical Decision Making Patient is 27-year-old woman here after she had taken a number of extra doses of naproxen. When I went to reevaluate the patient, she is now more talkative about the episode. She states that she had just wanted to try to go to sleep. I discussed medication use and safety. The patient also seen by EPS, and they also believe that she is stable for discharge to continue her outpatient follow- up. - Lab Data Result diagrams: 08/18/22 15:30 08/18/22 15:30 Lab Results 08/18/22 08/18/22 08/18/22 Range/Units 15:30 15:30 16:12 WBC 16.6 H (3.8-10.6) k/uL RBC 4.35 (3.80-5.40) m/uL Hgb 13.2 (11.4-16.0) gm/dL Hct 38.5 (34.0-46.0) % MCV 88.5 (80.0-100.0) fL MCH 30.4 (25.0-35.0) pg MCHC 34.4 (31.0-37.0) g/dL RDW 13.8 (11.5-15.5) % Plt Count 253 (150-450) k/uL MPV 8.1 Neutrophils % 89 % Lymphocytes % 6 % Monocytes % 4 % Eosinophils % 1 % Basophils % 0 % Neutrophils # 14.8 H (1.3-7.7) k/uL Lymphocytes # 1.0 (1.0-4.8) k/uL Monocytes # 0.7 (0-1.0) k/uL Eosinophils # 0.1 (0-0.7) k/uL Basophils # 0.0 (0-0.2) k/uL Sodium 143 (137-145) mmol/L Potassium 3.4 L (3.5-5.1) mmol/L Chloride 109 H (98-107) mmol/L Carbon Dioxide 21 L (22-30) mmol/L Anion Gap 13 mmol/L BUN 16 (7-17) mg/dL Creatinine 0.81 (0.52-1.04) mg/dL Est GFR (CKD-EPI)AfAm >90 (>60 ml/min/1.73 sqM) Est GFR (CKD-EPI)NonAf >90 (>60 ml/min/1.73 sqM) Glucose 125 H (74-99) mg/dL Calcium 9.2 (8.4-10.2) mg/dL Total Bilirubin 2.2 H (0.2-1.3) mg/dL AST 27 (14-36) U/L ALT 18 (4-34) U/L Alkaline Phosphatase 69 (38-126) U/L Total Protein 7.0 (6.3-8.2) g/dL Albumin 4.2 (3.5-5.0) g/dL Urine HCG, Qual Not Detected (Not Detectd) Salicylates <1.0 mg/dL Urine Opiates Screen (NotDetected) Ur Oxycodone Screen (NotDetected) Urine Methadone Screen (NotDetected) Ur Propoxyphene Screen (NotDetected) Acetaminophen <10.0 ug/mL Ur Barbiturates Screen (NotDetected) U Tricyclic Antidepress (NotDetected) Ur Phencyclidine Scrn (NotDetected) Ur Amphetamines Screen (NotDetected) U Methamphetamines Scrn (NotDetected) U Benzodiazepines Scrn (NotDetected) Urine Cocaine Screen (NotDetected) U Marijuana (THC) Screen (NotDetected) Serum Alcohol <10 mg/dL 08/18/22 Range/Units 16:12 WBC (3.8-10.6) k/uL RBC (3.80-5.40) m/uL Hgb (11.4-16.0) gm/dL Hct (34.0-46.0) % MCV (80.0-100.0) fL MCH (25.0-35.0) pg MCHC (31.0-37.0) g/dL RDW (11.5-15.5) % Plt Count (150-450) k/uL MPV Neutrophils % % Lymphocytes % % Monocytes % % Eosinophils % % Basophils % % Neutrophils # (1.3-7.7) k/uL Lymphocytes # (1.0-4.8) k/uL Monocytes # (0-1.0) k/uL Eosinophils # (0-0.7) k/uL Basophils # (0-0.2) k/uL Sodium (137-145) mmol/L Potassium (3.5-5.1) mmol/L Chloride (98-107) mmol/L Carbon Dioxide (22-30) mmol/L Anion Gap mmol/L BUN (7-17) mg/dL Creatinine (0.52-1.04) mg/dL Est GFR (CKD-EPI)AfAm (>60 ml/min/1.73 sqM) Est GFR (CKD-EPI)NonAf (>60 ml/min/1.73 sqM) Glucose (74-99) mg/dL Calcium (8.4-10.2) mg/dL Total Bilirubin (0.2-1.3) mg/dL AST (14-36) U/L ALT (4-34) U/L Alkaline Phosphatase (38-126) U/L Total Protein (6.3-8.2) g/dL Albumin (3.5-5.0) g/dL Urine HCG, Qual (Not Detectd) Salicylates mg/dL Urine Opiates Screen Not Detected (NotDetected) Ur Oxycodone Screen Not Detected (NotDetected) Urine Methadone Screen Not Detected (NotDetected) Ur Propoxyphene Screen Not Detected (NotDetected) Acetaminophen ug/mL Ur Barbiturates Screen Not Detected (NotDetected) U Tricyclic Antidepress Not Detected (NotDetected) Ur Phencyclidine Scrn Not Detected (NotDetected) Ur Amphetamines Screen Not Detected (NotDetected) U Methamphetamines Scrn Not Detected (NotDetected) U Benzodiazepines Scrn Not Detected (NotDetected) Urine Cocaine Screen Not Detected (NotDetected) U Marijuana (THC) Screen Detected H (NotDetected) Serum Alcohol mg/dL - EKG Data -: EKG Interpreted by [place] EKG shows normal: sinus rhythm, axis (Normal), intervals, QRS complexes, ST-T waves (Normal) Rate: normal (Rate 74 bpm) Disposition Clinical Impression: Drug overdose Disposition: HOME SELF-CARE Condition: Good Instructions (If sedation given, give patient instructions): Adult Overdose (ED) Is patient prescribed a controlled substance at d/c from ED?: No Referrals: None,Stated [Primary Care Provider] - 1-2 days
[2022-08-18 15:45] LABS: Basophils % (A) 0 %; Eosinophils # (A) 0.1 k/uL (0-0.7); Eosinophils % (A) 1 %; HCT 38.5 % (34.0-46.0); HGB 13.2 gm/dL (11.4-16.0); Lymphocytes % (A) 6 %; MCH 30.4 pg (25.0-35.0); MCHC 34.4 g/dL (31.0-37.0); MCV 88.5 fL (80.0-100.0); Mean Platelet Volume 8.1; Monocytes # (A) 0.7 k/uL (0-1.0); Monocytes % (A) 4 %; Neutrophils # (A) 14.8 k/uL (1.3-7.7); Neutrophils % (A) 89 %; Platelet Count 253 k/uL (150-450); RBC 4.35 m/uL (3.80-5.40); RDW 13.8 % (11.5-15.5); WBC 16.6 k/uL (3.8-10.6)
[2022-08-18 16:11] LABS: ALT 18 U/L (4-34); AST 27 U/L (14-36); Acetaminophen <10.0 ug/mL; African American GFR (CKD) >90 (>60 ml/min/1.73 sqM); Albumin 4.2 g/dL (3.5-5.0); Alcohol <10 mg/dL; Alkaline Phosphatase 69 U/L (38-126); Anion Gap 13 mmol/L; Blood Urea Nitrogen 16 mg/dL (7-17); Calcium 9.2 mg/dL (8.4-10.2); Carbon Dioxide 21 mmol/L (22-30); Chloride 109 mmol/L (98-107); Glucose 125 mg/dL (74-99); Non-African American GFR(CKD) >90 (>60 ml/min/1.73 sqM); Potassium 3.4 mmol/L (3.5-5.1); Salicylate <1.0 mg/dL; Sodium 143 mmol/L (137-145); Total Bilirubin 2.2 mg/dL (0.2-1.3)
[2022-08-18 16:42] LABS: Cocaine Screen,Urine Not Detected (NotDetected); Phencyclidine Screen,Urine Not Detected (NotDetected); Urn Cannabinoid Scrn Detected (NotDetected)
[2022-08-18 16:43] LABS: Amphetamine Screen,Urine Not Detected (NotDetected); Barbiturate Screen,Urine Not Detected (NotDetected); Benzodiazepines Screen,Urine Not Detected (NotDetected); Methadone Screen, Urine Not Detected (NotDetected); Opiate Screen,Urine Not Detected (NotDetected); Oxycodone Screen, Urine Not Detected (NotDetected); Tricyclic Antidepressant,Urine Not Detected (NotDetected)
[2022-08-18 17:55] VITALS: BP 128/78; PULSE 78; RESP 16; TEMP 98.2
== END 2022-08-18 17:53 | disposition home or self-care (01) ==
LOC: EC 14:32
DX: T39.391A Poisoning by other nonsteroidal anti-inflammatory drugs [NSAID], accidental (unintentional), initial encounter (principal); J45.909 Unspecified asthma, uncomplicated; F41.9 Anxiety disorder, unspecified; F31.9 Bipolar disorder, unspecified; F17.200 Nicotine dependence, unspecified, uncomplicated; F12.90 Cannabis use, unspecified, uncomplicated; Z88.8 Allergy status to other drugs, medicaments and biological substances; Z91.013 Allergy to seafood; Z91.048 Other nonmedicinal substance allergy status
CPT/HCPCS: 36415; 93005; 80053; 85025; 81025; 80306; 80143; 80179; 99283; 96374; 96361; G0480; J2405; 80320

== ENCOUNTER 2023-09-03 13:08 | Inpatient (IN) | payer OTHER ==
[2023-09-03] MEDS: HALOPERIDOL LACTATE 5 MG/ML 1 ML VIAL IM STA (14:07)
--- NOTE | 2023-09-03 14:45 | ED ---
Altered Mental Status HPI - General Chief Complaint: Recheck/Abnormal Lab/Rx Stated Complaint: withdrawls Time Seen by Provider: 09/03/23 13:34 Source: patient, RN notes reviewed, old records reviewed, Caregiver Mode of arrival: ambulatory Limitations: no limitations, altered mental status, physical limitation - History of Present Illness Initial Comments: This is a 28-year-old female presenting with her mother today. Patient presents with mom as well as a friend regards to significantly altered mental status, uncontrollable shaking and tremor. Patient herself states that she does not feel well she is severely anxious, nervous, feels like her heart is racing, patient states she feels weak lightheaded and dizzy to, patient has been doing methamphetamine recently with history of abuse, patient is not suicidal MD Complaint: altered mental status, confusion, intoxication -: days(s) Consistency of Symptoms: getting worse Context: history of similar presentation Associated Symptoms: denies other symptoms Treatments Prior to Arrival: other pre-hospital medication (0) - Related Data Home Medications Medication Instructions Recorded Confirmed Cariprazine HCl [Vraylar] 1.5 mg PO DAILY 09/03/23 09/03/23 Escitalopram [Lexapro] 20 mg PO DAILY 09/03/23 09/03/23 lamoTRIgine [LaMICtal] 50 mg PO DAILY 09/03/23 09/03/23 Previous Rx's Medication Instructions Recorded QUEtiapine [SEROquel] 100 mg PO HS 14 Days #14 tab 06/20/23 Nicotine 14Mg/24Hr Patch [Habitrol] 1 patch TRANSDERM DAILY patch 09/05/23 Allergies Allergy/AdvReac Type Severity Reaction Status Date / Time adhesive tape Allergy Rash/Hives Verified 09/03/23 16:13 shellfish derived [Shrimp] Allergy Anaphylaxis Verified 09/03/23 16:13 soap Allergy Rash/Hives Verified 09/03/23 16:13 nicotine patch Allergy Rash/Hives Uncoded 09/03/23 13:13 Review of Systems ROS Statement: Those systems with pertinent positive or pertinent negative responses have been documented in the HPI. ROS Other: All systems not noted in ROS Statement are negative. Past Medical History Past Medical History: Asthma Additional Past Medical History / Comment(s): ectopic. History of Any Multi-Drug Resistant Organisms: None Reported Past Surgical History: Adenoidectomy, Section, Tonsillectomy Past Anesthesia/Blood Transfusion Reactions: No Reported Reaction Past Psychological History: ADD/ADHD, Anxiety, Bipolar, Depression, PTSD Smoking Status: Current every day smoker Past Alcohol Use History: None Reported Past Drug Use History: Heroin, Marijuana, Methamphetamine - Past Family History Father Family Medical History: No Reported History Additional Family Medical History / Comment(s): Father is alive at age 40 with no major medical problems. Brother(s) Family Medical History: No Reported History Additional Family Medical History / Comment(s): Patient has 1 brother and 2 si sters with no major medical problems. Mother Family Medical History: No Reported History Additional Family Medical History / Comment(s): Mother is alive at age 40 with no major medical problems. General Exam Limitations: no limitations General appearance: alert, anxious, in distress Head exam: Present: atraumatic, normocephalic, normal inspection Eye exam: Present: normal appearance, PERRL, EOMI. Absent: scleral icterus, con junctival injection, periorbital swelling ENT exam: Present: normal exam, mucous membranes moist Neck exam: Present: normal inspection. Absent: tenderness, meningismus, lymphadenopathy Respiratory exam: Present: normal lung sounds bilaterally. Absent: respiratory distress, wheezes, rales, rhonchi, stridor Cardiovascular Exam: Present: normal rhythm, tachycardia, normal heart sounds. Absent: systolic murmur, diastolic murmur, rubs, gallop, clicks GI/Abdominal exam: Present: soft, normal bowel sounds. Absent: distended, tenderness, guarding, rebound, rigid Extremities exam: Present: normal inspection, full ROM, normal capillary refill. Absent: tenderness, pedal edema, joint swelling, calf tenderness Back exam: Present: normal inspection Neurological exam: Present: alert, oriented X3, CN II-XII intact Psychiatric exam: Present: normal affect, normal mood Skin exam: Present: warm, dry, intact, normal color. Absent: rash Course Vital Signs 09/03/23 09/03/23 09/03/23 13:11 16:14 17:55 Temperature 98.4 F 98.9 F 97.8 F Pulse Rate 130 H 76 Pulse Rate [ 77 Pulse Oximetery ] Respiratory 24 18 Rate Blood Pressure 113/57 Blood Pressure 112/70 [Right Arm] O2 Sat by Pulse 98 98 98 Oximetry 09/03/23 17:58 Temperature 97.9 F Pulse Rate 78 Pulse Rate [ Pulse Oximetery ] Respiratory 18 Rate Blood Pressure 104/61 Blood Pressure [Right Arm] O2 Sat by Pulse 98 Oximetry - Reevaluation(s) Reevaluation #1: 09/03/23 15:35 Records reviewed Reevaluation #2: 09/03/23 15:35 Patient becoming somnolent here in the emergency department with medication re quired for sedation 09/03/23 15:35 Patient will be admitted for further monitoring Reevaluation #3: 09/03/23 15:35 Patient informed results family informed results and questions are answered Reevaluation #4: 09/03/23 15:02 Was pt. sent in by a medical professional or institution ([facility], TESTING CONSULTANT, urgent care, hospital, or prison...) When possible be specific @ -no Did you speak to anyone other than the patient for history (EMS, parent, family, police, friend...)? What history was obtained from this source @ -no Did you review nursing and triage notes (agree or disagree)? Why? @ -agree Are old charts reviewed (outside hosp., previous admission, EMS record, old EKG, old radiological studies, urgent care reports/EKG's, prison records)? Report findings @ -yes Differential Diagnosis (chest pain, altered mental status, abdominal pain women, abdominal pain men, vaginal bleeding, weakness, fever, dyspnea, syncope, headache, dizziness, GI bleed, back pain, seizure, CVA, palpatations, mental health, musculoskeletal)? @ -prior EKG interpreted by me (3pts min.). @ -yes X-rays interpreted by me (1pt min.). @ -no CT interpreted by me (1pt min.). @ -no U/S interpreted by me (1pt. min.). @ -no What testing was considered but not performed or refused? (CT, X-rays, U/S, labs)? Why? @ -none What meds were considered but not given or refused? Why? @ -none Did you discuss the management of the patient with other professionals (professionals i.e. [facility] Elizabeth, TESTING CONSULTANT, lab, RT, psych nurse, secondary social studies teacher, colorist dyer, teacher, reserve officer, telephonic case manager)? Give summary @ -no Was smoking cessation discussed for >3mins.? @ -no Was critical care preformed (if so, how long)? @ -no Were there social determinants of health that impacted care today? How? (Homelessness, low income, unemployed, alcoholism, drug addiction, transporta tion, low edu. Level, literacy, decrease access to med. care, nursing home, rehab)? @ -none Was there de-escalation of care discussed even if they declined (Discuss DNR or withdrawal of care, Hospice)? DNR status @ -no What co-morbidities impacted this encounter? (DM, HTN, Smoking, COPD, CAD, Cancer, CVA, ARF, Chemo, Hep., AIDS, mental health diagnosis, sleep apnea, morbid obesity)? @ -none Was patient admitted / discharged? Hospital course, mention meds given and route, prescriptions, significant lab abnormalities, going to OR and other pertinent info. @ - 28 female to the emergency department for evaluation. Patient is today for evaluation regards to altered mental status. Patient presents for altered mental status with methamphetamine and recreational drug abuse. Patient will be admitted for somnolence regarding overdose Admitted Undiagnosed new problem with uncertain prognosis? @ -no Drug Therapy requiring intensive monitoring for toxicity (Heparin, Nitro, Insulin, Cardizem)? @ -no Were any procedures done? @ -no Diagnosis/symptom? @ -Acute drug overdose and withdrawal Acute, or Chronic, or Acute on Chronic? @ -Acute Uncomplicated (without systemic symptoms) or Complicated (systemic symptoms)? @ -Complicated Side effects of treatment? @ -no Exacerbation, Progression, or Severe Exacerbation? @ -exacerbation Poses a threat to life or bodily function? How? (Chest pain, [place], [place], pneumonia, PE, COPD, DKA, ARF, appy, cholecystitis, CVA, Diverticulitis, Homicidal, Suicida l, threat to staff... and all critical care pts) @ -yes with acute overdose Reevaluation #5: 09/03/23 15:36 Differential Altered Mental Status: Hypoglycemia, DKA, hypercapnia, ETOH, overdose, CO poisoning, trauma, myxedema coma, HTN encephalopathy, infection, encephalitis, psychosis, intercranial hemorrhage, hepatic encephalopathy, meningitis, CVA, this is not meant to be an all-inclusive list6 - Consultations Consultation #1: spoke w [facility] regarding admission and they are agreeable Medical Decision Making - Medical Decision Making 28 female to the emergency department for evaluation. Patient is today for evaluation regards to altered mental status. Patient presents for altered mental status with methamphetamine and recreational drug abuse. Patient will be admitted for somnolence regarding overdose - Lab Data Result diagrams: 09/04/23 07:25 09/04/23 07:25 Lab Results 09/03/23 09/03/23 09/03/23 Range/Units 14:39 14:39 14:39 WBC 12.3 H (3.8-10.6) k/uL RBC 4.52 (3.80-5.40) m/uL Hgb 14.5 (11.4-16.0) gm/dL Hct 41.1 (34.0-46.0) % MCV 90.9 (80.0-100.0) fL MCH 32.0 (25.0-35.0) pg MCHC 35.2 (31.0-37.0) g/dL RDW 12.6 (11.5-15.5) % Plt Count 244 (150-450) k/uL MPV 7.6 Neutrophils % 68 % Lymphocytes % 22 % Monocytes % 6 % Eosinophils % 1 % Basophils % 0 % Neutrophils # 8.4 H (1.3-7.7) k/uL Lymphocytes # 2.7 (1.0-4.8) k/uL Monocytes # 0.7 (0-1.0) k/uL Eosinophils # 0.2 (0-0.7) k/uL Basophils # 0.0 (0-0.2) k/uL Sodium 136 L (137-145) mmol/L Potassium 4.0 (3.5-5.1) mmol/L Chloride 101 (98-107) mmol/L Carbon Dioxide 22 (22-30) mmol/L Anion Gap 13 mmol/L BUN 19 H (7-17) mg/dL Creatinine 0.88 (0.52-1.04) mg/dL Est GFR (CKD-EPI)AfAm >90 (>60 ml/min/1.73 sqM) Est GFR (CKD-EPI)NonAf >90 (>60 ml/min/1.73 sqM) Glucose 88 (74-99) mg/dL Calcium 9.7 (8.4-10.2) mg/dL Total Bilirubin 1.0 (0.2-1.3) mg/dL AST 47 H (14-36) U/L ALT 27 (4-34) U/L Alkaline Phosphatase 76 (38-126) U/L Total Protein 7.8 (6.3-8.2) g/dL Albumin 4.6 (3.5-5.0) g/dL Lipase 46 (23-300) U/L HCG, Qual Not Detected Salicylates <1.0 mg/dL Acetaminophen 11.0 ug/mL Lamotrigine (2.0-15.0) ug/mL Serum Alcohol <10 mg/dL 09/03/23 Range/Units 14:39 WBC (3.8-10.6) k/uL RBC (3.80-5.40) m/uL Hgb (11.4-16.0) gm/dL Hct (34.0-46.0) % MCV (80.0-100.0) fL MCH (25.0-35.0) pg MCHC (31.0-37.0) g/dL RDW (11.5-15.5) % Plt Count (150-450) k/uL MPV Neutrophils % % Lymphocytes % % Monocytes % % Eosinophils % % Basophils % % Neutrophils # (1.3-7.7) k/uL Lymphocytes # (1.0-4.8) k/uL Monocytes # (0-1.0) k/uL Eosinophils # (0-0.7) k/uL Basophils # (0-0.2) k/uL Sodium (137-145) mmol/L Potassium (3.5-5.1) mmol/L Chloride (98-107) mmol/L Carbon Dioxide (22-30) mmol/L Anion Gap mmol/L BUN (7-17) mg/dL Creatinine (0.52-1.04) mg/dL Est GFR (CKD-EPI)AfAm (>60 ml/min/1.73 sqM) Est GFR (CKD-EPI)NonAf (>60 ml/min/1.73 sqM) Glucose (74-99) mg/dL Calcium (8.4-10.2) mg/dL Total Bilirubin (0.2-1.3) mg/dL AST (14-36) U/L ALT (4-34) U/L Alkaline Phosphatase (38-126) U/L Total Protein (6.3-8.2) g/dL Albumin (3.5-5.0) g/dL Lipase (23-300) U/L HCG, Qual Salicylates mg/dL Acetaminophen ug/mL Lamotrigine 0.2 L (2.0-15.0) ug/mL Serum Alcohol mg/dL - EKG Data -: EKG Interpreted by Me (EKG is sinus 66 CT 199 QRS 111 QTc 464) Disposition Clinical Impression: Acute anxiety, Adjustment reaction of adult life, Withdrawal from methamphetamine, Methamphetamine abuse, Altered mental state Disposition: ADMITTED IP TO THIS HOSP Condition: Fair Is patient prescribed a controlled substance at d/c from ED?: No Time of Disposition: 15:30
[2023-09-03] MEDS: SODIUM CHLORIDE 0.9% 1,000 ML IV STA (14:49)
[2023-09-03] MEDS: LORazepam 2 MG/ML INJ IV STA ×2 (14:52→17:33)
[2023-09-03 15:23] LABS: ALT 27 U/L (4-34); AST 47 U/L (14-36); African American GFR (CKD) >90 (>60 ml/min/1.73 sqM); Albumin 4.6 g/dL (3.5-5.0); Alcohol <10 mg/dL; Alkaline Phosphatase 76 U/L (38-126); Anion Gap 13 mmol/L; Blood Urea Nitrogen 19 mg/dL (7-17); Calcium 9.7 mg/dL (8.4-10.2); Carbon Dioxide 22 mmol/L (22-30); Chloride 101 mmol/L (98-107); Glucose 88 mg/dL (74-99); Lipase 46 U/L (23-300); Non-African American GFR(CKD) >90 (>60 ml/min/1.73 sqM); Salicylate <1.0 mg/dL; Sodium 136 mmol/L (137-145); Total Protein 7.8 g/dL (6.3-8.2)
[2023-09-03 15:28] LABS: Basophils % (A) 0 %; Eosinophils # (A) 0.2 k/uL (0-0.7); Eosinophils % (A) 1 %; HCT 41.1 % (34.0-46.0); HGB 14.5 gm/dL (11.4-16.0); Lymphocytes # (A) 2.7 k/uL (1.0-4.8); Lymphocytes % (A) 22 %; MCHC 35.2 g/dL (31.0-37.0); MCV 90.9 fL (80.0-100.0); Mean Platelet Volume 7.6; Monocytes # (A) 0.7 k/uL (0-1.0); Monocytes % (A) 6 %; Neutrophils # (A) 8.4 k/uL (1.3-7.7); Neutrophils % (A) 68 %; Platelet Count 244 k/uL (150-450); RBC 4.52 m/uL (3.80-5.40); RDW 12.6 % (11.5-15.5); WBC 12.3 k/uL (3.8-10.6)
[2023-09-03] MEDS ORDERED: NALOXONE 0.4 MG/ML 1 ML VIAL IV PRN (15:32)
[2023-09-03] MEDS ORDERED: ONDANSETRON 4 MG/2 ML VIAL IVP PRN (15:32)
[2023-09-03] MEDS: SODIUM CHLORIDE 0.9% 1,000 ML IV SCH (16:37)
[2023-09-03] MEDS: HALOPERIDOL LACTATE 5 MG/ML 1 ML VIAL IM PRN (19:22)
[2023-09-03] MEDS ORDERED: ALPRAZolam 0.5 MG TAB PO PRN (19:48)
--- NOTE | 2023-09-03 19:54 | P.HPIM ---
History of Present Illness This is a pleasant 28 years old female with past medical history, amphetamine use disorder, substance abuse with methamphetamine and anxiety, she has multiple psych unit admission and she has been diagnosed before with bipolar disorder and PTSD Currently is asleep and after she received several sedatives in the emergency room this was confirmed with the emergency room physician and bedside nurse in emergency room 13. It looks like patient presents with methamphetamine withdrawals is and symptoms accompanied by her, she had several symptoms on admission which were nonspecific involving weakness, dizziness and lightheadedness, anxiety and palpitation, as time passes on she became more agitated and she was all over the place as per bedside nurse it was hard to control and she received several doses of sedatives including 5 mg of Haldol IM, Ativan collectively 3 mg which make her sleepy when I saw her emergency room she was hard to be awakened after she received these medications. Patient hemodynamically is a stable She has mild tachycardia which now better Labs showing mild leukocytosis of 12.3, most likely reactive while BMP and liver enzymes were unremarkable. Salicylate level and acetaminophen were negative while serum alcohol level was less than 10. EKG showing normal sinus rhythm at [address]-T changes and QTC is 464. At home she is on Seroquel 100 mg at bedtime, Lexapro and Lamictal. Haldol when necessary is added as well . Review of Systems ROS unobtainable: due to mental status Past Medical History Past Medical History: Asthma Additional Past Medical History / Comment(s): ectopic. History of Any Multi-Drug Resistant Organisms: None Reported Past Surgical History: Adenoidectomy, Section, Tonsillectomy Past Anesthesia/Blood Transfusion Reactions: No Reported Reaction Past Psychological History: ADD/ADHD, Anxiety, Bipolar, Depression, PTSD Smoking Status: Current every day smoker Past Alcohol Use History: None Reported Past Drug Use History: Heroin, Marijuana, Methamphetamine - Past Family History Father Family Medical History: No Reported History Additional Family Medical History / Comment(s): Father is alive at age 40 with no major medical problems. Brother(s) Family Medical History: No Reported History Additional Family Medical History / Comment(s): Patient has 1 brother and 2 sisters with no major medical problems. Mother Family Medical History: No Reported History Additional Family Medical History / Comment(s): Mother is alive at age 40 with no major medical problems. Medications and Allergies Home Medications Medication Instructions Recorded Confirmed Type QUEtiapine [SEROquel] 100 mg PO HS 14 Days #14 tab 06/20/23 09/03/23 Rx Cariprazine HCl [Vraylar] 1.5 mg PO DAILY 09/03/23 09/03/23 History Escitalopram [Lexapro] 20 mg PO DAILY 09/03/23 09/03/23 History lamoTRIgine [LaMICtal] 50 mg PO DAILY 09/03/23 09/03/23 History Allergies Allergy/AdvReac Type Severity Reaction Status Date / Time adhesive tape Allergy Rash/Hives Verified 09/03/23 16:13 shellfish derived [Shrimp] Allergy Anaphylaxis Verified 09/03/23 16:13 soap Allergy Rash/Hives Verified 09/03/23 16:13 nicotine patch Allergy Rash/Hives Uncoded 09/03/23 13:13 Physical Exam Vitals: Vital Signs Temp Pulse Resp Pulse Ox 09/03/23 13:11 98.4 F 130 H 24 98 Intake and Output 09/03/23 09/03/23 09/03/23 06:59 14:59 22:59 Other: Weight 54.431 kg Examination done with the bedside nurse and emergency room 13 -GENERAL: The patient is sleeping, not in any acute distress. Well developed, well nourished. HEENT: Pupils are round and equally reacting to light. EOMI. No scleral icterus. No conjunctival pallor. Normocephalic, atraumatic. No pharyngeal erythema. No thyromegaly. CARDIOVASCULAR: S1 and S2 present. No murmurs, rubs, or gallops. PULMONARY: Chest is clear to auscultation, no wheezing , no crackles. ABDOMEN: Soft, nontender, nondistended, normoactive bowel sounds. No palpable organomegaly. MUSCULOSKELETAL: No joint swelling or deformity. EXTREMITIES: No cyanosis, clubbing, or pedal edema. NEUROLOGICAL: Gross neurological examination did not reveal any focal deficits. SKIN: No rashes. no petechiae. Results CBC & Chem 7: 09/03/23 14:39 09/03/23 14:39 Labs: Abnormal Lab Results - Last 24 Hours (Table) 09/03/23 09/03/23 Range/Units 14:39 14:39 WBC 12.3 H (3.8-10.6) k/uL Neutrophils # 8.4 H (1.3-7.7) k/uL Sodium 136 L (137-145) mmol/L BUN 19 H (7-17) mg/dL AST 47 H (14-36) U/L Assessment and Plan Assessment: Toxic/metabolic encephalopathy Agitation anxiety and palpitation most likely related to methamphetamine withdrawal Mood disorder most likely related related to drugs Methamphetamine use disorder History of substance abuse with methamphetamine and cocaine Anxiety History of bipolar and PTSD Mild leukocytosis most likely reactive Plan: Continue with home dose of Seroquel 100 mg, Lexapro She is on Haldol when necessary Psychiatric consult Xanax when necessary Labs and medication were reviewed.. Continue same treatment. Continue with symptomatic treatment. Resume home medication. Monitor labs and vitals. DVT and GI prophylaxis. Further recommendations as per clinical course of the patient DVT prophylaxis: Subcutaneous heparin GI Prophylaxis: Pepcid Prognosis is guarded
[2023-09-03] MEDS: HEPARIN SODIUM,PORCINE 5,000 UNIT/ML 1 ML VIAL SQ SCH (20:55)
[2023-09-03] MEDS: FAMOTIDINE 20 MG/2 ML VIAL IV SCH (20:55)
[2023-09-03] MEDS: QUEtiapine 100 MG TAB PO SCH (20:55)
[2023-09-03] MEDS: LORazepam 2 MG/ML INJ IV PRN (22:46)
[2023-09-04] MEDS: ESCITALOPRAM 20 MG TAB PO SCH (10:13)
[2023-09-04] MEDS: lamoTRIgine 25 MG TAB PO SCH (10:13)
--- NOTE | 2023-09-04 11:19 | P.PN ---
Subjective This is a pleasant 28 years old female with past medical history, amphetamine use disorder, substance abuse with methamphetamine and anxiety, she has multiple psych unit admission and she has been diagnosed before with bipolar disorder and PTSD Currently is asleep and after she received several sedatives in the emergency room this was confirmed with the emergency room physician and bedside nurse in emergency room 13. It looks like patient presents with methamphetamine withdrawals is and symptoms accompanied by her, she had several symptoms on admission which were nonspecific involving weakness, dizziness and lightheadedness, anxiety and palpitation, as time passes on she became more agitated and she was all over the place as per bedside nurse it was hard to control and she received several doses of sedatives including 5 mg of Haldol IM, Ativan collectively 3 mg which make her sleepy when I saw her emergency room she was hard to be awakened after she received these medications. Patient hemodynamically is a stable She has mild tachycardia which now better Labs showing mild leukocytosis of 12.3, most likely reactive while BMP and liver enzymes were unremarkable. Salicylate level and acetaminophen were negative while serum alcohol level was less than 10. EKG showing normal sinus rhythm at [address]-T changes and QTC is 464. At home she is on Seroquel 100 mg at bedtime, Lexapro and Lamictal. Haldol when necessary is added as well . 09/04/2023 Patient was more agitated overnight required more doses of sedatives This morning she was sleepy, she wakes up to answer questions but go back to sleep right away, she answers questions appropriately and follows commands. And at bedside and she can interact with him and answered his questions as well. She denies any specific complaints She says she smokes 1 pack per days and she was asking for nicotine patch but she declines to quit when she consult with risks and benefits. patient could not provide further information regarding his substance abuse She is hemodynamically stable She is still getting normal saline at 75 mL/h We will discontinue Haldol IM when necessary and continue with Ativan when necessary. she is on several medications for her first mental illness. Psychiatric of this calld. Patient also counseled extensively to avoid substance abuse Review of systems CONSTITUTIONAL: No fever, no malaise, no fatigue. HEENT: No recent visual problems or hearing problems. Denied any sore throat. CARDIOVASCULAR: No orthopnea, PND, no palpitations, no syncope. PULMONARY: No shortness of breath, no cough, no hemoptysis. GASTROINTESTINAL: No diarrhea, no nausea, no vomiting, no abdominal pain. Normoactive bowel sounds. NEUROLOGICAL: No headaches, no weakness, no numbness. Active Medications Generic Name Dose Route Start Last Admin Trade Name Freq PRN Reason Stop Dose Admin Alprazolam 0.5 mg 09/03/23 19:48 Alprazolam 0.5 Mg Tab PO BID PRN Anxiety Escitalopram Oxalate 20 mg 09/04/23 09:00 09/04/23 10:13 Escitalopram 20 Mg Tab PO 20 mg DAILY GRETCHEN Administration Famotidine 20 mg 09/03/23 21:00 09/04/23 10:13 Famotidine 20 Mg/2 Ml Vial IV 20 mg Q12HR GRETCHEN Administration Heparin Sodium (Porcine) 5,000 unit 09/04/23 21:00 Heparin Sodium,Porcine 5,000 Unit/Ml 1 Ml Vial SQ Q12HR GRETCHEN Sodium Chloride 1,000 mls @ 75 mls/hr 09/03/23 15:45 09/03/23 20:56 Saline 0.9% IV 75 mls/hr .[id number] GRETCHEN Administration Lamotrigine 50 mg 09/04/23 09:00 09/04/23 10:13 Lamotrigine 25 Mg Tab PO 50 mg DAILY GRETCHEN Administration Lorazepam 1 mg 09/03/23 19:53 09/04/23 05:51 Lorazepam 2 Mg/Ml Inj IV 1 mg Q6HR PRN Administration Anxiety Naloxone HCl 0.2 mg 09/03/23 15:32 Naloxone 0.4 Mg/Ml 1 Ml Vial IV Q2M PRN Opioid Reversal Nicotine 1 patch 09/04/23 11:15 Nicotine 14mg/24hr Patch TRANSDERM DAILY GRETCHEN Ondansetron HCl 4 mg 09/03/23 15:32 Ondansetron 4 Mg/2 Ml Vial IVP Q8HR PRN Nausea And Vomiting Quetiapine Fumarate 100 mg 09/03/23 21:00 09/03/23 20:55 Quetiapine 100 Mg Tab PO 100 mg HS GRETCHEN Administration Objective - Vital Signs Vital signs: Vital Signs Temp 98.2 F 09/04/23 10:26 Pulse 85 09/04/23 10:27 Resp 16 09/04/23 10:27 BP 151/119 09/04/23 10:26 Pulse Ox 100 09/04/23 10:26 FiO2 Intake & Output 09/03/23 09/04/23 09/04/23 18:59 06:59 18:59 Intake Total 50 Balance 50 Weight 54.431 kg Intake: Oral 50 - Exam -GENERAL: The patient is alert and oriented x3, drowsy but wakes up to verbal stimuli she follows commands, not in any acute distress. Well developed, well nourished. HEENT: Pupils are round and equally reacting to light. EOMI. No scleral icterus. No conjunctival pallor. Normocephalic, atraumatic. No pharyngeal erythema. No thyromegaly. CARDIOVASCULAR: S1 and S2 present. No murmurs, rubs, or gallops. PULMONARY: Chest is clear to auscultation, no wheezing , no crackles. ABDOMEN: Soft, nontender, nondistended, normoactive bowel sounds. No palpable organomegaly. MUSCULOSKELETAL: No joint swelling or deformity. EXTREMITIES: No cyanosis, clubbing, or pedal edema. NEUROLOGICAL: Gross neurological examination did not reveal any focal deficits. SKIN: No rashes. no petechiae. - Labs CBC & Chem 7: 09/03/23 14:39 09/03/23 14:39 Labs: Abnormal Lab Results - Last 24 Hours (Table) 09/03/23 09/03/23 Range/Units 14:39 14:39 WBC 12.3 H (3.8-10.6) k/uL Neutrophils # 8.4 H (1.3-7.7) k/uL Sodium 136 L (137-145) mmol/L BUN 19 H (7-17) mg/dL AST 47 H (14-36) U/L Assessment and Plan Assessment: Toxic/metabolic encephalopathy Agitation anxiety and palpitation most likely related to methamphetamine withdrawal Mood disorder most likely related related to drugs Methamphetamine use disorder History of substance abuse with methamphetamine and cocaine Anxiety History of bipolar and PTSD Mild leukocytosis most likely reactive Plan: Continue with home dose of Seroquel 100 mg, Lexapro dc Haldol when necessary Psychiatric consult Xanax when necessary Ativan when necessary Labs and medication were reviewed.. Continue same treatment. Continue with symptomatic treatment. Resume home medication. Monitor labs and vitals. DVT and GI prophylaxis. Further recommendations as per clinical course of the patient DVT prophylaxis: Subcutaneous heparin GI Prophylaxis: Pepcid Prognosis is guarded
[2023-09-04] MEDS: NICOTINE 14MG/24HR PATCH TRANSDERM SCH (11:22)
[2023-09-04 11:42] LABS: Basophils # (A) 0.04 X 10*3/uL (0.00-0.10); Basophils % (A) 0.6 %; Eosinophils # (A) 0.27 X 10*3/uL (0.04-0.35); Eosinophils % (A) 3.8 %; HCT 37.4 % (37.2-46.3); Lymphocytes % (A) 26.9 %; MCH 31.8 pg (27.0-32.0); MCHC 34.8 g/dL (32.0-37.0); MCV 91.4 FL (80.0-97.0); Mean Platelet Volume 9.8 FL (9.5-12.2); Monocytes # (A) 0.56 X 10*3/uL (0.20-1.00); Monocytes % (A) 7.9 %; NRBC Per 100 WBC 0 X 10*3/uL (0.00-0.01); Neutrophils # (A) 4.27 X 10*3/uL (1.80-7.70); Neutrophils % (A) 60.5 %; Platelet Count 181 X 10*3/uL (140-440); RBC 4.09 X 10*6/uL (4.10-5.20); RDW 13.2 % (11.5-14.5); WBC 7.06 X 10*3/uL (4.50-10.00)
[2023-09-04] MEDS ORDERED: HALOPERIDOL LACTATE 5 MG/ML 1 ML VIAL IM PRN (12:23)
--- NOTE | 2023-09-04 12:30 | P.CN ---
Psychiatric Consult - . Consult date: 09/04/23 Consult:: 09/04/23 12:24 IDENTIFYING DATA: This patient is a 28-year-old female REASON FOR REFERRAL: Psychiatry was consulted for psychiatric evaluation HISTORY OF PRESENT ILLNESS: The patient presented to the hospital initially on 09/03 with altered mental status. The patient apparently patient was shaking, anxious, claiming that her heart was racing, she is also endorsing weakness. Patient supposedly was also using methamphetamines recently. Patient was admitted to the medical floors due to the altered mental status, psychiatrist went to evaluate patient today. Patient apparently has been receiving Ativan IV when necessary for agitation and anxiety. Patient was seen at the bedside sleeping, she was awoken briefly by teletypewriter operator however appear to have poor attention span, only answered some questions. She was mumbling at times. Poor historian. At this time patient denies any suicidal or homical ideations, intent or plan. Patient denies any auditory, visual hallucinations. Patient was not given a urine drug screen at this time however does have a history of stimulant abuse and cannabis use disorder PAST PSYCHIATRIC HISTORY: Patient has a a history of adjustment disorder, mood disorder, polysubstance abuse. Patient is currently on Abilify, BuSpar, Lexapro, Seroquel. Patient was last psychiatrically hospitalized on the mental health unit in May 2023. Unclear if patient is following up psychiatrically for mental health treatment at [facility]. PAST MEDICAL HISTORY: As per ER note. ALLERGIES: as per EMR. CHEMICAL DEPENDENCY HISTORY: as per HPI. FAMILY PSYCHIATRIC/SUBSTANCE USE HISTORY: Unable to gather SOCIAL HISTORY: Unable to gather. MENTAL STATUS EXAM: General Appearance: Patient appears to be stated age is lethargic, uncooperative, confused. Patient appears to have multiple scars and cut givens on her arms. Behavior: Patient is calmly lying in bed without any agitated behavior. Sleeping, lethargic Speech: Patient's speech is mummbling Mood/Affect: Unable to gather Suicidality/Homicidality: Patient denies having any suicidal or homicidal ideation intent or plan. Perceptions: Patient denies any visual hallucinations and denies any auditory hallucinations Though content/process: [place], mumbling. Memory and concentration: Poor attention span, unable to gather Judgment and insight: poor IMPRESSIONS: Delirium, possibly secondary to polysubstance use History of methamphetamine use History of cannabis use PLAN: -At this time patient DOES NOT meet criteria for inpatient psychiatric admission as patient is fairly delirious and will be continue to be followed along on the medical floors. -Delirium precautions recommended with patient including - avoiding use of narcotics and PAYABLE REPRESENTATIVE sedatives, limit anticholinergic medications when possible, frequent re-orientation, minimize use of restraints, open window shades during the day and close them at night -Would recommend the following medication changes/additions: Please avoid benzodiazepines at this time or other anticholinergic medications as this will further increase patient's delirium and confusion. Haldol when necessary every 6 hours for agitation/psychosis, Seroquel 100 mg to adjust for mood stabilization/sleep. -workers compensation attorney to provide patient with outpatient mental health/psychiatry resources for appropriate follow up upon discharge -workers compensation attorney to provide patient substance use treatment resources including AA/NA meetings in the community. -workers compensation attorney to provide patient with access line number to call for inpatient substance rehab -Communicated plan to patient's nurse -Will continue to follow along as needed -Please contact with any questions.
[2023-09-04 13:21] LABS: ALT 19 U/L (8-44); AST 31 U/L (13-35); Albumin 3.5 g/dL (3.8-4.9); Albumin/Globulin Ratio 1.84 Ratio (1.60-3.17); Alkaline Phosphatase 57 U/L (41-126); BUN/Creat Ratio 15.29 Ratio (12.00-20.00); Blood Urea Nitrogen 10.7 mg/dL (9.0-27.0); Calcium 8.7 mg/dL (8.7-10.3); Carbon Dioxide 20.6 mmol/L (21.6-31.8); Chloride 110 mmol/L (96-109); Globulin 1.9 g/dL (1.6-3.3); Glucose 69 mg/dL (70-110); Magnesium 2.1 mg/dL (1.5-2.4); Phosphorus 3.4 mg/dL (2.4-5.1); Potassium 3.6 mmol/L (3.5-5.5); Sodium 141 mmol/L (135-145); Total Bilirubin 0.6 mg/dL (0.3-1.2); Total Protein 5.4 g/dL (6.2-8.2)
[2023-09-04 15:53] LABS: Appearance,Urine Cloudy (Clear); Bacteria,Urine Rare /hpf; Bilirubin,Urine Negative (Negative); Blood,Urine Negative (Negative); Color,Urine Yellow; Glucose,Urine (UA) Negative (Negative); Ketones,Urine 1+ (Negative); Leukocyte Esterase,Urine Large (Negative); Mucus,Urine Moderate /hpf; Nitrite,Urine Negative (Negative); PH, Urine 5.5 (5.0-8.0); Protein,Urine Trace (Negative); RBC,Urine 35 /hpf (0-5); Specific Gravity,Urine 1.021 (1.001-1.035); Squamous Epithelial Cell,Urine 3 /hpf (0-4); Urobilinogen,Urine <2.0 mg/dL (<2.0); WBC,Urine 20 /hpf (0-5)
[2023-09-04 18:48] LABS: Appearance,Urine Clear (Clear); Bilirubin,Urine Negative (Negative); Blood,Urine Negative (Negative); Color,Urine Light Yellow; Glucose,Urine (UA) Negative (Negative); Ketones,Urine 1+ (Negative); Leukocyte Esterase,Urine Negative (Negative); Nitrite,Urine Negative (Negative); PH, Urine 5.5 (5.0-8.0); Protein,Urine Negative (Negative); Specific Gravity,Urine 1.015 (1.001-1.035); Urobilinogen,Urine <2.0 mg/dL (<2.0)
[2023-09-04] MEDS: HEPARIN SODIUM,PORCINE 5,000 UNIT/ML 1 ML VIAL SQ SCH (20:30)
[2023-09-05] MEDS: haloperidoL 5 MG TAB PO PRN (03:27)
[2023-09-05 10:13] LABS: Urine Alcohol Negative (Negative); Urine Barbiturate Positive (Negative); Urine Cocaine Negative (Negative); Urine Methadone Negative (Negative); Urine Opiates Negative (Negative); Urine Phencyclidine Negative (Negative)
[2023-09-05 14:51] VITALS: BP 96/61; PULSE 64; RESP 16; TEMP 98.1
--- NOTE | 2023-09-08 22:22 | P.PN ---
Subjective Progress Note Date: 09/05/23 Final Diagnosis Toxic/metabolic encephalopathy due to polysubstance use Agitation anxiety and palpitation most likely related to methamphetamine withdrawal Mood disorder most likely related related to drugs Methamphetamine use disorder History of substance abuse with methamphetamine and cocaine Anxiety History of bipolar and PTSD Mild leukocytosis most likely reactive Nicotine smokes 1 PPD. Discharge Disposition Patient is stable for discharge home. Has overall guarded prognosis due to continued substance abuse. Patient does want to quit using, states she has support and has a plan. She is currently on a waiting list to get into a rehab center hopefully by Tuesday she states. Patient to follow up with her known psychiatrist on discharge. Hospital Course This is a 28 year old female with amphetamine use disorder, substance abuse with methamphetamine and anxiety, she has multiple psych unit admission and she has been diagnosed before with bipolar disorder and PTSD. It looks like patient pr esents with methamphetamine withdrawals is and symptoms accompanied by her, she had several symptoms on admission which were nonspecific involving weakness, dizziness and lightheadedness, anxiety and palpitation, as time passes on she became more agitated and she was all over the place as per bedside nurse it was hard to control and she received several doses of sedatives including 5 mg of Haldol IM, Ativan collectively 3 mg. She did have tachycardia on admission which has improved. Labs showing mild leukocytosis of 12.3, most likely reactive while BMP and liver enzymes were unremarkable. Salicylate level and acetaminophen were negative while serum alcohol level was less than 10. EKG showing normal sinus rhythm at [address]-T changes and QTC is 464. UDS positive for barbituates, amphetamines, and cannabinoids. At home she is on Seroquel 100 mg at bedtime, Lexapro and Lamictal. Patient was resumed on medications, admitted to the hospital under medicine with psychiatry consultation. Patient was hydrated with normal saline. Patient denies suicidal or homicidal ideations. Patient was evaluated by psychiatry with recommendations that patient does NOT meet inpatient criteria and will be provided with AA/NA meeting info in the community as well as outpatient mental health psychiatric resources. Patient did improve overnight has been alert x 3 and not agitated or combative she is asking when she can go home. She will be discharged with community health resources given. Review of Systems Constitutional: Denied any fatigue denied any fever. Cardio vascular: denied any chest pain, palpitations Gastrointestinal: denied any nausea, vomiting, diarrhea Pulmonary: Denied any shortness of breath cough Neurologic denied any new focal deficits All inpatient medications were reviewed and appropriate changes in these medications as dictated in the interval history and assessment and plan. PHYSICAL EXAMINATION: GENERAL: The patient is alert and oriented x3, not in any acute distress. Well developed, well nourished. HEENT: Pupils are round and equally reacting to light. EOMI. No scleral icterus. No conjunctival pallor. Normocephalic, atraumatic. No pharyngeal erythema. No thyromegaly. CARDIOVASCULAR: S1 and S2 present. No murmurs, rubs, or gallops. PULMONARY: Chest is clear to auscultation, no wheezing or crackles. ABDOMEN: Soft, nontender, nondistended, normoactive bowel sounds. No palpable organomegaly. MUSCULOSKELETAL: No joint swelling or deformity. EXTREMITIES: No cyanosis, clubbing, or pedal edema. NEUROLOGICAL: Gross neurological examination did not reveal any focal deficits. SKIN: No rashes. Please see medication reconciliation for a list of current medications. Thank you for allowing us to participate in the care of this patient. The impression and plan of care has been dictated by Thalia Arndt, Nurse Practitioner as directed. Dr. Magdaleno MD I have performed a history and physical examination and medical decision making of this patient, discussed the same with the dictator, and agree with the dictators assessment and plan as written, documented as a scribe. Based on total visit time, I have performed more than 50% of this visit. Objective - Vital Signs Vital signs: Vital Signs Temp 97.5 F L 09/05/23 07:20 Pulse 71 09/05/23 07:20 Resp 17 09/05/23 07:20 BP 98/65 09/05/23 07:20 Pulse Ox 98 09/05/23 07:20 FiO2 Intake & Output 09/04/23 09/05/23 09/05/23 18:59 06:59 18:59 Intake Total 218 118 Output Total 500 Balance -282 118 Intake: Oral 218 118 Output: Urine 500 Other: # Voids 1 - Labs CBC & Chem 7: 09/04/23 07:25 09/04/23 07:25 Labs: Abnormal Lab Results - Last 24 Hours (Table) 09/04/23 09/04/23 09/04/23 Range/Units 07:25 07:25 15:20 RBC 4.09 L (4.10-5.20) X 10*6/uL Chloride 110 H (96-109) mmol/L Carbon Dioxide 20.6 L (21.6-31.8) mmol/L Glucose 69 L (70-110) mg/dL Total Protein 5.4 L (6.2-8.2) g/dL Albumin 3.5 L (3.8-4.9) g/dL Urine Appearance Cloudy H (Clear) Urine Protein Trace H (Negative) Urine Ketones 1+ H (Negative) Ur Leukocyte Esterase Large H (Negative) Urine RBC 35 H (0-5) /hpf Urine WBC 20 H (0-5) /hpf Urine Bacteria Rare H (None) /hpf Urine Mucus Moderate H (None) /hpf Urine Barbiturates (Negative) Ur Amphetamine Screen (Negative) U Cannabinoids Screen (Negative) 09/04/23 09/04/23 Range/Units 15:20 17:54 RBC (4.10-5.20) X 10*6/uL Chloride (96-109) mmol/L Carbon Dioxide (21.6-31.8) mmol/L Glucose (70-110) mg/dL Total Protein (6.2-8.2) g/dL Albumin (3.8-4.9) g/dL Urine Appearance (Clear) Urine Protein (Negative) Urine Ketones 1+ H (Negative) Ur Leukocyte Esterase (Negative) Urine RBC (0-5) /hpf Urine WBC (0-5) /hpf Urine Bacteria (None) /hpf Urine Mucus (None) /hpf Urine Barbiturates Positive A (Negative) Ur Amphetamine Screen Positive A (Negative) U Cannabinoids Screen Positive A (Negative) Assessment and Plan Time with Patient: Less than 30
== END 2023-09-05 14:34 | disposition home or self-care (01) | DRG 774 ==
LOC: EC 13:08 → 6NMEDSUR 15:33 → OBSVTOIN 15:34 → 6NMEDSUR 17:03
PROVIDERS: ADMIT Hospitalist; ATTEND Hospitalist
DX: F15.13 Other stimulant abuse with withdrawal (principal); F14.10 Cocaine abuse, uncomplicated; F31.9 Bipolar disorder, unspecified; T43.651A Poisoning by methamphetamines accidental (unintentional), initial encounter; G92.8 Other toxic encephalopathy; F05 Delirium due to known physiological condition; F43.22 Adjustment disorder with anxiety; D72.828 Other elevated white blood cell count; F43.10 Post-traumatic stress disorder, unspecified; F17.210 Nicotine dependence, cigarettes, uncomplicated; Z91.048 Other nonmedicinal substance allergy status; Z79.899 Other long term (current) drug therapy; Z91.013 Allergy to seafood; Z88.8 Allergy status to other drugs, medicaments and biological substances
CPT/HCPCS: 36415; 80053; 80143; 80175; 80179; 80306; 80320; 81001; 81003; 81025; 83690; 83735; 84100; 84703; 85025; 93005; 96361; 96374; 96375; 96376; 99285

== ENCOUNTER 2023-10-05 14:42 | Emergency (ER) | payer OTHER ==
--- NOTE | 2023-10-05 15:24 | ED ---
General Adult HPI - General Chief complaint: Psychiatric Symptoms Stated complaint: request eval for addy monterroso Time Seen by Provider: 10/05/23 14:59 Source: patient Mode of arrival: ambulatory - History of Present Illness Initial comments: Dictation was produced using [employer] dictation software. please excuse any grammatical, word or spelling errors. Chief Complaint: 28-year-old female presents to emergency room for suicidal ideation History of Present Illness: 28-year-old female presents emergency department for suicidal ideation she has history of psychiatric illness she has been admitted for suicidal ideation in the past. Patient states she was contemplating overdosing on pills. She did not however take any pills or her results today. Denies any visual auditory hallucinations. Patient has no medical complaints today. The ROS documented in this emergency department record has been reviewed and confirmed by me. Those systems with pertinent positive or negative responses have been documented in the HPI. All other systems are other negative and/or noncontributory. - Related Data Home Medications Medication Instructions Recorded Confirmed No Known Home Medications 10/05/23 10/05/23 Allergies Allergy/AdvReac Type Severity Reaction Status Date / Time adhesive tape Allergy Rash/Hives Verified 10/05/23 15:40 shellfish derived [Shrimp] Allergy Anaphylaxis Verified 10/05/23 15:40 soap Allergy Rash/Hives Verified 10/05/23 15:40 nicotine patch Allergy Rash/Hives Uncoded 09/03/23 13:13 Review of Systems ROS Statement: Those systems with pertinent positive or pertinent negative responses have been documented in the HPI. ROS Other: All systems not noted in ROS Statement are negative. Past Medical History Past Medical History: Asthma Additional Past Medical History / Comment(s): ectopic. History of Any Multi-Drug Resistant Organisms: None Reported Past Surgical History: Adenoidectomy, Section, Tonsillectomy Past Anesthesia/Blood Transfusion Reactions: No Reported Reaction Past Psychological History: ADD/ADHD, Anxiety, Bipolar, Depression, PTSD Smoking Status: Current every day smoker Past Alcohol Use History: None Reported Past Drug Use History: Heroin, Marijuana, Methamphetamine - Past Family History Father Family Medical History: No Reported History Additional Family Medical History / Comment(s): Father is alive at age 40 with no major medical problems. Brother(s) Family Medical History: No Reported History Additional Family Medical History / Comment(s): Patient has 1 brother and 2 sisters with no major medical problems. Mother Family Medical History: No Reported History Additional Family Medical History / Comment(s): Mother is alive at age 40 with no major medical problems. General Exam - General Exam Comments Initial Comments: General: Well-appearing, nontoxic, no acute distress. Head: Normocephalic, atraumatic Eyes: PERRLA, EOMI ENT: Airway patent Chest: Nonlabored breathing Skin: No visual rash, normal skin tone Neuro: Alert and oriented 3 Musculoskeletal: No gross abnormalities Course Vital Signs 10/05/23 10/05/23 10/05/23 14:43 15:24 21:00 Temperature 98.2 F 96.4 F L 98.2 F Pulse Rate 115 H 76 70 Respiratory 18 19 18 Rate Blood Pressure 130/90 111/68 111/77 O2 Sat by Pulse 98 98 96 Oximetry Medical Decision Making - Medical Decision Making Was pt. sent in by a medical professional or institution (, PA, KENNEL STAFF MEMBER, urgent care, hospital, or skilled nursing...) When possible be specific @ -No Did you speak to anyone other than the patient for history (EMS, parent, family, police, friend...)? What history was obtained from this source @ -No Did you review nursing and triage notes (agree or disagree)? Why? @ -I reviewed and agree with nursing and triage notes Were old charts reviewed (outside hosp., previous admission, EMS record, old EKG, old radiological studies, urgent care reports/EKG's, skilled nursing records)? Report findings @ -No old charts were reviewed Differential Diagnosis (chest pain, altered mental status, abdominal pain women, abdominal pain men, vaginal bleeding, musculoskeletal, weakness, fever, dyspnea, syncope, headache, dizziness, GI bleed, back pain, seizure, CVA, palpatations, mental health)? @ -Differential Mental Health: Depression, anxiety, bipolar, psychosis, schizophrenia, borderline personality, situational depression, adjustment disorder, behavioral disorder, brain tumor, malingering, substance abuse, encephalopathy, medication reaction, dementia, hypothyroidism, degenerative neurologic disorder, lupus.... This is not meant to be all-inclusive list EKG interpreted by me (3pts min.). @ -None done X-rays interpreted by me (1pt min.). @ -None done CT interpreted by me (1pt min.). @ -None done U/S interpreted by me (1pt. min.). @ -None done What testing was considered but not performed or refused? (CT, X-rays, U/S, labs)? Why? @ -None What meds were considered but not given or refused? Why? @ -None Did you discuss the management of the patient with other professionals (professionals i.e. , PA, K[employer]EL STAFF MEMBER, lab, RT, psych nurse, medical social worker, healthcare management, teacher, field artillery officer, caser in)? Give summary @ - discussed with EPS nurse who evaluated patient and recommended patient be admitted to inpatient psych Was smoking cessation discussed for >3mins.? @ -No Was critical care preformed (if so, how long)? @ -No Were there social determinants of health that impacted care today? How? (Homelessness, low income, unemployed, alcoholism, drug addiction, transportation, low edu. Level, literacy, decrease access to med. care, [facility], rehab)? @ -No Was there de-escalation of care discussed even if they declined (Discuss DNR or withdrawal of care, Hospice)? DNR status @ -No What co-morbidities impacted this encounter? (DM, HTN, Smoking, COPD, CAD, Cancer, CVA, ARF, Chemo, Hep., AIDS, mental health diagnosis, sleep apnea, morbid obesity)? @ -None Was patient admitted / discharged? Hospital course, mention meds given and route, prescriptions, significant lab abnormalities, going to OR and other pertinent info. @ -28-year-old female presents with suicidal ideation. Vital signs stable. Patient has no physical complaints. She is cleared medically for EPS evaluation. EPS evaluated patient and landed inpatient psych admission. Currently they have no beds available in our facility and is looking to transfer patient. patient transferred to [facility] Undiagnosed new problem with uncertain prognosis? @ -No Drug Therapy requiring intensive monitoring for toxicity (Heparin, Nitro, Insul in, Cardizem)? @ -No Were any procedures done? @ -No Diagnosis/symptom? Acute, or Chronic, or Acute on Chronic? Uncomplicated (without systemic symptoms) or Complicated (systemic symptoms)? @ -Suicidal ideation Side effects of treatment? @ -No Exacerbation, Progression, or Severe Exacerbation? @ -No Poses a threat to life or bodily function? How? (Chest pain, USA, LA, pneumonia, PE, COPD, DKA, ARF, appy, cholecystitis, CVA, Diverticulitis, Homicidal, Suicidal, threat to staff... and all critical care pts) @ -yes - Lab Data Result diagrams: 10/05/23 21:17 10/05/23 21:17 Lab Results 10/05/23 10/05/23 10/05/23 Range/Units 21:17 21:17 21:17 WBC 9.1 (3.8-10.6) k/uL RBC 4.32 (3.80-5.40) m/uL Hgb 14.1 (11.4-16.0) gm/dL Hct 41.0 (34.0-46.0) % MCV 94.9 (80.0-100.0) fL MCH 32.5 (25.0-35.0) pg MCHC 34.3 (31.0-37.0) g/dL RDW 13.8 (11.5-15.5) % Plt Count 212 (150-450) k/uL MPV 7.9 Neutrophils % 63 % Lymphocytes % 28 % Monocytes % 5 % Eosinophils % 2 % Basophils % 1 % Neutrophils # 5.7 (1.3-7.7) k/uL Lymphocytes # 2.5 (1.0-4.8) k/uL Monocytes # 0.5 (0-1.0) k/uL Eosinophils # 0.1 (0-0.7) k/uL Basophils # 0.0 (0-0.2) k/uL Sodium (137-145) mmol/L Potassium (3.5-5.1) mmol/L Chloride (98-107) mmol/L Carbon Dioxide (22-30) mmol/L Anion Gap mmol/L BUN (7-17) mg/dL Creatinine (0.52-1.04) mg/dL Est GFR (CKD-EPI)AfAm (>60 ml/min/1.73 sqM) Est GFR (CKD-EPI)NonAf (>60 ml/min/1.73 sqM) Glucose (74-99) mg/dL Calcium (8.4-10.2) mg/dL Total Bilirubin (0.2-1.3) mg/dL AST (14-36) U/L ALT (4-34) U/L Alkaline Phosphatase (38-126) U/L Total Protein (6.3-8.2) g/dL Albumin (3.5-5.0) g/dL Urine Color Yellow Urine Appearance Turbid H (Clear) Urine pH 6.0 (5.0-8.0) Ur Specific [place] 1.031 (1.001-1.035) Urine Protein 1+ H (Negative) Urine Glucose (UA) Negative (Negative) Urine Ketones Negative (Negative) Urine Blood Negative (Negative) Urine Nitrite Negative (Negative) Urine Bilirubin Negative (Negative) Urine Urobilinogen 2.0 (<2.0) mg/dL Ur Leukocyte Esterase Small H (Negative) Urine RBC 9 H (0-5) /hpf Urine WBC 29 H (0-5) /hpf Ur Squamous Epith Cells 66 H (0-4) /hpf Urine Bacteria Few H (None) /hpf Urine Mucus Many H (None) /hpf Urine HCG, Qual Not Detected (Not Detectd) SARS-CoV-2 (PCR) (Not Detectd) 10/05/23 10/05/23 Range/Units 21:17 21:17 WBC (3.8-10.6) k/uL RBC (3.80-5.40) m/uL Hgb (11.4-16.0) gm/dL Hct (34.0-46.0) % MCV (80.0-100.0) fL MCH (25.0-35.0) pg MCHC (31.0-37.0) g/dL RDW (11.5-15.5) % Plt Count (150-450) k/uL MPV Neutrophils % % Lymphocytes % % Monocytes % % Eosinophils % % Basophils % % Neutrophils # (1.3-7.7) k/uL Lymphocytes # (1.0-4.8) k/uL Monocytes # (0-1.0) k/uL Eosinophils # (0-0.7) k/uL Basophils # (0-0.2) k/uL Sodium 139 (137-145) mmol/L Potassium 3.6 (3.5-5.1) mmol/L Chloride 109 H (98-107) mmol/L Carbon Dioxide 23 (22-30) mmol/L Anion Gap 7 mmol/L BUN 15 (7-17) mg/dL Creatinine 0.73 (0.52-1.04) mg/dL Est GFR (CKD-EPI)AfAm >90 (>60 ml/min/1.73 sqM) Est GFR (CKD-EPI)NonAf >90 (>60 ml/min/1.73 sqM) Glucose 112 H (74-99) mg/dL Calcium 9.6 (8.4-10.2) mg/dL Total Bilirubin 0.9 (0.2-1.3) mg/dL AST 28 (14-36) U/L ALT 28 (4-34) U/L Alkaline Phosphatase 62 (38-126) U/L Total Protein 7.4 (6.3-8.2) g/dL Albumin 4.4 (3.5-5.0) g/dL Urine Color Urine Appearance (Clear) Urine pH (5.0-8.0) Ur Specific [place] (1.001-1.035) Urine Protein (Negative) Urine Glucose (UA) (Negative) Urine Ketones (Negative) Urine Blood (Negative) Urine Nitrite (Negative) Urine Bilirubin (Negative) Urine Urobilinogen (<2.0) mg/dL Ur Leukocyte Esterase (Negative) Urine RBC (0-5) /hpf Urine WBC (0-5) /hpf Ur Squamous Epith Cells (0-4) /hpf Urine Bacteria (None) /hpf Urine Mucus (None) /hpf Urine HCG, Qual (Not Detectd) SARS-CoV-2 (PCR) Not Detected (Not Detectd) Disposition Clinical Impression: Suicidal ideation Disposition: TRANSFER TO PSYCH HOSP/UNIT Referrals: None,Stated [Primary Care Provider] - 1-2 days
[2023-10-05 21:46] VITALS: BP 111/77; PULSE 70; RESP 18; TEMP 98.2
[2023-10-05 21:46] LABS: Basophils % (A) 1 %; Eosinophils # (A) 0.1 k/uL (0-0.7); Eosinophils % (A) 2 %; HGB 14.1 gm/dL (11.4-16.0); Lymphocytes # (A) 2.5 k/uL (1.0-4.8); Lymphocytes % (A) 28 %; MCH 32.5 pg (25.0-35.0); MCHC 34.3 g/dL (31.0-37.0); MCV 94.9 fL (80.0-100.0); Mean Platelet Volume 7.9; Monocytes # (A) 0.5 k/uL (0-1.0); Monocytes % (A) 5 %; Neutrophils # (A) 5.7 k/uL (1.3-7.7); Neutrophils % (A) 63 %; Platelet Count 212 k/uL (150-450); RBC 4.32 m/uL (3.80-5.40); RDW 13.8 % (11.5-15.5); WBC 9.1 k/uL (3.8-10.6)
[2023-10-05 21:49] LABS: Appearance,Urine Turbid (Clear); Bacteria,Urine Few /hpf; Bilirubin,Urine Negative (Negative); Blood,Urine Negative (Negative); Color,Urine Yellow; Glucose,Urine (UA) Negative (Negative); Ketones,Urine Negative (Negative); Leukocyte Esterase,Urine Small (Negative); Mucus,Urine Many /hpf; Nitrite,Urine Negative (Negative); Protein,Urine 1+ (Negative); RBC,Urine 9 /hpf (0-5); Specific Gravity,Urine 1.031 (1.001-1.035); Squamous Epithelial Cell,Urine 66 /hpf (0-4); WBC,Urine 29 /hpf (0-5)
[2023-10-05 22:54] LABS: ALT 28 U/L (4-34); AST 28 U/L (14-36); African American GFR (CKD) >90 (>60 ml/min/1.73 sqM); Albumin 4.4 g/dL (3.5-5.0); Alkaline Phosphatase 62 U/L (38-126); Anion Gap 7 mmol/L; Blood Urea Nitrogen 15 mg/dL (7-17); Calcium 9.6 mg/dL (8.4-10.2); Carbon Dioxide 23 mmol/L (22-30); Chloride 109 mmol/L (98-107); Glucose 112 mg/dL (74-99); Non-African American GFR(CKD) >90 (>60 ml/min/1.73 sqM); Potassium 3.6 mmol/L (3.5-5.1); Sodium 139 mmol/L (137-145); Total Bilirubin 0.9 mg/dL (0.2-1.3); Total Protein 7.4 g/dL (6.3-8.2)
[2023-10-05] MEDS ORDERED: QUEtiapine 100 MG TAB PO STA (22:58)
== END 2023-10-06 02:55 ==
LOC: EC 14:42
DX: R45.851 Suicidal ideations (principal); J45.909 Unspecified asthma, uncomplicated; F17.200 Nicotine dependence, unspecified, uncomplicated; F12.90 Cannabis use, unspecified, uncomplicated; F15.90 Other stimulant use, unspecified, uncomplicated; F11.90 Opioid use, unspecified, uncomplicated; Z20.822 Contact with and (suspected) exposure to COVID-19; Z91.013 Allergy to seafood; Z91.09 Other allergy status, other than to drugs and biological substances
CPT/HCPCS: 36415; 80053; 81001; 81025; 82075; 85025; 87635; 99285

== ENCOUNTER 2023-10-21 05:56 | Emergency (ER) | payer OTHER ==
[2023-10-21] MEDS ORDERED: LORazepam 2 MG/ML INJ IM STA (07:10)
[2023-10-21] MEDS ORDERED: HALOPERIDOL LACTATE 5 MG/ML 1 ML VIAL IM STA (07:10)
--- NOTE | 2023-10-21 07:45 | ED ---
General Adult HPI - General Chief complaint: Recheck/Abnormal Lab/Rx Stated complaint: insomnia Time Seen by Provider: 10/21/23 06:43 Source: patient, RN notes reviewed Mode of arrival: ambulatory Limitations: no limitations - History of Present Illness Initial comments: 28-year-old female presents emergency department with significant other with chief complaint of methamphetamine abuse. Patient is a daily user he she is approximately 6 hours ago. He states that she is extremely anxious, not able to sleep because of this. She is scheduled to go to rehab. Patient denies being suicidal homicidal. Patient was recently at psychiatric facility for 8 days. - Related Data Home Medications Medication Instructions Recorded Confirmed No Known Home Medications 10/05/23 10/05/23 Allergies Allergy/AdvReac Type Severity Reaction Status Date / Time adhesive tape Allergy Rash/Hives Verified 10/21/23 06:39 shellfish derived [Shrimp] Allergy Anaphylaxis Verified 10/21/23 06:39 soap Allergy Rash/Hives Verified 10/21/23 06:39 nicotine patch Allergy Rash/Hives Uncoded 10/21/23 06:39 Review of Systems ROS Statement: Those systems with pertinent positive or pertinent negative responses have been documented in the HPI. ROS Other: All systems not noted in ROS Statement are negative. Past Medical History Past Medical History: Asthma Additional Past Medical History / Comment(s): ectopic. History of Any Multi-Drug Resistant Organisms: None Reported Past Surgical History: Adenoidectomy, Section, Tonsillectomy Past Anesthesia/Blood Transfusion Reactions: No Reported Reaction Past Psychological History: ADD/ADHD, Anxiety, Bipolar, Depression, PTSD Smoking Status: Current every day smoker Past Alcohol Use History: None Reported Past Drug Use History: Heroin, Marijuana, Methamphetamine - Past Family History Father Family Medical History: No Reported History Additional Family Medical History / Comment(s): Father is alive at age 40 with no major medical problems. Brother(s) Family Medical History: No Reported History Additional Family Medical History / Comment(s): Patient has 1 brother and 2 sisters with no major medical problems. Mother Family Medical History: No Reported History Additional Family Medical History / Comment(s): Mother is alive at age 40 with no major medical problems. General Exam Limitations: no limitations General appearance: alert, in no apparent distress Head exam: Present: atraumatic, normocephalic, normal inspection Respiratory exam: Present: normal lung sounds bilaterally. Absent: respiratory distress, wheezes, rales, rhonchi, stridor Cardiovascular Exam: Present: regular rate, normal rhythm, normal heart sounds. Absent: systolic murmur, diastolic murmur, rubs, gallop, clicks Neurological exam: Present: alert, CN II-XII intact Psychiatric exam: Present: anxious Course Vital Signs 10/21/23 10/21/23 06:39 07:56 Temperature 98.4 F 98.7 F Pulse Rate 94 98 Respiratory 20 24 Rate Blood Pressure 120/76 122/84 O2 Sat by Pulse 100 99 Oximetry Medical Decision Making - Medical Decision Making Was pt. sent in by a medical professional or institution (KODAK Elizabeth, WINCH DERRICK OPERATOR, urgent care, hospital, or usp...) When possible be specific @ -No Did you speak to anyone other than the patient for history (EMS, parent, family, police, friend...)? What history was obtained from this source @ -[Significant other providing past medical history Did you review nursing and triage notes (agree or disagree)? Why? @ -I reviewed and agree with nursing and triage notes Were old charts reviewed (outside hosp., previous admission, EMS record, old EKG, old radiological studies, urgent care reports/EKG's, usp records)? Report findings @ -[Reviewed recent laboratory studies, psychiatric evaluations Differential Diagnosis (chest pain, altered mental status, abdominal pain women, abdominal pain men, vaginal bleeding, weakness, fever, dyspnea, syncope, headache, dizziness, GI bleed, back pain, seizure, CVA, palpatations, mental health, musculoskeletal)? @ -Drug abuse, methamphetamine intoxication, alcohol abuse EKG interpreted by me (3pts min.). @ -[None X-rays interpreted by me (1pt min.). @ -[None done CT interpreted by me (1pt min.). @ -None done U/S interpreted by me (1pt. min.). @ -None done What testing was considered but not performed or refused? (CT, X-rays, U/S, labs)? Why? @ -None What meds were considered but not given or refused? Why? @ -None Did you discuss the management of the patient with other professionals (professionals i.e. KODAK Elizabeth, WINCH DERRICK OPERATOR, lab, RT, psych nurse, social media project manager, mri technician, teacher, engineering officer, shoe caser)? Give summary @ -No Was smoking cessation discussed for >3mins.? @ -No Was critical care preformed (if so, how long)? @ -No Were there social determinants of health that impacted care today? How? (Homelessness, low income, unemployed, alcoholism, drug addiction, transportation, low edu. Level, literacy, decrease access to med. care, usp, rehab)? @ -No Was there de-escalation of care discussed even if they declined (Discuss DNR or withdrawal of care, Hospice)? DNR status @ -No What co-morbidities impacted this encounter? (DM, HTN, Smoking, COPD, CAD, Cancer, CVA, ARF, Chemo, Hep., AIDS, mental health diagnosis, sleep apnea, morbid obesity)? @ -[Drug abuse Was patient admitted / discharged? Hospital course, mention meds given and route, prescriptions, significant lab abnormalities, going to OR and other pertinent info. @ -Charge patient is not suicidal homicidal she does not want to see psychiatric services. Send mother wants to take her home at this time she was given Ativan, Haldol for her methamphetamine intoxication. Undiagnosed new problem with uncertain prognosis? @ -No Drug Therapy requiring intensive monitoring for toxicity (Heparin, Nitro, Insulin, Cardizem)? @ -No Were any procedures done? @ -No Diagnosis/symptom? @ -Methamphetamine use Acute, or Chronic, or Acute on Chronic? @ -Acute Uncomplicated (without systemic symptoms) or Complicated (systemic symptoms)? @ -Uncomplicated Side effects of treatment? @ -No Exacerbation, Progression, or Severe Exacerbation? @ -No Poses a threat to life or bodily function? How? (Chest pain, [place], [place], pneumonia, PE, COPD, DKA, ARF, appy, cholecystitis, CVA, Diverticulitis, Homicidal, Mary Anne cidal, threat to staff... and all critical care pts) @ -No Disposition Clinical Impression: Methamphetamine intoxication Disposition: HOME SELF-CARE Condition: Stable Additional Instructions: Please return to the Emergency Department if symptoms worsen or any other concerns. Is patient prescribed a controlled substance at d/c from ED?: No Referrals: None,Stated [Primary Care Provider] - 1-2 days Time of Disposition: 07:45
[2023-10-21 08:10] VITALS: BP 122/84; PULSE 98; RESP 24; TEMP 98.7
== END 2023-10-21 07:58 | disposition home or self-care (01) ==
LOC: EC 05:56
DX: F15.129 Other stimulant abuse with intoxication, unspecified (principal); J45.909 Unspecified asthma, uncomplicated; F17.200 Nicotine dependence, unspecified, uncomplicated; F12.90 Cannabis use, unspecified, uncomplicated; F14.90 Cocaine use, unspecified, uncomplicated; Z86.59 Personal history of other mental and behavioral disorders; Z91.013 Allergy to seafood; Z88.8 Allergy status to other drugs, medicaments and biological substances
CPT/HCPCS: 99283 ×2; 96372 ×3; J2060; J1630

== ENCOUNTER 2023-11-25 13:45 | Emergency (ER) | payer OTHER ==
--- NOTE | 2023-11-25 13:56 | ED ---
General Adult HPI - General Stated complaint: ETOH Time Seen by Provider: 11/25/23 13:47 Source: patient, police, EMS, RN notes reviewed Limitations: altered mental status - History of Present Illness Initial comments: 28-year-old female presents emergency department with police and EMS for evaluation of altered mental status. Patient admits to injecting methamphetamines. Patient states she has not used in 3 days so she is more than she normally would. Patient states she is feels like something is trying to kill her inside of her. Patient states she denies being suicidal or homicidal denies any physical complaints she just states that she is very restless, states her skin is crawling. - Related Data Home Medications Medication Instructions Recorded Confirmed ARIPiprazole [Abilify Maintena] 400 mg IM Q28D 11/25/23 11/25/23 DULoxetine HCL [Cymbalta] 60 mg PO BID 11/25/23 11/25/23 OXcarbazepine [Trileptal] 300 mg PO BID 11/25/23 11/25/23 QUEtiapine [SEROquel] 100 mg PO HS 11/25/23 11/25/23 Allergies Allergy/AdvReac Type Severity Reaction Status Date / Time adhesive tape Allergy Rash/Hives Verified 11/25/23 15:41 nicotine [From Nicoderm CQ] Allergy Rash/Hives Verified 11/25/23 15:41 shellfish derived [Shrimp] Allergy Anaphylaxis Verified 11/25/23 15:41 soap Allergy Rash/Hives Verified 11/25/23 15:41 nicotine patch Allergy Rash/Hives Uncoded 11/25/23 15:41 Review of Systems ROS Statement: Those systems with pertinent positive or pertinent negative responses have been documented in the HPI. ROS Other: All systems not noted in ROS Statement are negative. Past Medical History Past Medical History: Asthma Additional Past Medical History / Comment(s): ectopic. History of Any Multi-Drug Resistant Organisms: None Reported Past Surgical History: Adenoidectomy, Section, Tonsillectomy Past Anesthesia/Blood Transfusion Reactions: No Reported Reaction Past Psychological History: ADD/ADHD, Anxiety, Bipolar, Depression, PTSD Smoking Status: Current every day smoker Past Alcohol Use History: None Reported Past Drug Use History: Heroin, Marijuana, Methamphetamine - Past Family History Father Family Medical History: No Reported History Additional Family Medical History / Comment(s): Father is alive at age 40 with no major medical problems. Brother(s) Family Medical History: No Reported History Additional Family Medical History / Comment(s): Patient has 1 brother and 2 sisters with no major medical problems. Mother Family Medical History: No Reported History Additional Family Medical History / Comment(s): Mother is alive at age 40 with no major medical problems. General Exam General appearance: alert, anxious Head exam: Present: atraumatic, normocephalic, normal inspection Eye exam: Present: normal appearance, PERRL, EOMI. Absent: scleral icterus, conjunctival injection, periorbital swelling ENT exam: Absent: normal exam, normal oropharynx (Edentulous) Neck exam: Present: normal inspection. Absent: tenderness, meningismus, lymp hadenopathy Respiratory exam: Present: normal lung sounds bilaterally. Absent: respiratory distress, wheezes, rales, rhonchi, stridor Cardiovascular Exam: Present: regular rate, normal rhythm, normal heart sounds. Absent: systolic murmur, diastolic murmur, rubs, gallop, clicks Neurological exam: Present: alert, oriented X3, CN II-XII intact Course Vital Signs 11/25/23 11/25/23 11/25/23 13:52 14:20 14:56 Temperature 98.7 F Pulse Rate 124 H 110 H 79 Respiratory 20 24 17 Rate Blood Pressure 139/99 128/68 107/57 O2 Sat by Pulse 96 95 Oximetry 11/25/23 11/25/23 11/25/23 16:00 17:00 18:00 Temperature Pulse Rate 80 85 80 Respiratory 16 18 18 Rate Blood Pressure 107/63 106/59 105/55 O2 Sat by Pulse 98 96 97 Oximetry 11/25/23 11/25/23 11/25/23 19:33 20:49 21:00 Temperature Pulse Rate 72 75 64 Respiratory 19 16 16 Rate Blood Pressure 105/59 106/65 106/65 O2 Sat by Pulse 96 97 97 Oximetry 11/25/23 11/25/23 11/26/23 22:00 23:00 00:00 Temperature Pulse Rate 75 59 L 59 L Respiratory 14 14 14 Rate Blood Pressure 110/66 101/67 108/64 O2 Sat by Pulse 97 97 98 Oximetry 11/26/23 11/26/23 11/26/23 00:11 00:12 01:00 Temperature Pulse Rate 85 62 Respiratory 16 16 14 Rate Blood Pressure 113/78 97/59 O2 Sat by Pulse 98 96 Oximetry 11/26/23 11/26/23 11/26/23 02:00 03:00 04:00 Temperature Pulse Rate 54 L 61 88 Respiratory 16 18 16 Rate Blood Pressure 110/70 112/75 120/76 O2 Sat by Pulse 94 L 95 96 Oximetry 11/26/23 11/26/23 11/26/23 05:00 06:00 08:00 Temperature Pulse Rate 81 55 L 105 H Respiratory 16 16 21 Rate Blood Pressure 122/78 101/59 91/48 O2 Sat by Pulse 96 96 97 Oximetry 11/26/23 11/26/23 11/26/23 08:13 09:00 10:00 Temperature Pulse Rate 65 100 63 Respiratory 18 26 H 18 Rate Blood Pressure 116/70 116/70 105/57 O2 Sat by Pulse 96 96 Oximetry 11/26/23 11/26/23 11:00 12:00 Temperature Pulse Rate 56 L 59 L Respiratory 15 16 Rate Blood Pressure 116/65 97/46 O2 Sat by Pulse 95 94 L Oximetry Medical Decision Making - Medical Decision Making Was pt. sent in by a medical professional or institution (, PA, PT SITTER, urgent care, hospital, or intermediate...) When possible be specific @ -No Did you speak to anyone other than the patient for history (EMS, parent, family, police, friend...)? What history was obtained from this source @ -[Police, EMS providing prehospital complaint and vitals Did you review nursing and triage notes (agree or disagree)? Why? @ -I reviewed and agree with nursing and triage notes Were old charts reviewed (outside hosp., previous admission, EMS record, old EKG, old radiological studies, urgent care reports/EKG's, intermediate records)? Report findings @ -No old charts were reviewed Differential Diagnosis (chest pain, altered mental status, abdominal pain women, abdominal pain men, vaginal bleeding, weakness, fever, dyspnea, syncope, headache, dizziness, GI bleed, back pain, seizure, CVA, palpatations, mental health, musculoskeletal)? @ -[Drug abuse, drug use, acute psychosis EKG interpreted by me (3pts min.). @ -None X-rays interpreted by me (1pt min.). @ -[None done CT interpreted by me (1pt min.). @ -None done U/S interpreted by me (1pt. min.). @ -None done What testing was considered but not performed or refused? (CT, X-rays, U/S, labs)? Why? @ -None What meds were considered but not given or refused? Why? @ -None Did you discuss the management of the patient with other professionals (rolando griffith i.e. , PA, PT SITTER, lab, RT, psych nurse, community mental health social worker, asphalt mixer, teacher, field crop technical officer, wrapper caser)? Give summary @ -EPS to evaluate the patient recommend the patient to be discharged in stable condition. Was smoking cessation discussed for >3mins.? @ -No Was critical care preformed (if so, how long)? @ -No Were there social determinants of health that impacted care today? How? (Homelessness, low income, unemployed, alcoholism, drug addiction, transportation, low edu. Level, literacy, decrease access to med. care, intermediate, rehab)? @ -No Was there de-escalation of care discussed even if they declined (Discuss DNR or withdrawal of care, Hospice)? DNR status @ -No What co-morbidities impacted this encounter? (DM, HTN, Smoking, COPD, CAD, Cancer, CVA, ARF, Chemo, Hep., AIDS, mental health diagnosis, sleep apnea, morbid obesity)? @ -Drug abuse Was patient admitted / discharged? Hospital course, mention meds given and route, prescriptions, significant lab abnormalities, going to OR and other pertinent info. @ -Discharge patient initially presented for methamphetamine abuse, intoxicat ion. Patient was given antipsychotics as she is very erratic. Patient did have basic labs which showed no acute findings patient was able to urinate, was hydrated and was evaluated by EPS as she was petition by police she was cleared from EPS. Undiagnosed new problem with uncertain prognosis? @ -No Drug Therapy requiring intensive monitoring for toxicity (Heparin, Nitro, Insulin, Cardizem)? @ -No Were any procedures done? @ -No Diagnosis/symptom? @ -Methamphetamine intoxication Acute, or Chronic, or Acute on Chronic? @ -Acute Uncomplicated (without systemic symptoms) or Complicated (systemic symptoms)? @ complicated Side effects of treatment? @ -No Exacerbation, Progression, or Severe Exacerbation? @ -No Poses a threat to life or bodily function? How? (Chest pain, [place], [place], pneumonia, PE, COPD, DKA, ARF, appy, cholecystitis, CVA, Diverticulitis, Homicidal, Suicidal, threat to staff... and all critical care pts) @ -No - Lab Data Result diagrams: 11/26/23 06:15 11/26/23 06:15 Lab Results 11/26/23 11/26/23 11/26/23 Range/Units 06:15 06:15 09:17 WBC 9.7 (3.8-10.6) k/uL RBC 4.32 (3.80-5.40) m/uL Hgb 14.3 (11.4-16.0) gm/dL Hct 41.1 (34.0-46.0) % MCV 95.2 (80.0-100.0) fL MCH 33.0 (25.0-35.0) pg MCHC 34.7 (31.0-37.0) g/dL RDW 14.4 (11.5-15.5) % Plt Count 269 (150-450) k/uL MPV 7.8 Neutrophils % 77 % Lymphocytes % 14 % Monocytes % 3 % Eosinophils % 4 % Basophils % 0 % Neutrophils # 7.4 (1.3-7.7) k/uL Lymphocytes # 1.4 (1.0-4.8) k/uL Monocytes # 0.3 (0-1.0) k/uL Eosinophils # 0.4 (0-0.7) k/uL Basophils # 0.0 (0-0.2) k/uL Sodium 140 (137-145) mmol/L Potassium 3.9 (3.5-5.1) mmol/L Chloride 109 H (98-107) mmol/L Carbon Dioxide 22 (22-30) mmol/L Anion Gap 9 mmol/L BUN 18 H (7-17) mg/dL Creatinine 0.63 (0.52-1.04) mg/dL Est GFR (CKD-EPI)AfAm >90 (>60 ml/min/1.73 sqM) Est GFR (CKD-EPI)NonAf >90 (>60 ml/min/1.73 sqM) Glucose 86 (74-99) mg/dL Calcium 9.6 (8.4-10.2) mg/dL Magnesium 2.1 (1.6-2.3) mg/dL Total Bilirubin 1.0 (0.2-1.3) mg/dL AST 40 H (14-36) U/L ALT 47 H (4-34) U/L Alkaline Phosphatase 80 (38-126) U/L Creatine Kinase 360 H (30-135) U/L Total Protein 7.2 (6.3-8.2) g/dL Albumin 4.4 (3.5-5.0) g/dL Urine Color Yellow Urine Appearance Cloudy H (Clear) Urine pH 6.0 (5.0-8.0) Ur Specific Banner 1.026 (1.001-1.035) Urine Protein 1+ H (Negative) Urine Glucose (UA) Negative (Negative) Urine Ketones 1+ H (Negative) Urine Blood Negative (Negative) Urine Nitrite Negative (Negative) Urine Bilirubin Negative (Negative) Urine Urobilinogen <2.0 (<2.0) mg/dL Ur Leukocyte Esterase Negative (Negative) Urine RBC 3 (0-5) /hpf Urine WBC 4 (0-5) /hpf Ur Squamous Epith Cells 6 H (0-4) /hpf Amorphous Sediment Rare H (None) /hpf Urine Mucus Moderate H (None) /hpf Urine HCG, Qual (Not Detectd) Urine Opiates Screen Not Detected (NotDetected) Ur Oxycodone Screen Not Detected (NotDetected) Urine Methadone Screen Not Detected (NotDetected) Ur Barbiturates Screen Not Detected (NotDetected) U Tricyclic Antidepress Not Detected (NotDetected) Ur Phencyclidine Scrn Not Detected (NotDetected) Ur Amphetamines Screen Detected H (NotDetected) U Methamphetamines Scrn Detected H (NotDetected) U Benzodiazepines Scrn Detected H (NotDetected) Urine Cocaine Screen Not Detected (NotDetected) U Marijuana (THC) Screen Detected H (NotDetected) 11/26/23 Range/Units 09:17 WBC (3.8-10.6) k/uL RBC (3.80-5.40) m/uL Hgb (11.4-16.0) gm/dL Hct (34.0-46.0) % MCV (80.0-100.0) fL MCH (25.0-35.0) pg MCHC (31.0-37.0) g/dL RDW (11.5-15.5) % Plt Count (150-450) k/uL MPV Neutrophils % % Lymphocytes % % Monocytes % % Eosinophils % % Basophils % % Neutrophils # (1.3-7.7) k/uL Lymphocytes # (1.0-4.8) k/uL Monocytes # (0-1.0) k/uL Eosinophils # (0-0.7) k/uL Basophils # (0-0.2) k/uL Sodium (137-145) mmol/L Potassium (3.5-5.1) mmol/L Chloride (98-107) mmol/L Carbon Dioxide (22-30) mmol/L Anion Gap mmol/L BUN (7-17) mg/dL Creatinine (0.52-1.04) mg/dL Est GFR (CKD-EPI)AfAm (>60 ml/min/1.73 sqM) Est GFR (CKD-EPI)NonAf (>60 ml/min/1.73 sqM) Glucose (74-99) mg/dL Calcium (8.4-10.2) mg/dL Magnesium (1.6-2.3) mg/dL Total Bilirubin (0.2-1.3) mg/dL AST (14-36) U/L ALT (4-34) U/L Alkaline Phosphatase (38-126) U/L Creatine Kinase (30-135) U/L Total Protein (6.3-8.2) g/dL Albumin (3.5-5.0) g/dL Urine Color Urine Appearance (Clear) Urine pH (5.0-8.0) Ur Specific Banner (1.001-1.035) Urine Protein (Negative) Urine Glucose (UA) (Negative) Urine Ketones (Negative) Urine Blood (Negative) Urine Nitrite (Negative) Urine Bilirubin (Negative) Urine Urobilinogen (<2.0) mg/dL Ur Leukocyte Esterase (Negative) Urine RBC (0-5) /hpf Urine WBC (0-5) /hpf Ur Squamous Epith Cells (0-4) /hpf Amorphous Sediment (None) /hpf Urine Mucus (None) /hpf Urine HCG, Qual Not Detected (Not Detectd) Urine Opiates Screen (NotDetected) Ur Oxycodone Screen (NotDetected) Urine Methadone Screen (NotDetected) Ur Barbiturates Screen (NotDetected) U Tricyclic Antidepress (NotDetected) Ur Phencyclidine Scrn (NotDetected) Ur Amphetamines Screen (NotDetected) U Methamphetamines Scrn (NotDetected) U Benzodiazepines Scrn (NotDetected) Urine Cocaine Screen (NotDetected) U Marijuana (THC) Screen (NotDetected) Disposition Clinical Impression: Methamphetamine abuse, Methamphetamine intoxication Disposition: HOME SELF-CARE Condition: Stable Instructions (If sedation given, give patient instructions): Methamphetamine Abuse (ED) Additional Instructions: Please return to the Emergency Department if symptoms worsen or any other concerns. Is patient prescribed a controlled substance at d/c from ED?: No Referrals: None,Stated [Primary Care Provider] - 1-2 days Time of Disposition: 12:51
[2023-11-25] MEDS: LORazepam 2 MG/ML INJ IV STA ×2 (14:03→14:39)
[2023-11-25] MEDS: HALOPERIDOL LACTATE 5 MG/ML 1 ML VIAL IM STA (14:35)
[2023-11-26 06:33] LABS: Basophils % (A) 0 %; Eosinophils % (A) 4 %; HCT 41.1 % (34.0-46.0); HGB 14.3 gm/dL (11.4-16.0); Lymphocytes % (A) 14 %; MCHC 34.7 g/dL (31.0-37.0); MCV 95.2 fL (80.0-100.0); Mean Platelet Volume 7.8; Monocytes % (A) 3 %; Neutrophils % (A) 77 %; Platelet Count 269 k/uL (150-450); RBC 4.32 m/uL (3.80-5.40); RDW 14.4 % (11.5-15.5); WBC 9.7 k/uL (3.8-10.6)
[2023-11-26 06:34] LABS: Eosinophils # (A) 0.4 k/uL (0-0.7); Lymphocytes # (A) 1.4 k/uL (1.0-4.8); Monocytes # (A) 0.3 k/uL (0-1.0); Neutrophils # (A) 7.4 k/uL (1.3-7.7)
[2023-11-26] MEDS: SODIUM CHLORIDE 0.9% 1,000 ML IV ONE (06:35)
[2023-11-26 06:44] LABS: ALT 47 U/L (4-34); AST 40 U/L (14-36); African American GFR (CKD) >90 (>60 ml/min/1.73 sqM); Albumin 4.4 g/dL (3.5-5.0); Alkaline Phosphatase 80 U/L (38-126); Anion Gap 9 mmol/L; Blood Urea Nitrogen 18 mg/dL (7-17); Calcium 9.6 mg/dL (8.4-10.2); Carbon Dioxide 22 mmol/L (22-30); Chloride 109 mmol/L (98-107); Creatine Kinase 360 U/L (30-135); Glucose 86 mg/dL (74-99); Magnesium 2.1 mg/dL (1.6-2.3); Non-African American GFR(CKD) >90 (>60 ml/min/1.73 sqM); Potassium 3.9 mmol/L (3.5-5.1); Sodium 140 mmol/L (137-145); Total Protein 7.2 g/dL (6.3-8.2)
[2023-11-26 09:33] LABS: Amorphous Sediment,Urine Rare /hpf; Appearance,Urine Cloudy (Clear); Bilirubin,Urine Negative (Negative); Blood,Urine Negative (Negative); Color,Urine Yellow; Glucose,Urine (UA) Negative (Negative); Ketones,Urine 1+ (Negative); Leukocyte Esterase,Urine Negative (Negative); Mucus,Urine Moderate /hpf; Nitrite,Urine Negative (Negative); Protein,Urine 1+ (Negative); RBC,Urine 3 /hpf (0-5); Specific Gravity,Urine 1.026 (1.001-1.035); Squamous Epithelial Cell,Urine 6 /hpf (0-4); Urobilinogen,Urine <2.0 mg/dL (<2.0); WBC,Urine 4 /hpf (0-5)
[2023-11-26 09:43] LABS: Amphetamine Screen,Urine Detected (NotDetected); Barbiturate Screen,Urine Not Detected (NotDetected); Benzodiazepines Screen,Urine Detected (NotDetected); Cocaine Screen,Urine Not Detected (NotDetected); Methadone Screen, Urine Not Detected (NotDetected); Opiate Screen,Urine Not Detected (NotDetected); Oxycodone Screen, Urine Not Detected (NotDetected); Phencyclidine Screen,Urine Not Detected (NotDetected); Tricyclic Antidepressant,Urine Not Detected (NotDetected); Urn Cannabinoid Scrn Detected (NotDetected)
[2023-11-26 13:50] VITALS: BP 118/56; PULSE 100; RESP 18; TEMP 98.1
== END 2023-11-26 13:22 | disposition home or self-care (01) ==
LOC: EC 13:45
DX: F15.129 Other stimulant abuse with intoxication, unspecified (principal); J45.909 Unspecified asthma, uncomplicated; F90.9 Attention-deficit hyperactivity disorder, unspecified type; F41.9 Anxiety disorder, unspecified; F31.9 Bipolar disorder, unspecified; F17.200 Nicotine dependence, unspecified, uncomplicated; F12.90 Cannabis use, unspecified, uncomplicated; Z91.09 Other allergy status, other than to drugs and biological substances; Z91.013 Allergy to seafood; Z88.8 Allergy status to other drugs, medicaments and biological substances; Z79.899 Other long term (current) drug therapy
CPT/HCPCS: 99285; 96374; 96376; 96372; 96361; 51798; 36415; 80053; 82550; 83735; 85025; 81001; 81025; 80306; J2060; J1630

== ENCOUNTER 2024-07-02 09:55 | Emergency (ER) | payer OTHER ==
[2024-07-02 10:25] VITALS: TEMP 97.6
[2024-07-02] MEDS: METOCLOPRAMIDE 5 MG/ML 2 ML VIAL IVP STA (11:02)
[2024-07-02] MEDS: SODIUM CHLORIDE 0.9% 1,000 ML IV STA (11:02)
--- NOTE | 2024-07-02 11:07 | ED ---
Nausea/Vomiting/Diarrhea HPI - General Chief complaint: Nausea/Vomiting/Diarrhea Stated complaint: preg,vomiting Time Seen by Provider: 07/02/24 10:10 Source: patient, RN notes reviewed Mode of arrival: ambulatory Limitations: no limitations - History of Present Illness Initial comments: This is a G6, 29-year-old female presenting with nausea vomiting x 2 days. Patient states she is currently 5 to 6 weeks and has not received care at this time. Patient endorses mild (3 out of 10) mid abdominal pain that comes and goes. Patient denies vaginal bleeding or dizziness. Patient endorses history of ectopic and has not had an ultrasound performed for this current . Patient endorses use of Dramamine with no relief. Patient denies fever, chills, chest pain, dyspnea, diarrhea, constipation, urinary symptoms. MD complaint: nausea, vomiting, other (Anorexia) Onset/Timin -: days(s) Associated Abdominal Pain: Yes (lower abdominal pain) Location: diffuse, periumbilical, LLQ, RLQ Radiation: none Severity: mild Severity scale (1-10): 3 Quality: cramping Consistency: intermittent Improves with: none Context: other () Associated Symptoms: loss of appetite, nausea/vomiting - Related Data Home Medications Medication Instructions Recorded Confirmed ARIPiprazole [Abilify Maintena] 400 mg IM Q28D 11/25/23 11/25/23 DULoxetine HCL [Cymbalta] 60 mg PO BID 11/25/23 11/25/23 OXcarbazepine [Trileptal] 300 mg PO BID 11/25/23 11/25/23 QUEtiapine [SEROquel] 100 mg PO HS 11/25/23 11/25/23 Previous Rx's Medication Instructions Recorded Cephalexin [Keflex] 500 mg PO Q6HR #40 cap 07/02/24 Metoclopramide [Reglan] 10 mg PO TID PRN #15 tab 07/02/24 Allergies Allergy/AdvReac Type Severity Reaction Status Date / Time adhesive tape Allergy Rash/Hives Verified 07/02/24 10:25 nicotine [From Nicoderm CQ] Allergy Rash/Hives Verified 07/02/24 10:25 shellfish derived [Shrimp] Allergy Anaphylaxis Verified 07/02/24 10:25 soap Allergy Rash/Hives Verified 07/02/24 10:25 nicotine patch Allergy Rash/Hives Uncoded 07/02/24 10:25 Review of Systems ROS Statement: Those systems with pertinent positive or pertinent negative responses have been documented in the HPI. ROS Other: All systems not noted in ROS Statement are negative. Past Medical History Past Medical History: Asthma Additional Past Medical History / Comment(s): ectopic. History of Any Multi-Drug Resistant Organisms: None Reported Past Surgical History: Adenoidectomy, Section, Tonsillectomy Additional Past Surgical History / Comment(s): 2 c sections Past Anesthesia/Blood Transfusion Reactions: No Reported Reaction Past Psychological History: ADD/ADHD, Anxiety, Bipolar, Depression, PTSD Smoking Status: Current every day smoker Past Alcohol Use History: None Reported Past Drug Use History: Heroin, Marijuana, Methamphetamine - Past Family History Father Family Medical History: No Reported History Additional Family Medical History / Comment(s): Father is alive at age 40 with no major medical problems. Brother(s) Family Medical History: No Reported History Additional Family Medical History / Comment(s): Patient has 1 brother and 2 sisters with no major medical problems. Mother Family Medical History: No Reported History Additional Family Medical History / Comment(s): Mother is alive at age 40 with no major medical problems. General Exam Limitations: no limitations General appearance: alert, in no apparent distress Head exam: Present: atraumatic, normocephalic, normal inspection Eye exam: Present: normal appearance, PERRL, EOMI. Absent: scleral icterus, conjunctival injection, periorbital swelling ENT exam: Present: normal exam, mucous membranes moist Neck exam: Present: normal inspection. Absent: tenderness, meningismus, lymphadenopathy Respiratory exam: Present: normal lung sounds bilaterally. Absent: respiratory distress, wheezes, rales, rhonchi, stridor Cardiovascular Exam: Present: regular rate, normal rhythm, normal heart sounds. Absent: systolic murmur, diastolic murmur, rubs, gallop, clicks GI/Abdominal exam: Present: soft, tenderness (Positive bilateral lower abdominal tenderness and periumbilical tenderness positive left umbilical tympanic tenderness), normal bowel sounds. Absent: distended, guarding, rebound, rigid Extremities exam: Present: normal inspection (Bilateral dorsalis pedis pulse +2), full ROM, normal capillary refill. Absent: tenderness, pedal edema, joint swelling, calf tenderness Back exam: Present: normal inspection Neurological exam: Present: alert, oriented X3, CN II-XII intact Psychiatric exam: Present: normal affect, normal mood Skin exam: Present: warm, dry, intact, normal color. Absent: rash Course Vital Signs 07/02/24 07/02/24 10:21 13:03 Temperature 97.6 F Pulse Rate 67 70 Respiratory 18 20 Rate Blood Pressure 100/66 122/62 O2 Sat by Pulse 98 97 Oximetry Medical Decision Making - Medical Decision Making Was pt. sent in by a medical professional or institution (, PA, OIL GAS AND PIPE TESTER, urgent care, hospital, or senior living...) When possible be specific @ -No Did you speak to anyone other than the patient for history (EMS, parent, family, police, friend...)? What history was obtained from this source @ -No Did you review nursing and triage notes (agree or disagree)? Why? @ -I reviewed and agree with nursing and triage notes Were old charts reviewed (outside hosp., previous admission, EMS record, old EKG, old radiological studies, urgent care reports/EKG's, senior living records)? Report findings @ -No old charts were reviewed Differential Diagnosis (chest pain, altered mental status, abdominal pain women, abdominal pain men, vaginal bleeding, weakness, fever, dyspnea, syncope, headache, dizziness, GI bleed, back pain, seizure, CVA, palpatations, mental health, musculoskeletal)? @ -Differential Abdominal Pain Women: Appendicitis, Cholecystitis, diverticulosis, ischemic bowel, pancreatitis, hepatitis, UTI, gastroenteritis, AAA, incarcerated hernia, bowel obstruction, constipation, inflammatory bowel, hepatitis, peptic ulcer disease, splenic infarction, perforated viscus, vulvitis, ovarian torsion, PID, kidney stone, placenta abruption, this is not meant to be an all-inclusive list EKG interpreted by me (3pts min.). @ -Not done X-rays interpreted by me (1pt min.). @ -None done CT interpreted by me (1pt min.). @ -None done U/S interpreted by me (1pt. min.). @ -Uterine ultrasound shows fetus in correct intrauterine position with no signs of ectopic . What testing was considered but not performed or refused? (CT, X-rays, U/S, labs)? Why? @ -None What meds were considered but not given or refused? Why? @ -None Did you discuss the management of the patient with other professionals (professionals i.e. , PA, OIL GAS AND PIPE TESTER, lab, RT, psych nurse, licensed clinical social worker, professor of english, teacher, tactical debriefer officer, disability case manager)? Give summary @ -No Was smoking cessation discussed for >3mins.? @ -No Was critical care preformed (if so, how long)? @ -No Were there social determinants of health that impacted care today? How? (Homelessness, low income, unemployed, alcoholism, drug addiction, tra nsportation, low edu. Level, literacy, decrease access to med. care, [place] [facility], rehab)? @ -No Was there de-escalation of care discussed even if they declined (Discuss DNR or withdrawal of care, Hospice)? DNR status @ -No What co-morbidities impacted this encounter? (DM, HTN, Smoking, COPD, CAD, Cancer, CVA, ARF, Chemo, Hep., AIDS, mental health diagnosis, sleep apnea, morbid obesity)? @ -None Was patient admitted / discharged? Hospital course, mention meds given and route, prescriptions, significant lab abnormalities, going to OR and other pertinent info. @ -Discharged. Patient given Reglan and IV fluid for symptoms noting relief of nausea. Ultrasound performed, results above. UA shows UTI. Rocephin 1 g IV given. Patient sent home with Keflex and Reglan as needed. Patient advised follow-up with [facility] for ongoing care. Undiagnosed new problem with uncertain prognosis? @ -No Drug Therapy requiring intensive monitoring for toxicity (Heparin, Nitro, Insulin, Cardizem)? @ -No Were any procedures done? @ -No Diagnosis/symptom? @ -Nausea and vomiting during . Acute, or Chronic, or Acute on Chronic? @ -Acute Uncomplicated (without systemic symptoms) or Complicated (systemic symptoms)? @ -Uncomplicated Side effects of treatment? @ -No Exacerbation, Progression, or Severe Exacerbation? @ -No Poses a threat to life or bodily function? How? (Chest pain, [place], [place], pneumonia, PE, COPD, DKA, ARF, appy, cholecystitis, CVA, Diverticulitis, Homicidal, Suicidal, threat to staff... and all critical care pts) @ -No - Lab Data Result diagrams: 07/02/24 10:53 07/02/24 10:53 Lab Results 07/02/24 07/02/24 07/02/24 Range/Units 10:53 10:53 10:53 WBC 10.9 H (3.8-10.6) k/uL RBC 4.62 (3.80-5.40) m/uL Hgb 14.4 (11.4-16.0) gm/dL Hct 43.6 (34.0-46.0) % MCV 94.4 (80.0-100.0) fL MCH 31.2 (25.0-35.0) pg MCHC 33.1 (31.0-37.0) g/dL RDW 13.7 (11.5-15.5) % Plt Count 283 (150-450) k/uL MPV 7.1 Neutrophils % 81 % Lymphocytes % 12 % Monocytes % 4 % Eosinophils % 1 % Basophils % 0 % Neutrophils # 8.8 H (1.3-7.7) k/uL Lymphocytes # 1.4 (1.0-4.8) k/uL Monocytes # 0.5 (0-1.0) k/uL Eosinophils # 0.1 (0-0.7) k/uL Basophils # 0.0 (0-0.2) k/uL Sodium (137-145) mmol/L Potassium (3.5-5.1) mmol/L Chloride (98-107) mmol/L Carbon Dioxide (22-30) mmol/L Anion Gap mmol/L BUN (7-17) mg/dL Creatinine (0.52-1.04) mg/dL Est GFR (CKD-EPI)AfAm (>60 ml/min/1.73 sqM) Est GFR (CKD-EPI)NonAf (>60 ml/min/1.73 sqM) Glucose (74-99) mg/dL Plasma Lactic Acid Jar[place] (0.7-2.0) mmol/L Calcium (8.4-10.2) mg/dL Total Bilirubin (0.2-1.3) mg/dL AST (14-36) U/L ALT (4-34) U/L Alkaline Phosphatase (38-126) U/L Total Protein (6.3-8.2) g/dL Albumin (3.5-5.0) g/dL HCG, Quant mIU/mL Urine Color Yellow Urine Appearance Cloudy H (Clear) Urine pH 6.0 (5.0-8.0) Ur Specific [place] 1.028 (1.001-1.035) Urine Protein Trace H (Negative) Urine Glucose (UA) Negative (Negative) Urine Ketones 1+ H (Negative) Urine Blood Negative (Negative) Urine Nitrite Positive H (Negative) Urine Bilirubin Negative (Negative) Urine Urobilinogen <2.0 (<2.0) mg/dL Ur Leukocyte Esterase Moderate H (Negative) Urine RBC 4 (0-5) /hpf Urine WBC 77 H (0-5) /hpf Ur Squamous Epith Cells 22 H (0-4) /hpf Urine Bacteria Few H (None) /hpf Urine Mucus Many H (None) /hpf Urine HCG, Qual Detected (Not Detectd) 07/02/24 07/02/24 Range/Units 10:53 10:53 WBC (3.8-10.6) k/uL RBC (3.80-5.40) m/uL Hgb (11.4-16.0) gm/dL Hct (34.0-46.0) % MCV (80.0-100.0) fL MCH (25.0-35.0) pg MCHC (31.0-37.0) g/dL RDW (11.5-15.5) % Plt Count (150-450) k/uL MPV Neutrophils % % Lymphocytes % % Monocytes % % Eosinophils % % Basophils % % Neutrophils # (1.3-7.7) k/uL Lymphocytes # (1.0-4.8) k/uL Monocytes # (0-1.0) k/uL Eosinophils # (0-0.7) k/uL Basophils # (0-0.2) k/uL Sodium 137 (137-145) mmol/L Potassium 4.3 (3.5-5.1) mmol/L Chloride 104 (98-107) mmol/L Carbon Dioxide 23 (22-30) mmol/L Anion Gap 10 mmol/L BUN 12 (7-17) mg/dL Creatinine 0.69 (0.52-1.04) mg/dL Est GFR (CKD-EPI)AfAm >90 (>60 ml/min/1.73 sqM) Est GFR (CKD-EPI)NonAf >90 (>60 ml/min/1.73 sqM) Glucose 96 (74-99) mg/dL Plasma Lactic Acid Jarrett 1.0 (0.7-2.0) mmol/L Calcium 9.8 (8.4-10.2) mg/dL Total Bilirubin 1.4 H (0.2-1.3) mg/dL AST 19 (14-36) U/L ALT 12 (4-34) U/L Alkaline Phosphatase 42 (38-126) U/L Total Protein 7.3 (6.3-8.2) g/dL Albumin 4.5 (3.5-5.0) g/dL HCG, Quant 44847.3 mIU/mL Urine Color Urine Appearance (Clear) Urine pH (5.0-8.0) Ur Specific [place] (1.001-1.035) Urine Protein (Negative) Urine Glucose (UA) (Negative) Urine Ketones (Negative) Urine Blood (Negative) Urine Nitrite (Negative) Urine Bilirubin (Negative) Urine Urobilinogen (<2.0) mg/dL Ur Leukocyte Esterase (Negative) Urine RBC (0-5) /hpf Urine WBC (0-5) /hpf Ur Squamous Epith Cells (0-4) /hpf Urine Bacteria (None) /hpf Urine Mucus (None) /hpf Urine HCG, Qual (Not Detectd) Disposition Clinical Impression: UTI (urinary tract infection) during , related nausea and vomiting, antepartum Disposition: HOME SELF-CARE Condition: Good Instructions (If sedation given, give patient instructions): Urinary Tract Infection in Women (ED), Acute Nausea and Vomiting (ED) Additional Instructions: Advised follow-up with [facility] for ongoing outpatient care. Advised Unisom and vitamin B6 for nausea vomiting along with jonathan tea/jonathan lucy. Prescriptions: Cephalexin [Keflex] 500 mg PO Q6HR #40 cap Metoclopramide [Reglan] 10 mg PO TID PRN #15 tab PRN Reason: Nausea Is patient prescribed a controlled substance at d/c from ED?: No Referrals: Mayelin Macias MD [Primary Care Provider] - 1-2 days Time of Disposition: 12:28
[2024-07-02 11:10] LABS: Basophils % (A) 0 %; Eosinophils # (A) 0.1 k/uL (0-0.7); Eosinophils % (A) 1 %; HCT 43.6 % (34.0-46.0); HGB 14.4 gm/dL (11.4-16.0); Lymphocytes # (A) 1.4 k/uL (1.0-4.8); Lymphocytes % (A) 12 %; MCH 31.2 pg (25.0-35.0); MCHC 33.1 g/dL (31.0-37.0); MCV 94.4 fL (80.0-100.0); Mean Platelet Volume 7.1; Monocytes # (A) 0.5 k/uL (0-1.0); Monocytes % (A) 4 %; Neutrophils # (A) 8.8 k/uL (1.3-7.7); Neutrophils % (A) 81 %; Platelet Count 283 k/uL (150-450); RBC 4.62 m/uL (3.80-5.40); RDW 13.7 % (11.5-15.5); WBC 10.9 k/uL (3.8-10.6)
[2024-07-02 11:17] LABS: Appearance,Urine Cloudy (Clear); Bacteria,Urine Few /hpf; Bilirubin,Urine Negative (Negative); Blood,Urine Negative (Negative); Color,Urine Yellow; Glucose,Urine (UA) Negative (Negative); Ketones,Urine 1+ (Negative); Leukocyte Esterase,Urine Moderate (Negative); Mucus,Urine Many /hpf; Nitrite,Urine Positive (Negative); Protein,Urine Trace (Negative); RBC,Urine 4 /hpf (0-5); Specific Gravity,Urine 1.028 (1.001-1.035); Squamous Epithelial Cell,Urine 22 /hpf (0-4); Urobilinogen,Urine <2.0 mg/dL (<2.0); WBC,Urine 77 /hpf (0-5)
[2024-07-02 11:25] LABS: ALT 12 U/L (4-34); AST 19 U/L (14-36); African American GFR (CKD) >90 (>60 ml/min/1.73 sqM); Albumin 4.5 g/dL (3.5-5.0); Alkaline Phosphatase 42 U/L (38-126); Anion Gap 10 mmol/L; Blood Urea Nitrogen 12 mg/dL (7-17); Calcium 9.8 mg/dL (8.4-10.2); Carbon Dioxide 23 mmol/L (22-30); Chloride 104 mmol/L (98-107); Glucose 96 mg/dL (74-99); Non-African American GFR(CKD) >90 (>60 ml/min/1.73 sqM); Potassium 4.3 mmol/L (3.5-5.1); Sodium 137 mmol/L (137-145); Total Bilirubin 1.4 mg/dL (0.2-1.3); Total Protein 7.3 g/dL (6.3-8.2)
--- NOTE | 2024-07-02 11:56 | US ---
EXAMINATION TYPE: Transabdominal DATE OF EXAM: 07/02/2024 11:43 AM COMPARISON: NONE CLINICAL INDICATION: Female, 29 years old with history of Abdominal pain, history of ectopic; Nausea and vomitting. No pain or spotting per patient. TECHNIQUE: Transabdominal (TA) with grayscale and color Doppler imaging including first trimester pre gnancy. FINDINGS: EXAM MEASUREMENTS: GESTATIONAL AGE / DATING Physician Established: Not yet established Dates by LMP: ( 5 weeks/6 days) EDC: 02/26/25 Dates by First Scan: No previous this is first scan Dates by Current Scan for: ( 6 weeks/0 days) EDC: 02/25/25 MATERNAL ANATOMY Uterus: 8.2 x 5.9 x 5.2 cm Right Ovary: 3.9 x 2.5 x 2.3 cm Left Ovary: 2.9 x 2.1 x 1.9 cm Post CDS / Adnexa: free fluid adjacent to left ovary Presence of corpus luteal cyst: right ovary complex lesion = 1.7 x 1.6 x 1.6 cm Presence of subchorionic bleed: no GESTATION / SURVEY CRL: CRL not visualized MSD: 1.2 cm (6 weeks/0 days) Yolk Sac (normal less than 6mm): 2.8 mm IUP: GS and YS seen within endometrium Date of LMP: 05/22/24, Beta HcG (if available): Not available at this time GS and YS visualized within endometrium. CRL not yet seen. IMPRESSION: Intrauterine gestational sac with yolk sac identified corresponding to ultrasound age of 6 weeks 0 da ys. No pole or heart tones are identified at this time likely due to early gestational ag e. Recommend follow-up with pelvic ultrasound and serial beta hCG to ensure further development of th e fetus. [facility], , 07/02/2024 11:53 AM
[2024-07-02 12:15] LABS: HCG,Quantitative Serum 22287.3 mIU/mL
[2024-07-02 13:04] VITALS: BP 122/62; PULSE 70; RESP 20
== END 2024-07-02 13:04 | disposition home or self-care (01) ==
LOC: EC 09:55
CPT/HCPCS: 36415; 76801; 80053; 81001; 81025; 83605; 84702; 85025; 87077; 87086; 87186; 96361; 96374; 96375; 99284

== ENCOUNTER 2024-07-20 12:05 | Emergency (ER) | payer OTHER ==
[2024-07-20 12:27] VITALS: TEMP 97.9
--- NOTE | 2024-07-20 13:13 | ED ---
General Adult HPI - General Chief complaint: Abdominal Pain Stated complaint: Chest pain-8 weeks preg. Time Seen by Provider: 07/20/24 12:30 Source: patient Mode of arrival: ambulatory Limitations: no limitations - History of Present Illness Initial comments: Dictation was produced using [employer] dictation software. please excuse any grammatical, word or spelling errors. Chief Complaint: 29-year-old female with 1 to 2 days of right upper quadrant abdominal pain History of Present Illness: Patient is a 29-year-old female denies any significant comorbidities states that she has right upper quadrant abdominal pain. States that sometimes it hurts whenever she takes a deep breath. Denies any fever chills or night sweats. The ROS documented in this emergency department record has been reviewed and confirmed by me. Those systems with pertinent positive or negative responses have been documented in the HPI. All other systems are other negative and/or noncontributory. - Related Data Home Medications Medication Instructions Recorded Confirmed ARIPiprazole [Abilify Maintena] 400 mg IM Q28D 11/25/23 11/25/23 DULoxetine HCL [Cymbalta] 60 mg PO BID 11/25/23 11/25/23 OXcarbazepine [Trileptal] 300 mg PO BID 11/25/23 11/25/23 QUEtiapine [SEROquel] 100 mg PO HS 11/25/23 11/25/23 Previous Rx's Medication Instructions Recorded Cephalexin [Keflex] 500 mg PO Q6HR #40 cap 07/02/24 Metoclopramide [Reglan] 10 mg PO TID PRN #15 tab 07/02/24 Allergies Allergy/AdvReac Type Severity Reaction Status Date / Time adhesive tape Allergy Rash/Hives Verified 07/02/24 10:25 nicotine [From Nicoderm CQ] Allergy Rash/Hives Verified 07/02/24 10:25 shellfish derived [Shrimp] Allergy Anaphylaxis Verified 07/02/24 10:25 soap Allergy Rash/Hives Verified 07/02/24 10:25 nicotine patch Allergy Rash/Hives Uncoded 07/02/24 10:25 Review of Systems ROS Statement: Those systems with pertinent positive or pertinent negative responses have been documented in the HPI. ROS Other: All systems not noted in ROS Statement are negative. Past Medical History Past Medical History: Asthma Additional Past Medical History / Comment(s): ectopic. History of Any Multi-Drug Resistant Organisms: None Reported Past Surgical History: Adenoidectomy, Section, Tonsillectomy Additional Past Surgical History / Comment(s): 2 c sections Past Anesthesia/Blood Transfusion Reactions: No Reported Reaction Past Psychological History: ADD/ADHD, Anxiety, Bipolar, Depression, PTSD Smoking Status: Current every day smoker Past Alcohol Use History: None Reported Past Drug Use History: Heroin, Marijuana, Methamphetamine - Past Family History Father Family Medical History: No Reported History Additional Family Medical History / Comment(s): Father is alive at age 40 with no major medical problems. Brother(s) Family Medical History: No Reported History Additional Family Medical History / Comment(s): Patient has 1 brother and 2 sisters with no major medical problems. Mother Family Medical History: No Reported History Additional Family Medical History / Comment(s): Mother is alive at age 40 with no major medical problems. General Exam - General Exam Comments Initial Comments: PHYSICAL EXAM: General Impression: Alert and oriented x3, not in acute distress HEENT: Normocephalic atraumatic, extra-ocular movements intact, pupils equal and reactive to light bilaterally, mucous membranes moist. Cardiovascular: Heart regular rate and rhythm Chest: Able to complete full sentences, no retractions, no tachypnea Abdomen: abdomen soft, negative Matthews sign, palpatory tenderness to the right upper quadrant and epigastrium non-distended, no organomegaly Musculoskeletal: Pulses present and equal in all extremities, no peripheral edema Motor: no focal deficits noted Neurological: CN II-XII grossly intact, no focal motor or sensory deficits noted Skin: Intact with no visualized rashes Psych: Normal affect and mood Limitations: no limitations Course Vital Signs 07/20/24 12:25 Temperature 97.9 F Pulse Rate 57 L Respiratory 18 Rate Blood Pressure 106/68 O2 Sat by Pulse 100 Oximetry EKG Findings - EKG Comments: EKG Findings:: My EKG interpretation: Ventricular rate 44, sinus bradycardia,. #195, QRS 95, QTc 400. No VA prolongation, no QTC prolongation, no ST or T-wave changes noted. . Overall, this EKG is unremarkable Medical Decision Making - Medical Decision Making Was pt. sent in by a medical professional or institution (, PA, CLINICAL MICROBIOLOGIST, urgent care, hospital, or half-way...) When possible be specific @ -No Did you speak to anyone other than the patient for history (EMS, parent, family, police, friend...)? What history was obtained from this source @ -No Did you review nursing and triage notes (agree or disagree)? Why? @ -I reviewed and agree with nursing and triage notes Were old charts reviewed (outside hosp., previous admission, EMS record, old EKG, old radiological studies, urgent care reports/EKG's, half-way records)? Report findings @ -No old charts were reviewed Differential Diagnosis (chest pain, altered mental status, abdominal pain women, abdominal pain men, vaginal bleeding, musculoskeletal, weakness, fever, dyspnea, syncope, headache, dizziness, GI bleed, back pain, seizure, CVA, palpatations, mental health)? @ -Differential Abdominal Pain Women: Appendicitis, Cholecystitis, diverticulosis, ischemic bowel, pancreatitis, hepatitis, UTI, gastroenteritis, AAA, incarcerated hernia, bowel obstruction, constipation, inflammatory bowel, hepatitis, peptic ulcer disease, splenic infarction, perforated viscus, vulvitis, ovarian torsion, PID, kidney stone, placenta abruption, this is not meant to be an all-inclusive list EKG interpreted by me (3pts min.). @ -None done X-rays interpreted by me (1pt min.). @ -Chest x-ray is nonacute CT interpreted by me (1pt min.). @ -None done U/S interpreted by me (1pt. min.). @ -Ultrasound abdomen is negative What testing was considered but not performed or refused? (CT, X-rays, U/S, labs)? Why? @ -None What meds were considered but not given or refused? Why? @ -None Was smoking cessation discussed for >3mins.? @ -No Were there social determinants of health that impacted care today? How? (Homelessness, low income, unemployed, alcoholism, drug addiction, transportation, low edu. Level, literacy, decrease access to med. care, long term, rehab)? @ -No Was there de-escalation of care discussed even if they declined (Discuss DNR or withdrawal of care, Hospice)? DNR status @ -No What co-morbidities impacted this encounter? (DM, HTN, Smoking, COPD, CAD, Cancer, CVA, ARF, Chemo, Hep., AIDS, mental health diagnosis, sleep apnea, morbid obesity)? @ -None Was patient admitted / discharged? Hospital course, mention meds given and route, prescriptions, significant lab abnormalities, going to OR and other pertinent info. @ -29-year-old well-appearing female presents to the ER for upper abdominal pain. Vital signs stable. Abdomen is benign. Physical examination is negative. Patient is allegedly 8 weeks . Laboratory evaluation obtained. Labs are unremarkable. Patient reevaluated at bedside at 2:13 PM tolerating oral intake. Patient discharged. Did you discuss the management of the patient with other professionals (professionals i.e. , PA, CLINICAL MICROBIOLOGIST, lab, RT, psych nurse, social science professor, safe deposit attendant, teacher, transit authority police officer, caser up)? Give summary @ -No Was critical care preformed (if so, how long)? @ -No Undiagnosed new problem with uncertain prognosis? @ -No Drug Therapy requiring intensive monitoring for toxicity (Heparin, Nitro, Insulin, Cardizem)? @ -No Were any procedures done? @ -No Diagnosis/symptom? Acute, or Chronic, or Acute on Chronic? Uncomplicated (without systemic symptoms) or Complicated (systemic symptoms)? @ -Upper abdominal pain Side effects of treatment? @ -No Exacerbation, Progression, or Severe Exacerbation? @ -No Poses a threat to life or bodily function? How? (Chest pain, [place], [place], pneumonia, PE, COPD, DKA, ARF, appy, cholecystitis, CVA, Diverticulitis, Homicidal, Suicidal, threat to staff... and all critical care pts) @ -No - Lab Data Result diagrams: 07/20/24 13:29 07/20/24 13:29 Lab Results 07/20/24 07/20/24 07/20/24 Range/Units 13:29 13:29 13:29 WBC 8.7 (3.8-10.6) k/uL RBC 4.09 (3.80-5.40) m/uL Hgb 13.3 (11.4-16.0) gm/dL Hct 38.7 (34.0-46.0) % MCV 94.6 (80.0-100.0) fL MCH 32.6 (25.0-35.0) pg MCHC 34.5 (31.0-37.0) g/dL RDW 13.3 (11.5-15.5) % Plt Count 219 (150-450) k/uL MPV 7.3 Neutrophils % 67 % Lymphocytes % 25 % Monocytes % 4 % Eosinophils % 2 % Basophils % 0 % Neutrophils # 5.8 (1.3-7.7) k/uL Lymphocytes # 2.2 (1.0-4.8) k/uL Monocytes # 0.3 (0-1.0) k/uL Eosinophils # 0.2 (0-0.7) k/uL Basophils # 0.0 (0-0.2) k/uL Sodium 135 L (137-145) mmol/L Potassium 4.0 (3.5-5.1) mmol/L Chloride 104 (98-107) mmol/L Carbon Dioxide 26 (22-30) mmol/L Anion Gap 5 mmol/L BUN 6 L (7-17) mg/dL Creatinine 0.57 (0.52-1.04) mg/dL Est GFR (CKD-EPI)AfAm >90 (>60 ml/min/1.73 sqM) Est GFR (CKD-EPI)NonAf >90 (>60 ml/min/1.73 sqM) Glucose 76 (74-99) mg/dL Calcium 9.2 (8.4-10.2) mg/dL Total Bilirubin 0.7 (0.2-1.3) mg/dL AST 16 (14-36) U/L ALT 11 (4-34) U/L Alkaline Phosphatase 44 (38-126) U/L Total Protein 6.6 (6.3-8.2) g/dL Albumin 4.1 (3.5-5.0) g/dL Lipase 33 (23-300) U/L Urine HCG, Qual Detected (Not Detectd) Disposition Clinical Impression: Abdominal pain Disposition: HOME SELF-CARE Condition: Good Instructions (If sedation given, give patient instructions): Abdominal Pain in (ED) Is patient prescribed a controlled substance at d/c from ED?: No Referrals: Mayelin Macias MD [Primary Care Provider] - 1-2 days Time of Disposition: 14:14
--- NOTE | 2024-07-20 13:26 | XR ---
EXAMINATION TYPE: XR chest 1V DATE OF EXAM: 07/20/2024 1:20 PM COMPARISON: Chest radiographs from 08/09/2018 TECHNIQUE: XR chest 1V Frontal view of the chest. CLINICAL INDICATION:Female, 29 years old with history of pleuritic abdominal pain; FINDINGS: Lungs/Pleura: There is no evidence of pleural effusion, focal consolidation, or pneumothorax. Pulmonary vascularity: Unremarkable. Heart/mediastinum: Cardiomediastinal silhouette is unremarkable. Musculoskeletal: No acute osseous pathology. IMPRESSION: No acute cardiopulmonary disease/process. [facility], , 07/20/2024 1:23 PM
[2024-07-20 13:57] LABS: Basophils % (A) 0 %; Eosinophils # (A) 0.2 k/uL (0-0.7); Eosinophils % (A) 2 %; HCT 38.7 % (34.0-46.0); HGB 13.3 gm/dL (11.4-16.0); Lymphocytes # (A) 2.2 k/uL (1.0-4.8); Lymphocytes % (A) 25 %; MCH 32.6 pg (25.0-35.0); MCHC 34.5 g/dL (31.0-37.0); MCV 94.6 fL (80.0-100.0); Mean Platelet Volume 7.3; Monocytes # (A) 0.3 k/uL (0-1.0); Monocytes % (A) 4 %; Neutrophils # (A) 5.8 k/uL (1.3-7.7); Neutrophils % (A) 67 %; Platelet Count 219 k/uL (150-450); RBC 4.09 m/uL (3.80-5.40); RDW 13.3 % (11.5-15.5); WBC 8.7 k/uL (3.8-10.6)
--- NOTE | 2024-07-20 13:58 | US ---
INDICATION: Patient age:Female; 29 years old; Reason for study: epigastric pain; PHH. COMPARISON: None.. TECHNIQUE: Multiple grayscale and color doppler ultrasound images of the right upper abdomen obtained utilizing transabdominal imaging. FINDINGS: PANCREAS: The visualized portions of the pancreas are unremarkable. LIVER: The liver demonstrates a normal echotexture. There is no evidence of dilated ducts, cystic structures , or solid mass. GALLBLADDER: The gallbladder is without evidence of wall thickening, pericholecystic fluid, or cholelithiasis. The common duct measures approximately 4 mm. Per microscopist, the sonographic Matthews's sign was negative . RIGHT KIDNEY: The right kidney measures 10.1 x 4.3 x 5.1 cm, without evidence of hydronephrosis, shadowing calculus , or contour deforming solid mass. Renal parenchymal echogenicity is within normal limits. IMPRESSION: No sonographic evidence for acute process. [facility], , 07/20/2024 1:55 PM
[2024-07-20 14:06] LABS: ALT 11 U/L (4-34); AST 16 U/L (14-36); African American GFR (CKD) >90 (>60 ml/min/1.73 sqM); Albumin 4.1 g/dL (3.5-5.0); Alkaline Phosphatase 44 U/L (38-126); Anion Gap 5 mmol/L; Blood Urea Nitrogen 6 mg/dL (7-17); Calcium 9.2 mg/dL (8.4-10.2); Carbon Dioxide 26 mmol/L (22-30); Chloride 104 mmol/L (98-107); Glucose 76 mg/dL (74-99); Lipase 33 U/L (23-300); Non-African American GFR(CKD) >90 (>60 ml/min/1.73 sqM); Sodium 135 mmol/L (137-145); Total Bilirubin 0.7 mg/dL (0.2-1.3); Total Protein 6.6 g/dL (6.3-8.2)
[2024-07-20 14:23] VITALS: BP 111/72; PULSE 54; RESP 16
== END 2024-07-20 14:24 | disposition home or self-care (01) ==
LOC: EC 12:05
DX: O99.611 Diseases of the digestive system complicating pregnancy, first trimester (principal); R10.9 Unspecified abdominal pain; O99.331 Smoking (tobacco) complicating pregnancy, first trimester; F17.200 Nicotine dependence, unspecified, uncomplicated; Z91.09 Other allergy status, other than to drugs and biological substances; Z91.013 Allergy to seafood; Z88.8 Allergy status to other drugs, medicaments and biological substances; Z3A.08 8 weeks gestation of pregnancy
CPT/HCPCS: 36415; 71045; 76705; 80053; 81025; 83690; 85025; 93005; 99284

== ENCOUNTER 2024-08-10 19:14 | Emergency (ER) | payer OTHER ==
--- NOTE | 2024-08-10 19:37 | ED ---
Nausea/Vomiting/Diarrhea HPI - General Source: patient Mode of arrival: ambulatory Limitations: no limitations <Cynthia Pastrana - Last Filed: 08/10/24 19:36> - General Source: patient, family (significant other), RN notes reviewed Mode of arrival: ambulatory Limitations: no limitations <Lynette Tilley - Last Filed: 08/11/24 21:29> - General Stated complaint: Vomiting-11 weeks preg. Time Seen by Provider: 08/10/24 19:36 - History of Present Illness Initial comments: 29-year-old female currently 11 weeks presenting with chief complaint of nausea and vomiting. She has been taking Zofran and Reglan at home without r elief. Follows with [facility]LE OPERATOR at [facility]. No pelvic pain or vaginal bleeding (Cynthia Pastrana) 29 year old female presented to the ER with a chief complaint of nausea and vo miting. Patient is approximately 11 weeks gestation. Patient states she has been having morning sickness throughout this but states this "feels different". Significant other, at bedside, state roommate has recently been diagnosed with influenza. Patient has reported cough, congestion and runny nose. She has tried [id number] Unisom without relief. She is following up with an NOZZLE OPERATOR out of [facility]. She denies any abdominal pain, vaginal bleeding or discharge. Patient denies any fevers, chest pain, shortness of breath/wheezing or peripheral edema. (Lynette Tilley) - Related Data Home Medications Medication Instructions Recorded Confirmed ARIPiprazole [Abilify Maintena] 400 mg IM Q28D 11/25/23 11/25/23 DULoxetine HCL [Cymbalta] 60 mg PO BID 11/25/23 11/25/23 OXcarbazepine [Trileptal] 300 mg PO BID 11/25/23 11/25/23 QUEtiapine [SEROquel] 100 mg PO HS 11/25/23 11/25/23 Previous Rx's Medication Instructions Recorded Cephalexin [Keflex] 500 mg PO Q6HR #40 cap 07/02/24 Metoclopramide [Reglan] 10 mg PO TID PRN #15 tab 07/02/24 Ondansetron Odt [Zofran Odt] 4 mg PO Q8HR PRN #10 tab 08/10/24 Allergies Allergy/AdvReac Type Severity Reaction Status Date / Time adhesive tape Allergy Rash/Hives Verified 08/10/24 20:04 nicotine [From Nicoderm CQ] Allergy Rash/Hives Verified 08/10/24 20:04 shellfish derived [Shrimp] Allergy Anaphylaxis Verified 08/10/24 20:04 soap Allergy Rash/Hives Verified 08/10/24 20:04 nicotine patch Allergy Rash/Hives Uncoded 08/10/24 20:04 Review of Systems ROS Other: All systems not noted in ROS Statement are negative. <Cynthia Pastrana - Last Filed: 08/10/24 19:36> ROS Other: All systems not noted in ROS Statement are negative. <Lynette Tilley - Last Filed: 08/11/24 21:29> ROS Statement: Those systems with pertinent positive or pertinent negative responses have been documented in the HPI. Past Medical History Past Medical History: Asthma Additional Past Medical History / Comment(s): ectopic. History of Any Multi-Drug Resistant Organisms: None Reported Past Surgical History: Adenoidectomy, Section, Tonsillectomy Additional Past Surgical History / Comment(s): 2 c sections Past Anesthesia/Blood Transfusion Reactions: No Reported Reaction Past Psychological History: ADD/ADHD, Anxiety, Bipolar, Depression, PTSD Smoking Status: Current every day smoker Past Alcohol Use History: None Reported Past Drug Use History: Heroin, Marijuana, Methamphetamine - Past Family History Father Family Medical History: No Reported History Additional Family Medical History / Comment(s): Father is alive at age 40 with no major medical problems. Brother(s) Family Medical History: No Reported History Additional Family Medical History / Comment(s): Patient has 1 brother and 2 sisters with no major medical problems. Mother Family Medical History: No Reported History Additional Family Medical History / Comment(s): Mother is alive at age 40 with no major medical problems. <Cynthia Pastrana - Last Filed: 08/10/24 19:36> General Exam <Cynthia Pastrana - Last Filed: 08/10/24 19:36> General appearance: alert, in no apparent distress ENT exam: Present: normal exam, normal oropharynx, mucous membranes moist, TM's normal bilaterally Respiratory exam: Present: normal lung sounds bilaterally. Absent: respiratory distress, wheezes, rales, rhonchi, stridor Cardiovascular Exam: Present: regular rate, normal rhythm, normal heart sounds. Absent: systolic murmur, diastolic murmur, rubs, gallop, clicks GI/Abdominal exam: Present: soft, normal bowel sounds. Absent: distended, tenderness, guarding, rebound, rigid Neurological exam: Present: alert, oriented X3, CN II-XII intact Skin exam: Present: warm, dry, intact, normal color. Absent: rash <Lynette Tilley - Last Filed: 08/11/24 21:29> - General Exam Comments Initial Comments: Visual Physical Exam Vital signs reviewed General: Well-appearing, nontoxic, no acute distress. Head: Normocephalic, atraumatic Eyes: PERRLA, EOMI ENT: Airway patent Chest: Nonlabored breathing Skin: No visual rash, normal skin tone Neuro: Alert and oriented 3 Musculoskeletal: No gross abnormalities (Cynthia Pastrana) Course <Lynette Tilley - Last Filed: 08/11/24 21:29> Vital Signs 08/10/24 08/10/24 20:01 23:38 Temperature 97.4 F L Pulse Rate 81 82 Respiratory 20 16 Rate Blood Pressure 116/77 101/60 O2 Sat by Pulse 96 95 Oximetry - Reevaluation(s) Reevaluation #1: 08/10/24 23:29 heart tones 158 bpm (Lynette Tilley) Medical Decision Making <Cynthia Pastrana - Last Filed: 08/10/24 19:36> - Lab Data Result diagrams: 08/10/24 20:16 08/10/24 20:16 - Radiology Data Radiology results: report reviewed, image reviewed <Lynette Tilley - Last Filed: 08/11/24 21:29> - Medical Decision Making I performed the quick note portion of this visit, electronically signed Cynthia Pastrana PA-C (Cynthia Pastrana) Was pt. sent in by a medical professional or institution ([facility] Elizabeth, MANAGER EMERGENCY DEPARTMENT, urgent care, hospital, or long term...) When possible be specific @ -No Did you speak to anyone other than the patient for history (EMS, parent, family, police, friend...)? What history was obtained from this source @ -No Did you review nursing and triage notes (agree or disagree)? Why? @ -I reviewed and agree with nursing and triage notes Were old charts reviewed (outside hosp., previous admission, EMS record, old EKG, old radiological studies, urgent care reports/EKG's, long term records)? Report findings @ -No old charts were reviewed Differential Diagnosis (chest pain, altered mental status, abdominal pain women, abdominal pain men, vaginal bleeding, weakness, fever, dyspnea, syncope, headac he, dizziness, GI bleed, back pain, seizure, CVA, palpatations, mental health, musculoskeletal)? @ -Viral illness, pneumonia, morning sickness,... This is a doctor to be all- inclusive EKG interpreted by me (3pts min.). @ -None done X-rays interpreted by me (1pt min.). @ -None done CT interpreted by me (1pt min.). @ -None done U/S interpreted by me (1pt. min.). @ -None done What testing was considered but not performed or refused? (CT, X-rays, U/S, labs)? Why? @ -None What meds were considered but not given or refused? Why? @ -None Did you discuss the management of the patient with other professionals (professionals i.e. , PA, MANAGER EMERGENCY DEPARTMENT, lab, RT, psych nurse, forensic social worker, transportation project manager, teacher, digital marketing officer, case repairer)? Give summary @ -No Was smoking cessation discussed for >3mins.? @ -No Was critical care preformed (if so, how long)? @ -No Were there social determinants of health that impacted care today? How? (Homelessness, low income, unemployed, alcoholism, drug addiction, t ransportation, low edu. Level, literacy, decrease access to med. care, fdc, rehab)? @ -No Was there de-escalation of care discussed even if they declined (Discuss DNR or withdrawal of care, Hospice)? DNR status @ -No What co-morbidities impacted this encounter? (DM, HTN, Smoking, COPD, CAD, Cance r, CVA, ARF, Chemo, Hep., AIDS, mental health diagnosis, sleep apnea, morbid obesity)? @ - Was patient admitted / discharged? Hospital course, mention meds given and route, prescriptions, significant lab abnormalities, going to OR and other pertinent info. @ -Discharge. 29-year-old female presenting to the ER with a chief complaint of nausea and vomiting. Patient is approximately 11 weeks gestation. History and physical exam completed. Vitals within normal limits. Patient in no signs of acute distress nontoxic-appearing. Exam benign. Laboratory studies obtained and unremarkable. Viral swabs negative. Urinalysis with 4+ ketones for which patient received IV fluids. CXR negative. Symptomatic control with Zofran and Reglan. Patient denying any vaginal bleeding, discharge or abdominal pain. Nausea and vomiting believed to be due to . Cough and congestion viral in nature. heart tones 158 bpm. Advise close follow-up with NOZZLE OPERATOR, patient discharged with a Zofran starter pack. Strict return parameters discussed. Patient discharged in stable condition with follow-up to NOZZLE OPERATOR. Patient verbally expressed understanding and agreement with care plan. Case discussed with ED attending, Dr. Gonzales. Undiagnosed new problem with uncertain prognosis? @ -No Drug Therapy requiring intensive monitoring for toxicity (Heparin, Nitro, Insulin, Cardizem)? @ -No Were any procedures done? @ -No Diagnosis/symptom? @ -Viral illness/nausea vomiting Acute, or Chronic, or Acute on Chronic? @ -Acute Uncomplicated (without systemic symptoms) or Complicated (systemic symptoms)? @ -Uncomplicated Side effects of treatment? @ -No Exacerbation, Progression, or Severe Exacerbation? @ -No Poses a threat to life or bodily function? How? (Chest pain, [place], [place], pneumonia, PE, COPD, DKA, ARF, appy, cholecystitis, CVA, Diverticulitis, Homicidal, Suicidal, threat to staff... and all critical care pts) @ -No (Lynette Tilley) - Lab Data Lab Results 08/10/24 08/10/24 08/10/24 Range/Units 20:16 20:16 20:16 WBC 7.5 (3.8-10.6) k/uL RBC 4.47 (3.80-5.40) m/uL Hgb 14.3 (11.4-16.0) gm/dL Hct 41.5 (34.0-46.0) % MCV 92.8 (80.0-100.0) fL MCH 32.1 (25.0-35.0) pg MCHC 34.6 (31.0-37.0) g/dL RDW 13.6 (11.5-15.5) % Plt Count 215 (150-450) k/uL MPV 7.7 Neutrophils % 88 % Lymphocytes % 7 % Monocytes % 3 % Eosinophils % 1 % Basophils % 0 % Neutrophils # 6.6 (1.3-7.7) k/uL Lymphocytes # 0.5 L (1.0-4.8) k/uL Monocytes # 0.3 (0-1.0) k/uL Eosinophils # 0.1 (0-0.7) k/uL Basophils # 0.0 (0-0.2) k/uL Sodium 135 L (137-145) mmol/L Potassium 4.1 (3.5-5.1) mmol/L Chloride 103 (98-107) mmol/L Carbon Dioxide 18 L (22-30) mmol/L Anion Gap 14 mmol/L BUN 8 (7-17) mg/dL Creatinine 0.56 (0.52-1.04) mg/dL Est GFR (CKD-EPI)AfAm >90 (>60 ml/min/1.73 sqM) Est GFR (CKD-EPI)NonAf >90 (>60 ml/min/1.73 sqM) Glucose 92 (74-99) mg/dL Calcium 9.6 (8.4-10.2) mg/dL Total Bilirubin 0.9 (0.2-1.3) mg/dL AST 19 (14-36) U/L ALT 15 (4-34) U/L Alkaline Phosphatase 66 (38-126) U/L Total Protein 7.5 (6.3-8.2) g/dL Albumin 4.6 (3.5-5.0) g/dL Lipase 44 (23-300) U/L Urine Color Yellow Urine Appearance Cloudy H (Clear) Urine pH 6.0 (5.0-8.0) Ur Specific Wendell 1.027 (1.001-1.035) Urine Protein 1+ H (Negative) Urine Glucose (UA) Negative (Negative) Urine Ketones 4+ H (Negative) Urine Blood Negative (Negative) Urine Nitrite Negative (Negative) Urine Bilirubin Negative (Negative) Urine Urobilinogen <2.0 (<2.0) mg/dL Ur Leukocyte Esterase Negative (Negative) Urine RBC 2 (0-5) /hpf Urine WBC 1 (0-5) /hpf Ur Squamous Epith Cells 11 H (0-4) /hpf Urine Mucus Moderate H (None) /hpf Influenza Type A (PCR) (Not Detectd) Influenza Type B (PCR) (Not Detectd) RSV (PCR) (Not Detectd) SARS-CoV-2 (PCR) (Not Detectd) 08/10/24 Range/Units 21:18 WBC (3.8-10.6) k/uL RBC (3.80-5.40) m/uL Hgb (11.4-16.0) gm/dL Hct (34.0-46.0) % MCV (80.0-100.0) fL MCH (25.0-35.0) pg MCHC (31.0-37.0) g/dL RDW (11.5-15.5) % Plt Count (150-450) k/uL MPV Neutrophils % % Lymphocytes % % Monocytes % % Eosinophils % % Basophils % % Neutrophils # (1.3-7.7) k/uL Lymphocytes # (1.0-4.8) k/uL Monocytes # (0-1.0) k/uL Eosinophils # (0-0.7) k/uL Basophils # (0-0.2) k/uL Sodium (137-145) mmol/L Potassium (3.5-5.1) mmol/L Chloride (98-107) mmol/L Carbon Dioxide (22-30) mmol/L Anion Gap mmol/L BUN (7-17) mg/dL Creatinine (0.52-1.04) mg/dL Est GFR (CKD-EPI)AfAm (>60 ml/min/1.73 sqM) Est GFR (CKD-EPI)NonAf (>60 ml/min/1.73 sqM) Glucose (74-99) mg/dL Calcium (8.4-10.2) mg/dL Total Bilirubin (0.2-1.3) mg/dL AST (14-36) U/L ALT (4-34) U/L Alkaline Phosphatase (38-126) U/L Total Protein (6.3-8.2) g/dL Albumin (3.5-5.0) g/dL Lipase (23-300) U/L Urine Color Urine Appearance (Clear) Urine pH (5.0-8.0) Ur Specific Wendell (1.001-1.035) Urine Protein (Negative) Urine Glucose (UA) (Negative) Urine Ketones (Negative) Urine Blood (Negative) Urine Nitrite (Negative) Urine Bilirubin (Negative) Urine Urobilinogen (<2.0) mg/dL Ur Leukocyte Esterase (Negative) Urine RBC (0-5) /hpf Urine WBC (0-5) /hpf Ur Squamous Epith Cells (0-4) /hpf Urine Mucus (None) /hpf Influenza Type A (PCR) Not Detected (Not Detectd) Influenza Type B (PCR) Not Detected (Not Detectd) RSV (PCR) Not Detected (Not Detectd) SARS-CoV-2 (PCR) Not Detected (Not Detectd) Disposition <Cynthia Pastrana - Last Filed: 08/10/24 19:36> Is patient prescribed a controlled substance at d/c from ED?: No Time of Disposition: 23:30 <Lynette Tilley - Last Filed: 08/11/24 21:29> Clinical Impression: Viral illness, Nausea and vomiting during Disposition: HOME SELF-CARE Condition: Stable Instructions (If sedation given, give patient instructions): Nausea and Vomiting in (ED) Additional Instructions: You may take Zofran every 8 hours for nausea. Follow-up with NOZZLE OPERATOR. Return to the ER for new or worsening concerns. Prescriptions: Ondansetron Odt [Zofran Odt] 4 mg PO Q8HR PRN #10 tab PRN Reason: Nausea Referrals: Mayelin Macias MD [Primary Care Provider] - 1-2 days Aramis Harp MD [STAFF PHYSICIAN] - 1-2 days
[2024-08-10 20:04] VITALS: TEMP 97.4
[2024-08-10 20:40] LABS: Basophils % (A) 0 %; Eosinophils # (A) 0.1 k/uL (0-0.7); Eosinophils % (A) 1 %; HCT 41.5 % (34.0-46.0); HGB 14.3 gm/dL (11.4-16.0); Lymphocytes # (A) 0.5 k/uL (1.0-4.8); Lymphocytes % (A) 7 %; MCH 32.1 pg (25.0-35.0); MCHC 34.6 g/dL (31.0-37.0); MCV 92.8 fL (80.0-100.0); Mean Platelet Volume 7.7; Monocytes # (A) 0.3 k/uL (0-1.0); Monocytes % (A) 3 %; Neutrophils # (A) 6.6 k/uL (1.3-7.7); Neutrophils % (A) 88 %; Platelet Count 215 k/uL (150-450); RBC 4.47 m/uL (3.80-5.40); RDW 13.6 % (11.5-15.5); WBC 7.5 k/uL (3.8-10.6)
[2024-08-10 20:47] LABS: Appearance,Urine Cloudy (Clear); Bilirubin,Urine Negative (Negative); Blood,Urine Negative (Negative); Color,Urine Yellow; Glucose,Urine (UA) Negative (Negative); Ketones,Urine 4+ (Negative); Leukocyte Esterase,Urine Negative (Negative); Mucus,Urine Moderate /hpf; Nitrite,Urine Negative (Negative); Protein,Urine 1+ (Negative); RBC,Urine 2 /hpf (0-5); Specific Gravity,Urine 1.027 (1.001-1.035); Squamous Epithelial Cell,Urine 11 /hpf (0-4); Urobilinogen,Urine <2.0 mg/dL (<2.0); WBC,Urine 1 /hpf (0-5)
[2024-08-10 20:53] LABS: ALT 15 U/L (4-34); AST 19 U/L (14-36); African American GFR (CKD) >90 (>60 ml/min/1.73 sqM); Albumin 4.6 g/dL (3.5-5.0); Alkaline Phosphatase 66 U/L (38-126); Anion Gap 14 mmol/L; Blood Urea Nitrogen 8 mg/dL (7-17); Calcium 9.6 mg/dL (8.4-10.2); Carbon Dioxide 18 mmol/L (22-30); Chloride 103 mmol/L (98-107); Glucose 92 mg/dL (74-99); Lipase 44 U/L (23-300); Non-African American GFR(CKD) >90 (>60 ml/min/1.73 sqM); Potassium 4.1 mmol/L (3.5-5.1); Sodium 135 mmol/L (137-145); Total Bilirubin 0.9 mg/dL (0.2-1.3); Total Protein 7.5 g/dL (6.3-8.2)
[2024-08-10] MEDS: ONDANSETRON 4 MG/2 ML VIAL IVP STA (21:13)
[2024-08-10] MEDS: SODIUM CHLORIDE 0.9% 1,000 ML IV STA (21:13)
--- NOTE | 2024-08-10 21:26 | XR ---
EXAMINATION TYPE: XR chest 2V DATE OF EXAM: 08/10/2024 9:22 PM COMPARISON: Previous chest radiograph 07/20/2024. CLINICAL INDICATION: Female, 29 years old with history of cough/nausea/vomiting; [facility] TECHNIQUE: XR chest 2V Frontal and lateral views of the chest. FINDINGS: Cardiac silhouette within normal limits for size. No acute focal consolidation. No pleural effusion. No pneumothorax. No acute osseous abnormality. IMPRESSION: No acute cardiopulmonary disease/process. [facility], , 08/10/2024 9:24 PM
[2024-08-10] MEDS: ONDANSETRON 4 MG ODT STARTER PACK 2 TAB BTL PO STA (23:35)
[2024-08-10] MEDS: METOCLOPRAMIDE 5 MG/ML 2 ML VIAL IVP STA (23:35)
[2024-08-10 23:41] VITALS: BP 101/60; PULSE 82; RESP 16
== END 2024-08-10 23:38 | disposition home or self-care (01) ==
LOC: EC 19:14
DX: O98.511 Other viral diseases complicating pregnancy, first trimester (principal); R11.2 Nausea with vomiting, unspecified; F17.200 Nicotine dependence, unspecified, uncomplicated; Z91.09 Other allergy status, other than to drugs and biological substances; Z88.5 Allergy status to narcotic agent; Z91.013 Allergy to seafood; Z91.048 Other nonmedicinal substance allergy status; Z3A.11 11 weeks gestation of pregnancy
CPT/HCPCS: 36415; 80053; 83690; 85025; 81001; 87636; 71046; 99284; 96374; 96375; 96361; J2765; J2405; S0119

== ENCOUNTER 2024-08-22 09:32 | Emergency (ER) | payer OTHER ==
[2024-08-22 09:39] VITALS: BP 106/55; PULSE 77; RESP 20; TEMP 98.7
--- NOTE | 2024-08-22 10:11 | US ---
EXAMINATION TYPE: US OB limited DATE OF EXAM: 08/22/2024 COMPARISON: NONE CLINICAL INDICATION: Female, 29 years old with history of heart; Pt states she went to her Dr gaxiola nd they were unable to get heart tones on the hand held Doppler. wanted heart tones only TECHNIQUE:: Transabdominal (TA) FINDINGS: GESTATIONAL AGE / DATING Physician Established: (13 weeks/1 days) EDC: 02/27/24 No growth performed on today?s study per ordering physician SURVEY HEART RATE: 140 bpm RHYTHM: Normal IMPRESSION: 1. heart rate averaging 140 bpm. 2. Dating and anatomy not performed at this time. [facility], Workstation: [facility], 08/22/2024 10:08 AM
--- NOTE | 2024-08-22 10:12 | ED ---
Abdominal Pain HPI - General Chief Complaint: Abdominal Pain Stated Complaint: 13 weeks preg/issue Time Seen by Provider: 08/22/24 09:45 Source: patient, RN notes reviewed Mode of arrival: ambulatory Limitations: no limitations - History of Present Illness Initial Comments: 29-year-old female presents emergency department with chief complaint of concerns of no heart tones. 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 Patient is concerned as she has some mild abdominal cramping. Denies any vaginal bleeding. Patient is G6, . Patient denies any other complaints. - Related Data Home Medications Medication Instructions Recorded Confirmed ARIPiprazole [Abilify Maintena] 400 mg IM Q28D 11/25/23 11/25/23 DULoxetine HCL [Cymbalta] 60 mg PO BID 11/25/23 11/25/23 OXcarbazepine [Trileptal] 300 mg PO BID 11/25/23 11/25/23 QUEtiapine [SEROquel] 100 mg PO HS 11/25/23 11/25/23 Previous Rx's Medication Instructions Recorded Cephalexin [Keflex] 500 mg PO Q6HR #40 cap 07/02/24 Metoclopramide [Reglan] 10 mg PO TID PRN #15 tab 07/02/24 Ondansetron Odt [Zofran Odt] 4 mg PO Q8HR PRN #10 tab 08/10/24 Allergies Allergy/AdvReac Type Severity Reaction Status Date / Time adhesive tape Allergy Rash/Hives Verified 08/22/24 09:39 nicotine [From Nicoderm CQ] Allergy Rash/Hives Verified 08/22/24 09:39 shellfish derived [Shrimp] Allergy Anaphylaxis Verified 08/22/24 09:39 soap Allergy Rash/Hives Verified 08/22/24 09:39 nicotine patch Allergy Rash/Hives Uncoded 08/22/24 09:39 Review of Systems ROS Statement: Those systems with pertinent positive or pertinent negative responses have been documented in the HPI. ROS Other: All systems not noted in ROS Statement are negative. Past Medical History Past Medical History: Asthma Additional Past Medical History / Comment(s): ectopic. History of Any Multi-Drug Resistant Organisms: None Reported Past Surgical History: Adenoidectomy, Section, Tonsillectomy Additional Past Surgical History / Comment(s): 2 c sections Past Anesthesia/Blood Transfusion Reactions: No Reported Reaction Past Psychological History: ADD/ADHD, Anxiety, Bipolar, Depression, PTSD Smoking Status: Current every day smoker Past Alcohol Use History: None Reported Past Drug Use History: Heroin, Marijuana, Methamphetamine - Past Family History Father Family Medical History: No Reported History Additional Family Medical History / Comment(s): Father is alive at age 40 with no major medical problems. Brother(s) Family Medical History: No Reported History Additional Family Medical History / Comment(s): Patient has 1 brother and 2 sisters with no major medical problems. Mother Family Medical History: No Reported History Additional Family Medical History / Comment(s): Mother is alive at age 40 with no major medical problems. General Exam Limitations: no limitations General appearance: alert, in no apparent distress Head exam: Present: atraumatic, normocephalic, normal inspection Eye exam: Present: normal appearance, PERRL, EOMI. Absent: scleral icterus, conjunctival injection, periorbital swelling ENT exam: Present: normal exam, mucous membranes moist Neck exam: Present: normal inspection. Absent: tenderness, meningismus, lymphadenopathy Respiratory exam: Present: normal lung sounds bilaterally. Absent: respiratory distress, wheezes, rales, rhonchi, stridor Cardiovascular Exam: Present: regular rate, normal rhythm, normal heart sounds. Absent: systolic murmur, diastolic murmur, rubs, gallop, clicks GI/Abdominal exam: Present: soft, normal bowel sounds. Absent: distended, tenderness, guarding, rebound, rigid Neurological exam: Present: alert Skin exam: Present: warm, dry, intact, normal color. Absent: rash Course Vital Signs 08/22/24 09:37 Temperature 98.7 F Pulse Rate 77 Respiratory 20 Rate Blood Pressure 106/55 O2 Sat by Pulse 98 Oximetry Medical Decision Making - Medical Decision Making Was pt. sent in by a medical professional or institution (, PA, WHEELCHAIR RENTAL CLERK, urgent care, hospital, or skilled nursing...) When possible be specific @ -No Did you speak to anyone other than the patient for history (EMS, parent, family, police, friend...)? What history was obtained from this source @ -No Did you review nursing and triage notes (agree or disagree)? Why? @ -I reviewed and agree with nursing and triage notes Were old charts reviewed (outside hosp., previous admission, EMS record, old EKG, old radiological studies, urgent care reports/EKG's, skilled nursing records)? Report findings @ -No old charts were reviewed Differential Diagnosis (chest pain, altered mental status, abdominal pain women, abdominal pain men, vaginal bleeding, weakness, fever, dyspnea, syncope, headache, dizziness, GI bleed, back pain, seizure, CVA, palpatations, mental health, musculoskeletal)? @ -Differential Abdominal Pain Women: Appendicitis, Cholecystitis, diverticulosis, ischemic bowel, pancreatitis, hepatitis, UTI, gastroenteritis, AAA, incarcerated hernia, bowel obstruction, constipation, inflammatory bowel, hepatitis, peptic ulcer disease, splenic infarction, perforated viscus, vulvitis, ovarian torsion, PID, kidney stone, placenta abruption, this is not meant to be an all-inclusive list EKG interpreted by me (3pts min.). @ -[None X-rays interpreted by me (1pt min.). @ -None done CT interpreted by me (1pt min.). @ -None done U/S interpreted by me (1pt. min.). @ -Ultrasound heart tones Limited OB showing heart rate 142 What testing was considered but not performed or refused? (CT, X-rays, U/S, labs)? Why? @ -None What meds were considered but not given or refused? Why? @ -None Did you discuss the management of the patient with other professionals (professionals i.e. , PA, WHEELCHAIR RENTAL CLERK, lab, RT, psych nurse, social service technician, solidworks drafter, teacher, ship officer, caseworker)? Give summary @ -No Was smoking cessation discussed for >3mins.? @ -No Was critical care preformed (if so, how long)? @ -No Were there social determinants of health that impacted care today? How? (Homelessness, low income, unemployed, alcoholism, drug addiction, transportation, low edu. Level, literacy, decrease access to med. care, detention, rehab)? @ -No Was there de-escalation of care discussed even if they declined (Discuss DNR or withdrawal of care, Hospice)? DNR status @ -No What co-morbidities impacted this encounter? (DM, HTN, Smoking, COPD, CAD, Cancer, CVA, ARF, Chemo, Hep., AIDS, mental health diagnosis, sleep apnea, morbid obesity)? @ -None Was patient admitted / discharged? Hospital course, mention meds given and route, prescriptions, significant lab abnormalities, going to OR and other pertinent info. @ -Discharge patient had heart tones within normal limits. Intrauterine on ultrasound patient discharged in stable condition return parameters oje. Undiagnosed new problem with uncertain prognosis? @ -No Drug Therapy requiring intensive monitoring for toxicity (Heparin, Nitro, Insulin, Cardizem)? @ -No Were any procedures done? @ -No Diagnosis/symptom? @ - Acute, or Chronic, or Acute on Chronic? @ -Acute Uncomplicated (without systemic symptoms) or Complicated (systemic symptoms)? @ -On complicated Side effects of treatment? @ -No Exacerbation, Progression, or Severe Exacerbation? @ -No Poses a threat to life or bodily function? How? (Chest pain, [place], [place], pneumonia, PE, COPD, DKA, ARF, appy, cholecystitis, CVA, Diverticulitis, Homicidal, Suicidal, threat to staff... and all critical care pts) @ -No Disposition Clinical Impression: Disposition: HOME SELF-CARE Condition: Stable Additional Instructions: Please return to the Emergency Department if symptoms worsen or any other concerns. Is patient prescribed a controlled substance at d/c from ED?: No Referrals: Mayelin Macias MD [Primary Care Provider] - 1-2 days Time of Disposition: 10:12
== END 2024-08-22 10:22 | disposition home or self-care (01) ==
LOC: EC 09:32
DX: O26.891 Other specified pregnancy related conditions, first trimester (principal); R10.9 Unspecified abdominal pain; O99.331 Smoking (tobacco) complicating pregnancy, first trimester; F17.200 Nicotine dependence, unspecified, uncomplicated; Z88.8 Allergy status to other drugs, medicaments and biological substances; Z91.013 Allergy to seafood; Z3A.13 13 weeks gestation of pregnancy
CPT/HCPCS: 76815; 99284

== ENCOUNTER 2024-12-01 11:52 | Emergency (ER) | payer OTHER ==
--- NOTE | 2024-12-01 12:38 | ED ---
URI HPI - General Chief Complaint: Upper Respiratory Infection Stated Complaint: vomiting cough Time Seen by Provider: 12/01/24 12:35 Source: patient, RN notes reviewed Mode of arrival: ambulatory Limitations: no limitations - History of Present Illness Initial Comments: 29-year-old female presenting to the emergency department URI symptoms over the past 24 hours. Patient states that daughter was recently diagnosed with influenza A. She has been experiencing cough, congestion, rhinorrhea, nausea, vomiting, body aches. Patient is 27 weeks . She denies abdominal cramping, vaginal bleeding. - Related Data Home Medications Medication Instructions Recorded Confirmed ARIPiprazole [Abilify Maintena] 400 mg IM Q28D 11/25/23 11/25/23 DULoxetine HCL [Cymbalta] 60 mg PO BID 11/25/23 11/25/23 OXcarbazepine [Trileptal] 300 mg PO BID 11/25/23 11/25/23 QUEtiapine [SEROquel] 100 mg PO HS 11/25/23 11/25/23 Previous Rx's Medication Instructions Recorded Cephalexin [Keflex] 500 mg PO Q6HR #40 cap 07/02/24 Metoclopramide [Reglan] 10 mg PO TID PRN #15 tab 07/02/24 Ondansetron Odt [Zofran Odt] 4 mg PO Q8HR PRN #10 tab 08/10/24 Allergies Allergy/AdvReac Type Severity Reaction Status Date / Time adhesive tape Allergy Rash/Hives Verified 08/22/24 09:39 nicotine [From Nicoderm CQ] Allergy Rash/Hives Verified 08/22/24 09:39 shellfish derived [Shrimp] Allergy Anaphylaxis Verified 08/22/24 09:39 soap Allergy Rash/Hives Verified 08/22/24 09:39 nicotine patch Allergy Rash/Hives Uncoded 08/22/24 09:39 Review of Systems ROS Statement: Those systems with pertinent positive or pertinent negative responses have been documented in the HPI. ROS Other: All systems not noted in ROS Statement are negative. Past Medical History Past Medical History: Asthma Additional Past Medical History / Comment(s): ectopic. History of Any Multi-Drug Resistant Organisms: None Reported Past Surgical History: Adenoidectomy, Section, Tonsillectomy Additional Past Surgical History / Comment(s): 2 c sections Past Anesthesia/Blood Transfusion Reactions: No Reported Reaction Past Psychological History: ADD/ADHD, Anxiety, Bipolar, Depression, PTSD Smoking Status: Current every day smoker Past Alcohol Use History: None Reported Past Drug Use History: Heroin, Marijuana, Methamphetamine - Past Family History Father Family Medical History: No Reported History Additional Family Medical History / Comment(s): Father is alive at age 40 with no major medical problems. Brother(s) Family Medical History: No Reported History Additional Family Medical History / Comment(s): Patient has 1 brother and 2 sisters with no major medical problems. Mother Family Medical History: No Reported History Additional Family Medical History / Comment(s): Mother is alive at age 40 with no major medical problems. General Exam Limitations: no limitations General appearance: alert, in no apparent distress Eye exam: Present: normal appearance, PERRL, EOMI. Absent: scleral icterus, conjunctival injection, periorbital swelling Respiratory exam: Present: normal lung sounds bilaterally. Absent: respiratory distress, wheezes, rales, rhonchi, stridor Cardiovascular Exam: Present: regular rate, normal rhythm, normal heart sounds. Absent: systolic murmur, diastolic murmur, rubs, gallop, clicks GI/Abdominal exam: Present: soft, normal bowel sounds. Absent: distended, tenderness, guarding, rebound, rigid Extremities exam: Present: normal inspection, full ROM, normal capillary refill. Absent: tenderness, pedal edema, joint swelling, calf tenderness Course Vital Signs 12/01/24 12/01/24 12/01/24 12:18 13:11 14:18 Temperature 97.6 F 98 F Pulse Rate 83 81 Respiratory 20 18 18 Rate Blood Pressure 122/80 120/86 O2 Sat by Pulse 97 97 Oximetry Medical Decision Making - Medical Decision Making Was pt. sent in by a medical professional or institution (, PA, SEQUINS SPOOLER, urgent care, hospital, or longterm...) When possible be specific @ -No Did you speak to anyone other than the patient for history (EMS, parent, family, police, friend...)? What history was obtained from this source @ -No Did you review nursing and triage notes (agree or disagree)? Why? @ -I reviewed and agree with nursing and triage notes Were old charts reviewed (outside hosp., previous admission, EMS record, old EKG, old radiological studies, urgent care reports/EKG's, longterm records)? Report findings @ -No old charts were reviewed Differential Diagnosis (chest pain, altered mental status, abdominal pain women, abdominal pain men, vaginal bleeding, weakness, fever, dyspnea, syncope, headache, dizziness, GI bleed, back pain, seizure, CVA, palpatations, mental health, musculoskeletal)? @ -COVID 19, RSV, influenza, pneumonia, acute bronchitis, URI, this list is not all inclusive EKG interpreted by me (3pts min.). @ -None X-rays interpreted by me (1pt min.). @ -None done CT interpreted by me (1pt min.). @ -None done U/S interpreted by me (1pt. min.). @ -None done What testing was considered but not performed or refused? (CT, X-rays, U/S, labs)? Why? @ -None What meds were considered but not given or refused? Why? @ -None Did you discuss the management of the patient with other professionals (professionals i.e. , PA, SEQUINS SPOOLER, lab, RT, psych nurse, high school social studies teacher, fret saw operator, teacher, housing management officer, bottle caser)? Give summary @ -No Was smoking cessation discussed for >3mins.? @ -No Was critical care preformed (if so, how long)? @ -No Were there social determinants of health that impacted care today? How? (Homelessness, low income, unemployed, alcoholism, drug addiction, transportation, low edu. Level, literacy, decrease access to med. care, [facility]ci, rehab)? @ -No Was there de-escalation of care discussed even if they declined (Discuss DNR or withdrawal of care, Hospice)? DNR status @ -No What co-morbidities impacted this encounter? (DM, HTN, Smoking, COPD, CAD, Cancer, CVA, ARF, Chemo, Hep., AIDS, mental health diagnosis, sleep apnea, morbid obesity)? @ -None Was patient admitted / discharged? Hospital course, mention meds given and route, prescriptions, significant lab abnormalities, going to OR and other pertinent info. @ -Discharge. 29-year-old female presenting with URI symptoms. Vitals are stable. At this time chest x-ray is deferred as patient's cardiopulmonary examination is unremarkable. Viral swab has resulted positive for influenza A. Supportive treatment discussed at bedside. Case discussed with Dr. arango Undiagnosed new problem with uncertain prognosis? @ -No Drug Therapy requiring intensive monitoring for toxicity (Heparin, Nitro, Insulin, Cardizem)? @ -No Were any procedures done? @ -No Diagnosis/symptom? @ -influenza A Acute, or Chronic, or Acute on Chronic? @ -acute Uncomplicated (without systemic symptoms) or Complicated (systemic symptoms)? @ -uncomplicated Side effects of treatment? @ -No Exacerbation, Progression, or Severe Exacerbation? @ -No Poses a threat to life or bodily function? How? (Chest pain, [place], [place], pneumonia, PE, COPD, DKA, ARF, appy, cholecystitis, CVA, Diverticulitis, Homicidal, Suicidal, threat to staff... and all critical care pts) @ -No - Lab Data Lab Results 12/01/24 Range/Units 12:44 Influenza Type A (PCR) Detected A (Not Detectd) Influenza Type B (PCR) Not Detected (Not Detectd) RSV (PCR) Not Detected (Not Detectd) SARS-CoV-2 (PCR) Not Detected (Not Detectd) Disposition Clinical Impression: Influenza A Disposition: HOME SELF-CARE Condition: Good Instructions (If sedation given, give patient instructions): Influenza (ED) Additional Instructions: Please return to the Emergency Department if symptoms worsen or any other concerns. Is patient prescribed a controlled substance at d/c from ED?: No Referrals: Mayelin Macias MD [Primary Care Provider] - 1-2 days Time of Disposition: 13:38
[2024-12-01 13:13] VITALS: RESP 18
[2024-12-01 13:30] LABS: Influenza A Detected (Not Detectd); Influenza B Not Detected (Not Detectd); RSV Not Detected (Not Detectd)
[2024-12-01 14:19] VITALS: BP 120/86; PULSE 81; TEMP 98
== END 2024-12-01 14:18 | disposition home or self-care (01) ==
LOC: EC 11:52
DX: O21.2 Late vomiting of pregnancy (principal); O99.332 Smoking (tobacco) complicating pregnancy, second trimester; J10.1 Influenza due to other identified influenza virus with other respiratory manifestations; F17.200 Nicotine dependence, unspecified, uncomplicated; Z91.09 Other allergy status, other than to drugs and biological substances; Z91.013 Allergy to seafood; Z91.048 Other nonmedicinal substance allergy status; Z88.8 Allergy status to other drugs, medicaments and biological substances; Z3A.27 27 weeks gestation of pregnancy
CPT/HCPCS: 87636; 99284

== ENCOUNTER 2024-12-26 11:02 | Outpatient (CLI) | payer OTHER ==
[2024-12-26 14:18] VITALS: BP 108/63; PULSE 79; RESP 16; TEMP 97.3
== END 2024-12-26 12:20 | disposition home or self-care (01) ==
LOC: FBPOP 11:02
PROVIDERS: ATTEND Obstetrics & Gynecology
DX: Z53.9 Procedure and treatment not carried out, unspecified reason (principal)
CPT/HCPCS: 59025; G0463; 99213

== ENCOUNTER 2025-02-23 23:51 | Outpatient (CLI) | payer OTHER ==
[2025-02-24 01:12] VITALS: BP 115/65; PULSE 91; RESP 16; TEMP 97.5
--- NOTE | 2025-03-22 11:15 | P.MSEPDOC ---
Presenting Problems - Arrival Data Date of Arrival on Unit: 02/23/25 Time of Arrival on Unit: 23:51 Mode of Transport: Wheelchair - Complaint OB-Reason for Admission/Chief Complaint: Rule Out SROM Comment: Possible SROM at 2200 Medical History - Information : 6 Para: 3 Term: 3 : 0 Abortions: Spontaneous or Elective: 2 Number of Living Children: 3 - Gestational Age Gestational Age by ALEJANDRO (wks/days): 39 Weeks and 5 Days Review of Systems - Review of Systems Constitutional: No problems Breast: No problems ENT: No problems Cardiovascular: No problems Respiratory: No problems Gastrointestinal: No problems Genitourinary: No problems Musculoskeletal: No problems Neurological: No problems Skin: No problems Vital Signs - Temperature Temperature: 97.5 F Temperature Source: Temporal Artery Scan - Pulse Pulse Oximetery Pulse Rate: 91 Pulse Assessment Method: Pulse Oximetry - Respirations Respiratory Rate: 16 Oxygen Delivery Method: Room Air O2 Sat by Pulse Oximetry: 97 - Blood Pressure Right Arm Blood Pressure: 115/65 Blood Pressure Mean: 81 Blood Pressure Source: Automatic Cuff Medical Screen Scoring - Cervical Exam Dilation (cm): 1 Station: -2 Membranes: Intact - Uterine Contractions Intensity: Mild Resting: Soft to palpation - Assessment - Baby A Baseline FHR: 135 Heart Rate - NICHD Category: Category I (Normal) NST: Reactive Physician Notification - Physician Notified Physician Notified Date: 02/24/25 Physician Notified Time: 00:30 Physician: Aramis Harp Order Received: Yes - Notification Comment Comment: Dr. Harp called at home, reported on pt status, GA, G/P, VSS, CAT 1 FHT, Reactive NST, contraction pattern, cervical exam, amnisure negative. Pt requesting to be discharged. Orders to discarge home. Maternal Triage Index - Maternal Triage Index Presenting for scheduled procedure w/no complaint: No - Stat/Priority 1 Stat Priority 1: No - Urgent/Priority 2 Urgent Priority 2: No - Prompt/Priority 3 Prompt Priority 3: No - Non-Urgent/Priority 4 Non-Urgent Priority 4: Yes Criteria Met for Priority 4: 39 5/7wks, c/o SROM Disposition - Disposition OB Disposition: Discharge to home Discharge Date: 02/24/25 Discharge Time: 00:40 I agree with the RN Medical Screening Exam: Yes Physician's MSE Comment: I have neither seen nor examined the patient. Case reviewed; plan agreed upon as documented in EMR&OBIX.: Yes Diagnosis: RELATED CONDITIONS, UNSPECIFIED, THIRD TRIMESTER
== END 2025-02-24 00:40 | disposition home or self-care (01) ==
LOC: FBPOP 23:51
PROVIDERS: ATTEND Obstetrics & Gynecology
DX: O26.893 Other specified pregnancy related conditions, third trimester (principal); O99.323 Drug use complicating pregnancy, third trimester; O99.333 Smoking (tobacco) complicating pregnancy, third trimester; F17.200 Nicotine dependence, unspecified, uncomplicated; F12.90 Cannabis use, unspecified, uncomplicated; Z3A.39 39 weeks gestation of pregnancy; Z91.048 Other nonmedicinal substance allergy status; Z88.5 Allergy status to narcotic agent; Z91.013 Allergy to seafood
CPT/HCPCS: 59025; 84112; G0463; 99213